=== PATIENT | male | born 1930 | race Caucasian/White ===

== ENCOUNTER → 2017-01-14 | Outpatient (CLI) | payer MEDICARE, OTHER ==
--- NOTE | 2017-01-14 12:11 | MR ---
MR brain with and without contrast HISTORY: Previous abnormal exam, cerebrovascular accident Multiplanar multisequence and postcontrast images through the brain following 14 cc MultiHance IV There is no restricted diffusion. Cortical atrophy is noted. There is a hyperintensity in inversion r ecovery and T2-weighted sequences again noted, medial aspect of the occipital lobes show some probabl e gliotic change, there are scattered and confluent areas of hyperintensity on inversion recovery and T2-weighted sequences. There are approximately 5-10 lesions as compared to previous exam. The corpus callosum, pituitary, cervical medullary junction, cerebellopontine angles are stable. There are norm al vascular flow voids. Inflammatory change present in the sphenoid sinus, bilateral maxillary sinus, ethmoid air cells. Some minimal inflammatory change of the mastoids on the right again noted. No mas s effect. No hydrocephalus or hemorrhage. No abnormal enhancement following contrast administration. Orbits show symmetric. IMPRESSION: Chronic small vessel ischemia, age related atrophy. Some minimal interval change as descr ibed. Sinus disease.
== END | disposition home or self-care (01) ==
LOC: RADMRIMAIN 10:20
PROVIDERS: ATTEND Psychiatry & Neurology Neurology
DX: I67.82 Cerebral ischemia (principal); G31.1 Senile degeneration of brain, not elsewhere classified; J34.9 Unspecified disorder of nose and nasal sinuses
CPT/HCPCS: 70553; A9577

== ENCOUNTER 2017-03-03 11:45 | Emergency (ER) | payer MEDICARE, OTHER ==
[2017-03-03 12:02] VITALS: TEMP 97.3
[2017-03-03] MEDS ORDERED: SODIUM CHLORIDE 0.9% 500 ML IV ONE (12:30)
[2017-03-03] MEDS ORDERED: SODIUM CHLORIDE 0.9% 1,000 ML IV ONE (12:30)
[2017-03-03] MEDS ORDERED: LIDOCAINE/EPINEPHR/TETRACAINE 5 ML BOTTLE TOPICAL ONE ×2 (12:32→13:50)
[2017-03-03] MEDS ORDERED: DIPH,PERTUS(ACELL)TETVAC-LF 0.5 ML VIAL IM ONE (12:33)
[2017-03-03] MEDS ORDERED: LIDOCAINE 1%-EPI 1:100,000 20 ML VIAL SQ STA (12:33)
[2017-03-03] MEDS ORDERED: BUPIVACAINE (PF) 0.5% 30 ML VIAL SQ STA (12:34)
[2017-03-03] MEDS ORDERED: HYDROmorphone 1 MG/ML 1 ML SYRINGE IVP STA ×2 (12:34→15:23)
[2017-03-03 13:20] LABS: Anisocytosis Slight; Basophils # (A) 0.1 k/uL (0-0.2); Basophils % (A) 1 %; CH 30.7; CHCM 33.4; Eosinophils # (A) 0.3 k/uL (0-0.7); Eosinophils % (A) 4 %; HCT 36.5 % (39.0-53.0); HDW 2.75; HGB 11.9 gm/dL (13.0-17.5); Luc # (Auto) 0.28; Luc % (Auto) 4; Lymphocytes # (A) 0.7 k/uL (1.0-4.8); Lymphocytes % (A) 10 %; MCH 30.2 pg (25.0-35.0); MCHC 32.7 g/dL (31.0-37.0); MCV 92.3 fL (80.0-100.0); Mean Platelet Volume 7.8; Monocytes # (A) 0.5 k/uL (0-1.0); Monocytes % (A) 7 %; Neutrophils # (A) 5.1 k/uL (1.3-7.7); Neutrophils % (A) 73 %; RBC 3.95 m/uL (4.30-5.90); RDW 16.6 % (11.5-15.5); WBC (Perox) 7.17
[2017-03-03 13:26] LABS: INR 1.1 (<1.2); Partial Thromboplastin Time 23.6 sec (22.0-30.0); Prothrombin Time 10.7 sec (9.0-12.0)
[2017-03-03 13:27] LABS: ALT 39 U/L (21-72); AST 36 U/L (17-59); Alkaline Phosphatase 113 U/L (38-126); Anion Gap 8 mmol/L; Blood Urea Nitrogen 23 mg/dL (9-20); Carbon Dioxide 23 mmol/L (22-30); Chloride 110 mmol/L (98-107); Glucose 85 mg/dL (74-99); Non-African American GFR(MDRD) >60 (>60 ml/min/1.73 sqM); Potassium 4.4 mmol/L (3.5-5.1); Sodium 141 mmol/L (137-145); Total Protein 6.8 g/dL (6.3-8.2)
--- NOTE | 2017-03-03 13:40 | CT ---
EXAMINATION TYPE: CT brain wo con DATE OF EXAM: 03/03/2017 COMPARISON: NONE INDICATION: Fall DLP: 1020.20 mGycm, Automated exposure control for dose reduction was used. CONTRAST: None CT of the brain is performed utilizing 3 mm thick sections through the posterior fossa and 3 mm thick sections through the remaining calvarium. Study is performed within 24 hours of arrival to the hosp [facility]. No abnormal hyperdensity is present to suggest an acute intracranial hemorrhage. No mass lesion is evident. No acute infarcts are evident. Periventricular white matter hypodensity is present, likely on the bas is of chronic white matter ischemic changes. Ventricles and sulci are prominent for the patient age. Extra-axial spaces are prominent. Paranasal sinuses and mastoid air cells within the [id number] are clear. Soft tissue swelling is over the left periorbital region and left frontal region. IMPRESSIONS: 1. Atrophy with chronic appearing periventricular white matter ischemic type changes. 2. Soft tissue swelling left periorbital and left frontal region
--- NOTE | 2017-03-03 13:44 | XR ---
EXAMINATION TYPE: XR chest 2V DATE OF EXAM: 03/03/2017 COMPARISON: 816 TECHNIQUE: PA and lateral views submitted. HISTORY: Pain FINDINGS: The lungs are clear and there is no pneumothorax, pleural effusion, or focal pneumonia. Arthropathy of the AC joints. Biapical pleural thickening. Hyperinflation noted. Coarsened interstitium be seen with chronic interstitial lung disease. Atherosclerotic change aorta. Surgical change overlying the l eft upper quadrant of the abdomen hypertrophic and degenerative change of the spine IMPRESSION: 1. No acute process.
--- NOTE | 2017-03-03 13:45 | CT ---
EXAMINATION TYPE: CT facial bones wo con DATE OF EXAM: 03/03/2017 COMPARISON: NONE HISTORY: Fall CT DLP: 416.30 mGycm Automated exposure control for dose reduction was used. TECHNIQUE: CT scan of the sinuses is performed without contrast, axial images are obtained, coronal r eformatted images are also reviewed. FINDINGS: There is mucosal thickening through the maxillary sinuses. An air-fluid level is within the left maxillary sinus. Correlate for acute left maxillary sinusitis. An acute fracture is not identif ied on the left. Soft tissue swelling is over the left periorbital region and left frontal region. Within the left fro ntal soft tissues region there is a radiopaque foreign body present. Some superficial skin increased density is also present suspicious for foreign body. Bandaging appears to be over the swelling. Greater wings of the sphenoid are intact. Zygomatic arches are intact. Anterior and posterior lateral harrell of the maxillary sinuses are intact. Maxillary spine appears normal. Nasal bones appear intact . [employer] Player spaces within the [id number] are normal. There is left septal deviation. The right os tiomeatal unit is patent. Left ostiomeatal unit may be obstructed. IMPRESSION: 1. No acute osseous abnormality. 2. Soft tissue swelling left frontal region. Soft tissue swelling is also over the left periorbital a miguel angel. 3. Radiopaque foreign body within the soft tissue injury left frontal region. 4. Clinical correlation recommended for acute left maxillary sinusitis.
[2017-03-03] MEDS ORDERED: TOPICAL SKIN ADHESIVE 1 EACH AMP TOPICAL ONE (14:15)
[2017-03-03 15:13] VITALS: RESP 18
--- NOTE | 2017-03-03 15:42 | ED ---
Fall HPI - General Chief Complaint: Fall Stated Complaint: Fall Time Seen by Provider: 03/03/17 12:05 Source: patient, family Mode of arrival: wheelchair - History of Present Illness Initial Comments: This 86-year-old white male presents with a complaint of a fall. He states that he normally will go on a mile walk every day. Today, he was almost home and fell in the gravel. He states that he was very hot and it was very humid and he just fell to the ground. He denies any syncope or presyncope. He denies any dizziness. He did hit his head and left face. He complains of multiple abrasions and skin tears to his hands and arms. He complains of moderate pain. He does complain of some slight left chest wall pain upon palpation with bruising. No nausea or vomiting. No other complaints or modifying factors. - Related Data Home Medications Medication Instructions Recorded Confirmed Aspirin EC [Ecotrin] 81 mg PO HS 03/22/16 03/03/17 Citalopram Hydrobromide [CeleXA] 10 mg PO HS 03/03/17 03/03/17 Donepezil [Aricept] 10 mg PO HS 03/03/17 03/03/17 Magnesium 200 mg PO HS 03/03/17 03/03/17 Melatonin 10 mg PO HS 03/03/17 03/03/17 Previous Rx's Medication Instructions Recorded Cephalexin [Keflex] 500 mg PO Q6HR #28 cap 03/03/17 Hydrocodone/Acetaminophen [[place] 1 - 2 each PO Q4HR PRN #20 tab 03/03/17 5-325] Allergies Allergy/AdvReac Type Severity Reaction Status Date / Time naproxen sodium [From Aleve] Allergy Rash/Hives Verified 03/03/17 12:38 Review of Systems ROS Statement: Those systems with pertinent positive or pertinent negative responses have been documented in the HPI. ROS Other: All systems not noted in ROS Statement are negative. Past Medical History Past Medical History: Cancer, GERD/Reflux, Hyperlipidemia, Prostate Disorder Additional Past Medical History / Comment(s): kidney stones, urosepsis, turp - self-catheters 1-2 TIMES A DAY. "STOMACH AND SMALL INTESTINE CANCER", "SOME BLOOD DISORDER-CAN'T REMEMEBR WHAT IT WAS CALLED-THEY ENDED UP REMOVING MY SPLEEN". BEGINNINGS OF CATARACTS, HIATAL HERNIA, SHINGLES 2000 History of Any Multi-Drug Resistant Organisms: None Reported Past Surgical History: Bowel Resection, Cholecystectomy, Coronary Bypass/CABG, Hernia Repair, Prostate Surgery Additional Past Surgical History / Comment(s): spleenectomy, TURP, GADIEL INGUINAL HERNIAS,"WHIPPLE PROCEDURE", RT ROTATOR CUFF REPAIR, LITHOTRISY Past Psychological History: No Psychological Hx Reported Smoking Status: Never smoker Past Alcohol Use History: None Reported Past Drug Use History: None Reported - Past Family History Father Family Medical History: Cancer Additional Family Medical History / Comment(s): CANCER OF THE ESOPHAGUS Mother Additional Family Medical History / Comment(s): OF OLD AGE General Exam - General Exam Comments Initial Comments: GENERAL: The patient is well nourished and well hydrated. VITAL SIGNS: Heart rate, blood pressure, respiratory rate reviewed as recorded in nurse's notes. EYES: Pupils are round and reactive. Extraocular movements are intact. No conjunctival / lid redness or swelling. ENT: There is significant swelling in the left periorbital region and the left maxillary. There are multiple lacerations noted to the left face including the left upper lip, the left nose, the left eyebrow and the left cheek. Airway is patent. Throat is clear. NECK: Nontender. No swelling or evidence of injury. No subcutaneous emphysema. Trachea is midline. No thyroid mass. HEART: Regular rate and rhythm. Good peripheral pulses. LUNGS/CHEST: Breath sounds clear and equal bilaterally. No rales, rhonchi, or wheezes. There is a moderate bruise and tenderness noted to the mid left chest. ABDOMEN: Abdomen soft without tenderness. No palpable masses or organomegaly. No peritoneal signs. No abdominal wall swelling or ecchymosis. EXTREMITIES: No extremity tenderness. Normal muscle tone and function. No thoracolumbar tenderness. There are multiple skin tears and abrasions noted bilateral hands and bilateral distal forearm. NEUROLOGIC: Sensation is grossly intact. Cranial nerve exam reveals face is symmetrical, tongue is midline, speech is clear. SKIN: There are multiple skin tears noted to bilateral forearms the bilateral hands. There are also multiple lacerations as noted above to the left face. PSYCHIATRIC: Alert and oriented. Appropriate behavior and judgment. Limitations: no limitations Course Vital Signs 03/03/17 03/03/17 11:56 15:12 Temperature 97.3 F L Pulse Rate 58 L 57 L Respiratory 16 18 Rate Blood Pressure 136/65 187/55 O2 Sat by Pulse 98 98 Oximetry Medical Decision Making - Medical Decision Making The patient was seen and examined. All diagnostics were reviewed. The CT scan of the brain and facial bones did not show any acute fracture. There is some swelling to the left periorbital and facial region. A foreign body is noted in the left eyebrow as well. The laboratories reviewed and is essentially unremarkable. A chest x-ray was done and does not show any fracture or acute processes. The patient receives a tetanus prophylaxis. He receives Dilaudid intravenously for pain with relief. The patient has multiple skin tears noted to the bilateral hands and forearms measuring a total of 16 cm. There are multiple areas of nonviable tissue. This tissue is excised. There are for skin tears that to have viable tissue noted on the right wrist and Dermabond is applied to these wounds. The face has lacerations and abrasions. The patient is a 1 cm laceration to the left nose which is closed with 2 sutures. He has a 1 cm laceration to the left upper lip. This is closed with 3 simple. 6-0 nylon sutures. He has a left eyebrow laceration which is moderately deep and this is closed with a total of 8 simple interrupted 6-0 nylon sutures. He is two additional 1 cm lacerations to the forehead which are each closed with 2 6- 0 nylon simple interrupted sutures. He has 2 1 cm lacerations just lateral to the left eye which are closed with 2 simple interrupted 6-0 nylon simple interrupted sutures for each. He has a 4 cm laceration inferior to his left eye which is closed with a total of 9 simple interrupted 6-0 nylon sutures. He also has a 1 cm left maxillary laceration closed with 2 simple have opted 6-0 nylon sutures. Multiple small pebble-like foreign bodies were removed from his wounds. The largest is from his left eyebrow wound. There are also present in his left hand and wrist region. Total time for closure of all wounds was 70 minutes. No complications were encountered. He tolerated this well with little blood loss. He has some mild bruising to his left intraoral region with some slight tenderness to his dentition but there is no dental avulsion or intraoral lacerations identified. He is feeling better on recheck. It is felt as though he is stable for discharge. Ambulation trial was completed and he is able to ambulate without any significant difficulty. He is counseled regarding falls and fall precautions. He leaves in no severe distress. He has strong family support. His daughter is a nurse and she will be help taking care of him in the next several days. - Lab Data Result diagrams: 03/03/17 13:00 03/03/17 13:00 Lab Results 03/03/17 03/03/17 03/03/17 Range/Units 13:00 13:00 13:00 WBC 7.0 (3.8-10.6) k/uL RBC 3.95 L (4.30-5.90) m/uL Hgb 11.9 L (13.0-17.5) gm/dL Hct 36.5 L (39.0-53.0) % MCV 92.3 (80.0-100.0) fL MCH 30.2 (25.0-35.0) pg MCHC 32.7 (31.0-37.0) g/dL RDW 16.6 H (11.5-15.5) % Plt Count 314 (150-450) k/uL Neutrophils % 73 % Lymphocytes % 10 % Monocytes % 7 % Eosinophils % 4 % Basophils % 1 % Neutrophils # 5.1 (1.3-7.7) k/uL Lymphocytes # 0.7 L (1.0-4.8) k/uL Monocytes # 0.5 (0-1.0) k/uL Eosinophils # 0.3 (0-0.7) k/uL Basophils # 0.1 (0-0.2) k/uL Anisocytosis Slight PT 10.7 (9.0-12.0) sec INR 1.1 (<1.2) APTT 23.6 (22.0-30.0) sec Sodium 141 (137-145) mmol/L Potassium 4.4 (3.5-5.1) mmol/L Chloride 110 H (98-107) mmol/L Carbon Dioxide 23 (22-30) mmol/L Anion Gap 8 mmol/L BUN 23 H (9-20) mg/dL Creatinine 1.00 (0.66-1.25) mg/dL Est GFR (MDRD) Af Amer >60 (>60 ml/min/1.73 sqM) Est GFR (MDRD) Non-Af >60 (>60 ml/min/1.73 sqM) Glucose 85 (74-99) mg/dL Calcium 9.0 (8.4-10.2) mg/dL Total Bilirubin 1.0 (0.2-1.3) mg/dL AST 36 (17-59) U/L ALT 39 (21-72) U/L Alkaline Phosphatase 113 (38-126) U/L Total Protein 6.8 (6.3-8.2) g/dL Albumin 3.6 (3.5-5.0) g/dL Disposition Clinical Impression: Head injury, Facial contusion, Abrasion, Laceration, Skin tear, Fall Disposition: HOME SELF-CARE Condition: Good Instructions: Fall Prevention for Older Adults (ED), Abrasion (ED), Laceration (ED), Fall Prevention (ED), Head Injury (ED), Facial Contusion (ED), Chest Wall Pain (ED) Additional Instructions: You should have ear sutures removed in approximately 8 days. Prescriptions: Cephalexin [Keflex] 500 mg PO Q6HR #28 cap Hydrocodone/Acetaminophen [[place] 5-325] 1 - 2 each PO Q4HR PRN #20 tab PRN Reason: Pain Referrals: Mame Thorne MD [Primary Care Provider] - 1-2 days Time of Disposition: 15:54
[2017-03-03 16:17] VITALS: BP 159/67; PULSE 50
--- NOTE | 2017-03-09 04:33 | CDI ---
Documentation Clarification OP Dear Xander CUNNINGHAM, DO, Please add addendum for laceration length of bilateral hands and forearm separetely.Total length 16 cm mentioned but procedure have two different cpt's to code the intermediate type of procedure. Thank you, lainey. Physician Pediatrician. If you have any questions please contact Coding Usha [phone]. [facility]
== END 2017-03-03 16:16 | disposition home or self-care (01) ==
LOC: EC 11:45
DX: S01.521A Laceration with foreign body of lip, initial encounter (principal); S01.22XA Laceration with foreign body of nose, initial encounter; S01.122A Laceration with foreign body of left eyelid and periocular area, initial encounter; S01.422A Laceration with foreign body of left cheek and temporomandibular area, initial encounter; S51.822A Laceration with foreign body of left forearm, initial encounter; S51.821A Laceration with foreign body of right forearm, initial encounter; S61.422A Laceration with foreign body of left hand, initial encounter; S61.421A Laceration with foreign body of right hand, initial encounter; Z23 Encounter for immunization; Z88.6 Allergy status to analgesic agent; Z79.82 Long term (current) use of aspirin; Z85.068 Personal history of other malignant neoplasm of small intestine; Z79.899 Other long term (current) drug therapy; W10.1XXA Fall (on)(from) sidewalk curb, initial encounter; Y92.488 Other paved roadways as the place of occurrence of the external cause
CPT/HCPCS: 99284 ×2; 12034 ×2; 12042 ×2; 12054 ×2; 90471 ×2; 96374 ×2; 96376 ×2; 96361 ×4; 36415; 80053; 85025; 85610; 85730; 71020; 70486; 70450; 90715; J1170

== ENCOUNTER 2018-02-04 12:56 | Observation (INO) | payer MEDICARE, OTHER ==
[2018-02-04 14:28] LABS: Basophils # (A) 0.1 k/uL (0-0.2); Basophils % (A) 1 %; Eosinophils # (A) 0.3 k/uL (0-0.7); Eosinophils % (A) 3 %; HCT 42.4 % (39.0-53.0); HGB 14.2 gm/dL (13.0-17.5); Lymphocytes % (A) 12 %; MCH 32.6 pg (25.0-35.0); MCHC 33.6 g/dL (31.0-37.0); MCV 96.9 fL (80.0-100.0); Mean Platelet Volume 7.9; Monocytes # (A) 0.6 k/uL (0-1.0); Monocytes % (A) 8 %; Neutrophils # (A) 5.7 k/uL (1.3-7.7); Neutrophils % (A) 72 %; Platelet Count 227 k/uL (150-450); RBC 4.37 m/uL (4.30-5.90); RDW 14.9 % (11.5-15.5); WBC 7.9 k/uL (3.8-10.6)
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
[2018-02-04 14:47] LABS: ALT 34 U/L (21-72); AST 39 U/L (17-59); Albumin 3.8 g/dL (3.5-5.0); Alkaline Phosphatase 121 U/L (38-126); Anion Gap 9 mmol/L; Blood Urea Nitrogen 29 mg/dL (9-20); Calcium 9.1 mg/dL (8.4-10.2); Carbon Dioxide 23 mmol/L (22-30); Chloride 109 mmol/L (98-107); Glucose 107 mg/dL (74-99); Potassium 4.4 mmol/L (3.5-5.1); Sodium 141 mmol/L (137-145); Total Bilirubin 1.2 mg/dL (0.2-1.3); Total Protein 7.3 g/dL (6.3-8.2)
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
[2018-02-04] MEDS ORDERED: hydrALAZINE HCL 20 MG/ML 1 ML VIAL IVP STA (17:19)
[2018-02-04] MEDS ORDERED: NALOXONE 0.4 MG/ML 1 ML VIAL IV PRN (17:24)
[2018-02-04] MEDS ORDERED: ONDANSETRON 4 MG/2 ML VIAL IVP PRN (17:24)
[2018-02-04] MEDS ORDERED: ALPRAZolam 0.25 MG TAB PO PRN (18:03)
[2018-02-04] MEDS ORDERED: HYDROcodone/APAP 5-325MG 1 EACH TAB PO PRN (18:03)
[2018-02-04] MEDS: HEPARIN SODIUM,PORCINE 5,000 UNIT/ML 1 ML VIAL SQ SCH (20:22)
[2018-02-04] MEDS ORDERED: DONEPEZIL 10 MG TAB PO SCH (21:00)
[2018-02-04] MEDS ORDERED: MELATONIN 5 MG TABLET PO SCH (21:00)
[2018-02-04] MEDS ORDERED: CITALOPRAM HYDROBROMIDE 10 MG TAB PO SCH (21:00)
[2018-02-04] MEDS ORDERED: ASPIRIN 81 MG PO SCH (21:00)
[2018-02-04] MEDS ORDERED: diphenhydrAMINE 25 MG CAP PO PRN (21:00)
[2018-02-04] MEDS ORDERED: MECLIZINE 12.5 MG TAB PO PRN (22:16)
[2018-02-05] MEDS: ACETAMINOPHEN TAB 500 MG TAB PO PRN ×2 (04:19→10:33)
[2018-02-05 07:08] LABS: Anion Gap 8 mmol/L; Blood Urea Nitrogen 25 mg/dL (9-20); Calcium 8.8 mg/dL (8.4-10.2); Carbon Dioxide 25 mmol/L (22-30); Chloride 108 mmol/L (98-107); Glucose 88 mg/dL (74-99); Potassium 4.5 mmol/L (3.5-5.1); Sodium 141 mmol/L (137-145)
[2018-02-05 07:23] LABS: Basophils # (A) 0.1 k/uL (0-0.2); Basophils % (A) 1 %; Eosinophils # (A) 0.4 k/uL (0-0.7); Eosinophils % (A) 6 %; HCT 38.3 % (39.0-53.0); HGB 13.2 gm/dL (13.0-17.5); Lymphocytes # (A) 0.9 k/uL (1.0-4.8); Lymphocytes % (A) 13 %; MCH 33.4 pg (25.0-35.0); MCHC 34.4 g/dL (31.0-37.0); MCV 97.1 fL (80.0-100.0); Mean Platelet Volume 8.2; Monocytes # (A) 0.5 k/uL (0-1.0); Monocytes % (A) 8 %; Neutrophils # (A) 4.7 k/uL (1.3-7.7); Neutrophils % (A) 68 %; Platelet Count 234 k/uL (150-450); RBC 3.95 m/uL (4.30-5.90); RDW 15.1 % (11.5-15.5); WBC 6.9 k/uL (3.8-10.6)
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
[2018-02-05] MEDS: HEPARIN SODIUM,PORCINE 5,000 UNIT/ML 1 ML VIAL SQ SCH (08:38)
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
[2018-02-05 12:05] VITALS: BP 154/85; PULSE 50; RESP 16; TEMP 97.6
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
--- NOTE | 2018-02-06 00:40 | DS ---
DISCHARGE SUMMARY DATE OF SERVICE: 02/05/2018 FINAL DIAGNOSIS: 1. Fall and weakness and possible cerebral concussion. 2. Scalp laceration. 3. Gastroesophageal reflux disease. 4. Hyperlipidemia. 5. Prostate disorder. 7. History of coronary artery disease, coronary artery bypass grafting. 8. History of splenectomy. 9. History of transurethral resection of the prostate. DISCHARGE DISPOSITION: The patient will be discharged in stable condition with guarded prognosis. HISTORY OF PRESENT ILLNESS: This 87-year-old gentleman with past medical history of multiple medical problems, admitted with fall and weakness and dizziness. The patient was thought to have some concussion. The patient is nonfocal. CT scan was unremarkable. Dr. Roe saw the patient and cleared the patient for discharge. PHYSICAL EXAMINATION: On exam, vitals are stable. Cardiovascular: S1, S2. Abdomen soft. Nervous system: No focal deficits. DISCHARGE ADVICE AND MEDICATIONS: 1. Discharge diet is cardiac diet. 2. Activity limited until followup. 3. Follow up with Dr. Thorne in 2-3 days. 4. Follow up with Dr. Kylah Roe as advised. MEDICATIONS ARE: 1. Tylenol 500 mg q.6h p.r.n. 2. Ecotrin 81 mg q.h.s. 3. Celexa 10 mg q.h.s. 4. Benadryl 50 mg p.r.n. 5. Aricept 10 mg q.h.s. 6. Antivert 12.5 mg t.i.d. p.r.n. 7. Melatonin 10 mg q.h.s. 8. Multivitamin one p.o. daily. Once again, the patient is being discharged in stable condition with guarded prognosis. MMODL / IJN: [id number] / MTDD
== END 2018-02-05 14:00 | disposition home or self-care (01) ==
LOC: EC 12:56 → 3OBS 17:31
PROVIDERS: ADMIT Hospitalist; ATTEND Hospitalist
DX: R53.1 Weakness (principal); R42 Dizziness and giddiness; S01.01XA Laceration without foreign body of scalp, initial encounter; R00.1 Bradycardia, unspecified; M54.2 Cervicalgia; H53.8 Other visual disturbances; R26.81 Unsteadiness on feet; R51 Headache; R03.0 Elevated blood-pressure reading, without diagnosis of hypertension; K21.9 Gastro-esophageal reflux disease without esophagitis; I25.10 Atherosclerotic heart disease of native coronary artery without angina pectoris; N42.9 Disorder of prostate, unspecified; E78.5 Hyperlipidemia, unspecified; Z79.82 Long term (current) use of aspirin; Z79.899 Other long term (current) drug therapy; Z88.6 Allergy status to analgesic agent; V18.0XXA Pedal cycle driver injured in noncollision transport accident in nontraffic accident, initial encounter; Z90.81 Acquired absence of spleen; Z95.1 Presence of aortocoronary bypass graft; Z85.068 Personal history of other malignant neoplasm of small intestine; Z87.442 Personal history of urinary calculi; Z86.19 Personal history of other infectious and parasitic diseases; Z85.028 Personal history of other malignant neoplasm of stomach; Z80.0 Family history of malignant neoplasm of digestive organs; Z82.49 Family history of ischemic heart disease and other diseases of the circulatory system
CPT/HCPCS: 99285 ×2; 36415; 93005; 80053; 80048; 84484; 85025 ×2; 72125; 70450; G0378 ×2

== ENCOUNTER 2019-05-24 18:35 | Observation (INO) | payer MEDICARE, OTHER ==
--- NOTE | 2019-05-24 19:08 | ED ---
Fall HPI - General Chief Complaint: Fall Stated Complaint: FALL, SYNCOPAL EPISODE Time Seen by Provider: 05/24/19 18:40 Source: EMS Mode of arrival: EMS - History of Present Illness Initial Comments: The patient's 88-year-old male who presents emergency Department after he sustai colby a fall. He was outside working his lawnmower. He did have multiple items scattered on the ground. Patient is unsure how he fell. He reportedly tripped over something and hit his head. He denies having a syncopal episode. He states he was conscious throughout the whole event. He sustained a laceration to his right for head. He also had significant pain in his right shoulder. His did hear him yelling outside. She called EMS who brought him to return for further evaluation. Bleeding was controlled. He denies being on any blood thinners. He denies any neck pain. He did arrive in a c-collar. Denies any chest pain or shortness of breath. Denies any pain in his lower extremities. No abdominal pain. Denies any headaches or visual changes. No confusion or slurred speech from the patient. No unilateral numbness or weakness. There are no alleviating, precipitating or modifying factors - Related Data Home Medications Medication Instructions Recorded Confirmed Aspirin EC [Ecotrin Low Dose] 81 mg PO HS 03/22/16 05/24/19 Donepezil [Aricept] 10 mg PO HS 03/03/17 05/24/19 Melatonin 10 mg PO HS 03/03/17 05/24/19 diphenhydrAMINE HCL [Benadryl] 50 mg PO HS 02/04/18 05/24/19 Citalopram Hydrobromide [CeleXA] 20 mg PO HS 05/24/19 05/24/19 Ibuprofen [Motrin Ib] 400 mg PO HS 05/24/19 05/24/19 Multivitamins, Thera [Multivitamin 1 tab PO HS 05/24/19 05/24/19 (formulary)] Rosuvastatin Calcium [Crestor] 20 mg PO HS 05/24/19 05/24/19 Previous Rx's Medication Instructions Recorded HYDROcodone/APAP 5-325MG [[place] 1 each PO Q4H PRN #40 tab 05/25/19 5-325] Allergies Allergy/AdvReac Type Severity Reaction Status Date / Time naproxen sodium [From Aleve] Allergy Rash/Hives Verified 05/24/19 20:00 Review of Systems ROS Statement: Those systems with pertinent positive or pertinent negative responses have been documented in the HPI. ROS Other: All systems not noted in ROS Statement are negative. Past Medical History Past Medical History: Cancer, GERD/Reflux, Hyperlipidemia, Prostate Disorder Additional Past Medical History / Comment(s): kidney stones, urosepsis, turp - history of self-cathing 1-2 TIMES A DAY. "STOMACH AND SMALL INTESTINE CANCER", "SOME BLOOD DISORDER-CAN'T REMEMEBR WHAT IT WAS CALLED-THEY ENDED UP REMOVING MY SPLEEN". BEGINNINGS OF CATARACTS, HIATAL HERNIA, SHINGLES 2000 History of Any Multi-Drug Resistant Organisms: None Reported Past Surgical History: Bowel Resection, Cholecystectomy, Coronary Bypass/CABG, Hernia Repair, Prostate Surgery Additional Past Surgical History / Comment(s): spleenectomy, TURP, GADIEL INGUINAL HERNIAS,"WHIPPLE PROCEDURE", RT ROTATOR CUFF REPAIR, LITHOTRISY Past Anesthesia/Blood Transfusion Reactions: No Reported Reaction Past Psychological History: No Psychological Hx Reported Smoking Status: Never smoker Past Alcohol Use History: None Reported Past Drug Use History: None Reported - Past Family History Father Family Medical History: Cancer Additional Family Medical History / Comment(s): CANCER OF THE ESOPHAGUS Mother Additional Family Medical History / Comment(s): OF OLD AGE Brother(s) Family Medical History: Cancer Additional Family Medical History / Comment(s): esophagus cancer, pancreatic cancer Sister(s) Family Medical History: Cancer Additional Family Medical History / Comment(s): pancreatic cancer Daughter(s) Additional Family Medical History / Comment(s): intestinal issues with resection Son(s) Family Medical History: No Reported History General Exam Limitations: physical limitation General appearance: alert, in no apparent distress Head exam: Present: other (large, deep laceration right scalp. Minimal oozing. No underlying bony fracture or retained foreign body) Eye exam: Present: PERRL, EOMI, other (pytergirium right eye with subconjunctival hemorrhage. No hyphema. No signs of hyphema ) ENT exam: Present: normal exam, normal oropharynx Neck exam: Present: normal inspection, full ROM. Absent: tenderness Respiratory exam: Present: normal lung sounds bilaterally. Absent: respiratory distress, wheezes, rales, rhonchi Cardiovascular Exam: Present: normal rhythm, bradycardia GI/Abdominal exam: Present: soft. Absent: distended, tenderness, guarding, rebound, rigid Extremities exam: Present: tenderness (with palpable deformity right proximal humerus. 2+ radial and ulnar pulses. Intact movement in median, radial, ulnar and AIN myotomes. ) Back exam: Present: normal inspection. Absent: tenderness Neurological exam: Present: alert, oriented X3 Psychiatric exam: Present: normal affect, normal mood Skin exam: Present: warm, dry Course Vital Signs 05/24/19 05/24/19 05/24/19 18:38 19:52 22:53 Temperature 98.0 F 98.0 F Pulse Rate 50 L 76 76 Respiratory 16 16 16 Rate Blood Pressure 200/87 176/74 183/60 O2 Sat by Pulse 97 99 99 Oximetry 05/25/19 00:30 Temperature Pulse Rate 57 L Respiratory 18 Rate Blood Pressure 170/69 O2 Sat by Pulse 96 Oximetry Procedures - Laceration Laceration #1 Consent Obtained: verbal consent Indication: laceration Site: face Description: linear Depth: simple, single layer Anesthetic Used: lidocaine 1%, without epi Anesthesia Technique: local infiltration Amount (mls): 6 (cc) Pre-repair: wound explored, irrigated extensively, deep structures intact Type of Sutures: nylon, vicryl Size of Sutures: 6-0 Number of Sutures: 10 (sutures total (8 nylon, 2 vicryl)) Technique: simple, interrupted Patient Tolerated Procedure: well, no complications Medical Decision Making - Medical Decision Making Upon arrival the patient is placed into room 11. A thorough history and physical exam was performed. I did recommend a CT of the patient's brain and cervical spine. I also recommended x-rays of the patient's chest, right shoulder and right humerus. Lab studies demonstrate a blood cell count 11.9. Coags are normal. CMP shows a BUN of 29. Glucose 131. Chest x-ray demonstrates no active cardio pulmonary disease right humeral x-ray to menstrual is comminuted displaced humeral neck fracture with impaction face CT demonstrates no fracture. Right frontal scalp soft tissue swelling. I discussed these results with the patient. I did recommend suturing the patient's scalp for which she did agree. Laceration was approximated with 2 subcutaneous 5-0 Vicryl sutures. The skin surface was then approximated with 8, 6-0 nylon sutures. The patient did have a lack underneath his right eye which was approximated using Dermabond. The patient was placed in a sling. He was given 4 mg of morphine initially for pain control. This did not help and the patient was given another dose of 4 mg. Patient continuously reported uncontrolled pain. He was given 100 mcgs of fentanyl. I reevaluated the patient once more and he continued to have right shoulder pain. As his pain is intractable I did offer hospital admission. I called and discussed the case with Dr. Montemayor who accepted admission for the patient. Pain medications were ordered by him. The patient remained in stable condition was transported to the floor - Lab Data Result diagrams: 05/24/19 19:00 05/24/19 19:00 Lab Results 05/24/19 05/24/19 05/24/19 Range/Units 19:00 19:00 19:00 WBC 11.9 H (3.8-10.6) k/uL RBC 3.89 L (4.30-5.90) m/uL Hgb 13.0 (13.0-17.5) gm/dL Hct 39.5 (39.0-53.0) % MCV 101.4 H (80.0-100.0) fL MCH 33.5 (25.0-35.0) pg MCHC 33.0 (31.0-37.0) g/dL RDW 14.9 (11.5-15.5) % Plt Count 215 (150-450) k/uL Neutrophils % 76 % Lymphocytes % 9 % Monocytes % 5 % Eosinophils % 5 % Basophils % 1 % Neutrophils # 9.0 H (1.3-7.7) k/uL Lymphocytes # 1.1 (1.0-4.8) k/uL Monocytes # 0.6 (0-1.0) k/uL Eosinophils # 0.6 (0-0.7) k/uL Basophils # 0.1 (0-0.2) k/uL Macrocytosis Slight PT 10.6 (9.0-12.0) sec INR 1.0 (<1.2) APTT 24.8 (22.0-30.0) sec Sodium 142 (137-145) mmol/L Potassium 4.5 (3.5-5.1) mmol/L Chloride 110 H (98-107) mmol/L Carbon Dioxide 23 (22-30) mmol/L Anion Gap 9 mmol/L BUN 29 H (9-20) mg/dL Creatinine 1.08 (0.66-1.25) mg/dL Est GFR (CKD-EPI)AfAm 71 (>60 ml/min/1.73 sqM) Est GFR (CKD-EPI)NonAf 62 (>60 ml/min/1.73 sqM) Glucose 131 H (74-99) mg/dL Calcium 9.1 (8.4-10.2) mg/dL Total Bilirubin 1.3 (0.2-1.3) mg/dL AST 42 (17-59) U/L ALT 30 (21-72) U/L Alkaline Phosphatase 163 H (38-126) U/L Total Protein 7.4 (6.3-8.2) g/dL Albumin 3.6 (3.5-5.0) g/dL Disposition Clinical Impression: Fall, Blunt head trauma, Scalp laceration Disposition: ADMITTED IP TO THIS [facility] Condition: Stable Is patient prescribed a controlled substance at d/c from ED?: No Decision to Admit Reason: Admit from EC Decision Date: 05/24/19 Decision Time: 22:59
[2019-05-24] MEDS ORDERED: MORPHINE SULFATE 4 MG/ML SYRINGE IVP STA ×2 (19:11→19:44)
[2019-05-24] MEDS ORDERED: ONDANSETRON 4 MG/2 ML VIAL IVP STA (19:11)
[2019-05-24] MEDS ORDERED: FLUORESCEIN STRIPS 1 MG STRIP RIGHT EYE ONE (19:12)
[2019-05-24] MEDS ORDERED: PROPARACAINE 0.5% OPHTH DROPS 15 ML BTL LEFT EYE STA (19:12)
[2019-05-24 19:22] LABS: Basophils # (A) 0.1 k/uL (0-0.2); Basophils % (A) 1 %; Eosinophils # (A) 0.6 k/uL (0-0.7); Eosinophils % (A) 5 %; HCT 39.5 % (39.0-53.0); Lymphocytes # (A) 1.1 k/uL (1.0-4.8); Lymphocytes % (A) 9 %; MCH 33.5 pg (25.0-35.0); MCV 101.4 fL (80.0-100.0); Macrocytosis Slight; Mean Platelet Volume 7.9; Monocytes # (A) 0.6 k/uL (0-1.0); Monocytes % (A) 5 %; Neutrophils % (A) 76 %; Platelet Count 215 k/uL (150-450); RBC 3.89 m/uL (4.30-5.90); RDW 14.9 % (11.5-15.5); WBC 11.9 k/uL (3.8-10.6)
[2019-05-24 19:31] LABS: Partial Thromboplastin Time 24.8 sec (22.0-30.0); Prothrombin Time 10.6 sec (9.0-12.0)
[2019-05-24 19:41] LABS: Albumin 3.6 g/dL (3.5-5.0); Calcium 9.1 mg/dL (8.4-10.2); Potassium 4.5 mmol/L (3.5-5.1); Total Bilirubin 1.3 mg/dL (0.2-1.3); Total Protein 7.4 g/dL (6.3-8.2)
[2019-05-24] MEDS ORDERED: fentaNYL (PF) 50 MCG/ML 2 ML AMP IVP STA (20:30)
--- NOTE | 2019-05-24 20:32 | CT ---
EXAMINATION TYPE: CT brain gerry wo con DATE OF EXAM: 05/24/2019 COMPARISON: 02/04/2018 HISTORY: Facial lacerations after fall injury CT DLP: 1036.6 mGycm Automated exposure control for dose reduction was used. TECHNIQUE: CT scan of the head and cervical spine are performed without contrast. FINDINGS: There is cerebral cortical atrophy. There is no mass effect nor midline shift. There is n o sign of intracranial hemorrhage. The calvarium is intact. Cervical vertebra have fairly normal alignment. There is large hypertrophic anterior bridging osteoph yte formation in the mid and lower cervical spine. There is multilevel hypertrophic cervical facet ar thropathy. The skull base is intact. There is no evidence of a fracture. IMPRESSION: Cerebral atrophy. No acute intracranial abnormality. No change. Multilevel cervical spondylosis with moderate osteophyte formation. No fracture seen. No change.
--- NOTE | 2019-05-24 20:35 | CT ---
EXAMINATION TYPE: CT facial bones wo con DATE OF EXAM: 05/24/2019 COMPARISON: 03/03/2017 HISTORY: Facial lacerations after fall injury CT DLP: 1036.6 mGycm Automated exposure control for dose reduction was used. TECHNIQUE: CT scan of the sinuses is performed without contrast, axial images are obtained, coronal r eformatted images are also reviewed. FINDINGS: The mandibular ring is intact. Temporomandibular joints appear intact. Zygomatic arches francy ear normal. Nasal bone appears intact. Orbital margins are intact. There is minimal mucosal thickenin g in the maxillary sinuses. Maxilla is intact. There is right frontal scalp soft tissue swelling. Rig ht frontal bone appears intact. There is no evidence of a blowout fracture. There is no evidence of o rbital mass. IMPRESSION: No fracture. Right frontal scalp soft tissue swelling. Mild maxillary sinusitis not signi ficantly different.
--- NOTE | 2019-05-24 21:48 | XR ---
EXAMINATION TYPE: XR shoulder complete RT DATE OF EXAM: 05/24/2019 COMPARISON: NONE HISTORY: Fall. Pain. TECHNIQUE: 3 views FINDINGS: There is comminuted nondisplaced fracture of the right humeral head. There is no dislocatio n. Scapula appears intact. IMPRESSION: Comminuted humeral neck and head fracture.
--- NOTE | 2019-05-24 21:49 | XR ---
EXAMINATION TYPE: XR humerus RT DATE OF EXAM: 05/24/2019 COMPARISON: NONE HISTORY: Fall. Pain. TECHNIQUE: 4 views FINDINGS: There is displaced comminuted humeral neck fracture. There is no dislocation at the shoulde r joint. There is some impaction. Displacement and impaction is up to 1.5 cm. There is spurring on th e olecranon process of the ulna. I see no fracture at the elbow joint. IMPRESSION: Comminuted displaced humeral neck fracture with impaction.
--- NOTE | 2019-05-24 21:50 | XR ---
EXAMINATION TYPE: XR chest 2V DATE OF EXAM: 05/24/2019 COMPARISON: 03/03/2017 HISTORY: Shoulder pain TECHNIQUE: Frontal and lateral views of the chest are obtained. FINDINGS: Heart and mediastinum are within normal limits for age. There is no heart failure. There a re sternal wires. Costophrenic angles are clear. The ribs appear intact. There is no pneumothorax. IMPRESSION: No active cardiopulmonary disease. Heart and lungs unchanged. Right humeral neck fractur e noted.
[2019-05-24] MEDS ORDERED: HYDROmorphone 0.5 MG/0.5 ML SYRINGE IVP PRN (22:39)
[2019-05-24] MEDS ORDERED: ONDANSETRON 4 MG/2 ML VIAL IVP PRN (22:46)
[2019-05-24] MEDS ORDERED: HYDROcodone/APAP 5-325MG 1 EACH TAB PO PRN (22:47)
[2019-05-24] MEDS ORDERED: NALOXONE 0.4 MG/ML 1 ML VIAL IV PRN (22:59)
[2019-05-24] MEDS ORDERED: ATORVASTATIN 40 MG TAB PO SCH (23:15)
[2019-05-24] MEDS ORDERED: TOPICAL SKIN ADHESIVE 1 EACH AMP TOPICAL ONE (23:16)
[2019-05-25] MEDS ORDERED: TOPICAL SKIN ADHESIVE 1 EACH AMP TOPICAL ONE (00:24)
[2019-05-25 07:22] VITALS: PULSE 59; RESP 16
--- NOTE | 2019-05-25 09:26 | P.HPOR ---
<Frances Chi - Last Filed: 05/25/19 09:10> History of Present Illness H&P Date: 05/25/19 Chief Complaint: right shoulder pain The patient has an 88-year-old male who presented to the emergency department at [facility] after sustaining a fall at home. He is a history of dementia, stomach and small intestine cancer, GERD, hyperlipidemia, and prostate disease. He states he was working on a lawnmower outside and tripped over something. He did hit his head but did not loose consciousness. Upon evaluation in the ER, he was found to have a facial laceration and pain in the right shoulder. X-rays revealed a comminuted proximal humerus fracture on the right. Skin tears were noted to the right arm. No other injuries were found. Head and neck CT were negative for fractures or bleed. He was admitted for further pain control and evaluation by orthopedic surgery. Today, the patient states that his pain is controlled but does have pain on motion of the right arm as expected. He is having a hard time eating his breakfast he says he is right-handed. 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 Review of Systems Constitutional: Denies chills, Denies fatigue, Denies fever Cardiovascular: Denies chest pain, Denies shortness of breath Respiratory: Denies cough Gastrointestinal: Denies abdominal pain, Denies diarrhea, Denies nausea, Denies vomiting Musculoskeletal: right: shoulder pain, shoulder stiffness, shoulder swelling Neurological: Reports head injury Past Medical History Past Medical History: Cancer, GERD/Reflux, Hyperlipidemia, Prostate Disorder Additional Past Medical History / Comment(s): kidney stones, urosepsis, turp - history of self-cathing 1-2 TIMES A DAY. "STOMACH AND SMALL INTESTINE CANCER", "SOME BLOOD DISORDER-CAN'T REMEMEBR WHAT IT WAS CALLED-THEY ENDED UP REMOVING MY SPLEEN". BEGINNINGS OF CATARACTS, HIATAL HERNIA, SHINGLES 2000 History of Any Multi-Drug Resistant Organisms: None Reported Past Surgical History: Bowel Resection, Cholecystectomy, Coronary Bypass/CABG, Hernia Repair, Prostate Surgery Additional Past Surgical History / Comment(s): spleenectomy, TURP, GADIEL INGUINAL HERNIAS,"WHIPPLE PROCEDURE", RT ROTATOR CUFF REPAIR, LITHOTRISY Past Anesthesia/Blood Transfusion Reactions: No Reported Reaction Past Psychological History: No Psychological Hx Reported Smoking Status: Never smoker Past Alcohol Use History: None Reported Past Drug Use History: None Reported - Past Family History Father Family Medical History: Cancer Additional Family Medical History / Comment(s): CANCER OF THE ESOPHAGUS Mother Additional Family Medical History / Comment(s): OF OLD AGE Brother(s) Family Medical History: Cancer Additional Family Medical History / Comment(s): esophagus cancer, pancreatic cancer Sister(s) Family Medical History: Cancer Additional Family Medical History / Comment(s): pancreatic cancer Daughter(s) Additional Family Medical History / Comment(s): intestinal issues with resection Son(s) Family Medical History: No Reported History Medications and Allergies Home Medications Medication Instructions Recorded Confirmed Type Aspirin EC [Ecotrin Low Dose] 81 mg PO HS 03/22/16 05/24/19 History Donepezil [Aricept] 10 mg PO HS 03/03/17 05/24/19 History Melatonin 10 mg PO HS 03/03/17 05/24/19 History diphenhydrAMINE HCL [Benadryl] 50 mg PO HS 02/04/18 05/24/19 History Citalopram Hydrobromide [CeleXA] 20 mg PO HS 05/24/19 05/24/19 History Ibuprofen [Motrin Ib] 400 mg PO HS 05/24/19 05/24/19 History Multivitamins, Thera [Multivitamin 1 tab PO HS 05/24/19 05/24/19 History (formulary)] Rosuvastatin Calcium [Crestor] 20 mg PO HS 05/24/19 05/24/19 History HYDROcodone/APAP 5-325MG [[place] 1 each PO Q4H PRN #40 tab 05/25/19 Rx 5-325] Allergies Allergy/AdvReac Type Severity Reaction Status Date / Time naproxen sodium [From Aleve] Allergy Rash/Hives Verified 05/24/19 20:00 Physical Examination The patient is a very pleasant 88-year-old male who is in no acute distress. He is alert and oriented 3. Patient's head/neck exam reveals a well approximated laceration to the right side of his forehead with sutures present. There is ecchymosis to the orbital area with Dermabond glue below thigh. There is redness to the sclera. No visual changes noted. No pain upon palpation to the cervical spine, no step-offs noted. Exam of the left upper extremity reveals no obvious deformity or pain upon range of motion. Exam of the right upper extremity reveals dressings to the elbow in forearm that are clean dry and intact. There is swelling and pain to the right shoulder. Range of motion was not tested at this time. No pain to range of motion of the elbow, wrist, and hand. There is swelling to the hand. Good range of motion of the fingers. Neurological and circulatory status is intact. No obvious deformity or pain upon range of motion of the bilateral lower extremities. Results - Labs Labs: Abnormal Lab Results - Last 24 Hours (Table) 05/24/19 05/24/19 Range/Units 19:00 19:00 WBC 11.9 H (3.8-10.6) k/uL RBC 3.89 L (4.30-5.90) m/uL MCV 101.4 H (80.0-100.0) fL Neutrophils # 9.0 H (1.3-7.7) k/uL Chloride 110 H (98-107) mmol/L BUN 29 H (9-20) mg/dL Glucose 131 H (74-99) mg/dL Alkaline Phosphatase 163 H (38-126) U/L H & H 05/24/19 Range/Units 19:00 Hgb 13.0 (13.0-17.5) gm/dL Hct 39.5 (39.0-53.0) % Coagulation 05/24/19 Range/Units 19:00 INR 1.0 (<1.2) Result Diagrams: 05/24/19 19:00 05/24/19 19:00 - Diagnostic results Shoulder x-ray: image reviewed (4 part comminuted proximal humerus fracture. Fracture alignment is satisfactory.) Assessment and Plan (1) Closed fracture of proximal end of right humerus Current Visit: Yes Status: Acute Code(s): S42.201A - UNSP FRACTURE OF UPPER END OF RIGHT HUMERUS, INIT SNOMED Code(s): 70105633 (2) Blunt head trauma Current Visit: Yes Status: Acute Code(s): S09.8XXA - OTHER SPECIFIED INJURIES OF HEAD, INITIAL ENCOUNTER SNOMED Code(s): 10727214 (3) Fall Current Visit: Yes Status: Acute Code(s): W19.XXXA - UNSPECIFIED FALL, INITIAL ENCOUNTER SNOMED Code(s): 5412108 (4) Scalp laceration Current Visit: Yes Status: Acute Code(s): S01.01XA - LACERATION WITHOUT FOREIGN BODY OF SCALP, INITIAL ENCOUNTER SNOMED Code(s): 546909334 (5) Hyperlipidemia Current Visit: Yes Status: Acute Code(s): E78.5 - HYPERLIPIDEMIA, UNSPECIFIED SNOMED Code(s): 76853775 (6) Dementia Current Visit: Yes Status: Acute Code(s): F03.90 - UNSPECIFIED DEMENTIA WITHOUT BEHAVIORAL DISTURBANCE SNOMED Code(s): 67880844 (7) Benign prostatic disease Current Visit: Yes Status: Acute Code(s): N42.9 - DISORDER OF PROSTATE, UNSPECIFIED SNOMED Code(s): 92396319 (8) GERD (gastroesophageal reflux disease) Current Visit: Yes Status: Acute Code(s): K21.9 - GASTRO-ESOPHAGEAL REFLUX DISEASE WITHOUT ESOPHAGITIS SNOMED Code(s): 978419434 Plan: The clinical and x-ray findings were discussed with the patient. The case was also discussed with Dr. Montemayor. The fracture is in satisfactory position and no surgical intervention is planned at this time. Continue sling to the right upper extremity. Physical and occupational therapy has been ordered for evaluation. Continue pain control. Depending on patient's course, the patient may be discharged home or to skilled rehab pending therapy evaluation. We will continue to follow patient closely and make further recommendations as needed. <Jordan Montemayor - Last Filed: 05/25/19 16:30> Results - Labs Labs: Abnormal Lab Results - Last 24 Hours (Table) 05/24/19 05/24/19 Range/Units 19:00 19:00 WBC 11.9 H (3.8-10.6) k/uL RBC 3.89 L (4.30-5.90) m/uL MCV 101.4 H (80.0-100.0) fL Neutrophils # 9.0 H (1.3-7.7) k/uL Chloride 110 H (98-107) mmol/L BUN 29 H (9-20) mg/dL Glucose 131 H (74-99) mg/dL Alkaline Phosphatase 163 H (38-126) U/L H & H 05/24/19 Range/Units 19:00 Hgb 13.0 (13.0-17.5) gm/dL Hct 39.5 (39.0-53.0) % Coagulation 05/24/19 Range/Units 19:00 INR 1.0 (<1.2) Result Diagrams: 05/24/19 19:00 05/24/19 19:00 Assessment and Plan Plan: Discussed with MARYAM Chi and agree with above. Patient was subsequently seen and examined by myself as well. S: The patient is unsure exactly how he fell. His son (at bedside) admits that he has had balance issues and falls in the past. The patient states that the pain is much better controlled and the hydrocodone seems to be helping. He denies other identified injuries or areas of pain. O: Mild edema around the proximal humerus without abrasions or ecchymosis. Appropriate tenderness to palpation. He tolerates 90 of passive internal and external rotation with the arm in neutral abduction. Minimal pain with passive circumduction to 45. Light touch sensation is subjectively intact throughout the distal distributions of the axillary, radial, median and ulnar nerves. Intact gross motor function to the EIP, FPL and first dorsal interosseous. The hand is warm, dry and well- perfused with brisk capillary refill. A: 1. Mildly displaced four-part right proximal humerus fracture 2. Scalp laceration and head trauma status post mechanical fall P: Discussed the clinical and radiographic findings in detail with the patient and his family. The pros and cons of both operative and nonoperative treatments were reviewed. We discussed the potential for malunion, nonunion, stiffness and contractures, post-traumatic arthritis and possible need for future surgery. Surgical treatment options were presented, including open reduction and internal fixation versus reverse shoulder arthroplasty (either early or delayed). I feel that the fracture pattern and alignment are amenable to non-operative treatment. I recommended protective immobilization in a sling. He may remove this at any time. He should take it off several times a day to work on hand wrist and elbow range of motion. Continue ice, rest and pain management with hydrocodone or [id number] analgesics. I would like see him back in the office in 7-10 days for reevaluation with repeat x-rays. All questions were and answered their satisfaction. Another family member had recommended that he consider a second opinion regarding the merits of early surgical treatment. I definitely encouraged them to seek one out if this would make them feel more comfortable and would be happy to make a referral if needed. They expressed understanding and agreement with the initial treatment plan and will follow up as scheduled. Jordan Montemayor D.O. [facility] Time with Patient: Greater than 30
[2019-05-25] MEDS: HYDROcodone/APAP 5-325MG 1 EACH TAB PO PRN ×2 (12:23→17:29)
[2019-05-25 14:15] VITALS: BP 114/61; TEMP 97.7
--- NOTE | 2019-05-25 16:14 | P.DS ---
Providers Date of admission: 05/24/19 22:39 Expected date of discharge: 05/25/19 Attending physician: Jordan Montemayor DO Primary care physician: Mame Thorne [facility] Course: Patient is a pleasant 88-year-old male who sustained a mechanical fall, resulting in a scalp laceration and right proximal humerus fracture. He was admitted for observation and pain management. Occupational therapy was consulted for evaluation of home needs and teaching. Appropriate edema and tenderness around the proximal humerus. Intact light touch sensation and gross motor function throughout the right upper extremity. The forehead laceration is well approximated with suture in place. His pain is well-controlled; he is alert and oriented to person, place, time and purpose; his vital signs are stable and he is deemed fit for discharge home. Patient Condition at Discharge: Stable Plan - Discharge Summary Discharge Rx Participant: Yes New Discharge Prescriptions: New HYDROcodone/APAP 5-325MG [[place] 5-325] 1 each PO Q4H PRN #40 tab PRN Reason: Pain Continue Aspirin EC [Ecotrin Low Dose] 81 mg PO HS Donepezil [Aricept] 10 mg PO HS Melatonin 10 mg PO HS diphenhydrAMINE HCL [Benadryl] 50 mg PO HS Rosuvastatin Calcium [Crestor] 20 mg PO HS Citalopram Hydrobromide [CeleXA] 20 mg PO HS Ibuprofen [Motrin Ib] 400 mg PO HS Multivitamins, Thera [Multivitamin (formulary)] 1 tab PO HS Discharge Medication List Aspirin EC [Ecotrin Low Dose] 81 mg PO HS 03/22/16 [History] Donepezil [Aricept] 10 mg PO HS 03/03/17 [History] Melatonin 10 mg PO HS 03/03/17 [History] diphenhydrAMINE HCL [Benadryl] 50 mg PO HS 02/04/18 [History] Citalopram Hydrobromide [CeleXA] 20 mg PO HS 05/24/19 [History] Ibuprofen [Motrin Ib] 400 mg PO HS 05/24/19 [History] Multivitamins, Thera [Multivitamin (formulary)] 1 tab PO HS 05/24/19 [History] Rosuvastatin Calcium [Crestor] 20 mg PO HS 05/24/19 [History] HYDROcodone/APAP 5-325MG [[place] 5-325] 1 each PO Q4H PRN #40 tab 05/25/19 [Rx] Follow up Appointment(s)/Referral(s): Jordan Montemayor DO [Medical Doctor] - 10 Days (7-10 days) Mame Thorne MD [Primary Care Provider] - 1-2 days Activity/Diet/Wound Care/Special Instructions: Orthopedic Discharge Instructions Apply ice regularly to right shoulder (every 2 hours while awake).
[2019-05-25] MEDS ORDERED: DONEPEZIL 10 MG TAB PO SCH (21:00)
[2019-05-25] MEDS ORDERED: ASPIRIN 81 MG PO SCH (21:00)
[2019-05-25] MEDS ORDERED: CITALOPRAM HYDROBROMIDE 20 MG TAB PO SCH (21:00)
[2019-05-25] MEDS ORDERED: MULTIVITAMINS, THERA 1 EACH TAB PO SCH (21:00)
== END 2019-05-25 18:30 | disposition home or self-care (01) ==
LOC: EC 18:35 → 4SSUR 22:39
PROVIDERS: ADMIT Orthopaedic Surgery; ATTEND Orthopaedic Surgery
DX: S01.01XA Laceration without foreign body of scalp, initial encounter (principal); S42.241A 4-part fracture of surgical neck of right humerus, initial encounter for closed fracture; S01.111A Laceration without foreign body of right eyelid and periocular area, initial encounter; M47.812 Spondylosis without myelopathy or radiculopathy, cervical region; M25.78 Osteophyte, vertebrae; K21.9 Gastro-esophageal reflux disease without esophagitis; H26.9 Unspecified cataract; E78.5 Hyperlipidemia, unspecified; K44.9 Diaphragmatic hernia without obstruction or gangrene; F03.90 Unspecified dementia, unspecified severity, without behavioral disturbance, psychotic disturbance, mood disturbance, and anxiety; W01.10XA Fall on same level from slipping, tripping and stumbling with subsequent striking against unspecified object, initial encounter; Y92.009 Unspecified place in unspecified non-institutional (private) residence as the place of occurrence of the external cause; Z79.1 Long term (current) use of non-steroidal anti-inflammatories (NSAID); Z79.82 Long term (current) use of aspirin; Z79.899 Other long term (current) drug therapy; Z88.6 Allergy status to analgesic agent; Z87.442 Personal history of urinary calculi; Z85.068 Personal history of other malignant neoplasm of small intestine; Z95.1 Presence of aortocoronary bypass graft; Z90.81 Acquired absence of spleen; Z86.19 Personal history of other infectious and parasitic diseases; Z85.028 Personal history of other malignant neoplasm of stomach; Z90.49 Acquired absence of other specified parts of digestive tract; Z90.79 Acquired absence of other genital organ(s); Z83.79 Family history of other diseases of the digestive system; Z80.0 Family history of malignant neoplasm of digestive organs
CPT/HCPCS: 96375 ×2; 96376; 12002; 96374; 99285; 36415; 97161; 97166; 80053; 85025; 85610; 85730; 82306; 73030; 73060; 71046; 72125; 70486; 70450; G0378 ×2; J2270; J2405; J3010; J1170

== ENCOUNTER 2020-01-08 12:12 | Inpatient (IN) | payer MEDICARE, OTHER ==
[2020-01-08] MEDS ORDERED: DIPH,PERTUS(ACELL)TETVAC-LF 0.5 ML VIAL IM ONE (12:17)
[2020-01-08 12:51] LABS: Basophils # (A) 0.1 k/uL (0-0.2); Basophils % (A) 1 %; Eosinophils # (A) 0.5 k/uL (0-0.7); Eosinophils % (A) 3 %; HCT 35.1 % (39.0-53.0); HGB 11.9 gm/dL (13.0-17.5); Lymphocytes # (A) 0.9 k/uL (1.0-4.8); Lymphocytes % (A) 6 %; MCH 34.6 pg (25.0-35.0); MCHC 33.9 g/dL (31.0-37.0); MCV 102.1 fL (80.0-100.0); Macrocytosis Slight; Mean Platelet Volume 8.5; Monocytes # (A) 0.7 k/uL (0-1.0); Monocytes % (A) 4 %; Neutrophils # (A) 13.2 k/uL (1.3-7.7); Neutrophils % (A) 85 %; Platelet Count 212 k/uL (150-450); RBC 3.44 m/uL (4.30-5.90); RDW 14.3 % (11.5-15.5); WBC 15.5 k/uL (3.8-10.6)
[2020-01-08 12:57] LABS: INR 1.1 (<1.2); Partial Thromboplastin Time 24.9 sec (22.0-30.0)
[2020-01-08 13:02] LABS: ALT 23 U/L (4-49); AST 44 U/L (17-59); African American GFR (CKD) 75 (>60 ml/min/1.73 sqM); Albumin 2.8 g/dL (3.5-5.0); Alcohol <10 mg/dL; Alkaline Phosphatase 121 U/L (38-126); Anion Gap 7 mmol/L; Blood Urea Nitrogen 26 mg/dL (9-20); Calcium 8.5 mg/dL (8.4-10.2); Carbon Dioxide 21 mmol/L (22-30); Chloride 113 mmol/L (98-107); Glucose 107 mg/dL (74-99); Non-African American GFR(CKD) 65 (>60 ml/min/1.73 sqM); Potassium 3.9 mmol/L (3.5-5.1); Sodium 141 mmol/L (137-145); Total Bilirubin 1.3 mg/dL (0.2-1.3); Total Protein 6.3 g/dL (6.3-8.2)
--- NOTE | 2020-01-08 13:05 | ED ---
General Adult HPI - General Chief complaint: Fall Stated complaint: Fall Time Seen by Provider: 01/08/20 12:16 Source: patient, EMS, RN notes reviewed, old records reviewed Mode of arrival: EMS Limitations: no limitations - History of Present Illness Initial comments: 89-year-old male presenting from home status post fall. Patient reportedly fell down approximately 13 steps. He was at the bottom of the stairs for 7-10 minutes prior to EMS arrival. He had multiple scalp lacerations and avulsions which were dressed by EMS prior to arrival. There was questionable loss of consciousness, patient currently denying loss consciousness. No reported an ticoagulation. He is complaining of left hip pain as well as headache. Denies central chest pain. Denies abdominal pain. He has a previously fractured left humerus and was awaiting orthopedic evaluation for this fracture. - Related Data Home Medications Medication Instructions Recorded Confirmed Aspirin EC [Ecotrin Low Dose] 81 mg PO HS 03/22/16 05/24/19 Donepezil [Aricept] 10 mg PO HS 03/03/17 05/24/19 Melatonin 10 mg PO HS 03/03/17 05/24/19 diphenhydrAMINE HCL [Benadryl] 50 mg PO HS 02/04/18 05/24/19 Citalopram Hydrobromide [CeleXA] 20 mg PO HS 05/24/19 05/24/19 Ibuprofen [Motrin Ib] 400 mg PO HS 05/24/19 05/24/19 Multivitamins, Thera [Multivitamin 1 tab PO HS 05/24/19 05/24/19 (formulary)] Rosuvastatin Calcium [Crestor] 20 mg PO HS 05/24/19 05/24/19 Previous Rx's Medication Instructions Recorded HYDROcodone/APAP 5-325MG [[place] 1 each PO Q4H PRN #40 tab 05/25/19 5-325] Allergies Allergy/AdvReac Type Severity Reaction Status Date / Time naproxen sodium [From Aleve] Allergy Rash/Hives Verified 05/24/19 20:00 Review of Systems ROS Statement: Those systems with pertinent positive or pertinent negative responses have been documented in the HPI. ROS Other: All systems not noted in ROS Statement are negative. Past Medical History Past Medical History: Cancer, GERD/Reflux, Hyperlipidemia, Prostate Disorder Additional Past Medical History / Comment(s): kidney stones, urosepsis, turp - history of self-cathing 1-2 TIMES A DAY. "STOMACH AND SMALL INTESTINE CANCER", "SOME BLOOD DISORDER-CAN'T REMEMEBR WHAT IT WAS CALLED-THEY ENDED UP REMOVING MY SPLEEN". BEGINNINGS OF CATARACTS, HIATAL HERNIA, SHINGLES 2000 History of Any Multi-Drug Resistant Organisms: None Reported Past Surgical History: Bowel Resection, Cholecystectomy, Coronary Bypass/CABG, Hernia Repair, Prostate Surgery Additional Past Surgical History / Comment(s): spleenectomy, TURP, GADIEL INGUINAL HERNIAS,"WHIPPLE PROCEDURE", RT ROTATOR CUFF REPAIR, LITHOTRISY Past Anesthesia/Blood Transfusion Reactions: No Reported Reaction Past Psychological History: No Psychological Hx Reported Smoking Status: Never smoker Past Alcohol Use History: None Reported Past Drug Use History: None Reported - Past Family History Father Family Medical History: Cancer Additional Family Medical History / Comment(s): CANCER OF THE ESOPHAGUS Mother Additional Family Medical History / Comment(s): OF OLD AGE Brother(s) Family Medical History: Cancer Additional Family Medical History / Comment(s): esophagus cancer, pancreatic cancer Sister(s) Family Medical History: Cancer Additional Family Medical History / Comment(s): pancreatic cancer Daughter(s) Additional Family Medical History / Comment(s): intestinal issues with resection Son(s) Family Medical History: No Reported History General Exam Limitations: no limitations General appearance: alert Head exam: Present: normocephalic, other (Multiple avulsions and left parietal laceration.) Neck exam: Present: normal inspection, other (C-collar placed by EMS prior to arrival). Absent: tenderness, meningismus Respiratory exam: Present: normal lung sounds bilaterally. Absent: respiratory distress, wheezes Cardiovascular Exam: Present: normal rhythm, bradycardia GI/Abdominal exam: Present: soft. Absent: distended, tenderness, guarding Extremities exam: Present: other (Tenderness in the left gluteal region, no ecchymosis, no external signs of trauma) Back exam: Present: normal inspection, other (No step-off) Neurological exam: Present: alert. Absent: oriented X3 (2), motor sensory deficit Skin exam: Present: warm, dry. Absent: cyanosis, diaphoretic Course Vital Signs 01/08/20 01/08/20 12:16 14:40 Temperature 97.3 F L Pulse Rate 48 L 47 L Respiratory 16 18 Rate Blood Pressure 139/72 105/68 O2 Sat by Pulse 97 98 Oximetry EKG Findings - EKG Comments: EKG Findings:: EKG: Sinus bradycardia, left axis, prolonged QT, rate of 51, VA interval 172, QRS duration 104, QTC 499, no ST segment elevation. Medical Decision Making - Medical Decision Making 89-year-old male status post fall. Patient is taken to computed tomography scan, where he sees a CT of the brain and C-spine which is negative for intracranial hemorrhage, negative for fracture subluxation in the cervical spine. He has multiple abrasions and lacerations consistent with exam seen on CT. CT of the chest and pelvis is performed which shows age-indeterminate L3 compression fracture. Additionally there is a large 18 cm hematoma in the left gluteal region. There is no external signs of injury at this location. Patient is complaining of pain there. Given the multiple injuries, age, previous injury to the left humerus. We will admit this patient to trauma surgery with internal medicine on consult. Case has been discussed with Dr. Diana who accepts admission. - Lab Data Result diagrams: 01/08/20 12:30 01/08/20 12:30 Lab Results 01/08/20 01/08/20 01/08/20 Range/Units 12:30 12:30 12:30 WBC 15.5 H (3.8-10.6) k/uL RBC 3.44 L (4.30-5.90) m/uL Hgb 11.9 L (13.0-17.5) gm/dL Hct 35.1 L (39.0-53.0) % MCV 102.1 H (80.0-100.0) fL MCH 34.6 (25.0-35.0) pg MCHC 33.9 (31.0-37.0) g/dL RDW 14.3 (11.5-15.5) % Plt Count 212 (150-450) k/uL Neutrophils % 85 % Lymphocytes % 6 % Monocytes % 4 % Eosinophils % 3 % Basophils % 1 % Neutrophils # 13.2 H (1.3-7.7) k/uL Lymphocytes # 0.9 L (1.0-4.8) k/uL Monocytes # 0.7 (0-1.0) k/uL Eosinophils # 0.5 (0-0.7) k/uL Basophils # 0.1 (0-0.2) k/uL Macrocytosis Slight PT 11.0 (9.0-12.0) sec INR 1.1 (<1.2) APTT 24.9 (22.0-30.0) sec Sodium 141 (137-145) mmol/L Potassium 3.9 (3.5-5.1) mmol/L Chloride 113 H (98-107) mmol/L Carbon Dioxide 21 L (22-30) mmol/L Anion Gap 7 mmol/L BUN 26 H (9-20) mg/dL Creatinine 1.04 (0.66-1.25) mg/dL Est GFR (CKD-EPI)AfAm 75 (>60 ml/min/1.73 sqM) Est GFR (CKD-EPI)NonAf 65 (>60 ml/min/1.73 sqM) Glucose 107 H (74-99) mg/dL Calcium 8.5 (8.4-10.2) mg/dL Total Bilirubin 1.3 (0.2-1.3) mg/dL AST 44 (17-59) U/L ALT 23 (4-49) U/L Alkaline Phosphatase 121 (38-126) U/L Total Protein 6.3 (6.3-8.2) g/dL Albumin 2.8 L (3.5-5.0) g/dL Serum Alcohol <10 mg/dL Blood Type Blood Type Recheck Bld Type Recheck Status Antibody Screen Spec Expiration Date 01/08/20 Range/Units 12:34 WBC (3.8-10.6) k/uL RBC (4.30-5.90) m/uL Hgb (13.0-17.5) gm/dL Hct (39.0-53.0) % MCV (80.0-100.0) fL MCH (25.0-35.0) pg MCHC (31.0-37.0) g/dL RDW (11.5-15.5) % Plt Count (150-450) k/uL Neutrophils % % Lymphocytes % % Monocytes % % Eosinophils % % Basophils % % Neutrophils # (1.3-7.7) k/uL Lymphocytes # (1.0-4.8) k/uL Monocytes # (0-1.0) k/uL Eosinophils # (0-0.7) k/uL Basophils # (0-0.2) k/uL Macrocytosis PT (9.0-12.0) sec INR (<1.2) APTT (22.0-30.0) sec Sodium (137-145) mmol/L Potassium (3.5-5.1) mmol/L Chloride (98-107) mmol/L Carbon Dioxide (22-30) mmol/L Anion Gap mmol/L BUN (9-20) mg/dL Creatinine (0.66-1.25) mg/dL Est GFR (CKD-EPI)AfAm (>60 ml/min/1.73 sqM) Est GFR (CKD-EPI)NonAf (>60 ml/min/1.73 sqM) Glucose (74-99) mg/dL Calcium (8.4-10.2) mg/dL Total Bilirubin (0.2-1.3) mg/dL AST (17-59) U/L ALT (4-49) U/L Alkaline Phosphatase (38-126) U/L Total Protein (6.3-8.2) g/dL Albumin (3.5-5.0) g/dL Serum Alcohol mg/dL Blood Type B Negative Blood Type Recheck B Neg Bld Type Recheck Status No Antibody Screen NEGATIVE Spec Expiration Date 01/11/2020 - 233 Critical Care Time Critical Care Time: Yes Total Critical Care Time: 35 Disposition Clinical Impression: Compression fracture of L3 vertebra, Scalp laceration, Fall Disposition: ADMITTED IP TO THIS [facility] Condition: Stable Is patient prescribed a controlled substance at d/c from ED?: No Referrals: Mame Thorne MD [Primary Care Provider] - 1-2 days Decision to Admit Reason: Admit from EC Decision Date: 01/08/20 Decision Time: 14:40
--- NOTE | 2020-01-08 13:49 | CT ---
EXAMINATION TYPE: CT brain gerry perkins con DATE OF EXAM: 01/08/2020 COMPARISON: NONE HISTORY: Head and neck pain after fall down [address] DLP: 1389 mGycm. Automated Exposure Control for Dose Reduction was Utilized. TECHNIQUE: CT scan of the head and cervical spine are performed without contrast. FINDINGS: There is no acute intracranial hemorrhage, mass effect, or midline shift identified. Curv ilinear hyperdense structure represents calcified dura along the right middle cranial fossa. The vent ricles and sulci are symmetrically prominent compatible with age-related volume loss. Few scattered a reas of hypoattenuation are seen within the periventricular and subcortical white matter most commonl y on the basis of chronic microangiopathy. The globes are intact. Mild mucosal thickening of the left maxillary sinus. Remaining visualized paranasal sinuses and mastoid air cells are overall well aerat ed. Left parietal scalp hematoma measures 6 mm in greatest thickness. This extends from the mid imani rium up to the vertex with subcutaneous fat stranding and imaging. Frontal scalp laceration also seen near the skull vertex. Frontal hematoma near the skull vertex measures up to 7 mm. Cervical spine is visualized in its entirety from C1 through upper thoracic levels and demonstrates s atisfactory alignment without evidence of acute fracture or dislocation. Severe multilevel degenerati ve disc disease with nearly bridging anterior osteophytes, multilevel posterior disc osteophyte compl exes, uncovertebral hypertrophy, intervertebral disc space narrowing, and facet arthropathy. Facets m aintain normal alignment. Prevertebral soft tissue appears within normal limits. The C1-C2 articula tion is unremarkable. Evaluation of the spinal canal is limited on CT. Atherosclerosis of the caroti d and vertebral arteries noted. IMPRESSION: 1. There is no acute fracture or dislocation evident in the cervical spine. Extensive multilevel dege nerative disc disease of the cervical spine with findings suggesting diffuse idiopathic skeletal hype rostosis. Multilevel spinal canal stenosis suspected although evaluation of the spinal canal is limit ed on CT. 2. No acute intracranial hemorrhage, mass effect, or midline shift is seen. Multifocal scalp lacerati ons and hematomas of the frontal and parietal regions measuring up to 6 mm of the left parietal regio n and 7 mm on the frontal region near the skull vertex.
--- NOTE | 2020-01-08 14:08 | CT ---
EXAMINATION TYPE: CT ChestAbdPelvis w con DATE OF EXAM: 01/08/2020 COMPARISON: 06/12/2014 HISTORY: Trauma, fall. Multiple injuries and body pain. History of splenectomy, CABG, bowel resection , cholecystectomy, Whipple procedure, lithotripsy, and inguinal hernia repair CT DLP: 732.1 mGycm. Automated Exposure Control for Dose Reduction was Utilized. CONTRAST: CT scan of the thorax, abdomen and pelvis is performed with IV Contrast, patient injected with 100 mL of Isovue 300. FINDINGS: LUNGS: No pneumothorax. Somewhat spiculated density in the right lung apex measures 6 mm and could re present a pulmonary nodule or more likely scarring given some central lucency. Bibasilar subsegmental atelectasis is seen with peripheral basilar predominant reticulations suggesting a degree of interst itial fibrosis. Punctate granuloma at the right lung base on image 47. MEDIASTINUM: Small hiatal hernia. Fluid-filled esophagus up to the level of the thyroid. Aspiration p recautions are recommended. There are no greater than 1 cm hilar or mediastinal lymph nodes. No per icardial effusion is seen. Heart is enlarged. Sequela of prior coronary artery bypass graft. Solitar y punctate focus of air in the right atrial appendage, possibly from intravenous injection. OTHER: Comminuted right shoulder proximal humeral fracture seen on the prior x-ray of 05/24/2019. LIVER/GB: No significant abnormality is appreciated. Surgical clips near the inferior margin of the l iver, possible prior cholecystectomy. Prolapsed loops of bowel into the gallbladder fossa. PANCREAS: Sequela of prior Whipple surgery with pancreatic parenchymal atrophy. SPLEEN: Prior splenectomy. ADRENALS: No significant abnormality is seen. KIDNEYS: Bilateral numerous renal sinus cysts are seen in the kidneys as seen on the prior of 2013. T his limits evaluation for hydronephrosis. Ureters are not grossly dilated. Low-attenuation probable r ight renal cyst measures 1.6 cm similar to the prior of 2013 where this measured 1.5 cm. Directly inf erior to that there is a smaller possible additional renal cyst. Too small to accurately characterize lesions in the right upper pole are seen. BOWEL: No significant abnormality is seen. No dilated large or small bowel. LYMPH NODES: No greater than 1cm abdominal or pelvic lymph nodes are appreciated. OSSEOUS STRUCTURES: Diffuse osseous demineralization is seen. Comminuted right shoulder proximal ingris ral fracture seen on the prior x-ray of 05/24/2019. Very mild compression deformity of L3 is age-inde terminate with vertebral body height loss of less than 10%. Extensive multilevel degenerative changes of the spine with bridging anterior osteophytes suggesting diffuse idiopathic skeletal hyperostosis. OTHER: Moderate calcific and noncalcific atheromatous plaquing of the abdominal aorta and its branche s. Abdominal aorta is of normal course and caliber. Minimal retroareolar probable bilateral gynecomas tia, right greater than left. Numerous urinary bladder diverticula. Possibly from urinary bladder out let obstruction as there is prostatomegaly. Small fat filled periumbilical hernia. Large mottled left gluteal subcutaneous hematoma and intramuscular edema of the left gluteal muscles as well as intramuscular hematoma are seen that are overall inseparable. The most elongated dimension extending over the paraspinal musculature on image 86 measures 17.9 cm. The most hyperdense foci are seen overlying and within the left gluteus lauro measuring 2.5 cm. Fluid collection and subcutaneo us fat stranding terminate over the left greater trochanter. IMPRESSION: 1. Age-indeterminate mild compression deformity of L3. Correlate with point tenderness. MRI could be utilized to further evaluate acuity and evaluate spinal cord if there are neurologic symptoms. 2. Large left gluteal subcutaneous and intramuscular hematoma measuring up to 17.9 cm in length. 3. Fluid-filled esophagus to the level of the thyroid. Aspiration precautions are recommended. Small hiatal hernia. 4. Right upper lobe 6 mm spiculated nodule or area of scarring. Short-term follow-up recommended in 3 -6 months. 5. Old comminuted right proximal humeral fracture.
[2020-01-08] MEDS ORDERED: LIDOCAINE 1% INJ 10MG/ML (20 ML MDV) SQ STA (14:13)
[2020-01-08] MEDS ORDERED: MORPHINE SULFATE 4 MG/ML SYRINGE IVP STA (14:44)
[2020-01-08] MEDS ORDERED: fentaNYL (PF) 50 MCG/ML 2 ML AMP IVP STA (14:46)
[2020-01-08] MEDS ORDERED: ACETAMINOPHEN TAB 325 MG TAB PO PRN (15:08)
[2020-01-08] MEDS ORDERED: NALOXONE 0.4 MG/ML 1 ML VIAL IV PRN (15:08)
[2020-01-08] MEDS: SODIUM CHLORIDE 0.9% 1,000 ML IV SCH (15:32)
--- NOTE | 2020-01-08 15:41 | ED ---
Medical Decision Making - Lab Data Result diagrams: 01/08/20 12:30 01/08/20 12:30 Lab Results 01/08/20 01/08/20 01/08/20 Range/Units 12:30 12:30 12:30 WBC 15.5 H (3.8-10.6) k/uL RBC 3.44 L (4.30-5.90) m/uL Hgb 11.9 L (13.0-17.5) gm/dL Hct 35.1 L (39.0-53.0) % MCV 102.1 H (80.0-100.0) fL MCH 34.6 (25.0-35.0) pg MCHC 33.9 (31.0-37.0) g/dL RDW 14.3 (11.5-15.5) % Plt Count 212 (150-450) k/uL Neutrophils % 85 % Lymphocytes % 6 % Monocytes % 4 % Eosinophils % 3 % Basophils % 1 % Neutrophils # 13.2 H (1.3-7.7) k/uL Lymphocytes # 0.9 L (1.0-4.8) k/uL Monocytes # 0.7 (0-1.0) k/uL Eosinophils # 0.5 (0-0.7) k/uL Basophils # 0.1 (0-0.2) k/uL Macrocytosis Slight PT 11.0 (9.0-12.0) sec INR 1.1 (<1.2) APTT 24.9 (22.0-30.0) sec Sodium 141 (137-145) mmol/L Potassium 3.9 (3.5-5.1) mmol/L Chloride 113 H (98-107) mmol/L Carbon Dioxide 21 L (22-30) mmol/L Anion Gap 7 mmol/L BUN 26 H (9-20) mg/dL Creatinine 1.04 (0.66-1.25) mg/dL Est GFR (CKD-EPI)AfAm 75 (>60 ml/min/1.73 sqM) Est GFR (CKD-EPI)NonAf 65 (>60 ml/min/1.73 sqM) Glucose 107 H (74-99) mg/dL Calcium 8.5 (8.4-10.2) mg/dL Total Bilirubin 1.3 (0.2-1.3) mg/dL AST 44 (17-59) U/L ALT 23 (4-49) U/L Alkaline Phosphatase 121 (38-126) U/L Total Protein 6.3 (6.3-8.2) g/dL Albumin 2.8 L (3.5-5.0) g/dL Serum Alcohol <10 mg/dL Blood Type Blood Type Recheck Bld Type Recheck Status Antibody Screen Spec Expiration Date 01/08/20 Range/Units 12:34 WBC (3.8-10.6) k/uL RBC (4.30-5.90) m/uL Hgb (13.0-17.5) gm/dL Hct (39.0-53.0) % MCV (80.0-100.0) fL MCH (25.0-35.0) pg MCHC (31.0-37.0) g/dL RDW (11.5-15.5) % Plt Count (150-450) k/uL Neutrophils % % Lymphocytes % % Monocytes % % Eosinophils % % Basophils % % Neutrophils # (1.3-7.7) k/uL Lymphocytes # (1.0-4.8) k/uL Monocytes # (0-1.0) k/uL Eosinophils # (0-0.7) k/uL Basophils # (0-0.2) k/uL Macrocytosis PT (9.0-12.0) sec INR (<1.2) APTT (22.0-30.0) sec Sodium (137-145) mmol/L Potassium (3.5-5.1) mmol/L Chloride (98-107) mmol/L Carbon Dioxide (22-30) mmol/L Anion Gap mmol/L BUN (9-20) mg/dL Creatinine (0.66-1.25) mg/dL Est GFR (CKD-EPI)AfAm (>60 ml/min/1.73 sqM) Est GFR (CKD-EPI)NonAf (>60 ml/min/1.73 sqM) Glucose (74-99) mg/dL Calcium (8.4-10.2) mg/dL Total Bilirubin (0.2-1.3) mg/dL AST (17-59) U/L ALT (4-49) U/L Alkaline Phosphatase (38-126) U/L Total Protein (6.3-8.2) g/dL Albumin (3.5-5.0) g/dL Serum Alcohol mg/dL Blood Type B Negative Blood Type Recheck B Neg Bld Type Recheck Status No Antibody Screen NEGATIVE Spec Expiration Date 01/11/2020 - 2329 Disposition Clinical Impression: Compression fracture of L3 vertebra, Scalp laceration, Fall Disposition: [facility] Condition: Stable Referrals: Mame Thorne MD [Primary Care Provider] - 1-2 days Procedures - Laceration Laceration #1 Consent Obtained: verbal consent Indication: laceration Site: scalp Size (cm): 4 Description: linear Depth: simple, single layer Pre-repair: wound explored, irrigated extensively, deep structures intact Type of Sutures: other (staple) Number of Sutures: 3 Patient Tolerated Procedure: well, no complications Laceration #2 Consent Obtained: verbal consent Indication: laceration Site: upper extremity (elbow left) Size (cm): 4 Description: linear Depth: simple, single layer Anesthetic Used: lidocaine 1% Anesthesia Technique: local infiltration Amount (mls): 2 Pre-repair: wound explored, irrigated extensively, deep structures intact Type of Sutures: nylon Size of Sutures: 5-0 Number of Sutures: 2 Technique: simple, interrupted Patient Tolerated Procedure: well, no complications Laceration #3 Consent Obtained: verbal consent Indication: laceration Site: upper extremity (left elbow) Size (cm): 10 Description: linear Depth: simple, single layer Pre-repair: wound explored, irrigated extensively, deep structures intact Type of Sutures: other (steri strip) Number of Sutures: 3 Patient Tolerated Procedure: well, no complications Laceration #4 Consent Obtained: verbal consent Indication: laceration Site: hand Size (cm): 4 Description: linear Pre-repair: wound explored, irrigated extensively, deep structures intact Type of Sutures: other (steri strip) Number of Sutures: 2 Patient Tolerated Procedure: well, no complications
--- NOTE | 2020-01-08 16:02 | XR ---
EXAMINATION TYPE: XR chest 1V portable DATE OF EXAM: 01/08/2020 COMPARISON: 05/24/2019 HISTORY: Trauma and chest pain TECHNIQUE: Single frontal view of the chest is obtained. FINDINGS: Comminuted, displaced proximal right humeral fracture as seen on the prior shoulder radiog raph dated 05/24/2019. Cardiomediastinal silhouette is within normal limits with post CABG change. No new focal consolidation, pleural effusion or pneumothorax. Biapical pleural parenchymal scarring. IMPRESSION: Chronic changes with no acute process.
--- NOTE | 2020-01-08 16:08 | XR ---
EXAMINATION TYPE: XR hand complete LT DATE OF EXAM: 01/08/2020 CLINICAL HISTORY: Left hand pain after fall TECHNIQUE: Frontal, lateral and oblique images of the left hand are obtained. COMPARISON: None. FINDINGS: IV tubing overlies the left hand partially obscuring visualization. Flexion deformity of th e fifth distal interphalangeal joint also limits evaluation. There is diffuse osseous demineralizatio n. Possible scaphoid fracture seen on the lateral view of the mid pole. The joint spaces in the left hand appear within narrowed with osseous proliferative change particularly in the proximal and distal interphalangeal joints as well as the first carpometacarpal joint. The overlying soft tissue appear s unremarkable. IMPRESSION: Questionable scaphoid fracture. Correlate with point tenderness.
--- NOTE | 2020-01-08 16:09 | XR ---
EXAMINATION TYPE: XR pelvis AP view DATE OF EXAM: 01/08/2020 CLINICAL HISTORY: Pelvic pain after fall TECHNIQUE: A single AP view of the pelvis is obtained. COMPARISON: None. FINDINGS: There is no acute fracture/dislocation evident in the pelvis. The hip and sacroiliac join ts appear symmetric and demonstrate moderate arthropathy. The overlying soft tissue appears unremark able. Intravenous contrast is seen in the urinary bladder from the prior CT. IMPRESSION: There is no acute fracture or dislocation in the pelvis.
[2020-01-08] MEDS ORDERED: ALPRAZolam 0.25 MG TAB PO PRN (20:35)
[2020-01-08] MEDS: HYDROcodone/APAP 5-325MG 1 EACH TAB PO PRN (21:43)
--- NOTE | 2020-01-09 03:43 | CONS ---
CONSULTATION DATE OF SERVICE: 01/08/2020 REASON FOR CONSULTATION: Advice regarding GERD and hyperlipidemia and other medical issues requested by Dr. Diana. HISTORY OF PRESENT ILLNESS: This 89-year-old gentleman with a past medical history of GERD, hyperlipidemia, history of kidney stones, history of bowel resection, history of CAD, CABG being followed by Dr. Thorne in the outpatient apparently fell in the basement multiple stairs and the patient was lying there for some time before the EMS came. Patient had multiple hematomas, laceration of the scalp. The patient is complaining of severe pain in the left side of the body and patient had significant hematoma of the left gluteal region, abrasions in the scalp and as well as left elbow area which has been sutured at this time. The patient had extensive x-rays did not show any fractures except L3 compression fracture. The patient did have an old fracture in the right shoulder which is probably nonunion. The patient complaining of severe pain at this time. Patient admitted under Surgery. Otherwise there is no history of chest pain. No history of palpitation, shortness of breath, hematochezia, melena. PAST MEDICAL HISTORY: GERD, hyperlipidemia, CAD, CABG, bowel resection, splenectomy. MEDICATIONS: Home medications are: 1. Benadryl 50 mg at bedtime. 2. Crestor 20 mg at bedtime. 3. Multivitamins 1 p.o. daily. 4. Melatonin 10 mg at bedtime. 5. Motrin 400 mg at bedtime. 6. [place] 1 tab q.4h p.r.n. 7. Aricept 10 mg at bedtime. 8. Celexa 20 mg at bedtime. 9. Ecotrin 81 mg at bedtime. ALLERGIES: NAPROSYN. FAMILY HISTORY: History of cancer of esophagus. SOCIAL HISTORY: No history of smoking. No history of alcohol. REVIEW OF SYSTEMS: ENT: As mentioned earlier. CARDIOVASCULAR SYSTEM: No angina. RESPIRATORY SYSTEM: As mentioned earlier. GI: As mentioned earlier. : As mentioned earlier. NERVOUS SYSTEM: As mentioned earlier. ALLERGY/IMMUNOLOGY: No asthma or hayfever. MUSCULOSKELETAL: As mentioned earlier. HEMATOLOGY: No history of anemia. ENDOCRINE: No history of diabetes or hypothyroidism. CONSTITUTIONAL: As mentioned earlier. DERMATOLOGY: Negative. RHEUMATOLOGY: Negative. PSYCHIATRY: As mentioned earlier. PHYSICAL EXAMINATION: The patient is alert and oriented x3. Pulse 48, blood pressure 118/65, respiration 18, temperature 97.3, pulse ox 96% on room air. HEENT: Conjunctivae normal. Oral mucosa moist. NECK: No jugular venous distention. No carotid bruit. No lymph node enlargement. CARDIOVASCULAR: Bradycardic. Otherwise normal. RESPIRATORY: Breath sounds diminished at the bases. A few scattered rhonchi and crackles. ABDOMEN: Soft, nontender. No mass palpable. LEGS: No edema, no swelling . NERVOUS SYSTEM: Higher functions as mentioned earlier. Moves all 4 limbs, extremely painful in movement. EXAMINATION OF SKIN: No ulcer or rash. Otherwise ablations and injuries as mentioned earlier. Significant bleeding from the scalp, which has been sutured also. JOINTS: As mentioned earlier. LYMPHATICS: No lymphadenopathy of the neck, axillae or groin. LABS: WBC 15.5, hemoglobin 11.9, sodium 141, potassium 3.9. ASSESSMENT: 1. Fall and multiple lacerations of the scalp and left elbow and as well as left gluteal hematoma. 2. L3 compression fracture secondary to fall. 3. Severe generalized aches and pains secondary to fall. 4. Old right shoulder fracture. 5. History of coronary artery disease, CABG. 6. History of cholecystectomy. 7. History of gastroesophageal reflux disease. 8. Hyperlipidemia. 9. History of prostate disease. 10.History of nephrolithiasis. 11.Gait dysfunction. 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 13.Increased WBC. 14.Anemia macrocytic. 15.Hypoalbuminemia with mild protein-calorie malnutrition. 16.History of prostate surgery. RECOMMENDATIONS AND DISCUSSION: This 89-year-old gentleman who presented with multiple complex medical issues, we will monitor the patient closely. Continue the current medications and continue symptomatic treatment. I would recommend pain medications. Closely follow with Surgery. Otherwise, resume the home medications once the patient is stable and confirmed. Otherwise, I would also recommend empiric antibiotics because of history of splenectomy and we will follow the patient closely with you. Overall prognosis guarded because of significant injuries this elderly individual sustained. I also recommend close followup with Dr. Thorne in the outpatient setting. Thank you Dr. Diana. for letting us participate in the care this patient. MMODL / IJN: [id number] /
[2020-01-09 04:19] LABS: Appearance,Urine Clear (Clear); Bilirubin,Urine Negative (Negative); Blood,Urine Negative (Negative); Color,Urine Yellow; Glucose,Urine (UA) Negative (Negative); Ketones,Urine Trace (Negative); Leukocyte Esterase,Urine Negative (Negative); Mucus,Urine Few /hpf; Nitrite,Urine Negative (Negative); Protein,Urine 1+ (Negative); RBC,Urine 2 /hpf (0-5); Squamous Epithelial Cell,Urine <1 /hpf (0-4); Urobilinogen,Urine <2.0 mg/dL (<2.0); WBC,Urine 1 /hpf (0-5)
[2020-01-09 04:23] LABS: Specific Gravity,Urine >1.050 (1.001-1.035)
[2020-01-09 04:27] LABS: Amphetamine Screen,Urine Not Detected (NotDetected); Barbiturate Screen,Urine Not Detected (NotDetected); Benzodiazepines Screen,Urine Detected (NotDetected); Cocaine Screen,Urine Not Detected (NotDetected); Methadone Screen, Urine Not Detected (NotDetected); Opiate Screen,Urine Detected (NotDetected); Oxycodone Screen, Urine Not Detected (NotDetected); Phencyclidine Screen,Urine Not Detected (NotDetected); Tricyclic Antidepressant,Urine Not Detected (NotDetected); Urn Cannabinoid Scrn Not Detected (NotDetected)
[2020-01-09] MEDS: PANTOPRAZOLE 40 MG/10 ML VIAL IVP SCH (07:41)
[2020-01-09 09:25] LABS: Calcium 8.4 mg/dL (8.4-10.2); Potassium 4.3 mmol/L (3.5-5.1)
[2020-01-09 09:32] LABS: Basophils % (A) 0 %; Eosinophils % (A) 0 %; HCT 28.6 % (39.0-53.0); Lymphocytes # (A) 0.9 k/uL (1.0-4.8); Lymphocytes % (A) 6 %; MCH 33.9 pg (25.0-35.0); MCHC 32.7 g/dL (31.0-37.0); MCV 103.7 fL (80.0-100.0); Macrocytosis Slight; Mean Platelet Volume 9.6; Monocytes # (A) 0.7 k/uL (0-1.0); Monocytes % (A) 5 %; Neutrophils # (A) 12.6 k/uL (1.3-7.7); Neutrophils % (A) 87 %; Platelet Count 185 k/uL (150-450); RBC 2.76 m/uL (4.30-5.90); RDW 14.5 % (11.5-15.5); WBC 14.6 k/uL (3.8-10.6)
[2020-01-09 09:39] LABS: HGB 9.4 gm/dL (13.0-17.5)
--- NOTE | 2020-01-09 11:23 | P.GSHP ---
<Sophia Magana - Last Filed: 01/09/20 11:22> History of Present Illness H&P Date: 01/09/20 Chief Complaint: fall CHIEF COMPLAINT: Trauma HISTORY OF PRESENT ILLNESS: 89-year-old male who presented to the hospital after sustaining a fall. Patient reports he fell down approximately 13 stairs. Patient examined at the bedside. He has multiple bruises. He actually appear quite comfortable. He denies any significant pain. PAST MEDICAL HISTORY: See list. PAST SURGICAL HISTORY: See list. SOCIAL HISTORY: No illicit drug use. REVIEW OF SYSTEMS: CONSTITUTIONAL: Denies fever or chills. Reports recent falls. HEENT: Denies blurred vision, vision changes, or eye pain. Denies hemoptysis CARDIOVASCULAR: Denies chest pain or pressure. RESPIRATORY: No shortness of breath. GASTROINTESTINAL: Refer to HPI for pertinent findings HEMATOLOGIC: Denies bleeding disorders. GENITOURINARY: Denies any blood in urine. SKIN: Denies pruitis. Denies rash. PHYSICAL EXAM: VITAL SIGNS: Reviewed. GENERAL: Well-developed in no acute distress. HEENT: No sclera icterus. Extraocular movements grossly intact. Moist buccal mucosa. Head is normocephalic. Laceration noted to scalp with dressing intact. ABDOMEN: Soft. Nondistended. Nontender. NEUROLOGIC: Alert and oriented. Cranial nerves II through XII grossly intact. SKIN: Multiple bruises throughout. Lacerations noted to left elbow and hand with suturing completed in ER. LABORATORY DATA: WBC 14.6. Hemoglobin 9.4. Platelet count 185. Sodium 138. Potassium 4.3. BUN 37. Creatinine 1.43. IMAGING: -CT brain cervical spine: No acute fracture or dislocation is evident in cervical spine. No acute intracranial hemorrhage mass effect or midline shift. Scalp laceration and hematoma of the frontal and parietal region measuring up to 6 mm of the left parietal region and 7 mm on the frontal region -CT chest abdomen and pelvis: Age indeterminate mild compression deformity of L3. Large left gluteal subcutaneous and intramuscular hematoma measuring up to 17.9 cm in length. Fluid-filled esophagus with level of the thyroid. Aspiration precautions are recommended. Small hiatal hernia. Right upper lobe 6 mm nodule or area of scarring. Old comminuted right proximal humeral fracture -Chest x-ray: Chronic changes without acute process -Left hand x-ray: Questionable scaphoid fracture -Pelvic x-ray: No acute fracture or dislocation ASSESSMENT: 1. Trauma, status post fall 2. Scalp laceration and hematoma of frontal and left parietal regions 3. Large left gluteal subcutaneous and intramuscular hematoma measuring up to 17.9 cm 4. Recent fall with right proximal humeral fracture 5. Left elbow and left hand laceration, status post suturing PLAN: -Advance diet -Monitor labs -PT/OT consulted for evaluation -Pain control -Home meds will be resumed when verified by pharmacy -Medical management per Dr. Godoy Nurse practitioner note has been reviewed by physician. Signing provider agrees with the documented findings, assessment, and plan of care. Past Medical History Past Medical History: Cancer, Dementia, GERD/Reflux, Hyperlipidemia, Memory Impairment, Prostate Disorder Additional Past Medical History / Comment(s): kidney stones, urosepsis, turp - history of self-cathing 1-2 TIMES A DAY- NOT NEEDED SINCE PROSTATE SURGERY. 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 BEGINNINGS OF CATARACTS, HIATAL HERNIA, SHINGLES 2000, FRACTURED RIGHT SHOULDER MAY 2019, History of Any Multi-Drug Resistant Organisms: None Reported Past Surgical History: Bowel Resection, Cholecystectomy, Coronary Bypass/CABG, Hernia Repair, Orthopedic Surgery, Prostate Surgery Additional Past Surgical History / Comment(s): spleenectomy, TURP, GADIEL INGUINAL HERNIAS,"WHIPPLE PROCEDURE", RT ROTATOR CUFF REPAIR, LITHOTRISY Past Anesthesia/Blood Transfusion Reactions: No Reported Reaction Past Psychological History: No Psychological Hx Reported Smoking Status: Never smoker Past Alcohol Use History: None Reported Past Drug Use History: None Reported - Past Family History Father Family Medical History: Cancer Additional Family Medical History / Comment(s): CANCER OF THE ESOPHAGUS Mother Additional Family Medical History / Comment(s): OF OLD AGE Brother(s) Family Medical History: Cancer Additional Family Medical History / Comment(s): esophagus cancer, pancreatic cancer Sister(s) Family Medical History: Cancer Additional Family Medical History / Comment(s): pancreatic cancer Daughter(s) Additional Family Medical History / Comment(s): intestinal issues with resection Son(s) Family Medical History: No Reported History Medications and Allergies Home Medications Medication Instructions Recorded Confirmed Type Aspirin EC [Ecotrin Low Dose] 81 mg PO HS 03/22/16 05/24/19 History Donepezil [Aricept] 10 mg PO HS 03/03/17 05/24/19 History Melatonin 10 mg PO HS 03/03/17 05/24/19 History diphenhydrAMINE HCL [Benadryl] 50 mg PO HS 02/04/18 05/24/19 History Citalopram Hydrobromide [CeleXA] 20 mg PO HS 05/24/19 05/24/19 History Ibuprofen [Motrin Ib] 400 mg PO HS 05/24/19 05/24/19 History Multivitamins, Thera [Multivitamin 1 tab PO HS 05/24/19 05/24/19 History (formulary)] Rosuvastatin Calcium [Crestor] 20 mg PO HS 05/24/19 05/24/19 History HYDROcodone/APAP 5-325MG [[place] 1 each PO Q4H PRN #40 tab 05/25/19 Rx 5-325] Allergies Allergy/AdvReac Type Severity Reaction Status Date / Time naproxen sodium [From Aleve] Allergy Rash/Hives Verified 05/24/19 20:00 Surgical - Exam Vital Signs Temp Pulse Resp BP Pulse Ox 97.3 F L 48 L 16 139/72 97 01/08/20 12:16 01/08/20 12:16 01/08/20 12:16 01/08/20 12:16 01/08/20 12:16 Results - Labs 01/09/20 08:51 01/09/20 08:51 Abnormal Lab Results - Last 24 Hours (Table) 01/08/20 01/08/20 01/09/20 Range/Units 12:30 12:30 04:00 WBC 15.5 H (3.8-10.6) k/uL RBC 3.44 L (4.30-5.90) m/uL Hgb 11.9 L (13.0-17.5) gm/dL Hct 35.1 L (39.0-53.0) % MCV 102.1 H (80.0-100.0) fL Neutrophils # 13.2 H (1.3-7.7) k/uL Lymphocytes # 0.9 L (1.0-4.8) k/uL Chloride 113 H (98-107) mmol/L Carbon Dioxide 21 L (22-30) mmol/L BUN 26 H (9-20) mg/dL Creatinine (0.66-1.25) mg/dL Glucose 107 H (74-99) mg/dL Albumin 2.8 L (3.5-5.0) g/dL Ur Specific [place] >1.050 H (1.001-1.035) Urine Protein 1+ H (Negative) Urine Ketones Trace H (Negative) Urine Mucus Few H (None) /hpf Urine Opiates Screen Detected H (NotDetected) U Methamphetamines Scrn Detected H (NotDetected) U Benzodiazepines Scrn Detected H (NotDetected) 01/09/20 01/09/20 Range/Units 08:51 08:51 WBC 14.6 H (3.8-10.6) k/uL RBC 2.76 L (4.30-5.90) m/uL Hgb 9.4 L D (13.0-17.5) gm/dL Hct 28.6 L (39.0-53.0) % MCV 103.7 H (80.0-100.0) fL Neutrophils # 12.6 H (1.3-7.7) k/uL Lymphocytes # 0.9 L (1.0-4.8) k/uL Chloride 109 H (98-107) mmol/L Carbon Dioxide 19 L (22-30) mmol/L BUN 37 H (9-20) mg/dL Creatinine 1.43 H (0.66-1.25) mg/dL Glucose 186 H (74-99) mg/dL Albumin (3.5-5.0) g/dL Ur Specific [place] (1.001-1.035) Urine Protein (Negative) Urine Ketones (Negative) Urine Mucus (None) /hpf Urine Opiates Screen (NotDetected) U Methamphetamines Scrn (NotDetected) U Benzodiazepines Scrn (NotDetected) Diabetes panel 01/08/20 01/09/20 Range/Units 12:30 08:51 Sodium 141 138 (137-145) mmol/L Potassium 3.9 4.3 (3.5-5.1) mmol/L Chloride 113 H 109 H (98-107) mmol/L Carbon Dioxide 21 L 19 L (22-30) mmol/L BUN 26 H 37 H (9-20) mg/dL Creatinine 1.04 1.43 H (0.66-1.25) mg/dL Glucose 107 H 186 H (74-99) mg/dL Calcium 8.5 8.4 (8.4-10.2) mg/dL AST 44 (17-59) U/L ALT 23 (4-49) U/L Alkaline Phosphatase 121 (38-126) U/L Total Protein 6.3 (6.3-8.2) g/dL Albumin 2.8 L (3.5-5.0) g/dL Calcium panel 01/08/20 01/09/20 Range/Units 12:30 08:51 Calcium 8.5 8.4 (8.4-10.2) mg/dL Albumin 2.8 L (3.5-5.0) g/dL Pituitary panel 01/08/20 01/09/20 Range/Units 12:30 08:51 Sodium 141 138 (137-145) mmol/L Potassium 3.9 4.3 (3.5-5.1) mmol/L Chloride 113 H 109 H (98-107) mmol/L Carbon Dioxide 21 L 19 L (22-30) mmol/L BUN 26 H 37 H (9-20) mg/dL Creatinine 1.04 1.43 H (0.66-1.25) mg/dL Glucose 107 H 186 H (74-99) mg/dL Calcium 8.5 8.4 (8.4-10.2) mg/dL Adrenal panel 01/08/20 01/09/20 Range/Units 12:30 08:51 Sodium 141 138 (137-145) mmol/L Potassium 3.9 4.3 (3.5-5.1) mmol/L Chloride 113 H 109 H (98-107) mmol/L Carbon Dioxide 21 L 19 L (22-30) mmol/L BUN 26 H 37 H (9-20) mg/dL Creatinine 1.04 1.43 H (0.66-1.25) mg/dL Glucose 107 H 186 H (74-99) mg/dL Calcium 8.5 8.4 (8.4-10.2) mg/dL Total Bilirubin 1.3 (0.2-1.3) mg/dL AST 44 (17-59) U/L ALT 23 (4-49) U/L Alkaline Phosphatase 121 (38-126) U/L Total Protein 6.3 (6.3-8.2) g/dL Albumin 2.8 L (3.5-5.0) g/dL <Aroldo Diana - Last Filed: 01/09/20 16:39> Surgical - Exam Vital Signs Temp Pulse Resp BP Pulse Ox 97.3 F L 48 L 16 139/72 97 01/08/20 12:16 01/08/20 12:16 01/08/20 12:16 01/08/20 12:16 01/08/20 12:16 Results - Labs 01/09/20 08:51 01/09/20 08:51 Abnormal Lab Results - Last 24 Hours (Table) 01/09/20 01/09/20 01/09/20 Range/Units 04:00 08:51 08:51 WBC 14.6 H (3.8-10.6) k/uL RBC 2.76 L (4.30-5.90) m/uL Hgb 9.4 L D (13.0-17.5) gm/dL Hct 28.6 L (39.0-53.0) % MCV 103.7 H (80.0-100.0) fL Neutrophils # 12.6 H (1.3-7.7) k/uL Lymphocytes # 0.9 L (1.0-4.8) k/uL Chloride 109 H (98-107) mmol/L Carbon Dioxide 19 L (22-30) mmol/L BUN 37 H (9-20) mg/dL Creatinine 1.43 H (0.66-1.25) mg/dL Glucose 186 H (74-99) mg/dL Ur Specific [place] >1.050 H (1.001-1.035) Urine Protein 1+ H (Negative) Urine Ketones Trace H (Negative) Urine Mucus Few H (None) /hpf Urine Opiates Screen Detected H (NotDetected) U Methamphetamines Scrn Detected H (NotDetected) U Benzodiazepines Scrn Detected H (NotDetected) Diabetes panel 01/09/20 Range/Units 08:51 Sodium 138 (137-145) mmol/L Potassium 4.3 (3.5-5.1) mmol/L Chloride 109 H (98-107) mmol/L Carbon Dioxide 19 L (22-30) mmol/L BUN 37 H (9-20) mg/dL Creatinine 1.43 H (0.66-1.25) mg/dL Glucose 186 H (74-99) mg/dL Calcium 8.4 (8.4-10.2) mg/dL Calcium panel 01/09/20 Range/Units 08:51 Calcium 8.4 (8.4-10.2) mg/dL Pituitary panel 01/09/20 Range/Units 08:51 Sodium 138 (137-145) mmol/L Potassium 4.3 (3.5-5.1) mmol/L Chloride 109 H (98-107) mmol/L Carbon Dioxide 19 L (22-30) mmol/L BUN 37 H (9-20) mg/dL Creatinine 1.43 H (0.66-1.25) mg/dL Glucose 186 H (74-99) mg/dL Calcium 8.4 (8.4-10.2) mg/dL Adrenal panel 01/09/20 Range/Units 08:51 Sodium 138 (137-145) mmol/L Potassium 4.3 (3.5-5.1) mmol/L Chloride 109 H (98-107) mmol/L Carbon Dioxide 19 L (22-30) mmol/L BUN 37 H (9-20) mg/dL Creatinine 1.43 H (0.66-1.25) mg/dL Glucose 186 H (74-99) mg/dL Calcium 8.4 (8.4-10.2) mg/dL
[2020-01-09] MEDS: HYDROcodone/APAP 5-325MG 1 EACH TAB PO PRN (12:17)
[2020-01-09] MEDS ORDERED: traMADol 50 MG TAB PO PRN (17:30)
[2020-01-09] MEDS ORDERED: PHENYLEPHRINE HCL PO PRN (17:30)
[2020-01-09] MEDS: SODIUM CHLORIDE 0.9% 1,000 ML IV SCH (17:43)
[2020-01-09] MEDS ORDERED: diphenhydrAMINE 50 MG CAP PO SCH (21:00)
[2020-01-09] MEDS: DONEPEZIL 10 MG TAB PO SCH (22:27)
[2020-01-09] MEDS: ASPIRIN 81 MG PO SCH (22:27)
[2020-01-09] MEDS: HEPARIN SODIUM,PORCINE 5,000 UNIT/ML 1 ML VIAL SQ SCH (22:27)
[2020-01-09] MEDS: CITALOPRAM HYDROBROMIDE 20 MG TAB PO SCH (22:27)
[2020-01-09] MEDS: BRIMONIDINE TARTRATE 0.2% DROPS 5 ML BTL BOTH EYES SCH (22:27)
[2020-01-09] MEDS: TIMOLOL 0.5% OPHTH DROPS 5 ML BTL BOTH EYES SCH (22:27)
--- NOTE | 2020-01-09 22:42 | PN ---
PROGRESS NOTE DATE OF SERVICE: 01/09/2020 This 89-year-old gentleman who was admitted with a significant fall had multiple injuries on the scalp and abrasions as well as L3 compression fracture. The patient complains of severe pain. The patient is mildly confused. surgery is following the patient closely. The patient had multiple bruises also, including hematomas, large left gluteal subcutaneous hematoma. Lab-jeronimo, hemoglobin is 9.4, white count elevated at 14.6. The patient was also started on empiric antibiotics. The drug screen was positive for methamphetamine and benzodiazepines and opiates. Past medical history reviewed. REVIEW OF SYSTEMS: CARDIOVASCULAR SYSTEM: No angina, palpitations. RESPIRATORY SYSTEM: As mentioned earlier. GI: As mentioned earlier. : No dysuria or retention. NERVOUS SYSTEM: No numbness, weakness. CURRENT MEDICATIONS: Reviewed. They include: 1. Tylenol. 2. [place] 5 mg. 3. Xanax. 4. Dilaudid. 5. Narcan. 6. Protonix. PHYSICAL EXAMINATION: Patient is alert and oriented x3. Pulse is 79, blood pressure 104/61, respiration 18, temperature 97.6, pulse ox 96% on room air. HEENT: Conjunctivae normal. NECK: No jugular venous distention. CARDIOVASCULAR SYSTEM: S1, S2 muffled. RESPIRATORY SYSTEM: Breath sounds diminished at the bases. A few scattered rhonchi and crackles. ABDOMEN: Soft, non-tender. LEGS: No edema. No swelling. NERVOUS SYSTEM: Diffusely weak. SCALP: Abrasions present. Gluteal hematoma present. LABS: WBC 14.6, hemoglobin 9.4, and creatinine is 1.43. ASSESSMENT: 1. Status post fall and multiple lacerations of the scalp and left elbow as well as left gluteal hematoma. 2. L3 compression fracture secondary to fall. 3. Severe pain and generalized pains secondary to fall. 4. Severe gait dysfunction. 5. Old right shoulder fracture. 6. Opiates, methamphetamines and benzodiazepines from the drug screen. 7. Coronary artery disease, coronary artery bypass grafting. 8. History of cholecystectomy. 9. Gastroesophageal reflux disease. 10.Hyperlipidemia. 11.History of prostate disease. 12.History of nephrolithiasis. 13.Gait dysfunction. 14.History of splenectomy. 15.Increased white count. 16.Anemia, macrocytic. 17.Hypoalbuminemia with mild protein-calorie malnutrition. 18.History of prostate surgery. 19.FULL CODE. RECOMMENDATIONS AND DISCUSSION: In this 89-year-old gentleman who presented with multiple complex medical issues, we will monitor the patient closely, continue the current medications, continue with symptomatic treatment. Continue with the pain medications. Continue the Rocephin. Follow the cultures. DVT prophylaxis. We will reconcile the home medications. Guarded prognosis because of multiple complex medical issues. Further recommendations to follow. PT/OT evaluation, possible ECF rehab. A copy of this dictation is being forwarded to Dr. Thorne, who is the primary physician. We will follow the patient closely with you. Thank you, Dr. Diana. MONAE / JACOBN: [id number] / JOSE CARLOS
[2020-01-10 08:33] LABS: Basophils % (A) 0 %; Eosinophils # (A) 0.1 k/uL (0-0.7); Eosinophils % (A) 1 %; Lymphocytes # (A) 0.9 k/uL (1.0-4.8); Lymphocytes % (A) 5 %; MCHC 34.5 g/dL (31.0-37.0); MCV 101.4 fL (80.0-100.0); Macrocytosis Slight; Mean Platelet Volume 9.8; Monocytes # (A) 0.8 k/uL (0-1.0); Monocytes % (A) 5 %; Neutrophils # (A) 15.3 k/uL (1.3-7.7); Neutrophils % (A) 88 %; Platelet Count 176 k/uL (150-450); RBC 2.17 m/uL (4.30-5.90); RDW 15.1 % (11.5-15.5); WBC 17.5 k/uL (3.8-10.6)
[2020-01-10 08:42] LABS: HGB 7.6 gm/dL (13.0-17.5)
--- NOTE | 2020-01-10 08:42 | ECHOF ---
Referral Reason:chf MEASUREMENTS -------- HEIGHT: 172.7 cm WEIGHT: 68.5 kg BP: 131/67 IVSd: 1.1 cm (0.6 - 1.1) LVIDd: 4.1 cm (3.9 - 5.3) LVPWd: 1.1 cm (0.6 - 1.1) IVSs: 1.5 cm LVIDs: 2.9 cm LVPWs: 1.7 cm RVIDd: 3.2 cm (< 3.3) LAESV Index (A-L): 19.05 ml/m Ao Diam: 3.4 cm (2.0 - 3.7) AV Cusp: 2.1 cm (1.5 - 2.6) EPSS: 1.1 cm MV E Octavio: 0.52 m/s MV DecT: 354 ms MV A Octavio: 0.79 m/s MV E/A Ratio: 0.67 RAP: 5.00 mmHg RVSP: 44.52 mmHg MV EF SLOPE: 88.50 mm/s (70 - 150) MV EXCURSION: 13.88 mm (> 18.000) FINDINGS -------- Sinus rhythm. This was a technically difficult study with suboptimal apical views. The left ventricular size is normal. There is mild concentric left ventricular hypertrophy. Overa ll left ventricular systolic function is normal with, an EF between 55 - 60 %. The diastolic fillin g pattern is normal for the age of the patient 9.74. The right ventricle is normal in size. Normal LA size by volume 22+/-6 ml/m2. The right atrium was not well visualized. Lumason used Interatrial and interventricular septum intact. There is mild aortic valve sclerosis. There is no evidence of aortic regurgitation. There is no e vidence of aortic stenosis. Mild mitral regurgitation is present. Uehy-us-lirufllw tricuspid regurgitation present. There is mild to moderate pulmonary hypertension. The right ventricular systolic pressure, as measured by Doppler, is 44.52mmHg. There is no pulmonic regurgitation present. The aortic root size is normal. IVC Not well visulized. There is no pericardial effusion. CONCLUSIONS -------- 1. Sinus rhythm. 2. This was a technically difficult study with suboptimal apical views. 3. The left ventricular size is normal. 4. There is mild concentric left ventricular hypertrophy. 5. Overall left ventricular systolic function is normal with, an EF between 55 - 60 %. 6. The diastolic filling pattern is normal for the age of the patient 9.74 7. The right ventricle is normal in size. 8. Normal LA size by volume 22+/-6 ml/m2. 9. The right atrium was not well visualized. 10. Lumason used 11. Interatrial and interventricular septum intact. 12. There is mild aortic valve sclerosis. 13. There is no evidence of aortic regurgitation. 14. There is no evidence of aortic stenosis. 15. Mild mitral regurgitation is present. 16. Qkwl-rx-krzfjtro tricuspid regurgitation present. 17. There is mild to moderate pulmonary hypertension. 18. The right ventricular systolic pressure, as measured by Doppler, is 44.52mmHg. 19. There is no pulmonic regurgitation present. 20. The aortic root size is normal. 21. IVC Not well visulized. 22. There is no pericardial effusion. GOLD NIB GRINDER: Silvia Fleming RDCS
[2020-01-10 08:43] LABS: Calcium 8.1 mg/dL (8.4-10.2); Potassium 4.2 mmol/L (3.5-5.1)
[2020-01-10] MEDS: BRIMONIDINE TARTRATE 0.2% DROPS 5 ML BTL BOTH EYES SCH ×3 (09:58→22:10)
[2020-01-10] MEDS: PANTOPRAZOLE 40 MG/10 ML VIAL IVP SCH (10:00)
[2020-01-10] MEDS: ERGOCALCIFEROL 50,000 UNIT CAP PO SCH ×2 (10:00→10:10)
[2020-01-10] MEDS: HEPARIN SODIUM,PORCINE 5,000 UNIT/ML 1 ML VIAL SQ SCH ×2 (10:00→21:40)
[2020-01-10] MEDS: TIMOLOL 0.5% OPHTH DROPS 5 ML BTL BOTH EYES SCH ×2 (10:01→21:40)
--- NOTE | 2020-01-10 10:18 | FL ---
MODIFIED SWALLOW / DEGLUTITION STUDY DATE OF EXAM: 01/10/2020 CLINICAL HISTORY: 89-year-old male with gurgling, admitted for a humeral fracture. Assess for aspirat ion. TECHNIQUE: Deglutition study is performed utilizing thin liquid barium, honey and nectar thick liqui d barium, and barium thick puree consistency. Total fluoroscopy time: 1 minute 52 seconds. Total images: None. Real-time fluoroscopy support was provided to speech pathology. COMPARISON: None. FINDINGS: Intermittent decreased anterior laryngeal excursion and epiglottic inversion is encountered. There is severe vallecular and piriform sinus residuals. Gross silent aspiration is encountered with all test ed consistencies. IMPRESSION: Gross silent aspiration with all tested consistencies. Severe residuals. Please refer to speech thera pist notes for further details if necessary.
--- NOTE | 2020-01-10 11:37 | CT ---
EXAMINATION TYPE: CT brain wo con DATE OF EXAM: 01/10/2020 COMPARISON: 01/08/2020 HISTORY: altered mental status CT DLP: 1107.6 mGycm Automated exposure control for dose reduction was used. TECHNIQUE: CT scan of the head is performed without contrast. FINDINGS: There is no acute intracranial hemorrhage or midline shift identified. There is diffuse v entricular and sulcal prominence consistent with diffuse age-related cerebral atrophy. There is low- attenuation in the periventricular white matter consistent with chronic small vessel ischemic change. The globes are intact and the visualized sinuses are clear. Left frontal and left scalp hematomas w ith lacerations have markedly improved from the prior. Cerumen is incidentally noted in the externa l auditory canals. Atherosclerosis of the intracranial vasculature noted. IMPRESSION: No acute intracranial hemorrhage or midline shift. Improved left frontal and parietal sc alp lacerations and hematomas. There is diffuse age-related cerebral atrophy and chronic small vessel ischemic change noted.
--- NOTE | 2020-01-10 12:26 | P.PN ---
Subjective Progress Note Date: 01/10/20 CHIEF COMPLAINT: Trauma HISTORY OF PRESENT ILLNESS: Patient examined at the bedside with Dr. Diana. Patient appears slightly more confused today. He underwent a modified barium swallow today but did not pass. He is denying any abdominal pain. PHYSICAL EXAM: VITAL SIGNS: Reviewed. GENERAL: Well-developed in no acute distress. HEENT: No sclera icterus. Extraocular movements grossly intact. Moist buccal mucosa. Head is normocephalic. Laceration noted to scalp with dressing intact. ABDOMEN: Soft. Nondistended. Nontender. NEUROLOGIC: Awake and alert. Slow to respond. Appears slightly more confused than yesterday. SKIN: Multiple bruises throughout. Lacerations noted to left elbow and hand with suturing completed in ER. ASSESSMENT: 1. Trauma, status post fall 2. Scalp laceration and hematoma of frontal and left parietal regions 3. Large left gluteal subcutaneous and intramuscular hematoma measuring up to 17.9 cm 4. Recent fall with right proximal humeral fracture 5. Left elbow and left hand laceration, status post suturing PLAN: -Monitor labs -PT/OT -Pain control -Medical management per Dr. Godoy -Obtain CT brain w/o contrast -Obtain neurology consult -NPO -Patient will be scheduled for PEG tube placement on Tuesday with Dr. Diana Nurse practitioner note has been reviewed by physician. Signing provider agrees with the documented findings, assessment, and plan of care. Objective - Vital Signs Vital signs: Vital Signs Temp 97.9 F 01/10/20 05:32 Pulse 61 01/10/20 05:32 Resp 18 01/10/20 05:32 BP 113/69 01/10/20 05:32 Pulse Ox 93 L 01/10/20 05:32 Intake & Output 01/09/20 01/10/20 01/10/20 18:59 06:59 18:59 Intake Total 550 Output Total 100 200 Balance -100 350 Intake: IV 400 Sodium Chloride 0.9% 1, 400 000 ml @ 50 mls/hr IV . Q20H PIPO Rx#:[id number] Oral 150 Output: Urine 100 200 Other: Voiding Method Urinal Urinal # Voids 1 - Labs CBC & Chem 7: 01/10/20 07:44 01/10/20 07:44 Labs: Abnormal Lab Results - Last 24 Hours (Table) 01/10/20 01/10/20 Range/Units 07:44 07:44 WBC 17.5 H (3.8-10.6) k/uL RBC 2.17 L (4.30-5.90) m/uL Hgb 7.6 L D (13.0-17.5) gm/dL Hct 22.0 L (39.0-53.0) % MCV 101.4 H (80.0-100.0) fL Neutrophils # 15.3 H (1.3-7.7) k/uL Lymphocytes # 0.9 L (1.0-4.8) k/uL Sodium 136 L (137-145) mmol/L Chloride 108 H (98-107) mmol/L BUN 44 H (9-20) mg/dL Calcium 8.1 L (8.4-10.2) mg/dL
[2020-01-10] MEDS: MULTIVITAMINS, THERA 1 EACH TAB PO SCH (13:57)
[2020-01-10] MEDS: FOLIC ACID 1 MG TAB PO SCH (13:57)
[2020-01-10] MEDS: THIAMINE 100 MG TAB PO SCH (13:58)
--- NOTE | 2020-01-10 15:58 | PN ---
PROGRESS NOTE DATE OF SERVICE: 01/10/2020 This 89-year-old gentleman who was admitted with significant trauma after falling down multiple stairs to the basement had significant scalp lacerations. The patient is also confused at this time. The patient also has a significant laceration on the left elbow, which was managed by Dr. Diana. Patient also had hematoma in the gluteal region. The patient also had confusion. The most recent CT scan of the brain showed parietofrontal scalp injuries and hematomas and significant cerebral atrophy as well as small ischemia. No acute stroke was noted. The patient is being closely monitored. Neurology consultation is underway. Two-D echo with Doppler showed normal ejection fraction. Other CT scans were reviewed. Past medical history reviewed. Review of systems could not be taken; the patient is confused at this time. CURRENT MEDICATIONS: Reviewed. They include: 1. Tylenol p.r.n. 2. [place] 5 mg q.6 p.r.n. 3. Xanax 0.25 t.i.d. p.r.n. 4. Aspirin. 5. Alphagan. 6. Rocephin 1 gram IV daily. 7. Aricept. 8. Vitamin D. 9. Folic acid. 10.Heparin. 11.Narcan. 12.Protonix. 13.Timoptic. PHYSICAL EXAMINATION: Patient is confused. Pulse 60, blood pressure 177/64, respiration 18, temperature 98.2, pulse ox 96% on room air. HEENT: Conjunctivae normal. Oral mucosa moist. NECK: No jugular venous distention. No carotid bruit. No lymph node enlargement. CARDIOVASCULAR SYSTEM: S1, S2 muffled. RESPIRATORY SYSTEM: Breath sounds diminished at the bases. A few scattered rhonchi. No crackles. ABDOMEN: Soft, non-tender. LEGS: No edema. No swelling. NERVOUS SYSTEM: No focal deficit. EXAMINATION OF LEFT GLUTEAL AREA: Hematoma present. Scalp hematoma also present. LABS: WBC 17.5, hemoglobin 7.6. Sodium 136, potassium 4.2, creatinine 1.13, improved from 1.43. Drug screen noted. ASSESSMENT: 1. Status post fall and multiple lacerations of the scalp and left elbow as well as left gluteal hematoma. 2. L3 compression fracture secondary to fall. 3. Severe pain and generalized pain secondary to fall. 4. Swallowing difficulties with possible aspiration. 5. Change in mental status, acute delirium. 6. Severe gait dysfunction. 7. 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 8. Opiates, methamphetamines and benzodiazepines from the drug screen. 9. Coronary artery disease, coronary artery bypass grafting. 10.History of cholecystectomy. 11.History of gastroesophageal reflux disease. 12.Hyperlipidemia. 13.History of prostate disease. 14.History of nephrolithiasis. 15.Gait dysfunction. 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 17.Increased white count. 18.Anemia, macrocytic. 19.Hypoalbuminemia with mild protein-calorie malnutrition. 20.History of prostate surgery. 21.FULL CODE. RECOMMENDATIONS AND DISCUSSION: I recommend to continue current medications, continue with the monitoring, symptomatic treatment. Otherwise at this time I recommend continuing the empiric antibiotics, PT/OT evaluation. Will continue to monitor. I would also recommend a chest x-ray for followup and neurology consultation, possible PEG tube placement. Otherwise, the overall prognosis is extremely guarded. Discussed with Dr. Thorne as well as with the patient's daughter, Jada Pierre . Will continue to monitor. Further recommendations to follow. Will work up the patient for possible ECF rehab. MMODL / IJN: [id number] /
[2020-01-10] MEDS: SODIUM CHLORIDE 0.9% 1,000 ML IV SCH (19:58)
[2020-01-10] MEDS: CITALOPRAM HYDROBROMIDE 20 MG TAB PO SCH (21:32)
[2020-01-10] MEDS: DONEPEZIL 10 MG TAB PO SCH (21:32)
[2020-01-10] MEDS: ASPIRIN 81 MG PO SCH (21:32)
[2020-01-11] MEDS: HYDROmorphone 0.5 MG/0.5 ML SYRINGE IVP PRN (05:20)
[2020-01-11 08:11] LABS: Basophils # (A) 0.1 k/uL (0-0.2); Basophils % (A) 0 %; Eosinophils # (A) 0.6 k/uL (0-0.7); Eosinophils % (A) 5 %; HCT 22.2 % (39.0-53.0); HGB 7.7 gm/dL (13.0-17.5); Lymphocytes # (A) 0.9 k/uL (1.0-4.8); Lymphocytes % (A) 8 %; MCH 35.4 pg (25.0-35.0); MCHC 34.7 g/dL (31.0-37.0); MCV 102.2 fL (80.0-100.0); Macrocytosis Slight; Mean Platelet Volume 9.7; Monocytes # (A) 0.8 k/uL (0-1.0); Monocytes % (A) 7 %; Neutrophils # (A) 9.5 k/uL (1.3-7.7); Neutrophils % (A) 78 %; Platelet Count 169 k/uL (150-450); RBC 2.17 m/uL (4.30-5.90); RDW 15.2 % (11.5-15.5); WBC 12.2 k/uL (3.8-10.6)
[2020-01-11 08:26] LABS: African American GFR (CKD) >90 (>60 ml/min/1.73 sqM); Anion Gap 3 mmol/L; Blood Urea Nitrogen 38 mg/dL (9-20); Calcium 7.8 mg/dL (8.4-10.2); Carbon Dioxide 21 mmol/L (22-30); Chloride 113 mmol/L (98-107); Glucose 89 mg/dL (74-99); Non-African American GFR(CKD) 79 (>60 ml/min/1.73 sqM); Potassium 3.9 mmol/L (3.5-5.1); Sodium 137 mmol/L (137-145)
[2020-01-11] MEDS: THIAMINE 100 MG TAB PO SCH (08:34)
[2020-01-11] MEDS: MULTIVITAMINS, THERA 1 EACH TAB PO SCH (08:34)
[2020-01-11] MEDS: FOLIC ACID 1 MG TAB PO SCH (08:34)
[2020-01-11] MEDS: PANTOPRAZOLE 40 MG/10 ML VIAL IVP SCH (08:37)
[2020-01-11] MEDS: HEPARIN SODIUM,PORCINE 5,000 UNIT/ML 1 ML VIAL SQ SCH ×2 (08:37→20:26)
[2020-01-11] MEDS: BRIMONIDINE TARTRATE 0.2% DROPS 5 ML BTL BOTH EYES SCH ×3 (08:38→21:23)
[2020-01-11] MEDS: TIMOLOL 0.5% OPHTH DROPS 5 ML BTL BOTH EYES SCH ×2 (08:38→20:26)
[2020-01-11] MEDS: SODIUM CHLORIDE 0.9% 1,000 ML IV SCH (08:39)
--- NOTE | 2020-01-11 08:39 | XR ---
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 Median sternotomy wires and po st-CABG clips in the mediastinum. Heart remains upper limits of normal in size. Mild interstitial pro minence and biapical pleural parenchymal scarring is unchanged. Some mild patchy opacity along the le ft hemidiaphragm, likely atelectasis. No uriel progressive consolidation. Impression: Chronic appearing changes without definite acute process at this time. 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
[2020-01-11] MEDS: LACTATED RINGERS 1,000 ML IV SCH (13:41)
--- NOTE | 2020-01-11 14:04 | P.PN ---
Subjective Progress Note Date: 01/11/20 CHIEF COMPLAINT: Trauma HISTORY OF PRESENT ILLNESS: Patient examined at the bedside with Dr. Diana. Patient appears less confused today. He denies PHYSICAL EXAM: VITAL SIGNS: Reviewed. GENERAL: Well-developed in no acute distress. HEENT: No sclera icterus. Extraocular movements grossly intact. Moist buccal mucosa. Head is normocephalic. Laceration noted to scalp with dressing intact. ABDOMEN: Soft. Nondistended. Nontender. NEUROLOGIC: Awake and alert. Slow to respond. Appears less confused in comparison to yesterday SKIN: Multiple bruises throughout. Lacerations noted to left elbow and hand with suturing completed in ER. ASSESSMENT: 1. Trauma, status post fall 2. Scalp laceration and hematoma of frontal and left parietal regions 3. Large left gluteal subcutaneous and intramuscular hematoma measuring up to 17.9 cm 4. Recent fall with right proximal humeral fracture 5. Left elbow and left hand laceration, status post suturing PLAN: -Monitor labs -PT/OT -Pain control -Medical management per Dr. Godoy -Neurology consulted. Await evaluation -NPO -Patient scheduled for PEG tube placement on Tuesday with Dr. Diana -Insert NG tube and begin tube feedings for the weekend. Stop tube feedings Tuesday night. Nurse practitioner note has been reviewed by physician. Signing provider agrees with the documented findings, assessment, and plan of care. Objective - Vital Signs Vital signs: Vital Signs Temp 97.6 F 01/11/20 12:02 Pulse 54 L 01/11/20 12:02 Resp 18 01/11/20 12:02 BP 171/55 01/11/20 12:02 Pulse Ox 94 L 01/11/20 12:02 Intake & Output 01/10/20 01/11/20 01/11/20 18:59 06:59 18:59 Intake Total 600 450 Output Total 200 200 Balance -200 400 450 Intake: Intake, IV Titration 600 450 Amount Sodium Chloride 0.9% 1, 400 000 ml @ 50 mls/hr IV . Q20H PIPO Rx#:[id number] cefTRIAXone 1 gm In 600 50 Sodium Chloride 0.9% 50 ml @ 100 mls/hr IVPB Q24HR PPIO Rx#:[id number] Oral 0 Output: Urine 200 Post Void Residual 200 Other: Voiding Method Urinal Urinal Urinal # Voids 2 1 2 - Labs CBC & Chem 7: 01/11/20 07:41 01/11/20 07:41 Labs: Abnormal Lab Results - Last 24 Hours (Table) 01/11/20 01/11/20 Range/Units 07:41 07:41 WBC 12.2 H (3.8-10.6) k/uL RBC 2.17 L (4.30-5.90) m/uL Hgb 7.7 L (13.0-17.5) gm/dL Hct 22.2 L (39.0-53.0) % MCV 102.2 H (80.0-100.0) fL MCH 35.4 H (25.0-35.0) pg Neutrophils # 9.5 H (1.3-7.7) k/uL Lymphocytes # 0.9 L (1.0-4.8) k/uL Chloride 113 H (98-107) mmol/L Carbon Dioxide 21 L (22-30) mmol/L BUN 38 H (9-20) mg/dL Calcium 7.8 L (8.4-10.2) mg/dL
--- NOTE | 2020-01-11 17:51 | PN ---
PROGRESS NOTE DATE OF SERVICE: 01/11/2020 This 89-year-old gentleman who was admitted with a fall and multiple injuries continues to be confused. Patient has significant difficulty in swallowing, also. PEG tube is being planned at this time. Neurology has seen the patient. Most recent chest x-ray, which was reviewed personally by me, showed chronic-appearing changes. The patient was evaluated and is being planned for PEG tube on Tuesday, hopefully by Dr. Diana. As far as labs are concerned, WBC is 12.2, hemoglobin 7.9. As mentioned earlier, the patient is on empiric antibiotics. Cultures are negative so far. Past medical history reviewed. Review of systems could not be taken; the patient is confused. CURRENT MEDICATIONS: Reviewed. They include: 1. Tylenol 650 q.6 p.r.n. 2. [place] 5 mg q.6 p.r.n. 3. Xanax 0.25 t.i.d. 4. Aspirin 81 mg daily. 5. Brimonidine 1 drop both eyes. 6. Rocephin 1 gram daily. 7. Celexa 20 mg at bedtime. 8. Aricept 10 mg at bedtime. 9. Vitamin D2 50,000 q.7 days. 10.Folic acid 1 mg daily. 11.Heparin 5000 units subcutaneously b.i.d. 12.Dilaudid p.r.n. 13.Lactated Ringer. 14.Multivitamins. 15.Narcan. 16.Protonix. 17.Vitamin B1. 18.Timoptic. 19.Ultram. PHYSICAL EXAMINATION: Patient alert and oriented x3. Pulse 54, blood pressure 171/55, respiration 18, temperature 97.6, pulse ox 94% on room air. HEENT: Conjunctivae normal. NECK: No jugular venous distention. CARDIOVASCULAR SYSTEM: S1, S2 muffled. RESPIRATORY SYSTEM: Breath sounds diminished at the bases. A few scattered rhonchi and crackles. Expiratory wheezing also present. ABDOMEN: Soft, non-tender. LEGS: No edema. No swelling. NERVOUS SYSTEM: Diffusely weak. LABS: WBC 12.2, hemoglobin 7.7, sodium 137, potassium 3.9. UA noted. ASSESSMENT: 1. Status post fall and multiple lacerations of the scalp and left elbow as well as left gluteal hematoma. 2. L3 compression fracture, possibly secondary to fall. 3. Severe pain and generalized pain secondary to fall and gait dysfunction. 4. Swallowing difficulties with possible aspiration. 5. Change in mental status, acute delirium. 6. Severe gait dysfunction. 7. 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 8. Opiates, methamphetamines, benzodiazepines from the drug screen. 9. Coronary artery disease, coronary artery bypass grafting. 10.History of cholecystectomy. 11.History of gastroesophageal reflux disease. 12.History of hyperlipidemia. 13.History of prostate disease. 14.History of nephrolithiasis. 15.History of gait dysfunction. 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 17.Increased white count. 18.Anemia, macrocytic. 19.Hypoalbuminemia with mild to moderate protein-calorie malnutrition. 20.History of prostate surgery. 21.Sinus bradycardia. 22.FULL CODE. RECOMMENDATIONS AND DISCUSSION: I recommend to continue current medications, continue with the monitoring, symptomatic treatment. Otherwise, monitor closely and follow closely with Dr. Diana regarding PEG tube on Tuesday. Continue with empiric antibiotics for now. The patient has sinus bradycardia. Avoid beta blockers. Could be secondary to concussion and other abnormalities. CT scan has been checked. Overall prognosis is extremely guarded, which I discussed at length with the patient's daughter over the phone yesterday. I would recommend PT/OT evaluation and continued ECF rehab at this time. Further recommendations to follow. MMROSALIEL / IJN: [id number] /
--- NOTE | 2020-01-11 19:26 | P.CNNES ---
History of Present Illness Consult date: 01/11/20 Chief complaint: Altered mental status History of Present Illness: This is a new neurology consult requested for further advice and recommendations for an 89-year-old gentleman who was brought in for increasing altered mental status after multiple falls. He does have a history of some baseline dementia. I have reviewed the chart and apparently he has had a history of multiple falls but this particular fall was involved with significant confusion which prompted his family to bring him in. This admission was found to confirm an L3 caesar jeane fracture. He has an old right shoulder male united fracture. His urine drug screen was positive for opiates methamphetamines and benzodiazepines. He has significant stroke risk factors for coronary artery disease and hypertension. On today's examination the patient seems more lucid and able to gait contain a conversation. I gathered some of the history today from his family over the phone. The patient has now today good recall of the events that led up to the fall. He felt that he had a syncopal episode and then fell down the stairs. His family reports however he has had recent falls in the past year but this fall was particularly bad due to him falling down multiple stairs. Currently the patient is alert and he is able to engage appropriately. His speech is still noted to be quite dysarthric. His computed tomography scan was reviewed and does show evidence of a improved left frontal parietal scalp laceration and hematoma. There is no evidence of any acute ischemic or hemorrhagic infarct. There is age-related atrophy. Past Medical History Past Medical History: Cancer, Dementia, GERD/Reflux, Hyperlipidemia, Memory Impairment, Prostate Disorder Additional Past Medical History / Comment(s): kidney stones, urosepsis, turp - history of self-cathing 1-2 TIMES A DAY- NOT NEEDED SINCE PROSTATE SURGERY. " STOMACH AND SMALL INTESTINE CANCER", "SPHERO CYTOSIS-CORRECTED BY REMOVING SPLEEN". BEGINNINGS OF CATARACTS, HIATAL HERNIA, SHINGLES 2000, FRACTURED RIGHT SHOULDER MAY 2019, History of Any Multi-Drug Resistant Organisms: None Reported Past Surgical History: Bowel Resection, Cholecystectomy, Coronary Bypass/CABG, Hernia Repair, Orthopedic Surgery, Prostate Surgery Additional Past Surgical History / Comment(s): spleenectomy, TURP, GADIEL INGUINAL HERNIAS,"WHIPPLE PROCEDURE", RT ROTATOR CUFF REPAIR, LITHOTRISY Past Anesthesia/Blood Transfusion Reactions: No Reported Reaction Past Psychological History: No Psychological Hx Reported Smoking Status: Never smoker Past Alcohol Use History: None Reported Past Drug Use History: None Reported - Past Family History Father Family Medical History: Cancer Additional Family Medical History / Comment(s): CANCER OF THE ESOPHAGUS Mother Additional Family Medical History / Comment(s): OF OLD AGE Brother(s) Family Medical History: Cancer Additional Family Medical History / Comment(s): esophagus cancer, pancreatic cancer Sister(s) Family Medical History: Cancer Additional Family Medical History / Comment(s): pancreatic cancer Daughter(s) Additional Family Medical History / Comment(s): intestinal issues with resection Son(s) Family Medical History: No Reported History Medications and Allergies Home Medications Medication Instructions Recorded Confirmed Type Aspirin EC [Ecotrin Low Dose] 81 mg PO HS 03/22/16 01/09/20 History Donepezil [Aricept] 10 mg PO HS 03/03/17 01/09/20 History diphenhydrAMINE HCL [Benadryl] 50 mg PO HS 02/04/18 01/09/20 History Citalopram Hydrobromide [CeleXA] 20 mg PO HS 05/24/19 01/09/20 History Brimonidine Tartrate [Alphagan P 1 drop BOTH EYES TID 01/09/20 01/09/20 History 0.2% Ophth Soln] Ergocalciferol [Vitamin D2 50,000 unit PO Q7D 01/09/20 01/09/20 History (DRISDOL)] Phenylephrine Hcl (Unknown 2 tab PO HS PRN 01/09/20 01/09/20 History Strength) Timolol 0.5% Ophth Soln [Timoptic 1 drop BOTH EYES BID 01/09/20 01/09/20 History 0.5% Ophth Soln] traMADol HCL [Ultram] 50 mg PO BID PRN 01/09/20 01/09/20 History Allergies Allergy/AdvReac Type Severity Reaction Status Date / Time naproxen sodium [From Aleve] Allergy Rash/Hives Verified 05/24/19 20:00 Physical Examination - Vital Signs Vital Signs: Vital Signs Temp Pulse Resp BP Pulse Ox 01/11/20 12:02 97.6 F 54 L 18 171/55 94 L 01/11/20 04:44 98.2 F 62 20 135/75 93 L 01/10/20 20:48 99.2 F 59 L 18 127/66 95 Intake and Output 01/11/20 01/11/20 01/11/20 06:59 14:59 22:59 Intake Total 600 450 Output Total 200 Balance 400 450 Intake: Intake, IV Titration 600 450 Amount Sodium Chloride 0.9% 1, 400 000 ml @ 50 mls/hr IV . Q20H PIPO Rx#:[id number] cefTRIAXone 1 gm In 600 50 Sodium Chloride 0.9% 50 ml @ 100 mls/hr IVPB Q24HR PIPO Rx#:[id number] Output: Post Void Residual 200 Other: Voiding Method Urinal Urinal Urinal # Voids 1 2 Weight 68.492 kg Gen. exam: Patient cachectic appearance a dull failure to thrive. He is in some mild to moderate distress due to his fractures. HEENT: Mildly injected sclera. Neck appears supple. Oropharynx is clear. Chest clear to auscultation in the upper lobes but diminished breath sounds course in the bases bilaterally. Cardiac: Regular rate and rhythm no murmurs noted. Pulses: Radial pedal pulses appear equal and symmetric. Extremities: No clubbing of the digits. There is definitely distal muscle wasting noted in the legs bilaterally. Multiple bruises of various ages noted. No edema noted in the hands. Neurologic exam next line mental status: Patient is awake coherent he is oriented to time place and person. His speech is dysarthric. Pupils: 2 mm equally reactive to light and accommodation. Cranial nerve examination: Tracks well. No nystagmus noted on vertical horizontal gaze. Face show some slight facial weakness on the left (family says this is old). V1 through V3 sensory appears intact. Palate elevates symmetrically. Cranial nerve VIII is intact by clinical observation. Shoulder shrug is asymmetric due to right shoulder injury. Tongue is midline without fasciculations deviation. Motor examination patient is able to move the left upper extremity above his shoulder but he is unable to move the right arm above nipple level. He is able to lift both legs off the bed by 30 only but there is drift. He is able to wiggle both toes bilaterally. Due to his pain level formal testing was omitted at this time. No fasciculations or tremor noted. Deep tendon reflexes are trace over biceps brachial radialis. Patellar reflexes are absent bilaterally. Plantar responses are flexor bilaterally. No ankle clonus is elicited. Cord coordination testing was difficult due to the limitation of movement. Sensory examination grossly intact to pinprick throughout. Gait examination deferred Results - Laboratory Findings CBC and BMP: 01/11/20 07:41 01/11/20 07:41 Abnormal Lab Findings: Abnormal Labs 01/08/20 01/08/20 01/09/20 12:30 12:30 04:00 WBC 15.5 H RBC 3.44 L Hgb 11.9 L Hct 35.1 L MCV 102.1 H MCH Neutrophils # 13.2 H Lymphocytes # 0.9 L Sodium Chloride 113 H Carbon Dioxide 21 L BUN 26 H Creatinine Glucose 107 H Calcium Albumin 2.8 L Ur Specific Agra >1.050 H Urine Protein 1+ H Urine Ketones Trace H Urine Mucus Few H Urine Opiates Screen Detected H U Methamphetamines Scrn Detected H U Benzodiazepines Scrn Detected H 01/09/20 01/09/20 01/10/20 08:51 08:51 07:44 WBC 14.6 H 17.5 H RBC 2.76 L 2.17 L Hgb 9.4 L D 7.6 L D Hct 28.6 L 22.0 L MCV 103.7 H 101.4 H MCH Neutrophils # 12.6 H 15.3 H Lymphocytes # 0.9 L 0.9 L Sodium Chloride 109 H Carbon Dioxide 19 L BUN 37 H Creatinine 1.43 H Glucose 186 H Calcium Albumin Ur Specific Agra Urine Protein Urine Ketones Urine Mucus Urine Opiates Screen U Methamphetamines Scrn U Benzodiazepines Scrn 01/10/20 01/11/20 01/11/20 07:44 07:41 07:41 WBC 12.2 H RBC 2.17 L Hgb 7.7 L Hct 22.2 L MCV 102.2 H MCH 35.4 H Neutrophils # 9.5 H Lymphocytes # 0.9 L Sodium 136 L Chloride 108 H 113 H Carbon Dioxide 21 L BUN 44 H 38 H Creatinine Glucose Calcium 8.1 L 7.8 L Albumin Ur Specific Agra Urine Protein Urine Ketones Urine Mucus Urine Opiates Screen U Methamphetamines Scrn U Benzodiazepines Scrn Assessment and Plan Assessment: This is a 89-year-old gentleman who was brought in by his family for a fall down several stairs with altered mental status. He was found positive on the urine drug screen for opiates methamphetamines and benzodiazepines. The reason for this positive urine drug screen is concerning as to why gentleman of this age would be exposed to these drugs particularly methamphetamines. An could this in fact have been a recent leading to his fall. There may be an underlying substance abuse issue even an elderly gentleman at this age. His cognition does appear improved compared to prior notes he is alert and oriented and able to engage in conversation. His neuro exam was limited due to pain. But no evidence of any(or sensory motor deficits at this time. I would recommend that this patient have an MRI of his brain if there is no contraindication. This would assure that we have not missed a stroke as a computed tomography scan can miss strokes early stages. Especially in light of the significant dysarthria. I'm also recommending case management social work to get involved with the family to determine why this patient would have a positive urine drug screen at his age. Lastly I would recommend this patient have a B12 and folate level to rule out possible peripheral neuropathy due to his history of increasing falls. On discharge this patient should follow up with a outpatient neurologist for his dysarthria and falls. The dysarthria etiology needs to be determined in this patient. I suspect this patient has had a stroke which led to his fall. Recommendations 1. MRI of the brain without contrast 2. B12 folate level. 3. Case management social work to get involved with family to determine how this patient had access to methamphetamines benzos and opiates. 4. PT OT and speech to continue working with patient daily. This patient will be a good candidate for subacute rehab (residential facility) 5. If there is any clinical change this patient altered mental status becomes worse, I would recommend a stat computed tomography scan of the head and follow up with an EEG to rule out possible subclinical seizure activity Thank you for this consultation. Please note that there is no neurologist on site this weekend nor access to tele-neurology. If there is any acute neurological deterioration this patient should be transfer to higher level of care. Dr. Cortes will take over the neurology service on Tuesday. Dr. Catherine Mora Board Certified in Neurology and Sleep Medicine
[2020-01-11] MEDS: ASPIRIN 81 MG PO SCH (20:56)
[2020-01-11] MEDS: DONEPEZIL 10 MG TAB PO SCH (20:57)
[2020-01-11] MEDS: CITALOPRAM HYDROBROMIDE 20 MG TAB PO SCH (20:57)
[2020-01-12 01:00] LABS: Folate, Serum 13.2 ng/mL
[2020-01-12] MEDS: PANTOPRAZOLE 40 MG/10 ML VIAL IVP SCH (08:01)
[2020-01-12] MEDS: HEPARIN SODIUM,PORCINE 5,000 UNIT/ML 1 ML VIAL SQ SCH ×2 (08:02→21:26)
--- NOTE | 2020-01-12 11:43 | P.PN ---
Subjective Progress Note Date: 01/12/20 Principal diagnosis: Fall Patient without new complaints. He is thirsty however. White blood cell count 12.2. Hemoglobin 7.7. Objective - Vital Signs Vital signs: Vital Signs Temp 97.9 F 01/12/20 05:00 Pulse 57 L 01/12/20 08:00 Resp 18 01/12/20 08:00 BP 172/63 01/12/20 05:00 Pulse Ox 97 01/12/20 05:00 Intake & Output 01/11/20 01/12/20 01/12/20 18:59 06:59 18:59 Intake Total 450 400 Output Total 550 Balance 450 -150 Weight 68.492 kg Intake: Intake, IV Titration 450 400 Amount Sodium Chloride 0.9% 1, 400 400 000 ml @ 50 mls/hr IV . Q20H [facility] Rx#:[id number] cefTRIAXone 1 gm In 50 Sodium Chloride 0.9% 50 ml @ 100 mls/hr IVPB Q24HR [facility] Rx#:[id number] Oral 0 Output: Urine 550 Other: Voiding Method Urinal Urinal Urinal # Voids 2 - Exam Abdomen: Soft, nontender, nondistended - Labs CBC & Chem 7: 01/11/20 07:41 01/11/20 07:41 Assessment and Plan (1) Fall Narrative/Plan: Continue PT/OT. Await MRI brain. Currently scheduled for EGD with PEG tube placement Tuesday. Distal esophagus will be evaluated at that time given CT chest findings of fluid-filled esophagus. Patient's daughter was updated as to his progress. Current Visit: Yes Status: Acute Code(s): W19.XXXA - UNSPECIFIED FALL, INITIAL ENCOUNTER SNOMED Code(s): 4601518
[2020-01-12] MEDS: MULTIVITAMINS, THERA 1 EACH TAB PO SCH (13:43)
[2020-01-12] MEDS: FOLIC ACID 1 MG TAB PO SCH (13:43)
[2020-01-12] MEDS: THIAMINE 100 MG TAB PO SCH (13:44)
[2020-01-12] MEDS: SODIUM CHLORIDE 0.9% 1,000 ML IV SCH (13:45)
[2020-01-12] MEDS: BRIMONIDINE TARTRATE 0.2% DROPS 5 ML BTL BOTH EYES SCH ×3 (13:46→21:27)
[2020-01-12] MEDS: LACTATED RINGERS 1,000 ML IV SCH (13:46)
[2020-01-12] MEDS: TIMOLOL 0.5% OPHTH DROPS 5 ML BTL BOTH EYES SCH ×2 (13:46→21:27)
--- NOTE | 2020-01-12 17:49 | PN ---
PROGRESS NOTE DATE OF SERVICE: 01/12/2020 This 89 -year-old gentleman who was admitted with fall and multiple injuries also had possible cerebral concussion. The patient is confused. The patient had multiple CT scans also. The patient failed swallow evaluation. The patient also had a large gluteal subcutaneous hematoma of 17.9 cm and fluid-filled esophagus also. PEG tube has been considered at this time. Most recent chest x-ray which was done yesterday which was reviewed personally by me showed no significant pulmonary lesions. Lab jeronimo, WBC 12.2, hemoglobin 7.7. The patient on empiric antibiotics. PAST MEDICAL HISTORY: Reviewed. REVIEW OF SYSTEM: Could not be taken, the patient is confused. CURRENT MEDICATIONS: Reviewed and include: 1. Tylenol p.r.n. 2. [place] 5 mg q.6 p.r.n. 3. Xanax 0.5 t.i.d. 4. Aspirin 81 mg p.o. daily. 5. Alphagan. 6. Rocephin 1 g IV daily. 7. Celexa 20 mg p.o. q.h.s. 8. Aricept. 9. Folic acid. 10.Heparin. 11.Multivitamins. 12.Narcan. 13.Protonix. 14.Thiamin. 15.Ultram. PHYSICAL EXAMINATION: Alert and oriented times three. Pulse 57, blood pressure 160/72, respiration 18, temp 97.2, pulse ox 98% on room air. HEENT are conjunctivae normal. NECK is no JVD. CARDIOVASCULAR: S1, S2 muffled. RESPIRATION: Breath sounds diminished in the bases. Scattered rhonchi and crackles. ABDOMEN: Soft, nontender. No mass palpable. LEGS: No edema. No swelling. NERVOUS SYSTEM: No focal deficits. LAB STUDIES: WBC 12.2, hemoglobin 7.7, sodium 137, potassium 3.9. ASSESSMENT: 1. Status post fall and multiple lacerations of the scalp, left elbow as well as left gluteal hematoma. 2. L3 compression fracture, possibly secondary to fall. 3. Change in mental status, metabolic encephalopathy, multifactorial, possibly secondary to concussion. 4. Severe pain and generalized pain secondary to fall and gait dysfunction. 5. Swallowing difficulties with possible aspiration. 6. Severe gait dysfunction. 7. 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 8. Opiate, methamphetamine and benzodiazepines on the drug screen. 9. Coronary artery disease, coronary artery bypass grafting history. 10.History of cholecystectomy. 11.History of degenerative joint disease. 12.History of hyperlipidemia. 13.History of prostate disease. 14.History of nephrolithiasis. 15.History of gait dysfunction. 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 17.Increased WBC. 18.Anemia, macrocytic. 19.Hypoalbuminemia secondary to mild protein calorie malnutrition. 20.History of prostate surgery. 21.Sinus bradycardia. 22.FULL CODE. RECOMMENDATIONS AND DISCUSSION: In this 89-year-old gentleman who presented with multiple complex medical issues, we will monitor the patient closely, continue the current medications. Continue with symptomatic treatment. Continue with empiric antibiotics. Continue with PT, OT evaluation. I would also recommend speech pathology to repeat a modified barium swallow prior to the PEG tube insertion. Otherwise a 2D echo with Doppler was also reviewed. Video fluoroscopic swallow was also reviewed. The 2D echo showed ejection fraction 55 to 60%. As mentioned earlier, I had a detailed discussion with the over the phone. Prognosis guarded. Further recommendations to follow. MMODL / IJN: [id number] /
[2020-01-12] MEDS: HYDROmorphone 0.5 MG/0.5 ML SYRINGE IVP PRN ×2 (18:00→23:08)
[2020-01-12] MEDS: DONEPEZIL 10 MG TAB PO SCH (20:20)
[2020-01-12] MEDS: CITALOPRAM HYDROBROMIDE 20 MG TAB PO SCH (20:20)
[2020-01-12] MEDS: ASPIRIN 81 MG PO SCH (20:20)
[2020-01-12] MEDS: D5-0.45% NACL WITH KCL 20MEQ/L 1,000 ML IV SCH (23:52)
[2020-01-13] MEDS: PANTOPRAZOLE 40 MG/10 ML VIAL IVP SCH (11:21)
[2020-01-13] MEDS: D5-0.45% NACL WITH KCL 20MEQ/L 1,000 ML IV SCH ×3 (11:23→23:12)
[2020-01-13] MEDS: HEPARIN SODIUM,PORCINE 5,000 UNIT/ML 1 ML VIAL SQ SCH ×2 (11:24→20:52)
[2020-01-13] MEDS: BRIMONIDINE TARTRATE 0.2% DROPS 5 ML BTL BOTH EYES SCH ×3 (11:28→21:42)
[2020-01-13] MEDS: TIMOLOL 0.5% OPHTH DROPS 5 ML BTL BOTH EYES SCH ×2 (11:28→21:39)
[2020-01-13] MEDS: MULTIVITAMINS, THERA 1 EACH TAB PO SCH (11:29)
[2020-01-13] MEDS: THIAMINE 100 MG TAB PO SCH (11:29)
[2020-01-13] MEDS: FOLIC ACID 1 MG TAB PO SCH (11:29)
[2020-01-13] MEDS: NYSTATIN 100,000 UNIT/ML SUSP 500,000 UNIT/5 ML CUP PO SCH ×3 (13:12→21:40)
--- NOTE | 2020-01-13 14:28 | P.PN ---
Subjective Progress Note Date: 01/13/20 Principal diagnosis: Fall Patient appears comfortable. Complaining of mild left-sided pain. Sitting up in the chair. No shortness of breath. He remains thirsty. Objective - Vital Signs Vital signs: Vital Signs Temp 97.4 F L 01/13/20 13:13 Pulse 53 L 01/13/20 13:13 Resp 14 01/13/20 13:13 BP 176/70 01/13/20 13:13 Pulse Ox 97 01/13/20 13:13 Intake & Output 01/12/20 01/13/20 01/13/20 18:59 06:59 18:59 Intake Total 500 600 Output Total 850 Balance -350 600 Intake: IV 400 400 Sodium Chloride 0.9% 1, 400 400 000 ml @ 50 mls/hr IV . Q20H [facility] Rx#:[id number] Intake, IV Titration 100 200 Amount Sodium Chloride 0.9% 1, 200 000 ml @ 50 mls/hr IV . Q20H [facility] Rx#:[id number] cefTRIAXone 1 gm In 100 Sodium Chloride 0.9% 50 ml @ 100 mls/hr IVPB Q24HR [facility] Rx#:[id number] Oral 0 Output: Urine 850 Other: Voiding Method Urinal Urinal # Voids 2 3 - Exam Abdomen: Soft, nontender, nondistended - Labs CBC & Chem 7: 01/11/20 07:41 01/11/20 07:41 Assessment and Plan (1) Fall Narrative/Plan: Recheck labs. Keep nothing by mouth. Upper GI is ordered for tomorrow. Possible PEG tube to follow. Possible MRI brain per neurology. Current Visit: Yes Status: Acute Code(s): W19.XXXA - UNSPECIFIED FALL, INITIAL ENCOUNTER SNOMED Code(s): 6939224
[2020-01-13] MEDS: HYDROmorphone 0.5 MG/0.5 ML SYRINGE IVP PRN (17:37)
[2020-01-13] MEDS: DONEPEZIL 10 MG TAB PO SCH (20:51)
[2020-01-13] MEDS: CITALOPRAM HYDROBROMIDE 20 MG TAB PO SCH (20:51)
[2020-01-13] MEDS: ASPIRIN 81 MG PO SCH (20:51)
--- NOTE | 2020-01-13 22:53 | PN ---
PROGRESS NOTE DATE OF SERVICE: 01/13/2020 This 89-year-old gentleman who was admitted with multiple lacerations of the scalp is also being confused. The patient also failed swallow evaluation. PEG tube has been planned tomorrow. No chest pain. No palpitations. No fever. PHYSICAL EXAMINATION: On exam, alert and oriented x2. Pulse is 53, blood pressure 176/70, respiration 14, temperature 97.4, pulse ox 97% on room air. HEENT: Conjunctivae normal. NECK: No jugular venous distention. CARDIOVASCULAR: S1, S2, RESPIRATORY: Breath sounds diminished at the bases. No rhonchi, no crackles. ABDOMEN: Soft, nontender. LEGS: No edema. NERVOUS SYSTEM: Diffusely weak. SKIN: As mentioned earlier. LABS: WBC 12.2, hemoglobin 7.7, sodium 137, potassium 3.9. ASSESSMENT: 1. Status post fall and multiple lacerations of the scalp, left elbow as well as left gluteal hematoma. 2. L3 compression fracture, possibly secondary to fall. 3. Change in mental status, metabolic encephalopathy, multifactorial, possibly secondary to concussion as well. 4. Severe pain and generalized pain secondary to fall and gait dysfunction. 5. Swallowing difficulties with possible aspiration. 6. Severe gait dysfunction. 7. 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 8. Opiate, methamphetamine, benzodiazepines on the drug screen. 9. Coronary artery disease, coronary artery bypass grafting history. 10.History of cholecystectomy. 11.History of degenerative joint disease. 12.History of hyperlipidemia. 13.History of prostate disease. 14.History of nephrolithiasis. 15.History of gait dysfunction. 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 17.Increased WBC. 18.Anemia macrocytic. 19.Hypoalbuminemia secondary to mild protein calorie malnutrition. 20.History of prostate surgery. 21.History of sinus bradycardia. 22.FULL CODE. RECOMMENDATIONS AND DISCUSSION: Recommend to continue current medications, continue with monitoring and symptomatic treatment. Otherwise, at this time I would recommend speech pathology for swallow, repeat swallow evaluation in the morning and subsequently PEG tube placement. Otherwise, the prognosis guarded because of multiple complex medical issues. Further recommendations to follow. Continue with the current medications. Hold off on PPN NG tube at this time because of the likelihood of complications. Discussed with staff. Further recommendations to follow. MMODL / IJN: [id number] / MTDD
[2020-01-14] MEDS ORDERED: PROPOFOL 10 MG/ML 20 ML VIAL IV ONE (08:13)
[2020-01-14] MEDS ORDERED: LIDOCAINE 1% INJ 10MG/ML (20 ML MDV) ONE (08:13)
[2020-01-14] MEDS ORDERED: IV FLUID CONTINUATION 1,000 ML IV ONE (08:14)
[2020-01-14] MEDS: PANTOPRAZOLE 40 MG/10 ML VIAL IVP SCH (09:49)
[2020-01-14] MEDS: BRIMONIDINE TARTRATE 0.2% DROPS 5 ML BTL BOTH EYES SCH ×3 (09:50→20:57)
[2020-01-14] MEDS: TIMOLOL 0.5% OPHTH DROPS 5 ML BTL BOTH EYES SCH ×2 (09:50→20:55)
[2020-01-14] MEDS: HEPARIN SODIUM,PORCINE 5,000 UNIT/ML 1 ML VIAL SQ SCH ×2 (11:09→20:54)
[2020-01-14] MEDS: FOLIC ACID 1 MG TAB PO SCH (11:11)
[2020-01-14] MEDS: MULTIVITAMINS, THERA 1 EACH TAB PO SCH (11:11)
[2020-01-14] MEDS: THIAMINE 100 MG TAB PO SCH (11:11)
[2020-01-14] MEDS ORDERED: LIDOCAINE 1% INJ 10MG/ML (20 ML MDV) SQ ONE (11:19)
--- NOTE | 2020-01-14 12:00 | IR ---
PICC LINE PLACEMENT: HISTORY: Long-term antibiotic therapy PROCEDURE: Ultrasound and fluoroscopic guidance of PICC line placement. COMPLICATIONS: None ANESTHESIA: 1. 1% Lidocaine locally. FINDINGS/TECHNIQUE: The procedure was explained to the patient. The risks, complications, benefits and alternatives were discussed and any questions were answered. Informed consent was obtained. The patient was placed supine on the fluoroscopic table and prepped and draped in the usual sterile fash ion. Utilizing a 21 gauge needle and sonographic and fluoroscopic guidance, access in the right bas ilic vein was achieved and there is placement of a 0.018 guidewire. The vein is patent. A 5-Fr armas th was placed over the guidewire. The guidewire and dilator were removed and a 5-F. Double lumen PIC C line was placed through the sheath with the tip at the level of the SVC. The sheath was removed, t he catheter was flushed and sutured into position. The patient was stable throughout the procedure a nd remained stable upon discharge from the Department of Radiology. The vein puncture was patent under ultrasound. A sauceda scale image was obtained to document patency of the vein punctured. All elements of the maximal barrier technique were utilized. FLUOROSCOPY TIME: 0.3 minutes and one image submitted IMPRESSION: Successful PICC double lumen line placement under ultrasound and fluoroscopic guidance.
[2020-01-14] MEDS: NYSTATIN 100,000 UNIT/ML SUSP 500,000 UNIT/5 ML CUP PO SCH ×4 (13:13→23:20)
[2020-01-14] MEDS: D5-0.45% NACL WITH KCL 20MEQ/L 1,000 ML IV SCH ×2 (13:15→16:44)
[2020-01-14 14:06] VITALS: BMI 19.4
--- NOTE | 2020-01-14 14:19 | P.PN ---
Subjective Progress Note Date: 01/14/20 Principal diagnosis: This is an 89-year-old male who was recently admitted with falls and multiple lacerations of the scalp and also confusion and is being closely monitored. Patient continues to be confused and underwent a brain MRI today which is pending at this time. Patient had a swallow eval done and failed and possible PEG tube placement is being scheduled. No reports of chest pain or palpitations. Patient is afebrile. Patient currently received a PICC line for possible PPN nutrition as he continues to have difficulties with eating and swallowing. Will continue to follow along closely with surgery. Case management and social work following for possible placement at an ECF once stabilized and discharged. Active Medications Acetaminophen (Tylenol Tab) 650 mg PO Q6HR PRN PRN Reason: Mild Pain or Fever > 100.5 Last Admin: 01/09/20 04:13 Dose: 650 mg Documented by: Hydrocodone Bitart/Acetaminophen ([place] 5-325) 1 each PO Q6HR PRN PRN Reason: Pain Last Admin: 01/09/20 12:17 Dose: 1 each Documented by: Alprazolam (Xanax) 0.25 mg PO TID PRN PRN Reason: Anxiety Last Admin: 01/10/20 00:53 Dose: 0.25 mg Documented by: Aspirin (Aspirin) 81 mg PO [facility] Last Admin: 01/13/20 20:51 Dose: Not Given Documented by: Brimonidine Tartrate (Alphagan P 0.2% Oph Soln) 1 drops BOTH EYES TID [facility] Last Admin: 01/14/20 09:50 Dose: 1 drops Documented by: Citalopram Hydrobromide (Celexa) 20 mg PO [facility] Last Admin: 01/13/20 20:51 Dose: Not Given Documented by: Donepezil HCl (Aricept) 10 mg PO [facility] Last Admin: 01/13/20 20:51 Dose: Not Given Documented by: Ergocalciferol (Vitamin D2) 50,000 unit PO Q7D [facility] Last Admin: 01/10/20 10:10 Dose: Not Given Documented by: Folic Acid (Folic Acid) 1 mg PO DAILY@1200 [facility] Last Admin: 01/14/20 11:11 Dose: Not Given Documented by: Heparin Sodium (Porcine) (Heparin) 5,000 unit SQ Q12HR [facility] Last Admin: 01/14/20 11:09 Dose: Not Given Documented by: Hydromorphone HCl (Dilaudid) 0.5 mg IVP Q3HR PRN PRN Reason: Moderate Pain Last Admin: 01/13/20 17:37 Dose: 0.5 mg Documented by: Ceftriaxone Sodium 1 gm/ (Sodium Chloride) 50 mls @ 100 mls/hr IVPB Q24HR [facility] Last Admin: 01/14/20 09:50 Dose: 100 mls/hr Documented by: Potassium Chloride/Dextrose/Sod Cl (D5%-1/2ns-Kcl 20 Meq/L Iv Solution) 1,000 mls @ 125 mls/hr IV .Q8H [facility] Last Admin: 01/14/20 13:15 Dose: 125 mls/hr Documented by: Multivitamins (Theragran) 1 each PO DAILY@1200 [facility] Last Admin: 01/14/20 11:11 Dose: Not Given Documented by: Naloxone HCl (Narcan) 0.2 mg IV Q2M PRN PRN Reason: Opioid Reversal Nystatin (Mycostatin Oral Susp) 500,000 unit PO QID [facility] Last Admin: 01/14/20 13:13 Dose: 500,000 unit Documented by: Pantoprazole Sodium (Protonix) 40 mg IVP DAILY [facility] Last Admin: 01/14/20 09:49 Dose: 40 mg Documented by: Thiamine HCl (Vitamin B-1) 100 mg PO DAILY@1200 [facility] Last Admin: 01/14/20 11:11 Dose: Not Given Documented by: Timolol Maleate (Timoptic) 1 drops BOTH EYES BID [facility] Last Admin: 01/14/20 09:50 Dose: 1 drops Documented by: Tramadol HCl (Ultram) 50 mg PO BID PRN PRN Reason: Pain Last Admin: 01/10/20 03:05 Dose: 50 mg Documented by: Objective - Vital Signs Vital signs: Vital Signs Temp 97.9 F 01/14/20 05:58 Pulse 57 L 01/14/20 04:56 Resp 18 01/14/20 04:56 BP 164/63 01/14/20 04:56 Pulse Ox 96 01/14/20 04:56 Intake & Output 01/13/20 01/14/20 01/14/20 18:59 06:59 18:59 Intake Total 1000 1000 50 Balance 1000 1000 50 Weight 58 kg Intake: IV 50 Intake, IV Titration 1000 1000 Amount D5-0.45% NaCl with KCl 1000 1000 20Meq/l 1,000 ml @ 125 mls/hr IV .Q8H [facility] Rx#: [id number] Oral 0 Other: Voiding Method Urinal Incontinent Incontinent # Voids 1 1 - Exam Gen: This is a 89-year-old male lying in bed, awake, confused alert and oriented 1-2. Temp is 97.9F, pulse is 57, respirations are 18, blood pressure is 164/63, oxygen saturation is 96% on room air. HEENT: normocephalic. Pupils equal, round. Sclerae is anicteric. NECK: Supple. No JVD. No lymphadenopathy. No thyromegaly. LUNGS: Breath sounds diminished at the bases with no rhonchi or wheezing noted. No intercostal retractions. HEART: S1, S2 are muffled ABDOMEN: Soft. Bowel sounds are present. No masses. No tenderness. EXTREMITIES: No pedal edema. No calf tenderness. NEUROLOGICAL: Patient is awake, alert and oriented x1-2. Diffusely weak SKIN: Scalp lacerations noted and also the left elbow with dressings noted that are dry and intact along with a wrap on the elbow - Labs CBC & Chem 7: 01/11/20 07:41 01/11/20 07:41 Assessment and Plan Assessment: Status post fall multiple lacerations of the scalp, left elbow, as well as left gluteal hematoma L3 compression fracture, possibly secondary to fall Change in mental status, metabolic encephalopathy, multifactorial, possibly secondary to concussion as well Severe pain and generalized pain secondary to falling, gait dysfunction Swallowing difficulties with possible aspiration Severe gait dysfunction 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 Continue with nothing by mouth at this time with possibility of PEG tube placement in the morning. Patient did receive a PICC line for possible PPN. Patient underwent MRI of the brain and is pending at this time. White blood count currently trending down at 12.2, hemoglobin today is 7.7, potassium is 3.9, creatinine is 0.83. Will repeat a.m. labs. Will continue to monitor and follow closely with surgery. Further recommendations to follow.
[2020-01-14 15:19] LABS: Ionized Calcium 4.7 mg/dL (4.5-5.3)
[2020-01-14 15:24] LABS: African American GFR (CKD) >90 (>60 ml/min/1.73 sqM); Albumin 2.5 g/dL (3.5-5.0); Anion Gap 6 mmol/L; Blood Urea Nitrogen 18 mg/dL (9-20); Calcium 7.7 mg/dL (8.4-10.2); Carbon Dioxide 20 mmol/L (22-30); Chloride 110 mmol/L (98-107); Glucose 120 mg/dL (74-99); Magnesium 1.9 mg/dL (1.6-2.3); Non-African American GFR(CKD) 87 (>60 ml/min/1.73 sqM); Phosphorus 1.8 mg/dL (2.5-4.5); Sodium 136 mmol/L (137-145); Triglycerides 96 mg/dL (<150)
--- NOTE | 2020-01-14 15:54 | MR ---
"EXAMINATION TYPE: MR brain wo con DATE OF EXAM: 01/14/2020 COMPARISON: CT brain January 10, 2020 HISTORY: AMS, hematoma brain/concussion; TECHNIQUE: Multiplanar, multisequence imaging of the brain and brainstem is performed without IV cont rast. Trauma protocol. FINDINGS: Exam is suboptimal due to patient motion, fast brain protocol atrophy performed. Diffusion weighted images demonstrate no evidence of a recent infarct or other diffusion abnormality. There is no worrisome extra-axial fluid collection. Ventricles and sulcal prominence associated with moderate atrophy is redemonstrated. Focal and conflu ent areas of T2 hyperintensity throughout the white matter are present greatest in the periventricula r level. Some areas of susceptibility artifact high left frontal region likely from stapling of lacer ation injury. There is new tiny area of curvilinear T1 and T2 signal suspected sagittal image 17 and most prominent or suspicious FLAIR axial images 24 through 26 less well-seen on T2-weighted images, c annot exclude new tiny subacute extra-axial probable subdural hemorrhage at this level. No midline sh ift. T2 Star weighted images show no suspicious intraparenchymal blood product. Midline structures demonstrate fairly normal morphology. Suboptimal evaluation of the pituitary gland due to motion artifact. The craniocervical junction remains within normal limits. Normal vascular fl ow voids are present. Tiny dependent air-fluid level left maxillary sinus image 5. The visualized sin uses are otherwise clear and the globes are intact. IMPRESSION: 1. Cannot exclude new tiny acute/subacute right parietal extra-axial possible subdural hemorrhage not clearly seen on recent CT, countercoup injury from level of scalp laceration. Consider repeat CT to further evaluate. 2. Fairly moderate generalized atrophy with mild to moderate chronic small vessel ischemic change. Po ssible left-sided acute maxillary sinusitis, correlate clinically. A Yellow level critical message alert has been initiated for Aroldo Diana MD via the [employer] 60 | Critical Results System on 01/14/2020 3:51 PM. This message alert has been sent to Aroldo Diana MD via the preferences provided by the clinician for the receipt of Radiology Critical Findings. [facility] [place] [id number]."
[2020-01-14] MEDS: SODIUM PHOSPHATE 10 MMOL in SODIUM CHLORIDE 0.9% 100 ML IVPB SCH ×2 (17:28→19:38)
[2020-01-14] MEDS: FAT EMULSION 20% 250 ML in EMPTY BAG 1 BAG IV SCH (17:29)
[2020-01-14] MEDS ORDERED: MVI, ADULT NO.4 WITH VIT K 10 ML, TRACE (CONC-1ML/DOSE) 1 ML in AMINO ACID 5%-D15W+LYTE... IV ONE ×3 (18:00)
--- NOTE | 2020-01-14 19:30 | P.PN ---
Subjective Progress Note Date: 01/14/20 patient patient was seen for a follow-up. Patient was seen by Dr. Mora for initial consultation on 01/11/2020. Patient was brought to the hospital after he fell down several stairs with altered mental status. Patient's urine drug screen was positive for opiates, methamphetamines and benzodiazepine. Patient at present denies any new complaints. He is laying comfortably in the bed, appears somewhat confused. Please refer to examination below. Objective - Vital Signs Vital signs: Vital Signs Temp 97.6 F 01/14/20 13:00 Pulse 57 L 01/14/20 04:56 Resp 18 01/14/20 13:00 BP 179/71 01/14/20 13:00 Pulse Ox 97 01/14/20 13:00 Intake & Output 01/14/20 01/14/20 01/15/20 06:59 18:59 06:59 Intake Total 1000 1100 Balance 1000 1100 Weight 58 kg Intake: IV 50 Intake, IV Titration 1000 1050 Amount D5-0.45% NaCl with KCl 1000 1000 20Meq/l 1,000 ml @ 125 mls/hr IV .Q8H [facility] Rx#: [id number] cefTRIAXone 1 gm In 50 Sodium Chloride 0.9% 50 ml @ 100 mls/hr IVPB Q24HR [facility] Rx#:[id number] Oral 0 Other: Voiding Method Incontinent Incontinent # Voids 1 2 - Exam On examination patient is alert and awake in no distress. Speech and language functions are normal. Patient knows that he is 89 years of age that he is in [facility] in [place]. He states it is February 14 and the year is 2004. Could not tell name of the current president. Patient's muscle strength appears normal in the arms except deltoid which is weak bilaterally, right much worse than left. He is manually lifting his right arm up using the left hand. His left deltoid also appears weak. 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 Hip flexion appears somewhat weak but has decreased effort because of cooperation. Ankles and toes are normal. Sensations are equal. Cerebellar functions could not be tested. - Labs CBC & Chem 7: 01/11/20 07:41 01/14/20 14:51 Labs: Abnormal Lab Results - Last 24 Hours (Table) 01/14/20 Range/Units 14:51 Sodium 136 L (137-145) mmol/L Chloride 110 H (98-107) mmol/L Carbon Dioxide 20 L (22-30) mmol/L Glucose 120 H (74-99) mg/dL Calcium 7.7 L (8.4-10.2) mg/dL Phosphorus 1.8 L (2.5-4.5) mg/dL Albumin 2.5 L (3.5-5.0) g/dL Assessment and Plan Assessment: * Status post fall down several stairs with altered mental status. * MRI of brain showing possibility of subdural hematoma. * Abnormal urine drug screen. * History of old malunited right shoulder fracture. * Failed swallow, possible PEG placement in a.m. Plan: * Patient underwent MRI of the brain, in which there is a possibility of tiny acute/subacute right parietal extra-axial possible subdural hemorrhage not clearly seen on the recent computed tomography scan. Consider repeat computed tomography scan of the head. We will check CT head in the a.m. * Patient's B12 is normal 639, folate 13.2. Liver panel is normal. Electrolytes and renal functions normal. * Patient's CBC shows WBC 12.2 hemoglobin 7.7 and platelets 169.
[2020-01-14] MEDS: HYDROmorphone 0.5 MG/0.5 ML SYRINGE IVP PRN (19:43)
[2020-01-14] MEDS: ASPIRIN 81 MG PO SCH (20:53)
[2020-01-14] MEDS: DONEPEZIL 10 MG TAB PO SCH (20:53)
[2020-01-14] MEDS: CITALOPRAM HYDROBROMIDE 20 MG TAB PO SCH (20:53)
[2020-01-15] MEDS: D5-0.45% NACL WITH KCL 20MEQ/L 1,000 ML IV SCH ×2 (01:07→05:14)
[2020-01-15 08:02] LABS: African American GFR (CKD) >90 (>60 ml/min/1.73 sqM); Anion Gap 5 mmol/L; Blood Urea Nitrogen 16 mg/dL (9-20); Calcium 7.4 mg/dL (8.4-10.2); Carbon Dioxide 23 mmol/L (22-30); Chloride 106 mmol/L (98-107); Glucose 126 mg/dL (74-99); Magnesium 1.9 mg/dL (1.6-2.3); Non-African American GFR(CKD) >90 (>60 ml/min/1.73 sqM); Phosphorus 2.5 mg/dL (2.5-4.5); Potassium 3.5 mmol/L (3.5-5.1); Sodium 134 mmol/L (137-145)
[2020-01-15] MEDS: BRIMONIDINE TARTRATE 0.2% DROPS 5 ML BTL BOTH EYES SCH ×3 (08:30→20:57)
[2020-01-15] MEDS: TIMOLOL 0.5% OPHTH DROPS 5 ML BTL BOTH EYES SCH ×2 (08:30→20:13)
[2020-01-15] MEDS: PANTOPRAZOLE 40 MG/10 ML VIAL IVP SCH (08:31)
[2020-01-15] MEDS: NYSTATIN 100,000 UNIT/ML SUSP 500,000 UNIT/5 ML CUP PO SCH ×4 (08:31→21:58)
--- NOTE | 2020-01-15 08:51 | CT ---
EXAMINATION TYPE: CT brain wo con DATE OF EXAM: 01/15/2020 COMPARISON: 01/10/2020 INDICATION: r/o subdural hematoma DLP: 1012.7 mGycm, Automated exposure control for dose reduction was used. CONTRAST: None CT of the brain is performed utilizing 3 mm thick sections through the posterior fossa and 3 mm thick sections through the remaining calvarium. Study is performed within 24 hours of arrival to the hosp ital. No abnormal hyperdensity is present to suggest an acute intracranial hemorrhage. No mass lesion is evident. No acute infarcts are evident. Patchy hypodensities in the periventricular and deep white matter comp atible with some confluent white matter ischemic type changes. Ventricles and sulci are prominent for the patient age. There is an air-fluid level within the left maxillary sinus. Remaining paranasal sinuses are clear. M astoid air cells are clear. IMPRESSIONS: 1. Atrophy with periventricular white matter changes. 2. Cervical correlation recommended for acute left maxillary sinusitis.
[2020-01-15] MEDS: SODIUM CHLORIDE 0.9% 1,000 ML IV SCH (09:02)
--- NOTE | 2020-01-15 10:27 | FL ---
EXAMINATION TYPE: FL barium swallow w video DATE OF EXAM: 01/15/2020 COMPARISON: NONE HISTORY: Previous aspiration TECHNIQUE: Fluoroscopy. FINDINGS: Fluoroscopic guidance was provided for the procedure performed in conjunction with the [facility] pathology department. Please see complete report forthcoming from the Speech Pathology departmen t. Various consistencies from pureed to honey thick and then to Necator thick liquids were administe red. Fluoroscopy time 2 minutes 17 seconds. Number of images: 0. Deep penetration was observed with puree consistency and honey thick consistency. Some aspiration was evident with nectar thick liquid. The procedure was terminated. There is significant pooling within the vallecula requiring multiple swallows somewhat clear this are a. There is mild hesitancy of swallowing IMPRESSION: 1. Deep penetration with pureed and honey thick consistency and aspiration with nectar thick liquid. 2. Large significant volumes of pooling within the vallecula.
[2020-01-15] MEDS: HEPARIN SODIUM,PORCINE 5,000 UNIT/ML 1 ML VIAL SQ SCH ×2 (11:53→20:12)
[2020-01-15] MEDS: THIAMINE 100 MG TAB PO SCH (12:59)
[2020-01-15] MEDS: FOLIC ACID 1 MG TAB PO SCH (12:59)
--- NOTE | 2020-01-15 14:06 | P.PN ---
Subjective Progress Note Date: 01/15/20 Principal diagnosis: This is an 89-year-old male who was recently admitted with falls and multiple lacerations of the scalp and also confusion and is being closely monitored. Patient continues to be confused and underwent a brain MRI today which is pending at this time. Patient had a swallow eval done and failed and possible PEG tube placement is being scheduled. No reports of chest pain or palpitations. Patient is afebrile. Patient currently received a PICC line for possible PPN nutrition as he continues to have difficulties with eating and swallowing. Will continue to follow along closely with surgery. Case management and social work following for possible placement at an ECF once stabilized and discharged. 01/15/2020 Patient is seen and evaluated status post repeat swallow evaluation which he failed again. Per speech he is okay for freewater/ice chips on PPN. Patient is to possibly have a J-tube placed tomorrow with surgery. Patient continues to be confused. Sodium slightly low at 134 and will initiate normal saline. Creatinine is 0.61. Will continue to follow along with surgery. MRI of the brain was done yesterday stating cannot exclude new tiny acute subacute right parietal extra-axial possible subdural hemorrhage not clearly seen on recent CT, countercoup injury from level scalp laceration and is recommending a repeat CT. Repeat brain CT done showing atrophy with periventricular white matter changes with possible acute left maxillary sinusitis, no abnormal hyperdensity is present to suggest an acute intracranial hemorrhage with no mass lesion evident in no acute infarcts are evident. Neurology following as well. Objective - Vital Signs Vital signs: Vital Signs Temp 97.7 F 01/15/20 11:26 Pulse 56 L 01/15/20 11:26 Resp 18 01/15/20 11:26 BP 135/62 01/15/20 11:26 Pulse Ox 96 01/15/20 11:26 Intake & Output 01/14/20 01/15/20 01/15/20 18:59 06:59 18:59 Intake Total 1100 2013 Balance 1100 2013 Weight 58 kg Intake: IV 50 Intake, IV Titration 1050 2013 Amount D5-0.45% NaCl with KCl 1000 1220 20Meq/l 1,000 ml @ 125 mls/hr IV .Q8H [facility] Rx#: [id number] Fat Emulsion 20% 250 ml 334 In Empty Bag 1 bag @ 21 mls/hr IV DAILY@1800 [facility] Rx#:[id number] Mvi, Adult No.4 with Vit 360 K 10 ml Trace (Conc-1Ml/ Dose) 1 ml In Amino Acid 5%-D15w+Lytes*E* 1,000 ml @ 30 mls/hr IV .Q24H [facility] Rx#:[id number] Sodium Phosphate 10 mmol 100 In Sodium Chloride 0.9% 100 ml @ 50 mls/hr IVPB Q2H [facility] Rx#:[id number] cefTRIAXone 1 gm In 50 Sodium Chloride 0.9% 50 ml @ 100 mls/hr IVPB Q24HR [facility] Rx#:[id number] Oral 0 Other: Voiding Method Incontinent Urinal Urinal # Voids 2 1 # Bowel Movements 1 - Exam Gen: This is a 89-year-old male lying in bed, awake, confused alert and oriented 1-2. HEENT: normocephalic. Pupils equal, round. Sclerae is anicteric. NECK: Supple. No JVD. No lymphadenopathy. No thyromegaly. LUNGS: Breath sounds diminished at the bases with no rhonchi or wheezing noted. No intercostal retractions. HEART: S1, S2 are muffled ABDOMEN: Soft. Bowel sounds are present. No masses. No tenderness. EXTREMITIES: No pedal edema. No calf tenderness. NEUROLOGICAL: Patient is awake, alert and oriented x1-2. Diffusely weak SKIN: Scalp lacerations noted and also the left elbow with dressings noted that are dry and intact along with a wrap on the elbow - Labs CBC & Chem 7: 01/11/20 07:41 01/15/20 07:02 Labs: Abnormal Lab Results - Last 24 Hours (Table) 01/14/20 01/15/20 Range/Units 14:51 07:02 Sodium 136 L 134 L (137-145) mmol/L Chloride 110 H (98-107) mmol/L Carbon Dioxide 20 L (22-30) mmol/L Creatinine 0.61 L (0.66-1.25) mg/dL Glucose 120 H 126 H (74-99) mg/dL Calcium 7.7 L 7.4 L (8.4-10.2) mg/dL Phosphorus 1.8 L (2.5-4.5) mg/dL Albumin 2.5 L (3.5-5.0) g/dL Assessment and Plan Assessment: Status post fall multiple lacerations of the scalp, left elbow, as well as left gluteal hematoma L3 compression fracture, possibly secondary to fall Change in mental status, metabolic encephalopathy, multifactorial, possibly secondary to concussion as well Severe pain and generalized pain secondary to falling, gait dysfunction Swallowing difficulties with possible aspiration Severe gait dysfunction 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 Continue with nothing by mouth at this time with possibility of J tube placement in the morning. Patient is on PPN. Patient underwent swallow eval again and failed. Per speech okay for small amounts of free water and ice chips. Will continue to monitor and follow closely with surgery. Further recommendations to follow.
[2020-01-15] MEDS: FAT EMULSION 20% 250 ML in EMPTY BAG 1 BAG IV SCH (18:06)
[2020-01-15] MEDS: 1: MVI, ADULT NO.4 WITH VIT K 10 ML, TRACE (CONC-1ML/DOSE) 1 ML in AMINO ACID 5%-D15W+LY IV SCH ×3 (18:06)
--- NOTE | 2020-01-15 18:14 | P.PN ---
Subjective Progress Note Date: 01/15/20 Patient patient was seen for a follow-up. Patient was seen by Dr. Mora for initial consultation on 01/11/2020. Patient was brought to the hospital after he fell down several stairs with altered mental status. Patient's urine drug screen was positive for opiates, methamphetamines and benzodiazepine. I spoke to patient's daughter, who states that patient fell down around 10 steps landed on the cement floor on the left side. Patient does have mild memory disturbance but not significant dementia. He did not have any problem with eating or swallowing prior to this fall. Patient at present denies any new complaints. He is laying comfortably in the bed, continues to be somewhat confused. Please refer to examination below. Patient has failed swallow studies again. Objective - Vital Signs Vital signs: Vital Signs Temp 97.7 F 01/15/20 11:26 Pulse 56 L 01/15/20 11:26 Resp 18 01/15/20 11:26 BP 135/62 01/15/20 11:26 Pulse Ox 96 01/15/20 11:26 Intake & Output 01/14/20 01/15/20 01/15/20 18:59 06:59 18:59 Intake Total 1100 2013 978 Balance 1100 2013 978 Weight 58 kg Intake: IV 50 250 Sodium Chloride 0.9% 1, 250 000 ml @ 50 mls/hr IV . Q20H [facility] Rx#:[id number] Intake, IV Titration 1050 2014 728 Amount Amino Acid 5%-D15w+Lytes* 560 E* 1,000 ml @ 70 mls/hr IV .BY DURATION [facility] Rx#: [id number] D5-0.45% NaCl with KCl 1000 1220 20Meq/l 1,000 ml @ 125 mls/hr IV .Q8H [facility] Rx#: [id number] Fat Emulsion 20% 250 ml 334 168 In Empty Bag 1 bag @ 21 mls/hr IV DAILY@1800 [facility] Rx#:[id number] Mvi, Adult No.4 with Vit 360 K 10 ml Trace (Conc-1Ml/ Dose) 1 ml In Amino Acid 5%-D15w+Lytes*E* 1,000 ml @ 30 mls/hr IV .Q24H [facility] Rx#:[id number] Sodium Phosphate 10 mmol 100 In Sodium Chloride 0.9% 100 ml @ 50 mls/hr IVPB Q2H [facility] Rx#:[id number] cefTRIAXone 1 gm In 50 Sodium Chloride 0.9% 50 ml @ 100 mls/hr IVPB Q24HR [facility] Rx#:[id number] Oral 0 Other: Voiding Method Incontinent Urinal Urinal # Voids 2 1 # Bowel Movements 1 - Exam On examination patient is alert and awake in no distress. Speech is moderately dysarthric but no aphasia. Point to note, that this same speech pattern was present yesterday as well. Patient knows his name, that he is 89 years of age that he is in [facility] in [place]. He states it is February and the year is 2001. Could not tell name of the current president. Patient's muscle strength appears normal in the arms except deltoid which is weak bilaterally, right much worse than left. He is manually lifting his right arm up using the left hand. His left deltoid also appears weak. Biceps triceps and surgery technician appears normal. Hip flexion appears somewhat weak but has decreased effort because of cooperation. Ankles and toes are normal, did not cooperate well. Sensations are equal. Cerebellar functions could not be tested. - Labs CBC & Chem 7: 01/11/20 07:41 01/15/20 07:02 Labs: Abnormal Lab Results - Last 24 Hours (Table) 01/15/20 Range/Units 07:02 Sodium 134 L (137-145) mmol/L Creatinine 0.61 L (0.66-1.25) mg/dL Glucose 126 H (74-99) mg/dL Calcium 7.4 L (8.4-10.2) mg/dL Assessment and Plan Assessment: * Status post fall down several stairs with altered mental status. * MRI of brain showing possibility of subdural hematoma. Repeat computed tomography scan of head this morning was negative for any hematoma. No signs of an acute stroke in the brainstem or anywhere else. * Dysphagia, dysarthria, unclear etiology. No signs of a stroke. * Acute significant anemia. Patient's hemoglobin on presentation was 11.9, now down to 7.7 * History of old malunited right shoulder fracture. * Failed swallow, unclear cause, perhaps related to concussion, anemia. No signs of stroke on MRI. * Dementia Plan: * No evidence of subdural hematoma noted on computed tomography scan of head. Patient probably had concussion related to the fall. * Patient's B12 is normal 639, folate 13.2. Liver panel is normal. Electrolytes and renal functions normal. * Patient's CBC shows WBC 12.2 hemoglobin 7.7 (hemoglobin 11.9 on arrival) and platelets 169. May need further testing. * We will check acetylcholine receptor antibodies for dysphagia, dysarthria. * Patient has dementia, currently on Aricept 10 mg daily. His dementia may have got worse related to concussion from fall, and perhaps related to significant anemia.
[2020-01-15] MEDS: DONEPEZIL 10 MG TAB PO SCH (21:58)
[2020-01-15] MEDS: CITALOPRAM HYDROBROMIDE 20 MG TAB PO SCH (21:58)
[2020-01-15] MEDS: ASPIRIN 81 MG PO SCH (21:58)
[2020-01-16] MEDS: SODIUM CHLORIDE 0.9% 1,000 ML IV SCH (05:15)
[2020-01-16] MEDS ORDERED: IV FLUID CONTINUATION 1,000 ML IV ONE (06:50)
[2020-01-16] MEDS ORDERED: ETOMIDATE 2 MG/ML 10 ML VIAL ONE (07:06)
[2020-01-16] MEDS ORDERED: NEOSTIGMINE 1 MG/ML 10 ML VIAL ONE (07:06)
[2020-01-16] MEDS ORDERED: ePHEDrine SULFATE/0.9% NACL/PF 50 MG/5 ML SYRINGE IV ONE (07:06)
[2020-01-16] MEDS ORDERED: fentaNYL (PF) 50 MCG/ML 2 ML AMP ONE (07:06)
[2020-01-16] MEDS ORDERED: ROCURONIUM BROMIDE 10 MG/ML 5 ML VIAL IV ONE (07:06)
[2020-01-16] MEDS ORDERED: SUCCINYLCHOLINE CHLORIDE 100 MG/5 ML SYR IV ONE (07:06)
[2020-01-16] MEDS ORDERED: GLYCOPYRROLATE 0.2 MG/ML 2 ML VIAL ONE (07:06)
[2020-01-16] MEDS ORDERED: SODIUM CHLORIDE 0.9% 50 ML with ceFAZolin 2,000 MG IV ONE ×2 (07:24)
[2020-01-16] MEDS ORDERED: LIDOCAINE 2%-EPI 1:100,000 20 ML VIAL SQ ONE (07:26)
--- NOTE | 2020-01-16 07:52 | P.PN ---
Subjective Progress Note Date: 01/15/20 CHIEF COMPLAINT: Trauma HISTORY OF PRESENT ILLNESS: Patient examined at the bedside. He had a PICC line placed and has TPN infusing. Patient failed MBS today. He remains NPO. PHYSICAL EXAM: VITAL SIGNS: Reviewed. GENERAL: Well-developed in no acute distress. HEENT: No sclera icterus. Extraocular movements grossly intact. Moist buccal m ucosa. Head is normocephalic. Laceration noted to scalp with dressing intact. ABDOMEN: Soft. Nondistended. Nontender. NEUROLOGIC: Awake and alert. Slow to respond. Appears less confused in compar pietro to yesterday SKIN: Multiple bruises throughout. Lacerations noted to left elbow and hand with suturing completed in ER. ASSESSMENT: 1. Trauma, status post fall 2. Scalp laceration and hematoma of frontal and left parietal regions 3. Large left gluteal subcutaneous and intramuscular hematoma measuring up to 17.9 cm 4. Recent fall with right proximal humeral fracture 5. Left elbow and left hand laceration, status post suturing PLAN: -Monitor labs -PT/OT -Pain control -Medical management per Dr. Godoy -Neurology on consult. Appreciate input. -NPO -Continue TPN -Patient scheduled for J tube placement tomorrow with Dr. Diana Nurse practitioner note has been reviewed by physician. Signing provider agrees with the documented findings, assessment, and plan of care. Objective - Vital Signs Vital signs: Vital Signs Temp 97.7 F 01/15/20 11:26 Pulse 56 L 01/15/20 11:26 Resp 18 01/15/20 11:26 BP 135/62 01/15/20 11:26 Pulse Ox 96 01/15/20 11:26 Intake & Output 01/14/20 01/15/20 01/15/20 18:59 06:59 18:59 Intake Total 1100 2013 Balance 1100 2013 Weight 58 kg Intake: IV 50 Intake, IV Titration 1050 2013 Amount D5-0.45% NaCl with KCl 1000 1220 20Meq/l 1,000 ml @ 125 mls/hr IV .Q8H [facility] Rx#: [id number] Fat Emulsion 20% 250 ml 334 In Empty Bag 1 bag @ 21 mls/hr IV DAILY@1800 [facility] Rx#:[id number] Mvi, Adult No.4 with Vit 360 K 10 ml Trace (Conc-1Ml/ Dose) 1 ml In Amino Acid 5%-D15w+Lytes*E* 1,000 ml @ 30 mls/hr IV .Q24H [facility] Rx#:[id number] Sodium Phosphate 10 mmol 100 In Sodium Chloride 0.9% 100 ml @ 50 mls/hr IVPB Q2H [facility] Rx#:[id number] cefTRIAXone 1 gm In 50 Sodium Chloride 0.9% 50 ml @ 100 mls/hr IVPB Q24HR [facility] Rx#:[id number] Oral 0 Other: Voiding Method Incontinent Urinal Urinal # Voids 2 1 # Bowel Movements 1 - Labs CBC & Chem 7: 01/11/20 07:41 01/15/20 07:02 Labs: Abnormal Lab Results - Last 24 Hours (Table) 01/14/20 01/15/20 Range/Units 14:51 07:02 Sodium 136 L 134 L (137-145) mmol/L Chloride 110 H (98-107) mmol/L Carbon Dioxide 20 L (22-30) mmol/L Creatinine 0.61 L (0.66-1.25) mg/dL Glucose 120 H 126 H (74-99) mg/dL Calcium 7.7 L 7.4 L (8.4-10.2) mg/dL Phosphorus 1.8 L (2.5-4.5) mg/dL Albumin 2.5 L (3.5-5.0) g/dL
--- NOTE | 2020-01-16 08:02 | P.OP ---
Date of Procedure: 01/16/20 Preoperative Diagnosis: Protein calorie malnutrition Postoperative Diagnosis: Protein calorie malnutrition Procedure(s) Performed: Feeding jejunostomy tube Anesthesia: CAM Surgeon: Aroldo Diana Estimated Blood Loss (ml): 5 Pathology: none sent Condition: stable Disposition: PACU Description of Procedure: The patient's placed on the operative table in supine position. He received general anesthesia. His abdomen was prepped and draped usual sterile fashion. A periumbilical midline incision was made. Left was dissected through the subcutaneous fat the fascia was divided midline. A loop of small bowel was brought the wound and then the small bowel was run towards the terminal ileum. The ileocecal valve seen. At this point the bowel was run back towards the proximal jejunum. A 3-0 GI silk suture was used as a pursestring suture. 2 pursestring sutures were placed. The 18-Ivorian jejunostomy tube was then placed through the abdominal wall. The enterotomy is made at the pursestring site. The feeding J-tube Janoski tube was placed into the small bowel. The p ursestring was then secured. The balloon was inflated with 7 mL of saline. The jejunostomy site was then tacked to the abdominal wall using 3-0 GI silk sutures. The fascia was then closed with looped #1 PDS suture. Skin was closed evelyne. Patient top she will well and was sent to recovery room in stable condition.
[2020-01-16 12:41] LABS: African American GFR (CKD) >90 (>60 ml/min/1.73 sqM); Anion Gap 5 mmol/L; Blood Urea Nitrogen 17 mg/dL (9-20); Calcium 7.7 mg/dL (8.4-10.2); Carbon Dioxide 22 mmol/L (22-30); Chloride 105 mmol/L (98-107); Glucose 108 mg/dL (74-99); Magnesium 1.9 mg/dL (1.6-2.3); Non-African American GFR(CKD) >90 (>60 ml/min/1.73 sqM); Phosphorus 2.5 mg/dL (2.5-4.5); Potassium 3.5 mmol/L (3.5-5.1); Sodium 132 mmol/L (137-145)
[2020-01-16] MEDS: 1: MVI, ADULT NO.4 WITH VIT K 10 ML, TRACE (CONC-1ML/DOSE) 1 ML in AMINO ACID 5%-D15W+LY IV SCH ×9 (13:19→18:27)
[2020-01-16] MEDS: FAT EMULSION 20% 250 ML in EMPTY BAG 1 BAG IV SCH ×2 (13:20→18:34)
[2020-01-16] MEDS: HYDROmorphone 1 MG/ML 1 ML SYRINGE IVP PRN (13:30)
[2020-01-16] MEDS: HEPARIN SODIUM,PORCINE 5,000 UNIT/ML 1 ML VIAL SQ SCH ×2 (13:34→21:45)
[2020-01-16] MEDS: FOLIC ACID 1 MG TAB PO SCH (13:34)
[2020-01-16] MEDS: THIAMINE 100 MG TAB PO SCH (13:34)
[2020-01-16] MEDS: PANTOPRAZOLE 40 MG/10 ML VIAL IVP SCH (13:34)
[2020-01-16] MEDS: BRIMONIDINE TARTRATE 0.2% DROPS 5 ML BTL BOTH EYES SCH ×3 (13:44→21:49)
[2020-01-16] MEDS: NYSTATIN 100,000 UNIT/ML SUSP 500,000 UNIT/5 ML CUP PO SCH ×4 (13:44→21:52)
[2020-01-16] MEDS: TIMOLOL 0.5% OPHTH DROPS 5 ML BTL BOTH EYES SCH ×2 (13:44→21:45)
--- NOTE | 2020-01-16 15:23 | P.PN ---
Subjective Progress Note Date: 01/16/20 Principal diagnosis: This is an 89-year-old male who was recently admitted with falls and multiple lacerations of the scalp and also confusion and is being closely monitored. Patient continues to be confused and underwent a brain MRI today which is pending at this time. Patient had a swallow eval done and failed and possible PEG tube placement is being scheduled. No reports of chest pain or palpitations. Patient is afebrile. Patient currently received a PICC line for possible PPN nutrition as he continues to have difficulties with eating and swallowing. Will continue to follow along closely with surgery. Case management and social work following for possible placement at an ECF once stabilized and discharged. 01/15/2020 Patient is seen and evaluated status post repeat swallow evaluation which he failed again. Per speech he is okay for freewater/ice chips on PPN. Patient is to possibly have a J-tube placed tomorrow with surgery. Patient continues to be confused. Sodium slightly low at 134 and will initiate normal saline. Creatinine is 0.61. Will continue to follow along with surgery. MRI of the brain was done yesterday stating cannot exclude new tiny acute subacute right parietal extra-axial possible subdural hemorrhage not clearly seen on recent CT, countercoup injury from level scalp laceration and is recommending a repeat CT. Repeat brain CT done showing atrophy with periventricular white matter changes with possible acute left maxillary sinusitis, no abnormal hyperdensity is present to suggest an acute intracranial hemorrhage with no mass lesion evident in no acute infarcts are evident. Neurology following as well. 01/16/2020 Patient is seen and evaluated today status post J-tube placement with surgery. Patient is scheduled to initiate tube feedings starting Tuesday. Sodium continues to be low at 132 and creatinine is 0.58. Magnesium remains at 1.9. Patient is maintained on normal saline and will continue at this time. Patient continues to be confused as this is most likely his baseline. Objective - Vital Signs Vital signs: Vital Signs Temp 97.4 F L 01/16/20 11:56 Pulse 64 01/16/20 11:56 Resp 17 01/16/20 11:56 BP 189/82 01/16/20 11:56 Pulse Ox 97 01/16/20 11:56 Intake & Output 01/15/20 01/16/20 01/16/20 18:59 06:59 18:59 Intake Total 736 421 0903 Output Total 1000 5 Balance 978 -400 1626 Weight 58 kg Intake: IV 250 200 Sodium Chloride 0.9% 1, 250 000 ml @ 50 mls/hr IV . Q20H [facility] Rx#:[id number] Intake, IV Titration 841 680 6151 Amount Amino Acid 5%-D15w+Lytes* 560 E* 1,000 ml @ 70 mls/hr IV .BY DURATION [facility] Rx#: [id number] Fat Emulsion 20% 250 ml 168 In Empty Bag 1 bag @ 21 mls/hr IV DAILY@1800 [facility] Rx#:[id number] Mvi, Adult No.4 with Vit 1011 K 10 ml Trace (Conc-1Ml/ Dose) 1 ml In Amino Acid 5%-D15w+Lytes*E* 1,000 ml @ 70 mls/hr IV .BY DURATION [facility] Rx#: [id number] Sodium Chloride 0.9% 1, 600 000 ml @ 50 mls/hr IV . Q20H [facility] Rx#:[id number] Tube Feeding 10 Blood Product 310 Rc Cpda-1 Unit 310 [id number] Other 100 Rc Cpda-1 Unit 100 [id number] Output: Urine 1000 Estimated Blood Loss 5 Other: Voiding Method Urinal Urinal Urinal # Voids 1 - Exam Gen: This is a 89-year-old male lying in bed, awake, confused alert and oriented 1-2. HEENT: normocephalic. Pupils equal, round. Sclerae is anicteric. NECK: Supple. No JVD. No lymphadenopathy. No thyromegaly. LUNGS: Breath sounds diminished at the bases with no rhonchi or wheezing noted. No intercostal retractions. HEART: S1, S2 are muffled ABDOMEN: Soft. Bowel sounds are present. No masses. No tenderness. J-tube noted EXTREMITIES: No pedal edema. No calf tenderness. NEUROLOGICAL: Patient is awake, alert and oriented x1-2. Diffusely weak SKIN: Scalp lacerations noted and also the left elbow with dressings noted that are dry and intact - Labs CBC & Chem 7: 01/11/20 07:41 01/16/20 11:56 Labs: Abnormal Lab Results - Last 24 Hours (Table) 01/16/20 01/16/20 Range/Units 06:50 11:56 Sodium 132 L (137-145) mmol/L Creatinine 0.58 L (0.66-1.25) mg/dL Glucose 108 H (74-99) mg/dL Calcium 7.7 L (8.4-10.2) mg/dL Crossmatch See Detail Assessment and Plan Assessment: Status post fall multiple lacerations of the scalp, left elbow, as well as left gluteal hematoma Status post jejunostomy tube placement L3 compression fracture, possibly secondary to fall Change in mental status, metabolic encephalopathy, multifactorial, possibly secondary to concussion as well Severe pain and generalized pain secondary to falling, gait dysfunction Swallowing difficulties with possible aspiration Severe gait dysfunction 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 Continue with nothing by mouth at this time. Jejunostomy tube placed and is scheduled to initiate tube feedings on Tuesday. Patient is on PPN. Per speech okay for small amounts of free water and ice chips. Will continue to monitor and follow closely with surgery. Further recommendations to follow. Patient will likely be going to [facility] once stabilized and discharged. Case management and social work following.
[2020-01-16] MEDS: POTASSIUM CHLORIDE 10 MEQ in WATER FOR INJECTION 1 100ML.BAG IVPB SCH ×4 (15:36→22:48)
--- NOTE | 2020-01-16 17:02 | P.PN ---
Subjective Progress Note Date: 01/16/20 Patient patient was seen for a follow-up. Patient had undergone feeding jejunostomy tube today. At present he is very groggy related to his recent procedure. I spoke to patient's daughter yesterday, who states that patient fell down around 10 steps landed on the cement floor on the left side. Patient does have mild memory disturbance but not significant dementia. He did not have any problem with eating or swallowing prior to this fall. Patient at present denies any new complaints. He is laying comfortably in the bed, continues to be somewhat confused. Please refer to examination below. Miguel bertrand has failed swallow studies again. Objective - Vital Signs Vital signs: Vital Signs Temp 97.4 F L 01/16/20 11:56 Pulse 64 01/16/20 16:00 Resp 17 01/16/20 16:00 BP 189/82 01/16/20 11:56 Pulse Ox 97 01/16/20 11:56 Intake & Output 01/15/20 01/16/20 01/16/20 18:59 06:59 18:59 Intake Total 540 911 1381 Output Total 1000 855 Balance 978 -400 1176 Weight 58 kg Intake: IV 250 600 Sodium Chloride 0.9% 1, 250 400 000 ml @ 50 mls/hr IV . Q20H [facility] Rx#:[id number] Intake, IV Titration 859 358 4352 Amount Amino Acid 5%-D15w+Lytes* 560 E* 1,000 ml @ 70 mls/hr IV .BY DURATION [facility] Rx#: [id number] Fat Emulsion 20% 250 ml 168 In Empty Bag 1 bag @ 21 mls/hr IV DAILY@1800 [facility] Rx#:[id number] Mvi, Adult No.4 with Vit 1011 K 10 ml Trace (Conc-1Ml/ Dose) 1 ml In Amino Acid 5%-D15w+Lytes*E* 1,000 ml @ 70 mls/hr IV .BY DURATION [facility] Rx#: [id number] Sodium Chloride 0.9% 1, 600 000 ml @ 50 mls/hr IV . Q20H [facility] Rx#:[id number] Tube Feeding 10 Blood Product 310 Rc Cpda-1 Unit 310 [id number] Other 100 Rc Cpda-1 Unit 100 [id number] Output: Urine 1000 850 Estimated Blood Loss 5 Other: Voiding Method Urinal Urinal Urinal # Voids 1 1 # Bowel Movements 1 - Exam Patient more groggy, lethargic related to recent placement of feeding jejunostomy tube. - Labs CBC & Chem 7: 01/11/20 07:41 01/16/20 11:56 Labs: Abnormal Lab Results - Last 24 Hours (Table) 01/16/20 01/16/20 Range/Units 06:50 11:56 Sodium 132 L (137-145) mmol/L Creatinine 0.58 L (0.66-1.25) mg/dL Glucose 108 H (74-99) mg/dL Calcium 7.7 L (8.4-10.2) mg/dL Crossmatch See Detail Assessment and Plan Assessment: * Status post fall down several stairs with altered mental status. * MRI of brain showing possibility of subdural hematoma. Repeat computed tomography scan of head this morning was negative for any hematoma. No signs of an acute stroke in the brainstem or anywhere else. * Dysphagia, dysarthria, unclear etiology. No signs of a stroke on the MRI. * Acute significant anemia. Patient's hemoglobin on presentation was 11.9, now down to 7.7 * History of old malunited right shoulder fracture. * Failed swallow, unclear cause, perhaps related to concussion, anemia. No signs of stroke on MRI. * Dementia Plan: * No evidence of subdural hematoma noted on computed tomography scan of head. Patient probably had concussion related to the fall. * Patient's B12 is normal 639, folate 13.2. Liver panel is normal. Electrolytes and renal functions normal. * Patient's CBC shows WBC 12.2 hemoglobin 7.7 (hemoglobin 11.9 on arrival) and platelets 169. Repeat CBC in a.m. * Await acetylcholine receptor antibodies for dysphagia, dysarthria. * Patient has dementia, currently on Aricept 10 mg daily. His dementia may have got worse related to concussion from fall, and perhaps related to significant anemia.
[2020-01-16 17:06] LABS: Glucose,Whole Blood 107 mg/dL (75-99)
[2020-01-16] MEDS: ASPIRIN 81 MG PO SCH (21:50)
[2020-01-16] MEDS: DONEPEZIL 10 MG TAB PO SCH (21:50)
[2020-01-16] MEDS: CITALOPRAM HYDROBROMIDE 20 MG TAB PO SCH (21:50)
[2020-01-16 23:54] LABS: Glucose,Whole Blood 144 mg/dL (75-99)
[2020-01-17] MEDS: SODIUM CHLORIDE 0.9% 1,000 ML IV SCH ×2 (04:54→22:28)
[2020-01-17 06:13] LABS: Glucose,Whole Blood 143 mg/dL (75-99)
[2020-01-17] MEDS: HEPARIN SODIUM,PORCINE 5,000 UNIT/ML 1 ML VIAL SQ SCH ×2 (07:36→22:19)
[2020-01-17] MEDS: ERGOCALCIFEROL 50,000 UNIT CAP PO SCH (07:36)
[2020-01-17] MEDS: NYSTATIN 100,000 UNIT/ML SUSP 500,000 UNIT/5 ML CUP PO SCH ×4 (07:37→22:19)
[2020-01-17] MEDS: PANTOPRAZOLE 40 MG/10 ML VIAL IVP SCH (07:37)
[2020-01-17] MEDS: TIMOLOL 0.5% OPHTH DROPS 5 ML BTL BOTH EYES SCH ×2 (07:38→22:18)
[2020-01-17] MEDS: BRIMONIDINE TARTRATE 0.2% DROPS 5 ML BTL BOTH EYES SCH ×3 (07:38→22:27)
[2020-01-17 08:04] LABS: African American GFR (CKD) >90 (>60 ml/min/1.73 sqM); Anion Gap 4 mmol/L; Blood Urea Nitrogen 20 mg/dL (9-20); Calcium 7.4 mg/dL (8.4-10.2); Carbon Dioxide 22 mmol/L (22-30); Chloride 104 mmol/L (98-107); Glucose 132 mg/dL (74-99); Magnesium 1.8 mg/dL (1.6-2.3); Non-African American GFR(CKD) >90 (>60 ml/min/1.73 sqM); Phosphorus 2.1 mg/dL (2.5-4.5); Potassium 3.7 mmol/L (3.5-5.1); Sodium 130 mmol/L (137-145)
[2020-01-17 08:10] LABS: Anisocytosis Slight; Basophils % (A) 0 %; Eosinophils # (A) 0.5 k/uL (0-0.7); Eosinophils % (A) 3 %; HCT 30.7 % (39.0-53.0); HGB 10.2 gm/dL (13.0-17.5); Hypochromasia Slight; Lymphocytes # (A) 0.8 k/uL (1.0-4.8); Lymphocytes % (A) 6 %; MCH 33.5 pg (25.0-35.0); MCHC 33.1 g/dL (31.0-37.0); MCV 101.2 fL (80.0-100.0); Macrocytosis Slight; Mean Platelet Volume 9.9; Monocytes # (A) 0.8 k/uL (0-1.0); Monocytes % (A) 6 %; Neutrophils # (A) 10.9 k/uL (1.3-7.7); Neutrophils % (A) 82 %; Platelet Count 239 k/uL (150-450); Poikilocytosis Slight; RBC 3.04 m/uL (4.30-5.90); RDW 17.4 % (11.5-15.5); WBC 13.3 k/uL (3.8-10.6)
[2020-01-17 09:12] LABS: Polychromasia Present
[2020-01-17 11:24] LABS: Glucose,Whole Blood 132 mg/dL (75-99)
--- NOTE | 2020-01-17 12:34 | P.PN ---
Subjective Progress Note Date: 01/17/20 CHIEF COMPLAINT: Trauma HISTORY OF PRESENT ILLNESS: Patient examined at the bedside. He is status post J-tube placement. He is receiving TPN. Patient states his pain is tolerable. PHYSICAL EXAM: VITAL SIGNS: Reviewed. GENERAL: Well-developed in no acute distress. HEENT: No sclera icterus. Extraocular movements grossly intact. Moist buccal mucosa. Head is normocephalic. Laceration noted to scalp with dressing intact. ABDOMEN: Soft. Nondistended. Nontender. J-tube noted. Abdominal dressing with sanguinous drainage noted. NEUROLOGIC: Awake and alert. Slow to respond. SKIN: Multiple bruises throughout. Lacerations noted to left elbow and hand with suturing completed in ER. ASSESSMENT: 1. Trauma, status post fall 2. Scalp laceration and hematoma of frontal and left parietal regions 3. Large left gluteal subcutaneous and intramuscular hematoma measuring up to 17.9 cm 4. Recent fall with right proximal humeral fracture 5. Left elbow and left hand laceration, status post suturing PLAN: -Monitor labs -PT/OT -Pain control -Medical management per Dr. Curtis -NPO except for ice chips per speech recommendations -Continue TPN -Anticipate beginning tube feedings tomorrow -Change abdominal dressing Nurse practitioner note has been reviewed by physician. Signing provider agrees with the documented findings, assessment, and plan of care. Objective - Vital Signs Vital signs: Vital Signs Temp 98.5 F 01/17/20 12:07 Pulse 57 L 01/17/20 12:07 Resp 17 01/17/20 12:07 BP 150/71 01/17/20 12:07 Pulse Ox 95 01/17/20 12:07 Intake & Output 01/16/20 01/17/20 01/17/20 18:59 06:59 18:59 Intake Total 2031 200 Output Total 855 100 Balance 1176 100 Weight 58 kg Intake: IV 600 200 Sodium Chloride 0.9% 1, 400 200 000 ml @ 50 mls/hr IV . Q20H [facility] Rx#:[id number] Intake, IV Titration 1011 Amount Mvi, Adult No.4 with Vit 1011 K 10 ml Trace (Conc-1Ml/ Dose) 1 ml In Amino Acid 5%-D15w+Lytes*E* 1,000 ml @ 70 mls/hr IV .BY DURATION [facility] Rx#: [id number] Oral 0 Tube Feeding 10 Blood Product 310 Rc Cpda-1 Unit 310 [id number] Other 100 Rc Cpda-1 Unit 100 [id number] Output: Urine 850 100 Estimated Blood Loss 5 Other: Voiding Method Urinal Urinal # Voids 1 2 # Bowel Movements 1 - Labs CBC & Chem 7: 01/17/20 07:00 01/17/20 07:00 Labs: Abnormal Lab Results - Last 24 Hours (Table) 01/16/20 01/16/20 01/16/20 Range/Units 06:50 11:56 17:04 WBC (3.8-10.6) k/uL RBC (4.30-5.90) m/uL Hgb (13.0-17.5) gm/dL Hct (39.0-53.0) % MCV (80.0-100.0) fL RDW (11.5-15.5) % Neutrophils # (1.3-7.7) k/uL Lymphocytes # (1.0-4.8) k/uL Sodium 132 L (137-145) mmol/L Creatinine 0.58 L (0.66-1.25) mg/dL Glucose 108 H (74-99) mg/dL POC Glucose (mg/dL) 107 H (75-99) mg/dL Calcium 7.7 L (8.4-10.2) mg/dL Phosphorus (2.5-4.5) mg/dL Crossmatch See Detail 01/16/20 01/17/20 01/17/20 Range/Units 23:52 06:07 07:00 WBC (3.8-10.6) k/uL RBC (4.30-5.90) m/uL Hgb (13.0-17.5) gm/dL Hct (39.0-53.0) % MCV (80.0-100.0) fL RDW (11.5-15.5) % Neutrophils # (1.3-7.7) k/uL Lymphocytes # (1.0-4.8) k/uL Sodium 130 L (137-145) mmol/L Creatinine 0.56 L (0.66-1.25) mg/dL Glucose 132 H (74-99) mg/dL POC Glucose (mg/dL) 144 H 143 H (75-99) mg/dL Calcium 7.4 L (8.4-10.2) mg/dL Phosphorus 2.1 L (2.5-4.5) mg/dL Crossmatch 01/17/20 01/17/20 Range/Units 07:00 11:23 WBC 13.3 H (3.8-10.6) k/uL RBC 3.04 L (4.30-5.90) m/uL Hgb 10.2 L (13.0-17.5) gm/dL Hct 30.7 L (39.0-53.0) % MCV 101.2 H (80.0-100.0) fL RDW 17.4 H (11.5-15.5) % Neutrophils # 10.9 H (1.3-7.7) k/uL Lymphocytes # 0.8 L (1.0-4.8) k/uL Sodium (137-145) mmol/L Creatinine (0.66-1.25) mg/dL Glucose (74-99) mg/dL POC Glucose (mg/dL) 132 H (75-99) mg/dL Calcium (8.4-10.2) mg/dL Phosphorus (2.5-4.5) mg/dL Crossmatch
--- NOTE | 2020-01-17 14:25 | P.PN ---
Subjective Progress Note Date: 01/17/20 Principal diagnosis: This is an 89-year-old male who was recently admitted with falls and multiple lacerations of the scalp and also confusion and is being closely monitored. Patient continues to be confused and underwent a brain MRI today which is pending at this time. Patient had a swallow eval done and failed and possible PEG tube placement is being scheduled. No reports of chest pain or palpitations. Patient is afebrile. Patient currently received a PICC line for possible PPN nutrition as he continues to have difficulties with eating and swallowing. Will continue to follow along closely with surgery. Case management and social work following for possible placement at an ECF once stabilized and discharged. 01/15/2020 Patient is seen and evaluated status post repeat swallow evaluation which he failed again. Per speech he is okay for freewater/ice chips on PPN. Patient is to possibly have a J-tube placed tomorrow with surgery. Patient continues to be confused. Sodium slightly low at 134 and will initiate normal saline. Creatinine is 0.61. Will continue to follow along with surgery. MRI of the brain was done yesterday stating cannot exclude new tiny acute subacute right parietal extra-axial possible subdural hemorrhage not clearly seen on recent CT, countercoup injury from level scalp laceration and is recommending a repeat CT. Repeat brain CT done showing atrophy with periventricular white matter changes with possible acute left maxillary sinusitis, no abnormal hyperdensity is present to suggest an acute intracranial hemorrhage with no mass lesion evident in no acute infarcts are evident. Neurology following as well. 01/16/2020 Patient is seen and evaluated today status post J-tube placement with surgery. Patient is scheduled to initiate tube feedings starting Tuesday. Sodium continues to be low at 132 and creatinine is 0.58. Magnesium remains at 1.9. Patient is maintained on normal saline and will continue at this time. Patient continues to be confused as this is most likely his baseline. 01/17/2020 Patient is seen and evaluated in follow-up today with no acute overnight issues. Surgery following. Patient was initiated on ice chips and speech pathology following. Family is aware. Sodium continues to be low at 1:30 and current creatinine is 0.56. Will continue normal saline and PPN will be discontinued. Discussed with family as well about discontinuing the PPN and starting tube feedings in the morning. Scalp lacerations along with elbow and gluteal sutures will be maintained and likely removed next week in the ECF setting. Hemoglobin is stable at 10.2. Incisional surgical dressing in the periumbilical area was saturated requiring changing as there was some mild bleeding noted. J-tube is intact with sutures noted with no surrounding redness or erythema noted. Patient continues to be confused and spoke at length with daughter Cristine today about this and she states he did have some confusion while at home but is concerned because prior to the fall he was able to do laundry, do the dishes, dressing himself, eat full meals and perform other ADLs. Case management and social work following this patient will likely go to [facility] for continued rehab once stabilized and discharged. Objective - Vital Signs Vital signs: Vital Signs Temp 98.5 F 01/17/20 12:07 Pulse 57 L 01/17/20 12:07 Resp 17 01/17/20 12:07 BP 150/71 01/17/20 12:07 Pulse Ox 95 01/17/20 12:07 Intake & Output 01/16/20 01/17/20 01/17/20 18:59 06:59 18:59 Intake Total 2031 200 Output Total 855 100 Balance 1176 100 Weight 58 kg Intake: IV 600 200 Sodium Chloride 0.9% 1, 400 200 000 ml @ 50 mls/hr IV . Q20H [facility] Rx#:[id number] Intake, IV Titration 1011 Amount Mvi, Adult No.4 with Vit 1011 K 10 ml Trace (Conc-1Ml/ Dose) 1 ml In Amino Acid 5%-D15w+Lytes*E* 1,000 ml @ 70 mls/hr IV .BY DURATION [facility] Rx#: [id number] Oral 0 Tube Feeding 10 Blood Product 310 Rc Cpda-1 Unit 310 [id number] Other 100 Rc Cpda-1 Unit 100 [id number] Output: Urine 850 100 Estimated Blood Loss 5 Other: Voiding Method Urinal Urinal # Voids 1 2 # Bowel Movements 1 - Exam Gen: This is a 89-year-old male lying in bed, awake, confused alert and oriented 1-2. HEENT: normocephalic. Pupils equal, round. Sclerae is anicteric. NECK: Supple. No JVD. No lymphadenopathy. No thyromegaly. LUNGS: Breath sounds diminished at the bases with no rhonchi or wheezing noted. No intercostal retractions. HEART: S1, S2 are muffled ABDOMEN: Soft. Bowel sounds are present. No masses. No tenderness. J-tube noted with no surrounding redness or erythema noted, abdominal incision surgical site dressing is saturated with blood and being changed. EXTREMITIES: No pedal edema. No calf tenderness. NEUROLOGICAL: Patient is awake, alert and oriented x1-2. Diffusely weak SKIN: Scalp lacerations noted and also the left elbow with dressings noted that are dry and intact - Labs CBC & Chem 7: 01/17/20 07:00 01/17/20 07:00 Labs: Abnormal Lab Results - Last 24 Hours (Table) 01/16/20 01/16/20 01/16/20 Range/Units 06:50 17:04 23:52 WBC (3.8-10.6) k/uL RBC (4.30-5.90) m/uL Hgb (13.0-17.5) gm/dL Hct (39.0-53.0) % MCV (80.0-100.0) fL RDW (11.5-15.5) % Neutrophils # (1.3-7.7) k/uL Lymphocytes # (1.0-4.8) k/uL Sodium (137-145) mmol/L Creatinine (0.66-1.25) mg/dL Glucose (74-99) mg/dL POC Glucose (mg/dL) 107 H 144 H (75-99) mg/dL Calcium (8.4-10.2) mg/dL Phosphorus (2.5-4.5) mg/dL Crossmatch See Detail 01/17/20 01/17/20 01/17/20 Range/Units 06:07 07:00 07:00 WBC 13.3 H (3.8-10.6) k/uL RBC 3.04 L (4.30-5.90) m/uL Hgb 10.2 L (13.0-17.5) gm/dL Hct 30.7 L (39.0-53.0) % MCV 101.2 H (80.0-100.0) fL RDW 17.4 H (11.5-15.5) % Neutrophils # 10.9 H (1.3-7.7) k/uL Lymphocytes # 0.8 L (1.0-4.8) k/uL Sodium 130 L (137-145) mmol/L Creatinine 0.56 L (0.66-1.25) mg/dL Glucose 132 H (74-99) mg/dL POC Glucose (mg/dL) 143 H (75-99) mg/dL Calcium 7.4 L (8.4-10.2) mg/dL Phosphorus 2.1 L (2.5-4.5) mg/dL Crossmatch 01/17/20 Range/Units 11:23 WBC (3.8-10.6) k/uL RBC (4.30-5.90) m/uL Hgb (13.0-17.5) gm/dL Hct (39.0-53.0) % MCV (80.0-100.0) fL RDW (11.5-15.5) % Neutrophils # (1.3-7.7) k/uL Lymphocytes # (1.0-4.8) k/uL Sodium (137-145) mmol/L Creatinine (0.66-1.25) mg/dL Glucose (74-99) mg/dL POC Glucose (mg/dL) 132 H (75-99) mg/dL Calcium (8.4-10.2) mg/dL Phosphorus (2.5-4.5) mg/dL Crossmatch Assessment and Plan Assessment: Status post fall multiple lacerations of the scalp, left elbow, as well as left gluteal hematoma Status post jejunostomy tube placement L3 compression fracture, possibly secondary to fall Change in mental status, metabolic encephalopathy, multifactorial, possibly secondary to concussion as well Severe pain and generalized pain secondary to falling, gait dysfunction Swallowing difficulties with possible aspiration Severe gait dysfunction 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 Continue with nothing by mouth except for ice chips at this time per speech. Jejunostomy tube placed and is scheduled to initiate tube feedings tomorrow. PPN being discontinued. Will continue to monitor and follow closely with surgery. Will repeat a.m. labs. Further recommendations to follow. Patient will be going to [facility] once stabilized and discharged. Case management and social work following. Possible discharge in 48 hours.
[2020-01-17] MEDS: THIAMINE 100 MG TAB PO SCH (15:47)
[2020-01-17] MEDS: FOLIC ACID 1 MG TAB PO SCH (15:47)
[2020-01-17 17:08] LABS: Glucose,Whole Blood 100 mg/dL (75-99)
--- NOTE | 2020-01-17 20:56 | P.PN ---
Subjective Progress Note Date: 01/17/20 Patient patient was seen for a follow-up. Patient had undergone feeding jejunostomy tube yesterday. Today patient is much more alert and awake. Trying to communicate and speaking more clearly. As per patient's daughter report, patient fell down around 10 steps landed on the cement floor on the left side. Patient does have mild memory disturbance but not significant dementia. He did not have any problem with eating or swallowing prior to this fall. Patient at present denies any new complaints. Please refer to examination below. Objective - Vital Signs Vital signs: Vital Signs Temp 98.5 F 01/17/20 12:07 Pulse 57 L 01/17/20 16:00 Resp 17 01/17/20 16:00 BP 150/71 01/17/20 12:07 Pulse Ox 95 01/17/20 12:07 Intake & Output 01/17/20 01/17/20 01/18/20 06:59 18:59 06:59 Intake Total 200 880 Output Total 100 400 Balance 100 480 Intake: IV 200 600 Sodium Chloride 0.9% 1, 200 600 000 ml @ 50 mls/hr IV . Q20H [facility] Rx#:[id number] Intake, IV Titration 280 Amount Mvi, Adult No.4 with Vit 280 K 10 ml Trace (Conc-1Ml/ Dose) 1 ml Potassium Phosphate 10 mmol In Amino Acid 5%-D15w+Lytes* E* 1,000 ml @ 70 mls/hr IV .BY DURATION [facility] Rx#: [id number] Oral 0 Output: Urine 100 400 Other: Voiding Method Urinal Urinal # Voids 2 2 # Bowel Movements 1 - Exam Patient is much more alert and awake. Patient knows that he is in [place] in the hospital in [place]. He thinks the month is the second month and the year is 2001. He knows name of the current president. Patient able to state clearly regarding Trump, that "I like him because he has got his own mind". Speech is less slurred. No obvious aphasia. Cranial nerves appears normal. Muscle strength appears normal in the arms and legs. No obvious ataxia. Tone is normal with no parkinsonian features. - Labs CBC & Chem 7: 01/17/20 07:00 01/17/20 07:00 Labs: Abnormal Lab Results - Last 24 Hours (Table) 06/11/0101/16/20 01/17/20 Range/Units 06:50 23:52 06:07 WBC (3.8-10.6) k/uL RBC (4.30-5.90) m/uL Hgb (13.0-17.5) gm/dL Hct (39.0-53.0) % MCV (80.0-100.0) fL RDW (11.5-15.5) % Neutrophils # (1.3-7.7) k/uL Lymphocytes # (1.0-4.8) k/uL Sodium (137-145) mmol/L Creatinine (0.66-1.25) mg/dL Glucose (74-99) mg/dL POC Glucose (mg/dL) 144 H 143 H (75-99) mg/dL Calcium (8.4-10.2) mg/dL Phosphorus (2.5-4.5) mg/dL Crossmatch See Detail 01/17/20 01/17/20 01/17/20 Range/Units 07:00 07:00 11:23 WBC 13.3 H (3.8-10.6) k/uL RBC 3.04 L (4.30-5.90) m/uL Hgb 10.2 L (13.0-17.5) gm/dL Hct 30.7 L (39.0-53.0) % MCV 101.2 H (80.0-100.0) fL RDW 17.4 H (11.5-15.5) % Neutrophils # 10.9 H (1.3-7.7) k/uL Lymphocytes # 0.8 L (1.0-4.8) k/uL Sodium 130 L (137-145) mmol/L Creatinine 0.56 L (0.66-1.25) mg/dL Glucose 132 H (74-99) mg/dL POC Glucose (mg/dL) 132 H (75-99) mg/dL Calcium 7.4 L (8.4-10.2) mg/dL Phosphorus 2.1 L (2.5-4.5) mg/dL Crossmatch 01/17/20 Range/Units 17:07 WBC (3.8-10.6) k/uL RBC (4.30-5.90) m/uL Hgb (13.0-17.5) gm/dL Hct (39.0-53.0) % MCV (80.0-100.0) fL RDW (11.5-15.5) % Neutrophils # (1.3-7.7) k/uL Lymphocytes # (1.0-4.8) k/uL Sodium (137-145) mmol/L Creatinine (0.66-1.25) mg/dL Glucose (74-99) mg/dL POC Glucose (mg/dL) 100 H (75-99) mg/dL Calcium (8.4-10.2) mg/dL Phosphorus (2.5-4.5) mg/dL Crossmatch Assessment and Plan Assessment: * Status post fall down several stairs with altered mental status. * New onset dysphagia, dysarthria, unclear etiology. No signs of a stroke on the MRI. * Acute significant anemia. Patient's hemoglobin on presentation was 11.9, now down to 7.7 * History of old malunited right shoulder fracture. * Failed swallow, unclear cause, perhaps related to concussion, anemia. No signs of stroke on MRI. Status post placement of feeding jejunostomy tube. * Dementia Plan: * No evidence of subdural hematoma noted on computed tomography scan of head. Patient probably had concussion related to the fall. * Patient's B12 is normal 639, folate 13.2. Liver panel is normal. Electrolytes and renal functions normal. * Patient's CBC shows improved hemoglobin 10.2, with WBC 13.3. * Await acetylcholine receptor antibodies for dysphagia, dysarthria. * Patient has dementia, currently on Aricept 10 mg daily. His dementia may have got worse related to concussion from fall, and perhaps related to significant anemia. * Continue aspirin 81 mg daily for stroke prevention.
[2020-01-17] MEDS: HYDROmorphone 1 MG/ML 1 ML SYRINGE IVP PRN ×2 (22:19→22:22)
[2020-01-17] MEDS: CITALOPRAM HYDROBROMIDE 20 MG TAB PO SCH (22:28)
[2020-01-17] MEDS: DONEPEZIL 10 MG TAB PO SCH (22:28)
[2020-01-17] MEDS: ASPIRIN 81 MG PO SCH (22:28)
[2020-01-18 00:09] LABS: Glucose,Whole Blood 111 mg/dL (75-99)
[2020-01-18 07:56] LABS: Anisocytosis Slight; Basophils % (A) 0 %; Eosinophils # (A) 0.6 k/uL (0-0.7); Eosinophils % (A) 6 %; HCT 31.7 % (39.0-53.0); HGB 10.7 gm/dL (13.0-17.5); Hypochromasia Slight; Lymphocytes # (A) 0.8 k/uL (1.0-4.8); Lymphocytes % (A) 8 %; MCH 35.1 pg (25.0-35.0); MCHC 33.9 g/dL (31.0-37.0); MCV 103.8 fL (80.0-100.0); Macrocytosis Moderate; Mean Platelet Volume 9.7; Monocytes # (A) 0.7 k/uL (0-1.0); Monocytes % (A) 7 %; Neutrophils # (A) 7.6 k/uL (1.3-7.7); Neutrophils % (A) 75 %; Platelet Count 252 k/uL (150-450); Poikilocytosis Slight; RBC 3.05 m/uL (4.30-5.90); RDW 17.6 % (11.5-15.5); WBC 10.1 k/uL (3.8-10.6)
[2020-01-18 08:08] LABS: African American GFR (CKD) >90 (>60 ml/min/1.73 sqM); Anion Gap 3 mmol/L; Blood Urea Nitrogen 17 mg/dL (9-20); Calcium 7.6 mg/dL (8.4-10.2); Carbon Dioxide 23 mmol/L (22-30); Chloride 106 mmol/L (98-107); Glucose 92 mg/dL (74-99); Magnesium 1.9 mg/dL (1.6-2.3); Non-African American GFR(CKD) >90 (>60 ml/min/1.73 sqM); Phosphorus 2.7 mg/dL (2.5-4.5); Potassium 3.9 mmol/L (3.5-5.1); Sodium 132 mmol/L (137-145)
--- NOTE | 2020-01-18 08:13 | P.PN ---
Subjective Progress Note Date: 01/18/20 CHIEF COMPLAINT: Trauma HISTORY OF PRESENT ILLNESS: Patient examined at the bedside. He is status post J-tube placement. He is receiving TPN. Patient states his pain is tolerable. PHYSICAL EXAM: VITAL SIGNS: Reviewed. GENERAL: Well-developed in no acute distress. HEENT: No sclera icterus. Extraocular movements grossly intact. Moist buccal mucosa. Head is normocephalic. Laceration noted to scalp with dressing intact. ABDOMEN: Soft. Nondistended. Nontender. J-tube noted. Abdominal dressing with sanguinous drainage noted. NEUROLOGIC: Awake and alert. Slow to respond. SKIN: Multiple bruises throughout. Lacerations noted to left elbow and hand with suturing completed in ER. ASSESSMENT: 1. Trauma, status post fall 2. Scalp laceration and hematoma of frontal and left parietal regions 3. Large left gluteal subcutaneous and intramuscular hematoma measuring up to 17.9 cm 4. Recent fall with right proximal humeral fracture 5. Left elbow and left hand laceration, status post suturing PLAN: -Monitor labs -PT/OT -Pain control -Medical management per Dr. Curtis -NPO except for ice chips per speech recommendations -Continue TPN -May begin low-dose tube feedings through J-tube -Absolutely no medications to be given J-tube per Dr. Diana Nurse practitioner note has been reviewed by physician. Signing provider agrees with the documented findings, assessment, and plan of care. Objective - Vital Signs Vital signs: Vital Signs Temp 97.3 F L 01/18/20 05:00 Pulse 63 01/18/20 05:00 Resp 18 01/18/20 05:00 BP 171/70 01/18/20 05:00 Pulse Ox 96 01/18/20 05:00 Intake & Output 01/17/20 01/18/20 01/18/20 18:59 06:59 18:59 Intake Total 880 600 Output Total 400 Balance 480 600 Intake: IV 600 Sodium Chloride 0.9% 1, 600 000 ml @ 50 mls/hr IV . Q20H [facility] Rx#:[id number] Intake, IV Titration 280 600 Amount Mvi, Adult No.4 with Vit 280 K 10 ml Trace (Conc-1Ml/ Dose) 1 ml Potassium Phosphate 10 mmol In Amino Acid 5%-D15w+Lytes* E* 1,000 ml @ 70 mls/hr IV .BY DURATION [facility] Rx#: [id number] Sodium Chloride 0.9% 50 600 ml @ 0 mls/hr IV .STK-MED ONE with ceFAZolin 2,000 mg Rx#:[id number] cefTRIAXone 1 gm In 0 Sodium Chloride 0.9% 50 ml @ 100 mls/hr IVPB Q24HR [facility] Rx#:[id number] Oral 0 Output: Urine 400 Other: Voiding Method Urinal Urinal # Voids 2 5 # Bowel Movements 1 - Labs CBC & Chem 7: 01/18/20 07:10 01/18/20 07:10 Labs: Abnormal Lab Results - Last 24 Hours (Table) 01/17/20 01/17/20 01/17/20 Range/Units 07:00 11:23 17:07 WBC 13.3 H (3.8-10.6) k/uL RBC 3.04 L (4.30-5.90) m/uL Hgb 10.2 L (13.0-17.5) gm/dL Hct 30.7 L (39.0-53.0) % MCV 101.2 H (80.0-100.0) fL MCH (25.0-35.0) pg RDW 17.4 H (11.5-15.5) % Neutrophils # 10.9 H (1.3-7.7) k/uL Lymphocytes # 0.8 L (1.0-4.8) k/uL Sodium (137-145) mmol/L Creatinine (0.66-1.25) mg/dL POC Glucose (mg/dL) 132 H 100 H (75-99) mg/dL Calcium (8.4-10.2) mg/dL 01/18/20 01/18/20 01/18/20 Range/Units 00:06 07:10 07:10 WBC (3.8-10.6) k/uL RBC 3.05 L (4.30-5.90) m/uL Hgb 10.7 L (13.0-17.5) gm/dL Hct 31.7 L (39.0-53.0) % MCV 103.8 H (80.0-100.0) fL MCH 35.1 H (25.0-35.0) pg RDW 17.6 H (11.5-15.5) % Neutrophils # (1.3-7.7) k/uL Lymphocytes # 0.8 L (1.0-4.8) k/uL Sodium 132 L (137-145) mmol/L Creatinine 0.58 L (0.66-1.25) mg/dL POC Glucose (mg/dL) 111 H (75-99) mg/dL Calcium 7.6 L (8.4-10.2) mg/dL
[2020-01-18] MEDS: BRIMONIDINE TARTRATE 0.2% DROPS 5 ML BTL BOTH EYES SCH ×3 (10:54→20:54)
[2020-01-18] MEDS: HEPARIN SODIUM,PORCINE 5,000 UNIT/ML 1 ML VIAL SQ SCH ×2 (10:54→20:54)
[2020-01-18] MEDS: TIMOLOL 0.5% OPHTH DROPS 5 ML BTL BOTH EYES SCH ×2 (10:54→20:55)
[2020-01-18] MEDS: NYSTATIN 100,000 UNIT/ML SUSP 500,000 UNIT/5 ML CUP PO SCH ×4 (10:55→20:54)
[2020-01-18] MEDS: PANTOPRAZOLE 40 MG/10 ML VIAL IVP SCH (10:55)
[2020-01-18] MEDS: THIAMINE 100 MG TAB PO SCH (10:56)
[2020-01-18] MEDS: FOLIC ACID 1 MG TAB PO SCH (10:56)
[2020-01-18] MEDS: SODIUM CHLORIDE 0.9% 1,000 ML IV SCH (17:20)
--- NOTE | 2020-01-18 18:29 | P.PN ---
Subjective Progress Note Date: 01/18/20 Principal diagnosis: This is an 89-year-old male who was recently admitted with falls and multiple lacerations of the scalp and also confusion and is being closely monitored. Patient continues to be confused and underwent a brain MRI today which is pending at this time. Patient had a swallow eval done and failed and possible PEG tube placement is being scheduled. No reports of chest pain or palpitations. Patient is afebrile. Patient currently received a PICC line for possible PPN nutrition as he continues to have difficulties with eating and swallowing. Will continue to follow along closely with surgery. Case management and social work following for possible placement at an ECF once stabilized and discharged. 01/15/2020 Patient is seen and evaluated status post repeat swallow evaluation which he failed again. Per speech he is okay for freewater/ice chips on PPN. Patient is to possibly have a J-tube placed tomorrow with surgery. Patient continues to be confused. Sodium slightly low at 134 and will initiate normal saline. Creatinine is 0.61. Will continue to follow along with surgery. MRI of the brain was done yesterday stating cannot exclude new tiny acute subacute right parietal extra-axial possible subdural hemorrhage not clearly seen on recent CT, countercoup injury from level scalp laceration and is recommending a repeat CT. Repeat brain CT done showing atrophy with periventricular white matter changes with possible acute left maxillary sinusitis, no abnormal hyperdensity is present to suggest an acute intracranial hemorrhage with no mass lesion evident in no acute infarcts are evident. Neurology following as well. 01/16/2020 Patient is seen and evaluated today status post J-tube placement with surgery. Patient is scheduled to initiate tube feedings starting Tuesday. Sodium continues to be low at 132 and creatinine is 0.58. Magnesium remains at 1.9. Patient is maintained on normal saline and will continue at this time. Patient continues to be confused as this is most likely his baseline. 01/17/2020 Patient is seen and evaluated in follow-up today with no acute overnight issues. Surgery following. Patient was initiated on ice chips and speech pathology following. Family is aware. Sodium continues to be low at 1:30 and current creatinine is 0.56. Will continue normal saline and PPN will be discontinued. Discussed with family as well about discontinuing the PPN and starting tube feedings in the morning. Scalp lacerations along with elbow and gluteal sutures will be maintained and likely removed next week in the ECF setting. Hemoglobin is stable at 10.2. Incisional surgical dressing in the periumbilical area was saturated requiring changing as there was some mild bleeding noted. J-tube is intact with sutures noted with no surrounding redness or erythema noted. Patient continues to be confused and spoke at length with daughter Cristine today about this and she states he did have some confusion while at home but is concerned because prior to the fall he was able to do laundry, do the dishes, dressing himself, eat full meals and perform other ADLs. Case management and social work following this patient will likely go to [facility] for continued rehab once stabilized and discharged. 01/18/2020 Patient is seen in follow up this morning and currently being started on tube feedings starting at 10 with a goal of 45. Patient has been receiving occasional ice chips and tolerating well. Patient continues to be nothing by mouth otherwise. Patient will need continued speech therapy in the outpatient setting with the goal of possibility of eating by mouth again and also the ability to take medications. Patient's J tube is not to be used for medications per surgery. Patient's current medications may need to be adjusted to liquid if possible. Scalp laceration dressing removed and healing is noted with 3 evelyne noted. No surrounding erythema or swelling noted. [place] to remain per surgery until placement in the ECF next week. Patient's mentation is much improved at this time and responding appropriately to questions and commands. No reports of chest pain, shortness of breath, or palpitations. Patient is afebrile. Sodium is slightly improved at 132 and WBC are within normal limits. Objective - Vital Signs Vital signs: Vital Signs Temp 97.9 F 01/18/20 12:10 Pulse 94 01/18/20 15:39 Resp 15 01/18/20 15:39 BP 98/65 01/18/20 12:10 Pulse Ox 94 L 01/18/20 12:10 Intake & Output 01/17/20 01/18/20 01/18/20 18:59 06:59 18:59 Intake Total 880 600 50 Output Total 400 300 Balance 480 600 -250 Weight 55 kg Intake: IV 600 Sodium Chloride 0.9% 1, 600 000 ml @ 50 mls/hr IV . Q20H [facility] Rx#:[id number] Intake, IV Titration 280 600 Amount Mvi, Adult No.4 with Vit 280 K 10 ml Trace (Conc-1Ml/ Dose) 1 ml Potassium Phosphate 10 mmol In Amino Acid 5%-D15w+Lytes* E* 1,000 ml @ 70 mls/hr IV .BY DURATION PIPO Rx#: [id number] Sodium Chloride 0.9% 50 600 ml @ 0 mls/hr IV .STK-MED ONE with ceFAZolin 2,000 mg Rx#:[id number] cefTRIAXone 1 gm In 0 Sodium Chloride 0.9% 50 ml @ 100 mls/hr IVPB Q24HR [facility] Rx#:[id number] Oral 0 Tube Feeding 50 Output: Urine 400 300 Other: Voiding Method Urinal Urinal Urinal # Voids 2 5 5 # Bowel Movements 1 1 - Exam Gen: This is a 89-year-old male sitting up in the chair, awake, alert and oriented 2. HEENT: normocephalic. Pupils equal, round. Sclerae is anicteric. NECK: Supple. No JVD. No lymphadenopathy. No thyromegaly. LUNGS: Breath sounds diminished at the bases with no rhonchi or wheezing noted. No intercostal retractions. HEART: S1, S2 are muffled ABDOMEN: Soft. Bowel sounds are present. No masses. No tenderness. J-tube noted with no surrounding redness or erythema noted, abdominal incision surgical site dressing is saturated with blood and being changed. EXTREMITIES: No pedal edema. No calf tenderness. NEUROLOGICAL: Patient is awake, alert and oriented x1-2. Diffusely weak SKIN: Scalp lacerations dressing removed and 3 evelyne are dry and intact with no surrounding erythema or swelling noted. left elbow with dressings noted that are dry and intact - Labs CBC & Chem 7: 01/18/20 07:10 01/18/20 07:10 Labs: Abnormal Lab Results - Last 24 Hours (Table) 01/18/20 01/18/20 01/18/20 Range/Units 00:06 07:10 07:10 RBC 3.05 L (4.30-5.90) m/uL Hgb 10.7 L (13.0-17.5) gm/dL Hct 31.7 L (39.0-53.0) % MCV 103.8 H (80.0-100.0) fL MCH 35.1 H (25.0-35.0) pg RDW 17.6 H (11.5-15.5) % Lymphocytes # 0.8 L (1.0-4.8) k/uL Sodium 132 L (137-145) mmol/L Creatinine 0.58 L (0.66-1.25) mg/dL POC Glucose (mg/dL) 111 H (75-99) mg/dL Calcium 7.6 L (8.4-10.2) mg/dL Assessment and Plan Assessment: Status post fall multiple lacerations of the scalp, left elbow, as well as left gluteal hematoma Status post jejunostomy tube placement L3 compression fracture, possibly secondary to fall Change in mental status, metabolic encephalopathy, multifactorial, possibly secondary to concussion as well Severe pain and generalized pain secondary to falling, gait dysfunction Swallowing difficulties with possible aspiration Severe gait dysfunction 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 Continue with nothing by mouth except for ice chips at this time per speech. Jejunostomy tube placed and started tube feedings today with a goal of 45. Will continue to monitor closely. Will repeat a.m. labs. Further recommendations to follow. Patient will be going to [facility] once stabilized and discharged. Case management and social work following. Possible discharge in 24 hours.
[2020-01-18] MEDS: DONEPEZIL 10 MG TAB PO SCH (20:53)
[2020-01-18] MEDS: ASPIRIN 81 MG PO SCH (20:53)
[2020-01-18] MEDS: CITALOPRAM HYDROBROMIDE 20 MG TAB PO SCH (20:53)
[2020-01-18 21:59] VITALS: RESP 18
[2020-01-19 06:15] LABS: Glucose,Whole Blood 121 mg/dL (75-99)
[2020-01-19 08:08] LABS: African American GFR (CKD) >90 (>60 ml/min/1.73 sqM); Anion Gap 4 mmol/L; Blood Urea Nitrogen 20 mg/dL (9-20); Calcium 7.8 mg/dL (8.4-10.2); Carbon Dioxide 22 mmol/L (22-30); Chloride 109 mmol/L (98-107); Glucose 117 mg/dL (74-99); Magnesium 2.1 mg/dL (1.6-2.3); Non-African American GFR(CKD) 88 (>60 ml/min/1.73 sqM); Phosphorus 2.7 mg/dL (2.5-4.5); Potassium 3.7 mmol/L (3.5-5.1); Sodium 135 mmol/L (137-145)
[2020-01-19] MEDS: PANTOPRAZOLE 40 MG/10 ML VIAL IVP SCH (09:54)
[2020-01-19] MEDS: HEPARIN SODIUM,PORCINE 5,000 UNIT/ML 1 ML VIAL SQ SCH (09:54)
[2020-01-19] MEDS: FOLIC ACID 1 MG TAB PO SCH ×2 (09:54→10:29)
[2020-01-19] MEDS: THIAMINE 100 MG TAB PO SCH ×2 (09:54→10:29)
[2020-01-19] MEDS: NYSTATIN 100,000 UNIT/ML SUSP 500,000 UNIT/5 ML CUP PO SCH ×2 (09:55→14:48)
[2020-01-19] MEDS: BRIMONIDINE TARTRATE 0.2% DROPS 5 ML BTL BOTH EYES SCH (10:00)
[2020-01-19] MEDS: TIMOLOL 0.5% OPHTH DROPS 5 ML BTL BOTH EYES SCH (10:00)
[2020-01-19 12:34] LABS: Glucose,Whole Blood 125 mg/dL (75-99)
[2020-01-19 13:12] VITALS: BP 139/69; PULSE 63; TEMP 97.9
--- NOTE | 2020-01-19 13:33 | P.PN ---
Subjective Progress Note Date: 01/19/20 Principal diagnosis: Fall Patient doing well today. Denies pain. Tolerating tube feeds at 45 mL per hour. He is thirsty. Objective - Vital Signs Vital signs: Vital Signs Temp 97.9 F 01/19/20 12:20 Pulse 63 01/19/20 12:20 Resp 18 01/19/20 12:20 BP 139/69 01/19/20 12:20 Pulse Ox 97 01/19/20 12:20 Intake & Output 01/18/20 01/19/20 01/19/20 18:59 06:59 18:59 Intake Total 50 200 120 Output Total 300 Balance -250 200 120 Weight 55 kg Intake: Oral 0 Tube Feeding 50 200 120 Output: Urine 300 Other: Voiding Method Urinal Urinal # Voids 5 3 # Bowel Movements 1 - Exam Abdomen: Soft, nondistended, dressing clean and dry, J-tube intact, minimal tenderness - Labs CBC & Chem 7: 01/18/20 07:10 01/19/20 07:05 Labs: Abnormal Lab Results - Last 24 Hours (Table) 01/19/20 01/19/20 01/19/20 Range/Units 06:10 07:05 12:23 Sodium 135 L (137-145) mmol/L Chloride 109 H (98-107) mmol/L Creatinine 0.65 L (0.66-1.25) mg/dL Glucose 117 H (74-99) mg/dL POC Glucose (mg/dL) 121 H 125 H (75-99) mg/dL Calcium 7.8 L (8.4-10.2) mg/dL Assessment and Plan (1) Fall Narrative/Plan: Patient doing fairly well. Continue tube feeds echo. Await transfer to rehab. Current Visit: Yes Status: Acute Code(s): W19.XXXA - UNSPECIFIED FALL, INITIAL ENCOUNTER SNOMED Code(s): 0343640
--- NOTE | 2020-01-19 14:24 | P.DS ---
Providers Date of admission: 01/10/20 10:05 Attending physician: Suman Curtis Consults: 01/08/20 15:08 Consult Physician Routine Consulting Provider: Aroldo Diana Consult Reason/Comments: Medical management Do you want consulting provider notified?: Yes, Notify in am 01/10/20 11:49 Consult Physician Routine Consulting Provider: Catherine Mora Consult Reason/Comments: altered mental status Do you want consulting provider notified?: Yes Primary care physician: Mame Thorne Hospital Course: 89-year-old male who was recently admitted with falls and multiple lacerations of the scalp and also confusion and is being closely monitored. Patient continues to be confused and underwent a brain MRI today which is pending at this time. Patient had a swallow eval done and failed and possible PEG tube placement is being scheduled. No reports of chest pain or palpitations. Patient is afebrile. Patient currently received a PICC line for possible PPN nutrition as he continues to have difficulties with eating and swallowing. Will continue to follow along closely with surgery. Case management and social work following for possible placement at an ECF once stabilized and discharged. 01/15/2020 Patient is seen and evaluated status post repeat swallow evaluation which he failed again. Per speech he is okay for freewater/ice chips on PPN. Patient is to possibly have a J-tube placed tomorrow with surgery. Patient continues to be confused. Sodium slightly low at 134 and will initiate normal saline. Creatinine is 0.61. Will continue to follow along with surgery. MRI of the brain was done yesterday stating cannot exclude new tiny acute subacute right parietal extra-axial possible subdural hemorrhage not clearly seen on recent CT, countercoup injury from level scalp laceration and is recommending a repeat CT. Repeat brain CT done showing atrophy with periventricular white matter changes with possible acute left maxillary sinusitis, no abnormal hyperdensity is present to suggest an acute intracranial hemorrhage with no mass lesion evident in no acute infarcts are evident. Neurology following as well. 01/16/2020 Patient is seen and evaluated today status post J-tube placement with surgery. Patient is scheduled to initiate tube feedings starting Tuesday. Sodium continues to be low at 132 and creatinine is 0.58. Magnesium remains at 1.9. Patient is maintained on normal saline and will continue at this time. Patient continues to be confused as this is most likely his baseline. 01/17/2020 Patient is seen and evaluated in follow-up today with no acute overnight issues. Surgery following. Patient was initiated on ice chips and speech pathology following. Family is aware. Sodium continues to be low at 1:30 and current creatinine is 0.56. Will continue normal saline and PPN will be discontinued. Discussed with family as well about discontinuing the PPN and starting tube feedings in the morning. Scalp lacerations along with elbow and gluteal sutures will be maintained and likely removed next week in the ECF setting. Hemoglobin is stable at 10.2. Incisional surgical dressing in the periumbilical area was saturated requiring changing as there was some mild bleeding noted. J-tube is intact with sutures noted with no surrounding redness or erythema noted. Patient continues to be confused and spoke at length with daughter Cristine today about this and she states he did have some confusion while at home but is concerned because prior to the fall he was able to do laundry, do the dishes, dressing himself, eat full meals and perform other ADLs. Case management and social work following this patient will likely go to [facility] for continued rehab once stabilized and discharged. 01/18/2020 Patient is seen in follow up this morning and currently being started on tube feedings starting at 10 with a goal of 45. Patient has been receiving occasional ice chips and tolerating well. Patient continues to be nothing by mouth otherw ise. Patient will need continued speech therapy in the outpatient setting with the goal of possibility of eating by mouth again and also the ability to take medications. Patient's J tube is not to be used for medications per surgery. Patient's current medications may need to be adjusted to liquid if possible. Scalp laceration dressing removed and healing is noted with 3 evelyne noted. No surrounding erythema or swelling noted. [place] to remain per surgery until placement in the ECF next week. Patient's mentation is much improved at this time and responding appropriately to questions and commands. No reports of chest pain, shortness of breath, or palpitations. Patient is afebrile. Sodium is slightly improved at 132 and WBC are within normal limits. 01/19/2020 Patient is at his goal for tube feedings but J-tube feedings if possible patient will be discharged to subacute rehabilitation today Gen: This is a 89-year-old male sitting up in the chair, awake, alert and oriented 2-3. HEENT: normocephalic. Pupils equal, round. Sclerae is anicteric. NECK: Supple. No JVD. No lymphadenopathy. No thyromegaly. LUNGS: Breath sounds diminished at the bases with no rhonchi or wheezing noted. No intercostal retractions. HEART: S1, S2 are muffled ABDOMEN: Soft. Bowel sounds are present. No masses. No tenderness. J-tube noted with no surrounding redness or erythema noted, abdominal incision surgical site dressing is saturated with blood and being changed. EXTREMITIES: No pedal edema. No calf tenderness. NEUROLOGICAL: Patient is awake, alert and oriented x1-2. Diffusely weak SKIN: Scalp lacerations dressing removed and 3 evelyne are dry and intact with no surrounding erythema or swelling noted. 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 Opiate, methamphetamine, benzodiazepines on the drug screen Coronary artery disease, CABG history Full code Patient Condition at Discharge: Stable Plan - Discharge Summary New Discharge Prescriptions: New Citalopram Hydrobromide [CeleXA Oral Soln] 20 mg PEG/G-TUBE DAILY #30 ml Famotidine [Pepcid] 20 mg PO BID #30 tablet Acetaminophen 40 mg/1.25 ml [Tylenol 40 mg/1.25 ml Oral Syringe] 500 mg PEG/G-TUBE QID PRN #100 oral.syrg PRN Reason: Pain Thiamine [Vitamin B-1] 100 mg PO DAILY #30 tablet Continue Aspirin EC [Ecotrin Low Dose] 81 mg PO HS Ergocalciferol [Vitamin D2 (DRISDOL)] 50,000 unit PO Q7D Timolol 0.5% Ophth Soln [Timoptic 0.5% Ophth Soln] 1 drop BOTH EYES BID Brimonidine Tartrate [Alphagan P 0.2% Ophth Soln] 1 drop BOTH EYES TID Phenylephrine Hcl (Unknown Strength) 2 tab PO HS PRN PRN Reason: Nasal Congestion Discontinued Donepezil [Aricept] 10 mg PO HS diphenhydrAMINE HCL [Benadryl] 50 mg PO HS Citalopram Hydrobromide [CeleXA] 20 mg PO HS traMADol HCL [Ultram] 50 mg PO BID PRN PRN Reason: Pain Discharge Medication List Aspirin EC [Ecotrin Low Dose] 81 mg PO HS 03/22/16 [History] Brimonidine Tartrate [Alphagan P 0.2% Ophth Soln] 1 drop BOTH EYES TID 01/09/20 [History] Ergocalciferol [Vitamin D2 (DRISDOL)] 50,000 unit PO Q7D 01/09/20 [History] Phenylephrine Hcl (Unknown Strength) 2 tab PO HS PRN 01/09/20 [History] Timolol 0.5% Ophth Soln [Timoptic 0.5% Ophth Soln] 1 drop BOTH EYES BID 01/09/20 [History] Acetaminophen 40 mg/1.25 ml [Tylenol 40 mg/1.25 ml Oral Syringe] 500 mg PEG/G- TUBE QID PRN #100 oral.syrg 01/19/20 [Rx] Citalopram Hydrobromide [CeleXA Oral Soln] 20 mg PEG/G-TUBE DAILY #30 ml 01/19/20 [Rx] Famotidine [Pepcid] 20 mg PO BID #30 tablet 01/19/20 [Rx] Thiamine [Vitamin B-1] 100 mg PO DAILY #30 tablet 01/19/20 [Rx] Follow up Appointment(s)/Referral(s): Mame Thorne MD [Primary Care Provider] - 3 Days Aroldo Diana MD [STAFF PHYSICIAN] - 1 Week Discharge Disposition: TRANSFER TO SNF/ECF
[2020-01-19] MEDS: SODIUM CHLORIDE 0.9% 1,000 ML IV SCH (14:49)
--- NOTE | 2020-01-21 10:11 | P.OP ---
Date of Procedure: 01/14/20 Preoperative Diagnosis: Malnutrition Postoperative Diagnosis: Malnutrition Procedure(s) Performed: EGD Anesthesia: MAC Surgeon: Aroldo Diana Pathology: none sent Condition: stable Disposition: PACU Description of Procedure: patient's placed on the endoscopy table in the lateral position. He received IV sedation. The gastroscope placed oropharynx and passed in the esophagus and stomach. Scope was then placed through the gastrojejunostomy. Patient a previous distal gastrectomy. The gastric endoscopy patent. The scope was brought back it appeared that over half the stomach had been removed. There was no suitable spot for a PEG tube to be placed. There is no obstruction of the GE junction. The distal esophagus. Normal. Proximal esophagus appeared normal. Scope was then withdrawn from patient.
== END 2020-01-19 16:49 | DRG 551 ==
LOC: EC 12:12 → 5NMEDONC 15:30 → OBSVTOIN 01-10 10:05
PROVIDERS: ADMIT Internal Medicine; ATTEND Internal Medicine
PROC: 0HQEXZZ Repair Left Lower Arm Skin, External Approach (ICD-10-PCS; principal; 2020-01-08)
PROC: 0HQGXZZ Repair Left Hand Skin, External Approach (ICD-10-PCS; principal; 2020-01-08)
PROC: 0HQ0XZZ Repair Scalp Skin, External Approach (ICD-10-PCS; principal; 2020-01-08)
PROC: 02HV33Z Insertion of Infusion Device into Superior Vena Cava, Percutaneous Approach (ICD-10-PCS; 2020-01-14)
PROC: 0DHA0UZ Insertion of Feeding Device into Jejunum, Open Approach (ICD-10-PCS; 2020-01-16)
DX: S32.038A Other fracture of third lumbar vertebra, initial encounter for closed fracture (principal); G93.41 Metabolic encephalopathy; E44.0 Moderate protein-calorie malnutrition; E78.5 Hyperlipidemia, unspecified; F41.9 Anxiety disorder, unspecified; I25.10 Atherosclerotic heart disease of native coronary artery without angina pectoris; K21.9 Gastro-esophageal reflux disease without esophagitis; S01.01XA Laceration without foreign body of scalp, initial encounter; S30.0XXA Contusion of lower back and pelvis, initial encounter; W10.9XXA Fall (on) (from) unspecified stairs and steps, initial encounter; S51.012A Laceration without foreign body of left elbow, initial encounter; S61.412A Laceration without foreign body of left hand, initial encounter; R29.6 Repeated falls; F03.90 Unspecified dementia, unspecified severity, without behavioral disturbance, psychotic disturbance, mood disturbance, and anxiety; D53.9 Nutritional anemia, unspecified; R26.9 Unspecified abnormalities of gait and mobility; R00.1 Bradycardia, unspecified; M19.90 Unspecified osteoarthritis, unspecified site; R13.10 Dysphagia, unspecified; R47.1 Dysarthria and anarthria; Z11.59 Encounter for screening for other viral diseases; Z79.2 Long term (current) use of antibiotics; Z88.8 Allergy status to other drugs, medicaments and biological substances; Z79.82 Long term (current) use of aspirin; Z87.442 Personal history of urinary calculi; Z90.49 Acquired absence of other specified parts of digestive tract; Z85.068 Personal history of other malignant neoplasm of small intestine; Z80.0 Family history of malignant neoplasm of digestive organs; Z95.1 Presence of aortocoronary bypass graft; Z98.890 Other specified postprocedural states; Z90.81 Acquired absence of spleen; Z91.81 History of falling; Z86.73 Personal history of transient ischemic attack (TIA), and cerebral infarction without residual deficits
CPT/HCPCS: 12004; 36415; 36573; 43235; 70450; 70551; 71045; 71260; 72125; 72170; 74177; 74230; 80048; 80053; 80306; 80320; 81001; 82040; 82330; 82550; 82607; 82746; 83519; 83735; 84100; 84478; 85025; 85610; 85730; 86850; 86900; 86901; 86920; 87635; 90471; 90715; 93005; 93306; 96365; 96375; 99291

== ENCOUNTER 2020-02-01 15:58 | Emergency (ER) | payer MEDICARE, OTHER ==
--- NOTE | 2020-02-01 16:47 | ED ---
General Adult HPI - General Chief complaint: Recheck/Abnormal Lab/Rx Stated complaint: clogged PEG tube Time Seen by Provider: 02/01/20 16:00 Source: EMS, RN notes reviewed, old records reviewed Mode of arrival: EMS Limitations: altered mental status - History of Present Illness Initial comments: This is an 89-year-old male who presents emergency department because his PEG tube is plugged. The PEG tube was placed approximately 2 weeks ago. Patient himself is unable to give any history but this is a history received from EMS. There's been no other complaints per EMS other than that PEG tube is then applied to make tried multiple times to unclog and were unsuccessful - Related Data Home Medications Medication Instructions Recorded Confirmed Aspirin EC [Ecotrin Low Dose] 81 mg PO HS 03/22/16 01/09/20 Brimonidine Tartrate [Alphagan P 1 drop BOTH EYES TID 01/09/20 01/09/20 0.2% Ophth Soln] Ergocalciferol [Vitamin D2 50,000 unit PO Q7D 01/09/20 01/09/20 (DRISDOL)] Phenylephrine Hcl (Unknown 2 tab PO HS PRN 01/09/20 01/09/20 Strength) Timolol 0.5% Ophth Soln [Timoptic 1 drop BOTH EYES BID 01/09/20 01/09/20 0.5% Ophth Soln] Previous Rx's Medication Instructions Recorded Acetaminophen 40 mg/1.25 ml 500 mg PEG/G-TUBE QID PRN #100 01/19/20 [Tylenol 40 mg/1.25 ml Oral oral.syrg Syringe] Citalopram Hydrobromide [CeleXA 20 mg PEG/G-TUBE DAILY #30 ml 01/19/20 Oral Soln] Famotidine [Pepcid] 20 mg PO BID #30 tablet 01/19/20 Thiamine [Vitamin B-1] 100 mg PO DAILY #30 tablet 01/19/20 Allergies Allergy/AdvReac Type Severity Reaction Status Date / Time naproxen sodium [From Aleve] Allergy Rash/Hives Verified 05/24/19 20:00 Review of Systems ROS Statement: Those systems with pertinent positive or pertinent negative responses have been documented in the HPI. ROS Other: All systems not noted in ROS Statement are negative. Past Medical History Past Medical History: Cancer, Dementia, GERD/Reflux, Hyperlipidemia, Memory Impairment, Prostate Disorder Additional Past Medical History / Comment(s): kidney stones, urosepsis, turp - history of self-cathing 1-2 TIMES A DAY- NOT NEEDED SINCE PROSTATE SURGERY. 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 BEGINNINGS OF CATARACTS, HIATAL HERNIA, SHINGLES 2000, FRACTURED RIGHT SHOULDER MAY 2019, History of Any Multi-Drug Resistant Organisms: None Reported Past Surgical History: Bowel Resection, Cholecystectomy, Coronary Bypass/CABG, Hernia Repair, Orthopedic Surgery, Prostate Surgery Additional Past Surgical History / Comment(s): spleenectomy, TURP, GADIEL INGUINAL HERNIAS,"WHIPPLE PROCEDURE", RT ROTATOR CUFF REPAIR, LITHOTRISY Past Anesthesia/Blood Transfusion Reactions: No Reported Reaction Past Psychological History: No Psychological Hx Reported Smoking Status: Never smoker Past Alcohol Use History: None Reported Past Drug Use History: None Reported - Past Family History Father Family Medical History: Cancer Additional Family Medical History / Comment(s): CANCER OF THE ESOPHAGUS Mother Additional Family Medical History / Comment(s): OF OLD AGE Brother(s) Family Medical History: Cancer Additional Family Medical History / Comment(s): esophagus cancer, pancreatic cancer Sister(s) Family Medical History: Cancer Additional Family Medical History / Comment(s): pancreatic cancer Daughter(s) Additional Family Medical History / Comment(s): intestinal issues with resection Son(s) Family Medical History: No Reported History General Exam - General Exam Comments Initial Comments: GENERAL: Patient is well-developed and well-nourished. Patient is nontoxic and well- hydrated and is in no acute distress. ENT: Neck is soft and supple. No significant lymphadenopathy is noted. Oropharynx is clear. Moist mucous membranes. EYES: The sclera were anicteric and conjunctiva were pink and moist. Extraocular movements were intact and pupils were equal round and reactive to light. Eyelids were unremarkable. PULMONARY: Unlabored respirations. Good breath sounds bilaterally. No audible rales rhonchi or wheezing was noted. CARDIOVASCULAR: There is a regular rate and rhythm without any murmurs gallops or rubs. ABDOMEN: Soft and nontender with normal bowel sounds. PEG tube is secured there is a little erythema around some of the sutures. SKIN: Skin is clear with no lesions or rashes and otherwise unremarkable. NEUROLOGIC: Patient is alert and oriented times one. Cranial nerves II through XII are grossly intact. Motor and sensory are also intact. Normal speech, volume and content. Symmetrical smile. MUSCULOSKELETAL: Normal extremities with adequate strength and full range of motion. No lower extremity swelling or edema. No calf tenderness. Limitations: altered mental status Course Vital Signs 02/01/20 16:05 Temperature 98.4 F Pulse Rate 75 Respiratory 16 Rate Blood Pressure 130/62 O2 Sat by Pulse 96 Oximetry Medical Decision Making - Medical Decision Making Nursing attempted to unclog the PEG tube it was successful. Now the leg to close normally Disposition Clinical Impression: PEG tube malfunction Disposition: HOME SELF-CARE Condition: Good Is patient prescribed a controlled substance at d/c from ED?: No Referrals: Brian Em MD [Primary Care Provider] - 1-2 days Time of Disposition: 17:02
[2020-02-01 17:23] VITALS: BP 130/69; PULSE 73; RESP 20; TEMP 98.2
== END 2020-02-01 17:48 | disposition home or self-care (01) ==
LOC: EC 15:58
DX: K94.23 Gastrostomy malfunction (principal); Z79.82 Long term (current) use of aspirin; Z88.6 Allergy status to analgesic agent; Z95.1 Presence of aortocoronary bypass graft; Z85.068 Personal history of other malignant neoplasm of small intestine; Z90.49 Acquired absence of other specified parts of digestive tract
CPT/HCPCS: 99283

== ENCOUNTER 2020-02-02 13:11 | Inpatient (IN) | payer MEDICARE, OTHER ==
[2020-02-02] MEDS ORDERED: SODIUM CHLORIDE 0.9% 500 ML 500 ML IV STA (13:38)
[2020-02-02] MEDS ORDERED: ACETAMINOPHEN TAB 500 MG TAB PO STA (13:39)
--- NOTE | 2020-02-02 13:47 | ED ---
General Adult HPI - General Chief complaint: Shortness of Breath Stated complaint: respiratory problems Time Seen by Provider: 02/02/20 13:15 Source: patient, EMS, RN notes reviewed, old records reviewed Mode of arrival: EMS Limitations: altered mental status - History of Present Illness Initial comments: This is an 89-year-old male presents emergency Department with a past medical history significant for a recent PEG tube placement secondary to dysphasia after she had a fall a few weeks ago. Patient states had the PEG tube about 2 weeks he was seen in the ER yesterday but this PEG tube was clogged but it was dislodged by the ER staff. Patient is back today because he vomited once in the staff at [facility] [place] thought that the patient may have aspirated. Staff stated that after he vomited was difficult to get his pulse ox back up to normal. Patient does states she feels more short of breath and has been having a little bit of a cough since he vomited. Patient denies any abdominal pain though the states his abdomen does seem mildly distended. Patient has had no diarrhea. Patient complains of no chest pain. Patient denied any fever however we got a fever on him only to his temperature. - Related Data Home Medications Medication Instructions Recorded Confirmed Aspirin EC [Ecotrin Low Dose] 81 mg PO HS 03/22/16 01/09/20 Brimonidine Tartrate [Alphagan P 1 drop BOTH EYES TID 01/09/20 01/09/20 0.2% Ophth Soln] Ergocalciferol [Vitamin D2 50,000 unit PO Q7D 01/09/20 01/09/20 (DRISDOL)] Phenylephrine Hcl (Unknown 2 tab PO HS PRN 01/09/20 01/09/20 Strength) Timolol 0.5% Ophth Soln [Timoptic 1 drop BOTH EYES BID 01/09/20 01/09/20 0.5% Ophth Soln] Previous Rx's Medication Instructions Recorded Acetaminophen 40 mg/1.25 ml 500 mg PEG/G-TUBE QID PRN #100 01/19/20 [Tylenol 40 mg/1.25 ml Oral oral.syrg Syringe] Citalopram Hydrobromide [CeleXA 20 mg PEG/G-TUBE DAILY #30 ml 01/19/20 Oral Soln] Famotidine [Pepcid] 20 mg PO BID #30 tablet 01/19/20 Thiamine [Vitamin B-1] 100 mg PO DAILY #30 tablet 01/19/20 Allergies Allergy/AdvReac Type Severity Reaction Status Date / Time naproxen sodium [From Aleve] Allergy Rash/Hives Verified 05/24/19 20:00 Review of Systems ROS Statement: Those systems with pertinent positive or pertinent negative responses have been documented in the HPI. ROS Other: All systems not noted in ROS Statement are negative. Past Medical History Past Medical History: Cancer, Dementia, GERD/Reflux, Hyperlipidemia, Memory Impairment, Prostate Disorder Additional Past Medical History / Comment(s): kidney stones, urosepsis, turp - history of self-cathing 1-2 TIMES A DAY- NOT NEEDED SINCE PROSTATE SURGERY. 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 BEGINNINGS OF CATARACTS, HIATAL HERNIA, SHINGLES 2000, FRACTURED RIGHT SHOULDER MAY 2019, History of Any Multi-Drug Resistant Organisms: None Reported Past Surgical History: Bowel Resection, Cholecystectomy, Coronary Bypass/CABG, Hernia Repair, Orthopedic Surgery, Prostate Surgery Additional Past Surgical History / Comment(s): spleenectomy, TURP, GADIEL INGUINAL HERNIAS,"WHIPPLE PROCEDURE", RT ROTATOR CUFF REPAIR, LITHOTRISY Past Anesthesia/Blood Transfusion Reactions: No Reported Reaction Past Psychological History: No Psychological Hx Reported Smoking Status: Never smoker Past Alcohol Use History: None Reported Past Drug Use History: None Reported - Past Family History Father Family Medical History: Cancer Additional Family Medical History / Comment(s): CANCER OF THE ESOPHAGUS Mother Additional Family Medical History / Comment(s): OF OLD AGE Brother(s) Family Medical History: Cancer Additional Family Medical History / Comment(s): esophagus cancer, pancreatic cancer Sister(s) Family Medical History: Cancer Additional Family Medical History / Comment(s): pancreatic cancer Daughter(s) Additional Family Medical History / Comment(s): intestinal issues with resection Son(s) Family Medical History: No Reported History General Exam - General Exam Comments Initial Comments: GENERAL: Patient is well-developed and well-nourished. Patient is nontoxic and well-hy drated and is in mild distress. Patient's on 3 L she is oxygenating at 94% ENT: Neck is soft and supple. No significant lymphadenopathy is noted. Oropharynx is clear. Moist mucous membranes. Neck has full range of motion without eliciting any pain. EYES: The sclera were anicteric and conjunctiva were pink and moist. Extraocular movements were intact and pupils were equal round and reactive to light. Eyelids were unremarkable. PULMONARY: Unlabored respirations. Good breath sounds bilaterally. No audible rales rhonchi or wheezing was noted. CARDIOVASCULAR: There is a regular rate and rhythm without any murmurs gallops or rubs. ABDOMEN: Soft and nontender with normal bowel sounds. Mildly distended SKIN: Skin is clear with no lesions or rashes and otherwise unremarkable. NEUROLOGIC: Patient is alert and oriented x3. Cranial nerves II through XII are grossly intact. Motor and sensory are also intact. Normal speech, volume and content. Symmetrical smile. MUSCULOSKELETAL: Normal extremities with adequate strength and full range of motion. LYMPHATICS: No significant lymphadenopathy is noted PSYCHIATRIC: Normal psychiatric evaluation. Limitations: altered mental status Course Vital Signs 02/02/20 02/02/20 02/02/20 13:16 13:26 13:50 Temperature 100.3 F H 102.8 F H Pulse Rate 87 Respiratory 18 18 Rate Blood Pressure 105/57 O2 Sat by Pulse 96 Oximetry 02/02/20 02/02/20 02/02/20 14:09 15:00 15:28 Temperature 98.3 F Pulse Rate 86 76 75 Respiratory 18 18 18 Rate Blood Pressure 94/47 87/38 99/49 O2 Sat by Pulse 95 92 L 95 Oximetry Medical Decision Making - Medical Decision Making EKG shows a normal sinus rhythm at 85 bpm TN interval 260 QRS is 86 QT interval 462 QTC is 549. Patient's EKG shows no ST segment elevation or depression Chest x-ray shows right lower lobe infiltrate probably secondary to aspiration. I spoke with some physicians agreed to admit the patient admitted the patient wrote admitting orders. - Lab Data Result diagrams: 02/02/20 13:39 02/02/20 13:39 Lab Results 02/02/20 02/02/20 02/02/20 Range/Units 13:39 13:39 13:39 WBC 15.8 H (3.8-10.6) k/uL RBC 3.04 L (4.30-5.90) m/uL Hgb 10.6 L (13.0-17.5) gm/dL Hct 32.8 L (39.0-53.0) % MCV 107.9 H (80.0-100.0) fL MCH 34.8 (25.0-35.0) pg MCHC 32.3 (31.0-37.0) g/dL RDW 16.5 H (11.5-15.5) % Plt Count 436 (150-450) k/uL Neutrophils % 92 % Lymphocytes % 3 % Monocytes % 3 % Eosinophils % 1 % Basophils % 0 % Neutrophils # 14.5 H (1.3-7.7) k/uL Lymphocytes # 0.5 L (1.0-4.8) k/uL Monocytes # 0.5 (0-1.0) k/uL Eosinophils # 0.2 (0-0.7) k/uL Basophils # 0.0 (0-0.2) k/uL Hypochromasia Moderate Anisocytosis Slight Macrocytosis Marked A PT 12.3 H (9.0-12.0) sec INR 1.2 H (<1.2) APTT 24.9 (22.0-30.0) sec Sodium 138 (137-145) mmol/L Potassium 4.4 (3.5-5.1) mmol/L Chloride 109 H (98-107) mmol/L Carbon Dioxide 21 L (22-30) mmol/L Anion Gap 8 mmol/L BUN 26 H (9-20) mg/dL Creatinine 0.76 (0.66-1.25) mg/dL Est GFR (CKD-EPI)AfAm >90 (>60 ml/min/1.73 sqM) Est GFR (CKD-EPI)NonAf 82 (>60 ml/min/1.73 sqM) Glucose 96 (74-99) mg/dL Plasma Lactic Acid Brian (0.7-2.0) mmol/L Calcium 7.7 L (8.4-10.2) mg/dL Magnesium 1.9 (1.6-2.3) mg/dL Total Bilirubin 1.5 H (0.2-1.3) mg/dL AST 49 (17-59) U/L ALT 20 (4-49) U/L Alkaline Phosphatase 364 H (38-126) U/L Troponin I (0.000-0.034) ng/mL Total Protein 5.9 L (6.3-8.2) g/dL Albumin 2.2 L (3.5-5.0) g/dL Urine Color Urine Appearance (Clear) Urine pH (5.0-8.0) Ur Specific [place] (1.001-1.035) Urine Protein (Negative) Urine Glucose (UA) (Negative) Urine Ketones (Negative) Urine Blood (Negative) Urine Nitrite (Negative) Urine Bilirubin (Negative) Urine Urobilinogen (<2.0) mg/dL Ur Leukocyte Esterase (Negative) Urine RBC (0-5) /hpf Urine WBC (0-5) /hpf Hyaline Casts (0-2) /lpf Urine Mucus (None) /hpf 02/02/20 02/02/20 02/02/20 Range/Units 13:39 13:39 15:00 WBC (3.8-10.6) k/uL RBC (4.30-5.90) m/uL Hgb (13.0-17.5) gm/dL Hct (39.0-53.0) % MCV (80.0-100.0) fL MCH (25.0-35.0) pg MCHC (31.0-37.0) g/dL RDW (11.5-15.5) % Plt Count (150-450) k/uL Neutrophils % % Lymphocytes % % Monocytes % % Eosinophils % % Basophils % % Neutrophils # (1.3-7.7) k/uL Lymphocytes # (1.0-4.8) k/uL Monocytes # (0-1.0) k/uL Eosinophils # (0-0.7) k/uL Basophils # (0-0.2) k/uL Hypochromasia Anisocytosis Macrocytosis PT (9.0-12.0) sec INR (<1.2) APTT (22.0-30.0) sec Sodium (137-145) mmol/L Potassium (3.5-5.1) mmol/L Chloride (98-107) mmol/L Carbon Dioxide (22-30) mmol/L Anion Gap mmol/L BUN (9-20) mg/dL Creatinine (0.66-1.25) mg/dL Est GFR (CKD-EPI)AfAm (>60 ml/min/1.73 sqM) Est GFR (CKD-EPI)NonAf (>60 ml/min/1.73 sqM) Glucose (74-99) mg/dL Plasma Lactic Acid Brian 2.6 H* (0.7-2.0) mmol/L Calcium (8.4-10.2) mg/dL Magnesium (1.6-2.3) mg/dL Total Bilirubin (0.2-1.3) mg/dL AST (17-59) U/L ALT (4-49) U/L Alkaline Phosphatase (38-126) U/L Troponin I 0.013 (0.000-0.034) ng/mL Total Protein (6.3-8.2) g/dL Albumin (3.5-5.0) g/dL Urine Color Brown Urine Appearance Clear (Clear) Urine pH 8.0 (5.0-8.0) Ur Specific [place] 1.005 (1.001-1.035) Urine Protein 1+ H (Negative) Urine Glucose (UA) Negative (Negative) Urine Ketones Negative (Negative) Urine Blood Large (Negative) Urine Nitrite Negative (Negative) Urine Bilirubin Negative (Negative) Urine Urobilinogen 2.0 (<2.0) mg/dL Ur Leukocyte Esterase Negative (Negative) Urine RBC 56 H (0-5) /hpf Urine WBC 1 (0-5) /hpf Hyaline Casts 1 (0-2) /lpf Urine Mucus Rare H (None) /hpf Disposition Clinical Impression: Aspiration pneumonia, Sepsis, Clostridium difficile colitis Disposition: ADMITTED IP TO THIS HOSP Referrals: Brian Em MD [Primary Care Provider] - 1-2 days Time of Disposition: 15:37
[2020-02-02] MEDS ORDERED: IBUPROFEN 600 MG STARTER PACK 4 TAB BTL PO STA (13:52)
[2020-02-02] MEDS ORDERED: IBUPROFEN 600 MG TAB PO STA (14:12)
[2020-02-02 14:19] LABS: Anisocytosis Slight; Basophils % (A) 0 %; Eosinophils # (A) 0.2 k/uL (0-0.7); Eosinophils % (A) 1 %; HCT 32.8 % (39.0-53.0); HGB 10.6 gm/dL (13.0-17.5); Hypochromasia Moderate; INR 1.2 (<1.2); Lymphocytes # (A) 0.5 k/uL (1.0-4.8); Lymphocytes % (A) 3 %; MCH 34.8 pg (25.0-35.0); MCHC 32.3 g/dL (31.0-37.0); MCV 107.9 fL (80.0-100.0); Macrocytosis Marked; Monocytes # (A) 0.5 k/uL (0-1.0); Monocytes % (A) 3 %; Neutrophils # (A) 14.5 k/uL (1.3-7.7); Neutrophils % (A) 92 %; Partial Thromboplastin Time 24.9 sec (22.0-30.0); Platelet Count 436 k/uL (150-450); Prothrombin Time 12.3 sec (9.0-12.0); RBC 3.04 m/uL (4.30-5.90); RDW 16.5 % (11.5-15.5); WBC 15.8 k/uL (3.8-10.6)
[2020-02-02 14:21] LABS: ALT 20 U/L (4-49); AST 49 U/L (17-59); African American GFR (CKD) >90 (>60 ml/min/1.73 sqM); Albumin 2.2 g/dL (3.5-5.0); Alkaline Phosphatase 364 U/L (38-126); Anion Gap 8 mmol/L; Blood Urea Nitrogen 26 mg/dL (9-20); Calcium 7.7 mg/dL (8.4-10.2); Carbon Dioxide 21 mmol/L (22-30); Chloride 109 mmol/L (98-107); Glucose 96 mg/dL (74-99); Magnesium 1.9 mg/dL (1.6-2.3); Non-African American GFR(CKD) 82 (>60 ml/min/1.73 sqM); Potassium 4.4 mmol/L (3.5-5.1); Sodium 138 mmol/L (137-145); Total Bilirubin 1.5 mg/dL (0.2-1.3); Total Protein 5.9 g/dL (6.3-8.2)
[2020-02-02] MEDS ORDERED: SODIUM CHLORIDE 0.9% 1,000 ML IV ONE (14:54)
[2020-02-02] MEDS ORDERED: cefTRIAXone IN SWFI 1,000 MG/10 ML SYRINGE IVP STA (14:55)
--- NOTE | 2020-02-02 14:59 | XR ---
EXAMINATION TYPE: XR chest 2V DATE OF EXAM: 02/02/2020 COMPARISON: 01/11/2020 HISTORY: 89-year-old male shortness of breath, difficulty breathing TECHNIQUE: AP and lateral views FINDINGS: Heart borderline enlarged. Diffuse interstitial and some patchy opacities bilaterally, right greater than left. Small effusions are also present. Median sternotomy wires. Chronic ununited fracture defor mity partially visualized proximal right humerus. IMPRESSION: New interstitial lung disease with some patchy opacities greater on the right. Small effusions with a djacent atelectasis and/or consolidation. Correlate for CHF with interstitial pulmonary edema.
--- NOTE | 2020-02-02 15:01 | XR ---
EXAMINATION TYPE: XR KUB DATE OF EXAM: 02/02/2020 Comparison: None Clinical History: 89-year-old male Distended abdomen Findings: This seems to be some type of gastrostomy catheter in the left abdomen. Multiple surgical clips in th e left upper quadrant. Gassy bowel is present throughout with air throughout the colon as well. Small bowel loop may be dilated up to 3.1 cm in the left mid abdomen. No significant stool burden. Rotated exam. Supine imaging limited for assessment of free air. Impression: 1. There seems to be some type of gastrostomy catheter in the left abdomen. Clinically correlate. 2. Gassy bowel throughout. Overall nonobstructive pattern. Small bowel loop in the left side of the a bdomen is borderline to mildly dilated at 3.1 cm. Consider generalized ileus or enteritis. 3. Chest reported separately.
[2020-02-02] MEDS ORDERED: LEVOFLOXACIN 750MG-D5W PMX 750 MG in DEXTROSE/WATER 1 150ML.BAG IVPB STA (15:40)
[2020-02-02] MEDS ORDERED: PIPERACILLIN-TAZOBACTAM 3.375 GM in SODIUM CHLORIDE 0.9% 100 ML IVPB STA (15:40)
[2020-02-02] MEDS ORDERED: PNEUMONIA PROTOCOL UTILIZED 1 EACH MISC PO PRN (15:40)
[2020-02-02 15:43] LABS: Hyaline Casts,Urine 1 /lpf (0-2); Mucus,Urine Rare /hpf; RBC,Urine 56 /hpf (0-5); WBC,Urine 1 /hpf (0-5)
[2020-02-02 15:44] LABS: Appearance,Urine Clear (Clear); Color,Urine Brown; Specific Gravity,Urine 1.005 (1.001-1.035)
[2020-02-02 15:45] LABS: Bilirubin,Urine Negative (Negative); Blood,Urine Large (Negative); Glucose,Urine (UA) Negative (Negative); Ketones,Urine Negative (Negative); Leukocyte Esterase,Urine Negative (Negative); Nitrite,Urine Negative (Negative); Protein,Urine 1+ (Negative)
[2020-02-02] MEDS ORDERED: CLINDAMYCIN 600 MG in DEXTROSE 5% IN WATER 50 ML IVPB SCH ×2 (16:00)
[2020-02-02] MEDS ORDERED: metroNIDAZOLE 500 MG TAB PEG/G-TUBE SCH (18:00)
[2020-02-02] MEDS ORDERED: ACETAMINOPHEN TAB 325 MG TAB PO PRN (20:05)
[2020-02-02] MEDS ORDERED: VANCOMYCIN 1,250 MG in SODIUM CHLORIDE 0.9% 250 ML IVPB ONE (20:06)
[2020-02-02] MEDS ORDERED: VANCOMYCIN IV PER PHARMACY 1 EACH MISC MISCELLANE PRN (20:06)
[2020-02-02] MEDS ORDERED: HYDROmorphone 0.5 MG/0.5 ML SYRINGE IVP PRN (20:10)
[2020-02-02] MEDS ORDERED: LORazepam 2 MG/ML INJ IV PRN (20:10)
[2020-02-02] MEDS ORDERED: CLOTRIMAZOLE 1% CREAM 15 GM TUBE TOPICAL SCH (21:00)
--- NOTE | 2020-02-02 21:14 | HP ---
HISTORY AND PHYSICAL DATE OF SERVICE: 02/02/2020 CHIEF COMPLAINTS: Shortness of breath and respiratory problems. HISTORY OF PRESENT ILLNESS: This 89-year-old gentleman with a past medical history of multiple medical problems including history of dementia, history of GERD, hyperlipidemia, history of nephrolithiasis, urosepsis, history of CAD, CABG, history of splenectomy, history of TURP, being followed by Dr. Thorne in the outpatient setting, recently had a fall down through multiple steps of the stairs and the patient had concussion and multiple abnormalities and patient admitted and subsequently patient had a J-tube placed because of difficulties. Patient also had L3 compression fracture. Patient was sent to rehab. In the rehab, the patient was noted to have significant shortness of breath and respiratory problems. The patient was in the ER yesterday. The J-tube was block which was unclogged by the staff and subsequently patient vomited once and the patient was taken back today with shortness of breath. Chest x-ray done in the ER which I personally reviewed showed significant bilateral lesions indicating aspiration pneumonia. The patient admitted for evaluation and treatment. The patient unable to give a coherent history. Most of the history taken from my discussion with staff and detailed discussion with the patient's and the daughter also at bedside. They also indicated the issues with the social aspect of the patient caring and the patient discharge process as well because apparently the Medicare will not cover any more days and they are concerned about the further disposition of the patient from the hospital. In any case, the patient is admitted currently and as mentioned earlier, a detailed history cannot be taken from the patient because the patient continues to be stuporous but arousable. The patient also had recent C difficile diarrhea. Blood pressure was found to be on admission. PAST MEDICAL HISTORY: History of recent fall and possible concussion, history of dementia, hypertension, hyperlipidemia, history of prostate disorder, history of bowel resection. MEDICATIONS: Prior to admission include: 1. Guaifenesin 10 mL q.6 p.r.n. 2. Tylenol 650 q.6 p.r.n. 3. Flagyl 500 mg per PEG. 4. Timolol. 5. Brimonidine. 6. Lansoprazole. 7. Clotrimazole. 8. Celexa. 9. Aspirin. ALLERGIES: NAPROSYN. FAMILY HISTORY: History of CA of esophagus per chart. SOCIAL HISTORY: No history of smoking. No history of alcohol intake. REVIEW OF SYSTEMS: Could not be taken. PHYSICAL EXAM: Patient is arousable, stuporous. Pulse 63, blood pressure 92/51, respiration 18, temp 97.2, pulse ox 98% on 2 L. HEENT: Conjunctivae normal. Oral mucosa moist. NECK is no jugular venous distention. No carotid bruit. No lymph node enlargement. CARDIOVASCULAR system: S1, S2 muffled. RESPIRATIONS: Breath sounds diminished in the bases. Bilateral scattered rhonchi and crackles. ABDOMEN: Soft, nontender. No mass palpable. J-tube in situ. Nervous system: Higher functions as mentioned earlier. Otherwise could not be examined completely because of stuporous state. SKIN: No ulcer, rash or bleeding. JOINTS: No active deforming arthropathy. LABS: At this time shows WBC 15.8, hemoglobin 10.6. INR is 1.2 and lactic acid 2.6 and alkaline phosphatase 364. ASSESSMENT: 1. Bilateral aspiration pneumonia with possible sepsis present on admission. Severe sepsis, septic shock. 2. Change in mental status, metabolic encephalopathy, acute on chronic, possibly secondary to sepsis. 3. History of recent fall and concussion. 4. Increased WBC. 5. Macrocytic anemia. 6. Elevated lactic acid secondary to sepsis. 7. Elevated total bilirubin. 8. Increased alkaline phosphatase. 9. Hypoalbuminemia with mild protein calorie malnutrition. 10.History of recent failed swallow testing as well as J-tube insertion. 11.History of dementia possibly. 12.History of gastroesophageal reflux disease. 13.Hyperlipidemia. 14.History of prostate disorder. 15.History of urosepsis previously. 16.History of TURP. 17.History of spherocytosis. Treated with splenectomy remotely. 18.History of hiatal hernia. 19.History of shingles. 20.History of fracture right shoulder. 21.History of L3 fracture. 22.History of coronary artery disease, coronary artery bypass grafting. 23.History of inguinal hernia. 24.History of J-tube placement recently. 25.Oral candidiasis. RECOMMENDATIONS AND DISCUSSION: This 89-year-old gentleman who presented with multiple complex medical issues, at this time, I recommend continue the current medications. Continue symptomatic treatment. Otherwise, I would recommend broad-spectrum IV antibiotics. Closely follow. The patient started on nystatin swish and swallow. Recommend Diflucan IV, supplement vitamins. Prognosis extremely guarded because of multiple complex medical issues. Further recommendations to follow. A copy of dictation being forwarded to Dr. Thorne who is the primary physician. Broad-spectrum IV antibiotics initiated. MMODL / IJN: [id number] / MTDD
[2020-02-02] MEDS: PANTOPRAZOLE 40 MG/10 ML VIAL IVP SCH (21:18)
[2020-02-02] MEDS: BRIMONIDINE TARTRATE 0.2% DROPS 5 ML BTL BOTH EYES SCH (21:18)
[2020-02-02] MEDS: TIMOLOL 0.5% OPHTH DROPS 5 ML BTL BOTH EYES SCH (21:18)
[2020-02-02] MEDS: HEPARIN SODIUM,PORCINE 5,000 UNIT/ML 1 ML VIAL SQ SCH (21:19)
[2020-02-02] MEDS: LACTOBACILLUS ACIDOPH & BULGAR 1 EACH PACKET PEJ/J-Tube SCH (21:19)
[2020-02-02] MEDS: VANCOMYCIN ORAL SOLUTION 250 MG/5 ML BOTTLE PO SCH ×2 (21:45→23:33)
[2020-02-02] MEDS: FLUCONAZOLE IN NACL,ISO-OSM 100 MG in SALINE 1 50ML.BAG IVPB SCH (23:33)
[2020-02-03] MEDS: PIPERACILLIN-TAZOBACTAM 3.375 GM in SODIUM CHLORIDE 0.9% 100 ML IVPB SCH ×4 (00:47→23:14)
[2020-02-03 04:36] LABS: Anisocytosis Slight; HCT 27.6 % (39.0-53.0); Hypochromasia Marked; MCH 34.8 pg (25.0-35.0); MCHC 32.1 g/dL (31.0-37.0); MCV 108.5 fL (80.0-100.0); Macrocytosis Marked; Mean Platelet Volume 9.6; Platelet Count 360 k/uL (150-450); RBC 2.55 m/uL (4.30-5.90); RDW 16.8 % (11.5-15.5); WBC 25.8 k/uL (3.8-10.6)
[2020-02-03 04:43] LABS: HGB 8.9 gm/dL (13.0-17.5)
[2020-02-03 04:46] LABS: Calcium 7.2 mg/dL (8.4-10.2); Potassium 4.3 mmol/L (3.5-5.1)
[2020-02-03 05:10] LABS: Band Neutrophils % 4 %; Eosinophils # (M) 0.52 k/uL (0-0.7); Lymphocytes # (M) 1.29 k/uL (1.0-4.8); Monocytes # (M) 0.26 k/uL (0-1.0); Neutrophils % (M) 88 %; Nucleated Red Blood Cells 0 /100 WBC (0-0); Total Cells Counted 100
[2020-02-03 05:11] LABS: Large Platelets Present
[2020-02-03 05:12] LABS: Poikilocytosis (M) Present
[2020-02-03] MEDS: VANCOMYCIN ORAL SOLUTION 250 MG/5 ML BOTTLE PO SCH ×4 (05:41→23:14)
[2020-02-03] MEDS: THIAMINE 100 MG TAB PO SCH (08:05)
[2020-02-03] MEDS: HEPARIN SODIUM,PORCINE 5,000 UNIT/ML 1 ML VIAL SQ SCH ×2 (08:05→20:04)
[2020-02-03] MEDS: ASPIRIN 81 MG PEJ/J-Tube SCH (08:05)
[2020-02-03] MEDS: PANTOPRAZOLE 40 MG/10 ML VIAL IVP SCH (08:05)
[2020-02-03] MEDS: LACTOBACILLUS ACIDOPH & BULGAR 1 EACH PACKET PEJ/J-Tube SCH ×2 (08:05→20:04)
[2020-02-03] MEDS: MULTIVITAMINS, THERA 1 EACH TAB PO SCH (08:05)
[2020-02-03] MEDS: FOLIC ACID 1 MG TAB PO SCH (08:05)
[2020-02-03] MEDS: BRIMONIDINE TARTRATE 0.2% DROPS 5 ML BTL BOTH EYES SCH ×3 (08:06→20:04)
[2020-02-03] MEDS: TIMOLOL 0.5% OPHTH DROPS 5 ML BTL BOTH EYES SCH ×2 (08:06→20:04)
[2020-02-03] MEDS: VANCOMYCIN 1,250 MG in SODIUM CHLORIDE 0.9% 250 ML IVPB SCH (12:27)
--- NOTE | 2020-02-03 14:01 | XR ---
EXAMINATION TYPE: XR chest 2V DATE OF EXAM: 02/03/2020 HISTORY: pneumonia. REFERENCE: Previous study dated 02/02/2020. FINDINGS: Been a previous midline sternotomy. Lung volumes are prominent. The heart is mildly enlarged. There is vascular congestion as well as int erstitial and alveolar airspace disease. I suspect this represents mild pulmonary edema, likely on th e basis of heart failure. I suspect a small left effusion. Note is made of nonunion of the fracture o f the right humeral neck. IMPRESSION: WORSENING CHANGES OF CONGESTIVE HEART FAILURE.
[2020-02-03] MEDS: SODIUM CHLORIDE 0.9% 1,000 ML IV SCH (14:30)
[2020-02-03] MEDS ORDERED: LEVOFLOXACIN 750MG-D5W PMX 750 MG in DEXTROSE/WATER 1 150ML.BAG IVPB SCH (17:00)
[2020-02-03] MEDS: FLUCONAZOLE IN NACL,ISO-OSM 100 MG in SALINE 1 50ML.BAG IVPB SCH (20:04)
[2020-02-03] MEDS: NYSTATIN 100,000 UNIT/GM POWD 15 GM TOPICAL SCH (20:05)
--- NOTE | 2020-02-03 23:54 | PN ---
PROGRESS NOTE DATE OF SERVICE: 02/03/2020 This 89-year-old gentleman who was admitted with bilateral aspiration pneumonia with possible sepsis is being closely monitored at this time. The patient also had septic shock present on admission. The patient's medications are being adjusted at this time. The most recent chest x-ray was done today and personally reviewed by me showed evidence of bilateral pneumonia right more than the left. The tube feeds on hold at this time. Head of the bed is being elevated to 45 degrees. PAST MEDICAL HISTORY: Reviewed. REVIEW OF SYSTEMS: CARDIOVASCULAR SYSTEM: No angina. RESPIRATORY SYSTEM: As mentioned earlier. GI: No nausea. : No dysuria or retention. CURRENT MEDICATIONS: Current medications are reviewed and include Tylenol, aspirin, Alphagan, cosyntropin, fluconazole, folic acid, heparin, Dilaudid, Lactinex, Ativan, Protonix, vitamin B1, Timoptic, vancomycin. PHYSICAL EXAMINATION: Patient is alert and oriented x1. Pulse is 59, blood pressure 103/62, respiration 18, temperature 97.5, pulse ox 96% on 2 L. HEENT: Conjunctivae normal. NECK: No jugular venous distention. CARDIOVASCULAR: S1, S2 muffled. RESPIRATORY: Breath sounds diminished at the bases. A few scattered rhonchi and crackles. ABDOMEN: Soft, nontender. LEGS: No edema, no swelling. NERVOUS SYSTEM: No focal deficits. LABS: WBC 25.8, hemoglobin is 8.9, sodium 136, potassium 4.3. ASSESSMENT: 1. Bilateral aspiration pneumonia with possible sepsis, present on admission, severe sepsis, septic shock. 2. Change in mental status, metabolic encephalopathy, acute on chronic possibly secondary to sepsis. 3. History of recent fall and concussion. 4. Increased WBC. 5. Macrocytic anemia. 6. Elevated lactic acid secondary to sepsis. 7. Elevated total bilirubin. 8. Increased alkaline phosphatase. 9. Hypoalbuminemia with mild protein calorie malnutrition. 10.History of recent failed barium swallow as well as G-tube insertion. 11.History of dementia possibly. 12.History of gastroesophageal reflux disease. 13.Hyperlipidemia. 14.History of prostate disorder. 15.History urosepsis previously. 16.History of TURP. 17.History of spherocytosis, treated with splenomegaly remotely. 18.History of hiatal hernia. 19.History of shingles. 20.History of fracture right shoulder with a malunion. 21.History of L3 fracture. 22.History of coronary artery disease, coronary artery bypass grafting. 23.History of inguinal hernia. 24.History of J-tube placement recently. 25.Oral candidiasis. RECOMMENDATIONS AND DISCUSSION: This 89-year-old gentleman who presented with multiple complex medical issues, we will monitor the patient closely. Continue the current medications, continue symptomatic treatment. Otherwise, at this time I recommend continue the antibiotics and I would also recommend initiating tube feeds tomorrow, head of the bed elevated to 45 degrees. Otherwise, continue rest of medications. We will follow the Surgery for the J-tube site redness. Otherwise, prognosis guarded because of multiple complex medical issues. Further recommendations to follow. MMODL / IJN: [id number] /
[2020-02-04] MEDS: VANCOMYCIN ORAL SOLUTION 250 MG/5 ML BOTTLE PO SCH ×4 (04:47→23:41)
[2020-02-04] MEDS: VANCOMYCIN 1,250 MG in SODIUM CHLORIDE 0.9% 250 ML IVPB SCH ×2 (04:47→21:50)
[2020-02-04] MEDS: COSYNTROPIN 0.25 MG VIAL IVP ONE ×2 (08:05→08:37)
[2020-02-04] MEDS: PIPERACILLIN-TAZOBACTAM 3.375 GM in SODIUM CHLORIDE 0.9% 100 ML IVPB SCH ×3 (08:07→23:41)
[2020-02-04] MEDS: PANTOPRAZOLE 40 MG/10 ML VIAL IVP SCH (08:07)
[2020-02-04] MEDS: HEPARIN SODIUM,PORCINE 5,000 UNIT/ML 1 ML VIAL SQ SCH ×2 (08:07→20:26)
[2020-02-04] MEDS: LACTOBACILLUS ACIDOPH & BULGAR 1 EACH PACKET PEJ/J-Tube SCH ×2 (08:07→21:24)
[2020-02-04] MEDS: MULTIVITAMINS, THERA 1 EACH TAB PO SCH (08:07)
[2020-02-04] MEDS: FOLIC ACID 1 MG TAB PO SCH (08:08)
[2020-02-04] MEDS: NYSTATIN 100,000 UNIT/GM POWD 15 GM TOPICAL SCH ×2 (08:08→21:24)
[2020-02-04] MEDS: BRIMONIDINE TARTRATE 0.2% DROPS 5 ML BTL BOTH EYES SCH ×3 (08:08→21:25)
[2020-02-04] MEDS: THIAMINE 100 MG TAB PO SCH (08:08)
[2020-02-04] MEDS: ASPIRIN 81 MG PEJ/J-Tube SCH (08:08)
[2020-02-04] MEDS: TIMOLOL 0.5% OPHTH DROPS 5 ML BTL BOTH EYES SCH ×2 (08:08→21:25)
[2020-02-04] MEDS: SODIUM CHLORIDE 0.9% 1,000 ML IV SCH (08:11)
[2020-02-04 08:54] LABS: Anisocytosis Slight; Basophils # (A) 0.1 k/uL (0-0.2); Basophils % (A) 0 %; Eosinophils # (A) 0.4 k/uL (0-0.7); Eosinophils % (A) 2 %; HCT 31.3 % (39.0-53.0); HGB 10.2 gm/dL (13.0-17.5); Hypochromasia Marked; Lymphocytes # (A) 0.7 k/uL (1.0-4.8); Lymphocytes % (A) 3 %; MCH 35.3 pg (25.0-35.0); MCHC 32.5 g/dL (31.0-37.0); MCV 108.7 fL (80.0-100.0); Macrocytosis Marked; Mean Platelet Volume 9.1; Monocytes # (A) 0.8 k/uL (0-1.0); Monocytes % (A) 4 %; Neutrophils # (A) 20.2 k/uL (1.3-7.7); Neutrophils % (A) 90 %; Platelet Count 437 k/uL (150-450); RBC 2.88 m/uL (4.30-5.90); RDW 16.6 % (11.5-15.5); WBC 22.4 k/uL (3.8-10.6)
[2020-02-04 09:03] LABS: African American GFR (CKD) >90 (>60 ml/min/1.73 sqM); Anion Gap 5 mmol/L; Blood Urea Nitrogen 29 mg/dL (9-20); Calcium 7.7 mg/dL (8.4-10.2); Carbon Dioxide 21 mmol/L (22-30); Chloride 110 mmol/L (98-107); Glucose 80 mg/dL (74-99); Non-African American GFR(CKD) 78 (>60 ml/min/1.73 sqM); Potassium 3.8 mmol/L (3.5-5.1); Sodium 136 mmol/L (137-145)
[2020-02-04 10:24] LABS: RBC Fragments Present
[2020-02-04 10:25] LABS: Poikilocytosis (M) Present; Toxic Granulation Present
--- NOTE | 2020-02-04 16:53 | P.GSCN ---
History of Present Illness Consult date: 02/04/20 Reason for Consult: Malnutrition History of present illness: This and [id number] male had a recent G-tube placement for Past Medical History Past Medical History: Cancer, Dementia, GERD/Reflux, Hyperlipidemia, Memory Impairment, Prostate Disorder Additional Past Medical History / Comment(s): kidney stones, urosepsis, turp - history of self-cathing 1-2 TIMES A DAY- NOT NEEDED SINCE PROSTATE SURGERY. 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 BEGINNINGS OF CATARACTS, HIATAL HERNIA, SHINGLES 2000, FRACTURED RIGHT SHOULDER MAY 2019, dysphagia/feeding tube placement 01/16/20 History of Any Multi-Drug Resistant Organisms: None Reported Past Surgical History: Bowel Resection, Cholecystectomy, Coronary Bypass/CABG, Hernia Repair, Orthopedic Surgery, Prostate Surgery Additional Past Surgical History / Comment(s): spleenectomy, TURP, GADIEL INGUINAL HERNIAS,"WHIPPLE PROCEDURE", RT ROTATOR CUFF REPAIR, LITHOTRISY, J-tube placement 01/16/20 Past Anesthesia/Blood Transfusion Reactions: No Reported Reaction Past Psychological History: No Psychological Hx Reported Smoking Status: Never smoker Past Alcohol Use History: None Reported Past Drug Use History: None Reported - Past Family History Father Family Medical History: Cancer Additional Family Medical History / Comment(s): CANCER OF THE ESOPHAGUS Mother Additional Family Medical History / Comment(s): OF OLD AGE Brother(s) Family Medical History: Cancer Additional Family Medical History / Comment(s): esophagus cancer, pancreatic cancer Sister(s) Family Medical History: Cancer Additional Family Medical History / Comment(s): pancreatic cancer Daughter(s) Additional Family Medical History / Comment(s): intestinal issues with resection Son(s) Family Medical History: No Reported History Medications and Allergies Home Medications Medication Instructions Recorded Confirmed Type Aspirin EC [Ecotrin Low Dose] 81 mg PEJ/J-TUBE DAILY 03/22/16 02/02/20 History Brimonidine Tartrate [Alphagan P 1 drop BOTH EYES TID 01/09/20 02/02/20 History 0.2% Ophth Soln] Timolol 0.5% Ophth Soln [Timoptic 1 drop BOTH EYES BID 01/09/20 02/02/20 History 0.5% Ophth Soln] Acetaminophen [Acetaminophen Oral 650 mg PO Q6H PRN 02/02/20 02/02/20 History Soln] Citalopram Hydrobromide [CeleXA 20 mg PEJ/J-TUBE HS 02/02/20 02/02/20 History Oral Soln] Clotrimazole Cream [Lotrimin Cream] 1 applic TOPICAL HS 02/02/20 02/02/20 History L.acidoph,Paracasei, B.lactis 2 cap PEJ/J-TUBE BID 02/02/20 02/02/20 History [Probiotic] Lansoprazole 30 mg PEJ/J-TUBE HS 02/02/20 02/02/20 History Nystatin 100,000 Unit/ml Susp 5 ml PO QID 02/02/20 02/02/20 History [Mycostatin Oral Susp] guaiFENesin-DM 100-10MG/5ML 10 ml PO Q6H PRN 02/02/20 02/02/20 History [Robitussin DM] metroNIDAZOLE [Flagyl] 500 mg PEJ/J-TUBE Q8HR 02/02/20 02/02/20 History Allergies Allergy/AdvReac Type Severity Reaction Status Date / Time naproxen sodium [From Aleve] Allergy Rash/Hives Verified 02/02/20 16:00 Surgical - Exam Vital Signs Temp Pulse Resp BP Pulse Ox 100.3 F H 87 18 105/57 96 02/02/20 13:16 02/02/20 13:16 02/02/20 13:16 02/02/20 13:16 02/02/20 13:16 - General well developed, no distress - Eyes PERRL - ENT normal pinna - Neck no masses - Respiratory normal expansion - Cardiovascular Rhythm: regular - Abdomen J-tube in left upper quadrant. There is minimal excoriation in the skin. There is a zinc oxide cream on the skin. Abdomen: soft, non tender Results - Labs 02/04/20 08:27 02/04/20 08:27 Abnormal Lab Results - Last 24 Hours (Table) 02/04/20 02/04/20 Range/Units 08:27 08:27 WBC 22.4 H (3.8-10.6) k/uL RBC 2.88 L (4.30-5.90) m/uL Hgb 10.2 L (13.0-17.5) gm/dL Hct 31.3 L (39.0-53.0) % MCV 108.7 H (80.0-100.0) fL MCH 35.3 H (25.0-35.0) pg RDW 16.6 H (11.5-15.5) % Neutrophils # 20.2 H (1.3-7.7) k/uL Lymphocytes # 0.7 L (1.0-4.8) k/uL Macrocytosis Marked A Sodium 136 L (137-145) mmol/L Chloride 110 H (98-107) mmol/L Carbon Dioxide 21 L (22-30) mmol/L BUN 29 H (9-20) mg/dL Calcium 7.7 L (8.4-10.2) mg/dL Microbiology - Last 24 Hours (Table) 02/02/20 14:05 Blood Culture - Preliminary Blood No Growth after 24 hours Diabetes panel 02/04/20 Range/Units 08:27 Sodium 136 L (137-145) mmol/L Potassium 3.8 (3.5-5.1) mmol/L Chloride 110 H (98-107) mmol/L Carbon Dioxide 21 L (22-30) mmol/L BUN 29 H (9-20) mg/dL Creatinine 0.85 (0.66-1.25) mg/dL Glucose 80 (74-99) mg/dL Calcium 7.7 L (8.4-10.2) mg/dL Calcium panel 02/04/20 Range/Units 08:27 Calcium 7.7 L (8.4-10.2) mg/dL Pituitary panel 02/04/20 Range/Units 08:27 Sodium 136 L (137-145) mmol/L Potassium 3.8 (3.5-5.1) mmol/L Chloride 110 H (98-107) mmol/L Carbon Dioxide 21 L (22-30) mmol/L BUN 29 H (9-20) mg/dL Creatinine 0.85 (0.66-1.25) mg/dL Glucose 80 (74-99) mg/dL Calcium 7.7 L (8.4-10.2) mg/dL Adrenal panel 02/04/20 Range/Units 08:27 Sodium 136 L (137-145) mmol/L Potassium 3.8 (3.5-5.1) mmol/L Chloride 110 H (98-107) mmol/L Carbon Dioxide 21 L (22-30) mmol/L BUN 29 H (9-20) mg/dL Creatinine 0.85 (0.66-1.25) mg/dL Glucose 80 (74-99) mg/dL Calcium 7.7 L (8.4-10.2) mg/dL Assessment and Plan Assessment: Status post G-tube placement. Patient can receive local wound care. We will follow with you.
[2020-02-04] MEDS: FLUCONAZOLE IN NACL,ISO-OSM 100 MG in SALINE 1 50ML.BAG IVPB SCH (20:26)
--- NOTE | 2020-02-04 22:14 | PN ---
PROGRESS NOTE DATE OF SERVICE: 02/04/2020 This 89-year-old gentleman who was admitted with bilateral aspiration pneumonia also had change in mental status. Patient also had recent fall and concussion as well as multiple other medical abnormalities. The patient also had a G-tube which is being blocked because of administration of medications in the long-term. Surgery and Gastroenterology are consulted. I have talked to the dietitian, who recommended probably only when the patient is awake to limit the possibility of aspiration at this time. Past medical history reviewed. Review of systems could not be taken; the patient is confused. CURRENT MEDICATIONS: Reviewed. They include: 1. Tylenol p.r.n. 2. Aspirin 81 mg. 3. Alphagan. 4. Fluconazole. 5. Heparin. 6. Dilaudid. 7. Lactinex. 8. Ativan. 9. Vancomycin. 10.Multivitamins. 11.Mycostatin. 12.Protonix. 13.Zosyn. 14.Timoptic. PHYSICAL EXAMINATION: Patient is conscious, confused. Pulse 57, blood pressure 138/77, respiration 18, temperature 98.1, pulse ox 92% on 2 L. HEENT: Conjunctivae normal. NECK: No jugular venous distention. CARDIOVASCULAR SYSTEM: S1, S2 muffled. RESPIRATORY SYSTEM: Breath sounds diminished at the bases. Scattered rhonchi and crackles. ABDOMEN: Soft. Otherwise obese. G-tube in situ. Non-tender. No mass palpable. LEGS: No edema. No swelling. NERVOUS SYSTEM: Diffusely weak. LABS: WBC 22.4, hemoglobin 10.2. Sodium 136, potassium 3.8. ASSESSMENT: 1. Bilateral aspiration pneumonia with possible sepsis, present on admission, with severe sepsis and septic shock. 2. Change in mental status, metabolic encephalopathy, acute on chronic, possibly secondary to sepsis. 3. History of recent fall and concussion. 4. Status post G-tube insertion. 5. Increased white count. 6. Macrocytic anemia. 7. Elevated lactic acid secondary to sepsis. 8. Elevated total bilirubin secondary to sepsis. 9. Increased alkaline phosphatase. 10.Hypoalbuminemia with mild protein-calorie malnutrition. 11.History of recent failed barium swallow as well as G-tube insertion. 12.History of dementia, possibly. 13.History of gastroesophageal reflux disease. 14.Hyperlipidemia. 15.History of prostate disorder. 16.History of sepsis previously. 17.History of transurethral resection of prostate. 18.History of spherocytosis, treated with splenectomy remotely. 19.History of hiatal hernia. 20.History of shingles. 21.History of fracture of right shoulder with malunion. 22.History of L3 fracture. 23.History of coronary artery disease, coronary artery bypass grafting. 24.History of inguinal hernia. 25.Oral candidiasis. RECOMMENDATIONS AND DISCUSSION: In this 89-year-old gentleman who presented with multiple complex medical issues, we will monitor the patient closely, continue the current medications, continue with symptomatic treatment. I recommend continuing the antibiotics. Follow the cultures, which are negative so far. Otherwise, I would also recommend consultation with Infectious Disease to optimize the antibiotic treatment. Dr. Diana and Gastroenterology also will be consulted. Further recommendations will follow. Prognosis is guarded. MMODL / IJN: [id number] / MTDD
[2020-02-05] MEDS: VANCOMYCIN ORAL SOLUTION 250 MG/5 ML BOTTLE PO SCH ×4 (05:56→23:47)
[2020-02-05] MEDS: ASPIRIN 81 MG PEJ/J-Tube SCH (07:49)
[2020-02-05] MEDS: SODIUM CHLORIDE 0.9% 1,000 ML IV SCH (07:49)
[2020-02-05] MEDS: PIPERACILLIN-TAZOBACTAM 3.375 GM in SODIUM CHLORIDE 0.9% 100 ML IVPB SCH ×3 (07:50→23:47)
[2020-02-05] MEDS: LACTOBACILLUS ACIDOPH & BULGAR 1 EACH PACKET PEJ/J-Tube SCH ×2 (07:54→21:32)
[2020-02-05] MEDS: PANTOPRAZOLE 40 MG/10 ML VIAL IVP SCH (07:55)
[2020-02-05] MEDS: NYSTATIN 100,000 UNIT/GM POWD 15 GM TOPICAL SCH ×2 (07:55→21:32)
[2020-02-05] MEDS: BRIMONIDINE TARTRATE 0.2% DROPS 5 ML BTL BOTH EYES SCH ×3 (07:55→21:32)
[2020-02-05] MEDS: HEPARIN SODIUM,PORCINE 5,000 UNIT/ML 1 ML VIAL SQ SCH ×2 (07:55→21:31)
[2020-02-05] MEDS: TIMOLOL 0.5% OPHTH DROPS 5 ML BTL BOTH EYES SCH ×2 (07:56→21:33)
[2020-02-05] MEDS ORDERED: VANCOMYCIN TROUGH DUE 1 EACH MISC MISCELLANE ONE (11:00)
--- NOTE | 2020-02-05 11:15 | P.PN ---
Progress Note - Text Progress Note Date: 02/05/20 The patient's J-tube site was examined. There is decrease in inflammation on the skin. The pericardium appears to be working. His abdomen is soft. On exam vital signs are stable. Abdomen soft. Chronic protein calorie malnutrition requiring J-tube. Patient he received local wound care.
[2020-02-05] MEDS: THIAMINE 100 MG TAB PO SCH (12:04)
[2020-02-05] MEDS: FOLIC ACID 1 MG TAB PO SCH (12:04)
[2020-02-05] MEDS: MULTIVITAMINS, THERA 1 EACH TAB PO SCH (12:04)
[2020-02-05] MEDS: VANCOMYCIN 1,250 MG in SODIUM CHLORIDE 0.9% 250 ML IVPB SCH (12:08)
[2020-02-05 12:38] LABS: Anisocytosis Slight; HCT 31.5 % (39.0-53.0); Hypochromasia Marked; MCH 34.3 pg (25.0-35.0); MCHC 31.6 g/dL (31.0-37.0); MCV 108.7 fL (80.0-100.0); Macrocytosis Marked; Mean Platelet Volume 9.6; Platelet Count 456 k/uL (150-450); RDW 16.6 % (11.5-15.5); WBC 18.7 k/uL (3.8-10.6)
[2020-02-05 12:51] LABS: ALT 18 U/L (4-49); AST 54 U/L (17-59); African American GFR (CKD) >90 (>60 ml/min/1.73 sqM); Alkaline Phosphatase 349 U/L (38-126); Anion Gap 4 mmol/L; Bilirubin, Delta 0.4 mg/dL (0.0-0.2); Bilirubin,Unconjugated 0.9 mg/dL (0.0-1.1); Blood Urea Nitrogen 27 mg/dL (9-20); Calcium 7.6 mg/dL (8.4-10.2); Carbon Dioxide 22 mmol/L (22-30); Chloride 112 mmol/L (98-107); Glucose 131 mg/dL (74-99); Non-African American GFR(CKD) 81 (>60 ml/min/1.73 sqM); Potassium 3.6 mmol/L (3.5-5.1); Sodium 138 mmol/L (137-145); Total Bilirubin 1.3 mg/dL (0.2-1.3); Total Protein 5.4 g/dL (6.3-8.2)
[2020-02-05 14:03] LABS: Lymphocytes # (M) 0.37 k/uL (1.0-4.8); Monocytes # (M) 0.94 k/uL (0-1.0); Neutrophils # (M) 17.39 k/uL (1.3-7.7); Neutrophils % (M) 93 %; Nucleated Red Blood Cells 0 /100 WBC (0-0); Total Cells Counted 100
[2020-02-05 14:04] LABS: Howell-Jolly Bodies Present
[2020-02-05 14:05] LABS: Poikilocytosis (M) Present
[2020-02-05 14:06] LABS: Polychromasia Present
[2020-02-05] MEDS: FLUCONAZOLE IN NACL,ISO-OSM 100 MG in SALINE 1 50ML.BAG IVPB SCH (21:31)
--- NOTE | 2020-02-05 22:50 | PN ---
PROGRESS NOTE DATE OF SERVICE: 02/05/2020 This 89-year-old gentleman who was admitted with bilateral aspiration pneumonia also had change in mental status. The patient also had a recent fall and concussion. The tube feeds have been restarted. Patient is on broad-spectrum IV antibiotics. Patient is being closely monitored. ECF rehab is being contemplated. Past medical history reviewed. Review of systems could not be taken. CURRENT MEDICATIONS: Reviewed. They include: 1. Tylenol p.r.n. 2. Aspirin 81 mg per PEG. 3. Alphagan. 4. Fluconazole. 5. Folic acid. 6. Heparin. 7. Dilaudid. 8. Lactinex. 9. Ativan. 10.Mycostatin. 11.Protonix. 12.Zosyn. 13.Timoptic. 14.Vitamin B1. PHYSICAL EXAMINATION: Patient is conscious, confused. Pulse is 66, blood pressure 155/82, respiration 20, temperature 98.4, pulse ox 92% on 2 L. HEENT: Conjunctivae normal. NECK: No jugular venous distention. CARDIOVASCULAR SYSTEM: S1, S2 muffled. RESPIRATORY SYSTEM: Breath sounds diminished at the bases. Scattered rhonchi and crackles. ABDOMEN: Soft, non-tender. -tube in situ. LEGS: No edema. No swelling. NERVOUS SYSTEM: Diffusely weak. LABS: WBC 18.7, hemoglobin is 10. Sodium 138, potassium 3.6. LFTs are noted. Albumin is 2. ASSESSMENT: 1. Bilateral aspiration pneumonia with possible sepsis, present on admission, with severe sepsis and septic shock. 2. Change in mental status, metabolic encephalopathy, acute on chronic, possibly secondary to sepsis. 3. History of recent fall and concussion, status post j-tube insertion. 4. Increased white count. 5. Macrocytic anemia. 6. Elevated lactic acid secondary to sepsis. 7. Elevated total bilirubin secondary to sepsis. 8. Increased alkaline phosphatase. 9. Hypoalbuminemia with mild protein-calorie malnutrition. 10.History of recent failed barium swallow as well as j-tube insertion. 11.History of dementia possibly. 12.History of gastroesophageal reflux disease. 13.History of hyperlipidemia. 14.History of prostate disorder. 15.History of sepsis previously. 16.History of transurethral resection of prostate. 17.History of spherocytosis, treated with splenectomy remotely. 18.History of hiatal hernia. 19.History of shingles. 20.History of fracture of the right shoulder with malunion. 21.History of L3 fracture. 22.History of coronary artery disease, coronary artery bypass grafting. 23.History of inguinal hernia. 24.Oral candidiasis. 25.FULL CODE. RECOMMENDATIONS AND DISCUSSION: In this 89-year-old gentleman who presented with multiple complex medical issues, we will monitor the patient closely, continue the current medications, continue with symptomatic treatment. Otherwise at this time I recommend empiric antibiotics, repeat labs, PT/OT evaluation. Continue to monitor. Supportive treatment. Prognosis guarded. Discussed with the family on multiple occasions. Further recommendations to follow. MMODL / IJN: [id number] / JOSE CARLOS
[2020-02-06] MEDS: SODIUM CHLORIDE 0.9% 1,000 ML IV SCH (01:46)
--- NOTE | 2020-02-06 03:22 | CONS ---
CONSULTATION DATE OF DICTATION: 02/05/2020 REASON FOR CONSULTATION: Clostridium difficile colitis. HISTORY OF PRESENT ILLNESS: The patient is an 89-year-old pleasant white male who is [facility] he was admitted about 2 weeks ago. He recently had a fall about a month ago and subsequently had L3 compression fracture. He was admitted to the hospital for 10 days and was discharged to rehab facility in [place]. While he was there, he developed C difficile colitis about 4 or 5 days ago. According to his apparently he started having diarrhea. C difficile was tested was positive for C difficile colitis. He was started on oral vancomycin and Flagyl. The patient has been having progressive decrease in appetite since his fall with dysphagia and hence during his last hospitalization he underwent a J tube placement by Dr. Diana. The J tube was blocked and subsequently it was unclogged and he is able to tolerate his tube feeds well. Since being in the hospital, he did not have any further episodes of diarrhea as per the nursing staff he had about one bowel movement today. He denies any abdominal pain. He reports no nausea, vomiting. No fever, chills, or night sweats. Most of the history was obtained from the patient's who is at the bedside. PAST MEDICAL HISTORY: Significant for hypertension, hyperlipidemia, history of prostate disorder, recent J tube placement. PAST SURGERY HISTORY: History of splenectomy, bilateral inguinal hernia repair, right rotator cuff surgery, history of prostate surgery, CABG, cholecystectomy, hernia repair. ALLERGIES: NAPROXEN. MEDICATIONS: Medications in the [facility] include vitamin D3, timolol, eye drops, aspirin, Alphagan, Celexa, Lotrimin, lansoprazole, Flagyl, acetaminophen. SOCIAL HISTORY: No smoking or alcohol use. FAMILY HISTORY: Unremarkable. REVIEW OF SYSTEMS: Could not be obtained as patient is not very communicative. PHYSICAL EXAMINATION: He appears comfortable. No apparent distress. Vital signs are stable. Blood pressure is 155/92, pulse rate 65, temperature 98. HEENT: Examination unremarkable. Conjunctivae pink. Sclerae anicteric. Oral cavity, no lesions. NECK: No JVD or lymph node enlargement. CHEST: Clear to auscultation. HEART: Regular rate and rhythm. ABDOMEN: Soft. There was a J-tube in place. This appears to be intact. J-tube feeds going, tolerating well. EXTREMITIES: No pedal edema. NEURO: He is awake, oriented to name not to place and time. LABS: Labs done at the time of admission the hospital: WBC 25.8, hemoglobin 8.9, platelets normal. Basic metabolic panel, BUN and creatinine are 29 and 0.88 respectively. Rest of the labs are within normal limits. Today, WBC count is down to 18.7, hemoglobin 10, platelets 458. IMPRESSION: 1. Recent episode of Clostridium difficile colitis diagnosed about 3 or 4 days ago while he was in rehab at [facility] and was on outpatient Flagyl therapy. He was noted to have leukocytosis at the time of admission the hospital. Patient presently on oral vancomycin at 250 mg q.6 hours. Since being in the hospital no episodes of diarrhea. 2. Bilateral aspiration pneumonia, presently on broad-spectrum antibiotic. 3. Altered mental status, which is gradually improving probably related to sepsis. 4. Dysphagia, status post PEG tube placement by Dr. Diana one month ago, tolerating daily feeds very well. 5. L3 fracture, recent fall. RECOMMENDATIONS: 1. Continue with oral vancomycin 250 mg 4 times daily. 2. If the patient has any diarrhea, we will repeat stool C difficile toxin. 3. Continue broad-spectrum antibiotic for aspiration pneumonia. 4. Continue tube feeds as tolerated. 5. Monitor CBC closely. 6. Symptomatic and supportive care. 7. We will follow with you closely. Thank you for this consultation. MONAE / NIKKI: [id number] /
[2020-02-06] MEDS: VANCOMYCIN 1,250 MG in SODIUM CHLORIDE 0.9% 250 ML IVPB SCH (04:19)
[2020-02-06] MEDS: VANCOMYCIN ORAL SOLUTION 250 MG/5 ML BOTTLE PO SCH ×3 (05:29→17:50)
[2020-02-06] MEDS: PIPERACILLIN-TAZOBACTAM 3.375 GM in SODIUM CHLORIDE 0.9% 100 ML IVPB SCH ×2 (08:00→16:13)
[2020-02-06] MEDS: LACTOBACILLUS ACIDOPH & BULGAR 1 EACH PACKET PEJ/J-Tube SCH ×2 (08:00→22:15)
[2020-02-06] MEDS: ASPIRIN 81 MG PEJ/J-Tube SCH (08:00)
[2020-02-06] MEDS: BRIMONIDINE TARTRATE 0.2% DROPS 5 ML BTL BOTH EYES SCH ×3 (08:01→22:17)
[2020-02-06] MEDS: PANTOPRAZOLE 40 MG/10 ML VIAL IVP SCH (08:01)
[2020-02-06] MEDS: NYSTATIN 100,000 UNIT/GM POWD 15 GM TOPICAL SCH ×2 (08:02→22:17)
[2020-02-06] MEDS: TIMOLOL 0.5% OPHTH DROPS 5 ML BTL BOTH EYES SCH ×2 (08:02→22:16)
[2020-02-06] MEDS: HEPARIN SODIUM,PORCINE 5,000 UNIT/ML 1 ML VIAL SQ SCH ×2 (08:02→22:17)
--- NOTE | 2020-02-06 09:16 | P.PN ---
Progress Note - Text Progress Note Date: 02/06/20 Patient's resting comfortably in his bed. On exam vital signs are stable. Abdomen soft. Jejunostomy tube site is clean.
--- NOTE | 2020-02-06 10:39 | P.CONS ---
History of Present Illness - Reason for Consult Consult date: 02/05/20 sepsis Requesting physician: Usha Godoy - Chief Complaint vomiting and low pulse ox x 1 day - History of Present Illness Patient is 89-year male with past medical history significant for dysphagia for the patient did have a PEG tube placed apparently the patient has been seen in the ER the day before admission the hospital with the patient was noticed to have clogged PEG tube patient did have a unclogging of the PEG tube and subsequent sent back to the custodial patient has been brought back to the ER on 02/02/2020 after pending the patient vomited and more likely the patient aspirated patient was noticed to have difficulty get his pulse oxygen back to normal patient overall today was noted to have some abdominal distention with this and the patient has been evaluated by the ER physician on arrival to the ER the patient did have a chest x-ray which shows new interstitial lung disease some patchy opacity greater on the right side KUB x-ray Alonso bowel throughout some dilatation of the small bowel has been seen by general surgery patient has been running a fever of 102. Degrees Fahrenheit on presentation to the hospital and the patient did have white count of 15,000 which is up to 25.8 the next day patient urine has been negative patient has been treated with multiple biotics in the form of Zosyn IV vancomycin as well as oral vancomycin as pending the patient have history of C. difficile colitis though no diarrhea has been noticed to this admission infectious was consulted for further management of antibiotic therapy most information has been obtained from review the chart as the patient himself not very good historian. Review of Systems Positive points mentioned in history of present illness complete review could not be obtained because of his underlying medical condition Past Medical History Past Medical History: Cancer, Dementia, GERD/Reflux, Hyperlipidemia, Memory Impairment, Prostate Disorder Additional Past Medical History / Comment(s): kidney stones, urosepsis, turp - history of self-cathing 1-2 TIMES A DAY- NOT NEEDED SINCE PROSTATE SURGERY. "STOMACH AND SMALL INTESTINE CANCER", "SPHERO CYTOSIS-CORRECTED BY REMOVING SPL EEN". BEGINNINGS OF CATARACTS, HIATAL HERNIA, SHINGLES 2000, FRACTURED RIGHT SHOULDER MAY 2019, dysphagia/feeding tube placement 01/16/20 History of Any Multi-Drug Resistant Organisms: None Reported Past Surgical History: Bowel Resection, Cholecystectomy, Coronary Bypass/CABG, Hernia Repair, Orthopedic Surgery, Prostate Surgery Additional Past Surgical History / Comment(s): spleenectomy, TURP, GADIEL INGUINAL HERNIAS,"WHIPPLE PROCEDURE", RT ROTATOR CUFF REPAIR, LITHOTRISY, J-tube placement 01/16/20 Past Anesthesia/Blood Transfusion Reactions: No Reported Reaction Past Psychological History: No Psychological Hx Reported Smoking Status: Never smoker Past Alcohol Use History: None Reported Past Drug Use History: None Reported - Past Family History Father Family Medical History: Cancer Additional Family Medical History / Comment(s): CANCER OF THE ESOPHAGUS Mother Additional Family Medical History / Comment(s): OF OLD AGE Brother(s) Family Medical History: Cancer Additional Family Medical History / Comment(s): esophagus cancer, pancreatic cancer Sister(s) Family Medical History: Cancer Additional Family Medical History / Comment(s): pancreatic cancer Daughter(s) Additional Family Medical History / Comment(s): intestinal issues with resection Son(s) Family Medical History: No Reported History Medications and Allergies Home Medications Medication Instructions Recorded Confirmed Type Aspirin EC [Ecotrin Low Dose] 81 mg PEJ/J-TUBE DAILY 03/22/16 02/02/20 History Brimonidine Tartrate [Alphagan P 1 drop BOTH EYES TID 01/09/20 02/02/20 History 0.2% Ophth Soln] Timolol 0.5% Ophth Soln [Timoptic 1 drop BOTH EYES BID 01/09/20 02/02/20 History 0.5% Ophth Soln] Acetaminophen [Acetaminophen Oral 650 mg PO Q6H PRN 02/02/20 02/02/20 History Soln] Citalopram Hydrobromide [CeleXA 20 mg PEJ/J-TUBE HS 02/02/20 02/02/20 History Oral Soln] Clotrimazole Cream [Lotrimin Cream] 1 applic TOPICAL HS 02/02/20 02/02/20 History L.acidoph,Paracasei, B.lactis 2 cap PEJ/J-TUBE BID 02/02/20 02/02/20 History [Probiotic] Lansoprazole 30 mg PEJ/J-TUBE HS 02/02/20 02/02/20 History Nystatin 100,000 Unit/ml Susp 5 ml PO QID 02/02/20 02/02/20 History [Mycostatin Oral Susp] guaiFENesin-DM 100-10MG/5ML 10 ml PO Q6H PRN 02/02/20 02/02/20 History [Robitussin DM] metroNIDAZOLE [Flagyl] 500 mg PEJ/J-TUBE Q8HR 02/02/20 02/02/20 History Allergies Allergy/AdvReac Type Severity Reaction Status Date / Time naproxen sodium [From Aleve] Allergy Rash/Hives Verified 02/02/20 16:00 Physical Exam Vitals: Vital Signs Temp Pulse Resp BP Pulse Ox 02/05/20 14:52 98.5 F 66 20 155/82 92 L 02/05/20 08:00 20 02/05/20 07:00 97.4 F L 68 20 142/66 94 L 02/05/20 01:00 98.2 F 70 20 137/81 94 L 02/04/20 23:49 16 Intake and Output 02/05/20 02/05/20 02/05/20 06:59 14:59 22:59 Intake Total 821 Output Total 350 375 Balance 471 -375 Intake: IV 500 Piperacillin-Tazobactam 3 100 .375 gm In Sodium Chloride 0.9% 100 ml @ 25 mls/hr IVPB Q8HR PIPO Rx# :[id number] Sodium Chloride 0.9% 1, 400 000 ml @ 50 mls/hr IV . Q20H PIPO Rx#:[id number] Intake, IV Titration 250 Amount Vancomycin 1,250 mg In 250 Sodium Chloride 0.9% 250 ml @ 125 mls/hr IVPB Q16H PIPO Rx#:[id number] Tube Feeding 71 Output: Urine 350 375 Other: Voiding Method Indwelling Catheter # Voids 1 Weight 71.5 kg 71.5 kg GENERAL DESCRIPTION: Elderly male lying in bed, no distress. No tachypnea or accessory muscle of respiration use. HEENT: Shows Pallor , no scleral icterus. Oral mucous membrane is dry. No pharyngeal erythema or thrush NECK: Trachea central, no thyromegaly. LUNGS: Unlabored breathing. Decreased breath sound at the base. No wheeze or crackle. HEART: S1, S2, regular rate and rhythm. No loud murmur ABDOMEN: Soft, no tenderness , guarding or rigidity, no organomegaly EXTREMITIES: No edema of feet. SKIN: No rash, no masses palpable. NEUROLOGICAL: The patient is awake, alert, oriented x1, mood and affect normal. Results CBC & Chem 7: 02/05/20 11:45 02/05/20 11:45 Labs: Abnormal Lab Results - Last 24 Hours (Table) 02/05/20 02/05/20 Range/Units 11:45 11:45 WBC 18.7 H (3.8-10.6) k/uL RBC 2.90 L (4.30-5.90) m/uL Hgb 10.0 L (13.0-17.5) gm/dL Hct 31.5 L (39.0-53.0) % MCV 108.7 H (80.0-100.0) fL RDW 16.6 H (11.5-15.5) % Plt Count 456 H (150-450) k/uL Neutrophils # (Manual) 17.39 H (1.3-7.7) k/uL Lymphocytes # (Manual) 0.37 L (1.0-4.8) k/uL Macrocytosis Marked A Chloride 112 H (98-107) mmol/L BUN 27 H (9-20) mg/dL Glucose 131 H (74-99) mg/dL Calcium 7.6 L (8.4-10.2) mg/dL Delta Bilirubin 0.4 H (0.0-0.2) mg/dL Alkaline Phosphatase 349 H (38-126) U/L Total Protein 5.4 L (6.3-8.2) g/dL Albumin 2.0 L (3.5-5.0) g/dL Microbiology - Last 24 Hours (Table) 02/02/20 14:05 Blood Culture - Preliminary Blood No Growth after 72 hours Assessment and Plan Assessment: 1-patient presented hospital with sepsis in this patient did have fever tachycardia elevated white count in this patient who did have problem with clogged PEG tube and did have a multiple episodes of vomiting followed by low pulse ox with increasing infiltrate on the right side high clinical suspicious for aspiration pneumonia likely off a gram-negative origin 2-patient with recent history of C. difficile that was diagnosed in the custodial though no diarrhea has been reported during this admission (1) Aspiration pneumonia Current Visit: Yes Status: Acute Code(s): J69.0 - PNEUMONITIS DUE TO INHA LATION OF FOOD AND VOMIT SNOMED Code(s): 664439209 (2) Sepsis Current Visit: Yes Status: Acute Code(s): A41.9 - SEPSIS, UNSPECIFIED ORGANISM SNOMED Code(s): 88233103 Plan: 1-Zosyn 3.375 g every 8 hours to provide any coverage for aspiration pneumonia and discontinue IV vancomycin 2-continue p.o. Vanco for his underlying C. difficile colitis that was recently diagnosed 3-aspiration precaution We will follow on clinical condition and cultures to further adjust medication if needed Thank you for this consultation will follow this patient along with you
[2020-02-06] MEDS: FOLIC ACID 1 MG TAB PO SCH (11:24)
[2020-02-06] MEDS: MULTIVITAMINS, THERA 1 EACH TAB PO SCH (11:24)
[2020-02-06] MEDS: THIAMINE 100 MG TAB PO SCH (11:24)
--- NOTE | 2020-02-06 17:22 | PN ---
PROGRESS NOTE DATE OF DICTATION: 02/06/2020 This patient is an 89-year-old pleasant white male who was recently diagnosed with C difficile colitis about 5 days ago while he was undergoing rehab at [facility]. He was admitted to the hospital yesterday with aspiration pneumonia, on broad-spectrum antibiotics. He was on Flagyl on an outpatient basis for C difficile colitis, but this was changed to oral vancomycin 250 mg q.6 hours yesterday. The patient is doing better. He denies any complaints. He had a J-tube placement about a month ago because of severe dysphagia. The patient overall is doing well. He has no diarrhea. As per the nursing staff, he had about one bowel movement yesterday. PHYSICAL EXAMINATION: Appears comfortable. No apparent distress. VITAL SIGNS: Stable. Blood pressure is 144/76, pulse rate 61, temperature 98.5. HEENT examination unremarkable. Conjunctivae pink. Sclerae anicteric. Oral cavity no lesions. NECK: No JVD or lymph node enlargement. CHEST: Clear to auscultation. HEART: Regular rate and rhythm. ABDOMEN: Soft. Bowel sounds are positive. No organomegaly. J-tube in place. Tolerating tube feeds well. LABS: Labs from today show WBC is 18.7, hemoglobin 10, platelets 456. Basic metabolic panel is within normal limits. AST and ALT are 54 and 18, respectively. Alkaline phosphatase is 349. IMPRESSION: 1. Aspiration pneumonia, on broad-spectrum antibiotics. 2. Clostridium difficile colitis diagnosed about 6 days ago, presently on oral vancomycin and doing well. Repeat C difficile toxin yesterday was negative. 3. Oropharyngeal dysphagia, status post J-tube placement a month ago. Tolerating tube feeds well. 4. Generalized debility. RECOMMENDATIONS: 1. Continue with vancomycin 250 mg 4 times daily. 2. Continue with broad-spectrum antibiotics for aspiration pneumonia. 3. Continue tube feeds. 4. Symptomatic supportive care. Will follow with you closely. Thank you for this consultation. MMODL / IJN: [id number] /
--- NOTE | 2020-02-06 20:59 | PN ---
PROGRESS NOTE DATE OF SERVICE: 02/06/2020 This 89-year-old gentleman who was admitted with bilateral aspiration pneumonia and sepsis also had significant change in mental status. Multiple consultants are following the patient closely. Dr. Diana is following the patient closely about the J-tube site. No chest pain. No palpitations. Past medical history reviewed. Review of systems could not be taken; the patient is confused. CURRENT MEDICATIONS: Reviewed. They include: Tylenol, aspirin, Alphagan, fluconazole, heparin, Dilaudid, Mycostatin, Protonix, Zosyn IV, Timoptic. Other medications are reviewed. Doses are reviewed. PHYSICAL EXAMINATION: Patient is conscious, confused. Pulse is 70, blood pressure 130/71, respiration 22, temperature 98.8, pulse ox 94% on 2 L. HEENT: Conjunctivae normal. NECK: No jugular venous distention. CARDIOVASCULAR SYSTEM: S1, S2 muffled. RESPIRATORY SYSTEM: Breath sounds diminished at the bases. A few scattered rhonchi and crackles. ABDOMEN: Soft. Obese. Status post J-tube. LEGS: No edema. No swelling. NERVOUS SYSTEM: No focal deficit. LABS: WBC 18.7, hemoglobin 10.7. Other labs are noted. ASSESSMENT: 1. Bilateral aspiration pneumonia with possible sepsis, present on admission, with severe sepsis and septic shock. 2. Change in mental status, metabolic encephalopathy, acute on chronic, possibly secondary to sepsis. 3. History of recent fall and concussion, status post J-tube insertion. 4. Increased white count. 5. Macrocytic anemia. 6. Elevated lactic acid secondary to sepsis. 7. Elevated total bilirubin secondary to sepsis and increased alkaline phosphatase. 8. Hypoalbuminemia with mild protein-calorie malnutrition. 9. History of recent failed barium swallow as well as J-tube insertion. 10.History of dementia possibly. 11.Gastroesophageal reflux disease. 12.Hyperlipidemia. 13.History of prostate cancer. 14.History of sepsis previously. 15.History of transurethral resection of prostate. 16.History of spherocytosis, treated with splenectomy remotely. 17.History of hiatal hernia. 18.History of shingles. 19.History of fracture of right shoulder with malunion. 20.History of L3 fracture. 21.Coronary artery disease, coronary artery bypass grafting. 22.History of inguinal hernia. 23.Oral candidiasis. 24.FULL CODE. RECOMMENDATIONS AND DISCUSSION: I recommend to continue current medications, continue with the monitoring, symptomatic treatment. I would recommend antibiotics, aspiration precautions, bronchodilators. Continue the rest of the medications. PT/OT evaluation. Guarded prognosis. Further recommendations to follow. MONAE / JACOBN: [id number] /
[2020-02-06] MEDS: FLUCONAZOLE IN NACL,ISO-OSM 100 MG in SALINE 1 50ML.BAG IVPB SCH (22:19)
[2020-02-07] MEDS: PIPERACILLIN-TAZOBACTAM 3.375 GM in SODIUM CHLORIDE 0.9% 100 ML IVPB SCH ×4 (00:54→23:10)
[2020-02-07] MEDS: VANCOMYCIN ORAL SOLUTION 250 MG/5 ML BOTTLE PO SCH ×4 (00:55→17:12)
[2020-02-07] MEDS: SODIUM CHLORIDE 0.9% 1,000 ML IV SCH ×2 (00:56→11:16)
--- NOTE | 2020-02-07 04:50 | PN ---
PROGRESS NOTE DATE OF SERVICE: 02/06/2020. REASON FOR FOLLOWUP: 1. Aspiration pneumonia. 2. C difficile colitis. INTERVAL HISTORY: The patient is currently afebrile, has been breathing more comfortably. The patient denies having any chest pain. He did have some cough, but not bringing up any sputum. No nausea, no vomiting. No abdominal pain and did have one episode of loose stools today. PHYSICAL EXAMINATION: Blood pressure 140/69, pulse of 66, temperature 98.6. He is 93% on 2 L nasal cannula. General description is a an elderly male lying in bed in no distress. RESPIRATORY SYSTEM: Unlabored breathing, decreased breath sounds at the bases. No wheeze. HEART: S1, S2. Regular rate and rhythm. ABDOMEN: Soft, no tenderness. LABS: No new labs have been obtained today. Blood culture has been negative. DIAGNOSTIC IMPRESSION AND PLAN: 1. Patient admitted to the hospital with sepsis, source likely aspiration pneumonia. This patient did have an episode of vomiting and hypoxemia. The patient seemed to be clinically responding to Zosyn to continue. Will try to obtain a sputum to narrow down his antibiotics. 2. The patient with recent diagnosis of Clostridium difficile in outpatient setting. Did have one loose stool. RN has been advised to obtain stool for Clostridium difficile. Continue with oral vancomycin. Family at the bedside. Multiple questions were answered in layman's terms. MMODL / IJN: [id number] /
[2020-02-07] MEDS: TIMOLOL 0.5% OPHTH DROPS 5 ML BTL BOTH EYES SCH ×2 (09:15→20:09)
[2020-02-07] MEDS: NYSTATIN 100,000 UNIT/GM POWD 15 GM TOPICAL SCH ×2 (09:16→20:09)
[2020-02-07] MEDS: BRIMONIDINE TARTRATE 0.2% DROPS 5 ML BTL BOTH EYES SCH ×3 (09:16→22:37)
[2020-02-07] MEDS: PANTOPRAZOLE 40 MG/10 ML VIAL IVP SCH ×2 (09:19→09:37)
[2020-02-07] MEDS: HEPARIN SODIUM,PORCINE 5,000 UNIT/ML 1 ML VIAL SQ SCH ×2 (09:37→20:08)
[2020-02-07] MEDS: LACTOBACILLUS ACIDOPH & BULGAR 1 EACH PACKET PEJ/J-Tube SCH ×2 (09:39→20:08)
[2020-02-07] MEDS: ASPIRIN 81 MG PEJ/J-Tube SCH (09:39)
[2020-02-07 09:57] LABS: African American GFR (CKD) >90 (>60 ml/min/1.73 sqM); Non-African American GFR(CKD) 87 (>60 ml/min/1.73 sqM)
[2020-02-07 10:09] LABS: Anisocytosis Slight; Basophils % (A) 0 %; Eosinophils # (A) 0.5 k/uL (0-0.7); Eosinophils % (A) 3 %; HCT 31.2 % (39.0-53.0); HGB 9.8 gm/dL (13.0-17.5); Hypochromasia Marked; Lymphocytes # (A) 0.8 k/uL (1.0-4.8); Lymphocytes % (A) 6 %; MCH 34.9 pg (25.0-35.0); MCHC 31.4 g/dL (31.0-37.0); MCV 111.1 fL (80.0-100.0); Macrocytosis Marked; Mean Platelet Volume 9.5; Monocytes # (A) 1.1 k/uL (0-1.0); Monocytes % (A) 8 %; Neutrophils # (A) 11.4 k/uL (1.3-7.7); Neutrophils % (A) 81 %; Platelet Count 419 k/uL (150-450); Poikilocytosis Slight; RBC 2.81 m/uL (4.30-5.90); RDW 17.1 % (11.5-15.5); WBC 14.2 k/uL (3.8-10.6)
[2020-02-07 10:27] LABS: ALT 22 U/L (4-49); AST 63 U/L (17-59); Albumin 2.1 g/dL (3.5-5.0); Alkaline Phosphatase 294 U/L (38-126); Anion Gap 6 mmol/L; Blood Urea Nitrogen 18 mg/dL (9-20); Calcium 7.8 mg/dL (8.4-10.2); Carbon Dioxide 20 mmol/L (22-30); Chloride 117 mmol/L (98-107); Glucose 157 mg/dL (74-99); Sodium 143 mmol/L (137-145); Total Protein 5.7 g/dL (6.3-8.2)
--- NOTE | 2020-02-07 10:42 | XR ---
EXAMINATION TYPE: XR chest 1V portable DATE OF EXAM: 02/07/2020 COMPARISON: 02/03/2020 HISTORY: Cough TECHNIQUE: Single frontal view of the chest is obtained. FINDINGS: Cardiomegaly and postoperative change seen with tiny pleural effusion or thickening and di ffuse interstitial pattern bilaterally. No pneumothorax. Chronic deformity of the right humerus. Arth ropathy of the shoulder with diffuse osteopenia. Surgical change in the upper abdomen. Hypertrophic a nd degenerative change of the spine. IMPRESSION: 1. Diffuse pleural-parenchymal changes are stable correlate for interstitial pneumonia or pneumonitis versus CHF.
[2020-02-07] MEDS: THIAMINE 100 MG TAB PO SCH (11:14)
[2020-02-07] MEDS: MULTIVITAMINS, THERA 1 EACH TAB PO SCH (11:14)
[2020-02-07] MEDS: FOLIC ACID 1 MG TAB PO SCH (11:14)
[2020-02-07 11:20] LABS: Potassium 3.3 mmol/L (3.5-5.1)
[2020-02-07] MEDS ORDERED: POTASSIUM BICARBONATE/CIT AC 20 MEQ TABLET.EFF PO ONE (15:00)
--- NOTE | 2020-02-07 16:23 | P.PN ---
Progress Note - Text Progress Note Date: 02/07/20 the patient is resting comfort bed. On exam abdomen is soft. J-tube site is clean. No further surgical intervents planned.
--- NOTE | 2020-02-07 16:46 | P.PN ---
Subjective Progress Note Date: 02/07/20 Principal diagnosis: This is an 89-year-old male who was recently admitted with bilateral aspiration pneumonia and sepsis and also had significant change in mental status and is be ing closely monitored. Multiple medical consultations are following. Patient is maintained on tube feedings of the J-tube and is currently nothing by mouth. No reports of chest pain or palpitations noted. Patient is afebrile. Patient had an episode of a small amount of emesis with some bile and phlegm noted per the patient's family in obtaining an abdominal x-ray that is currently pending at this time. Patient had a chest x-ray this morning showing diffuse pleural parenchymal changes that are stable. Patient is to maintain strict aspiration precautions and keep the head of the bed elevated at all times. Potassium today showing 3.3 and will be replaced. White blood count is trending down and is currently for 14.2. Patient is maintained on IV antibiotics in the form of Zosyn and vancomycin and will continue at this time. Infectious disease is following. Review of systems: Unable to obtain as patient is confused Active Medications Acetaminophen (Tylenol Tab) 650 mg PO Q6H PRN PRN Reason: Pain Aspirin (Aspirin) 81 mg PEJ/J-Tube DAILY COUNT INCLUDES THE [facility] Last Admin: 02/07/20 09:39 Dose: 81 mg Documented by: Brimonidine Tartrate (Alphagan P 0.2% [facility]) 1 drops BOTH EYES TID COUNT INCLUDES THE [facility] Last Admin: 02/07/20 15:32 Dose: 1 drops Documented by: Folic Acid (Folic Acid) 1 mg PO DAILY@1200 COUNT INCLUDES THE [facility] Last Admin: 02/07/20 11:14 Dose: 1 mg Documented by: Heparin Sodium (Porcine) (Heparin) 5,000 unit SQ Q12HR COUNT INCLUDES THE [facility] Last Admin: 02/07/20 09:37 Dose: 5,000 unit Documented by: Hydromorphone HCl (Dilaudid) 0.5 mg IVP Q6HR PRN PRN Reason: Severe Pain Piperacillin Sod/Tazobactam (Sod 3.375 gm/ Sodium Chloride) 100 mls @ 25 mls/hr IVPB Q8HR COUNT INCLUDES THE [facility] Stop: 02/12/20 00:01 Last Admin: 02/07/20 15:32 Dose: 25 mls/hr Documented by: Fluconazole/Sodium Chloride (100 mg/ IV Solution) 50 mls @ 50 mls/hr IVPB HS COUNT INCLUDES THE [facility] Last Admin: 02/06/20 22:19 Dose: 50 mls/hr Documented by: Sodium Chloride (Saline 0.9%) 1,000 mls @ 50 mls/hr IV .Q20H COUNT INCLUDES THE [facility] Last Admin: 02/07/20 11:16 Dose: 50 mls/hr Documented by: Lactobacillus Acidoph/Bulgaricus (Lactinex) 2 each PEJ/J-Tube BID COUNT INCLUDES THE [facility] Last Admin: 02/07/20 09:39 Dose: 2 each Documented by: Lorazepam (Ativan) 0.5 mg IV Q6HR PRN PRN Reason: Anxiety Miscellaneous Information (Pneumonia Protocol Utilized) 1 each PO ONCE PRN PRN Reason: Per Protocol Multivitamins (Theragran) 1 each PO DAILY@1200 COUNT INCLUDES THE [facility] Last Admin: 02/07/20 11:14 Dose: 1 each Documented by: Nystatin (Mycostatin Powder) 1 applic TOPICAL BID COUNT INCLUDES THE [facility] Last Admin: 02/07/20 09:16 Dose: 1 applic Documented by: Pantoprazole Sodium (Protonix) 40 mg IVP DAILY COUNT INCLUDES THE [facility] Last Admin: 02/07/20 09:37 Dose: 40 mg Documented by: Thiamine HCl (Vitamin B-1) 100 mg PO DAILY@1200 COUNT INCLUDES THE [facility] Last Admin: 02/07/20 11:14 Dose: 100 mg Documented by: Timolol Maleate (Timoptic) 1 drops BOTH EYES BID COUNT INCLUDES THE [facility] Last Admin: 02/07/20 09:15 Dose: 1 drops Documented by: Vancomycin HCl (Vancomycin Oral Solution) 250 mg PO Q6HR COUNT INCLUDES THE [facility] Last Admin: 02/07/20 11:15 Dose: 250 mg Documented by: Objective - Vital Signs Vital signs: Vital Signs Temp 98.5 F 02/07/20 07:00 Pulse 72 02/07/20 07:00 Resp 20 02/07/20 07:00 BP 171/73 02/07/20 07:00 Pulse Ox 96 02/07/20 03:15 Intake & Output 02/06/20 02/07/20 02/07/20 18:59 06:59 18:59 Intake Total 110 160 Output Total 1 1102 Balance -992 160 Weight 69.4 kg 74.1 kg Intake: Tube Feeding 110 160 Output: Urine 1100 Stool 1 2 Other: Voiding Method Indwelling Catheter Indwelling Catheter Indwelling Catheter # Voids 0 - Exam Gen: This is a 89-year-old male sitting up in bed awake, confused, oriented 1. Temp is 97.6F, pulse is 72, respirations are 18, blood pressure is 169/79, oxygen saturation is 93% on room air. HEENT: Head is atraumatic, normocephalic. Pupils equal, round. Sclerae is anicteric. Tongue is yellowish-green in color with crusting noted NECK: Supple. No JVD. No lymphadenopathy. No thyromegaly. LUNGS: Lung sounds diminished at the bases bilaterally with a few scattered rhonchi and crackles noted. No intercostal retractions. HEART: S1, S2 are muffled ABDOMEN: Soft. Bowel sounds are present. No masses. No tenderness. J-tube noted EXTREMITIES: No pedal edema. No calf tenderness. NEUROLOGICAL: Patient is awake, alert and oriented x1. Diffusely weak - Labs CBC & Chem 7: 02/07/20 09:11 02/07/20 09:11 Labs: Abnormal Lab Results - Last 24 Hours (Table) 02/07/20 02/07/20 Range/Units 09:11 09:11 WBC 14.2 H (3.8-10.6) k/uL RBC 2.81 L (4.30-5.90) m/uL Hgb 9.8 L (13.0-17.5) gm/dL Hct 31.2 L (39.0-53.0) % MCV 111.1 H (80.0-100.0) fL RDW 17.1 H (11.5-15.5) % Neutrophils # 11.4 H (1.3-7.7) k/uL Lymphocytes # 0.8 L (1.0-4.8) k/uL Monocytes # 1.1 H (0-1.0) k/uL Macrocytosis Marked A Potassium 3.3 L (3.5-5.1) mmol/L Chloride 117 H (98-107) mmol/L Carbon Dioxide 20 L (22-30) mmol/L Glucose 157 H (74-99) mg/dL Calcium 7.8 L (8.4-10.2) mg/dL AST 63 H (17-59) U/L Alkaline Phosphatase 294 H (38-126) U/L Total Protein 5.7 L (6.3-8.2) g/dL Albumin 2.1 L (3.5-5.0) g/dL Microbiology - Last 24 Hours (Table) 02/02/20 14:05 Blood Culture - Preliminary Blood No Growth after 96 hours Assessment and Plan Assessment: Bilateral aspiration pneumonia with possible sepsis, present on admission, with severe sepsis and septic shock Change in mental status, metabolic encephalopathy, acute on chronic, possibly secondary to sepsis History of recent fall and concussion, status post J-tube insertion Increased white blood count Macrocytic anemia Elevated lactic acid, secondary to sepsis Elevated total bilirubin secondary to sepsis and increased alkaline phosphatase Hypoalbuminemia with mild protein calorie malnutrition History of recent failed barium swallow as well as J-tube insertion History of dementia possibly Gastroesophageal reflux disease Hyperlipidemia history of prostate cancer History of sepsis previously History of transurethral resection of prostate History of spherocytosis, treated with splenectomy remotely History of hiatal hernia History of shingles History of fracture of right shoulder with malunion History of L3 fracture Coronary artery disease, coronary artery bypass grafting History of inguinal hernia Oral candidiasis Full code Recommendations and discussion: Recommend to continue current medications, management, and symptomatic treatment. He is currently maintained on antibiotics and strict aspiration precautions along with bronchodilators and will continue at this time. Patient is maintained on nothing by mouth status with tube feedings only. PT/OT to evaluate the patient. Patient continues to be quite lethargic and weak and continues to be confused. Patient is slightly more awake today. Patient had an episode of emesis per the family but contained some bile mostly phlegm and will obtain an abdominal x-ray. Repeat x-ray of the chest today shows diffuse pleural parenchymal changes that are stable. Due to multiple complex medical issues, prognosis is extremely guarded. Further recommendations to follow. Case management and clinical social work therapist also following as patient will likely be returning to [facility] once stabilized and discharged.
--- NOTE | 2020-02-07 17:24 | XR ---
EXAMINATION TYPE: XR abdomen 1V DATE OF EXAM: 02/07/2020 COMPARISON: 02/02/2020 HISTORY: Abdominal pain. Vomiting. TECHNIQUE: 2 views supine FINDINGS: There is some gas scattered in the large and small bowel. There appears to be a dilated gas -filled stomach. There is some tubing over the left abdomen consistent with peritoneal dialysis [address]. I see no sign of free air. There are surgical clips in the left upper quadrant. IMPRESSION: Possible dilated stomach that is a change compared to old exam and could relate to gastri c outlet obstruction or gastroparesis. No free air.
--- NOTE | 2020-02-07 17:49 | PN ---
PROGRESS NOTE DATE OF SERVICE: 02/07/2020 REASON FOR FOLLOWUP: Aspiration pneumonia. INTERVAL HISTORY: The patient is currently afebrile. The patient is breathing comfortably. Denies having any chest pain or shortness of breath or cough. No abdominal pain or any further diarrhea has been reported. PHYSICAL EXAMINATION: Blood pressure 171/73 with a pulse of 72, temperature 98.5. General description is an elderly male lying in bed in no distress. RESPIRATORY SYSTEM: Unlabored breathing. Clear to auscultation anteriorly. HEART: S1, S2. Regular rate and rhythm. ABDOMEN: Soft. No tenderness. LABS: Hemoglobin 9.8, white count 14.2, BUN of 18, creatinine 0.66. DIAGNOSTIC IMPRESSION AND PLAN: 1. Patient admitted to hospital with sepsis, concern for aspiration pneumonia. Patient is clinically responding to the Zosyn; to continue. Try to obtain a sputum sample to narrow down the antibiotics. 2. Patient with recent history of Clostridium difficile. Did have one loose stool yesterday. If he has another stool, check stool for C difficile. Continue empiric vancomycin and monitor his clinical course closely. MMODL / IJN: [id number] /
[2020-02-07] MEDS: FLUCONAZOLE IN NACL,ISO-OSM 100 MG in SALINE 1 50ML.BAG IVPB SCH (20:08)
[2020-02-07] MEDS: D5-0.9% NACL WITH KCL 20 MEQ/L 1,000 ML IV SCH (23:11)
[2020-02-08] MEDS: VANCOMYCIN ORAL SOLUTION 250 MG/5 ML BOTTLE PO SCH ×5 (00:25→23:23)
[2020-02-08] MEDS: LACTOBACILLUS ACIDOPH & BULGAR 1 EACH PACKET PEJ/J-Tube SCH ×2 (07:22→20:16)
[2020-02-08] MEDS: ASPIRIN 81 MG PEJ/J-Tube SCH (07:22)
[2020-02-08] MEDS: PIPERACILLIN-TAZOBACTAM 3.375 GM in SODIUM CHLORIDE 0.9% 100 ML IVPB SCH ×3 (09:31→23:21)
[2020-02-08] MEDS: HEPARIN SODIUM,PORCINE 5,000 UNIT/ML 1 ML VIAL SQ SCH ×2 (09:33→20:16)
[2020-02-08] MEDS: PANTOPRAZOLE 40 MG/10 ML VIAL IVP SCH (09:33)
[2020-02-08] MEDS: TIMOLOL 0.5% OPHTH DROPS 5 ML BTL BOTH EYES SCH ×2 (09:34→20:17)
[2020-02-08] MEDS: NYSTATIN 100,000 UNIT/GM POWD 15 GM TOPICAL SCH ×2 (09:34→20:17)
[2020-02-08] MEDS: BRIMONIDINE TARTRATE 0.2% DROPS 5 ML BTL BOTH EYES SCH ×3 (09:34→20:17)
--- NOTE | 2020-02-08 10:03 | P.PN ---
Progress Note - Text Progress Note Date: 02/08/20 The patient's G-tube was placed to dependent drainage last night. There is very minimal bilious fluid in the drainage bag. On exam his vital signs are stable. Abdomen soft. Patient may have had an ileus is resolved. Would recommend restarting tube feeds and observing the patient.
[2020-02-08 10:33] LABS: African American GFR (CKD) >90 (>60 ml/min/1.73 sqM); Anion Gap 3 mmol/L; Blood Urea Nitrogen 18 mg/dL (9-20); Calcium 7.6 mg/dL (8.4-10.2); Carbon Dioxide 24 mmol/L (22-30); Chloride 118 mmol/L (98-107); Glucose 126 mg/dL (74-99); Non-African American GFR(CKD) 88 (>60 ml/min/1.73 sqM); Potassium 3.3 mmol/L (3.5-5.1); Sodium 145 mmol/L (137-145)
[2020-02-08 11:16] LABS: Anisocytosis Slight; Basophils # (A) 0.1 k/uL (0-0.2); Basophils % (A) 0 %; Eosinophils # (A) 0.5 k/uL (0-0.7); Eosinophils % (A) 4 %; HCT 30.6 % (39.0-53.0); HGB 9.5 gm/dL (13.0-17.5); Hypochromasia Marked; Lymphocytes # (A) 0.9 k/uL (1.0-4.8); Lymphocytes % (A) 8 %; MCH 33.6 pg (25.0-35.0); MCHC 31.2 g/dL (31.0-37.0); MCV 107.9 fL (80.0-100.0); Macrocytosis Marked; Monocytes # (A) 0.8 k/uL (0-1.0); Monocytes % (A) 7 %; Neutrophils # (A) 9.1 k/uL (1.3-7.7); Neutrophils % (A) 79 %; Platelet Count 398 k/uL (150-450); Poikilocytosis Slight; RBC 2.83 m/uL (4.30-5.90); RDW 17.1 % (11.5-15.5); WBC 11.6 k/uL (3.8-10.6)
[2020-02-08] MEDS: MULTIVITAMINS, THERA 1 EACH TAB PO SCH (11:57)
[2020-02-08] MEDS: FOLIC ACID 1 MG TAB PO SCH (11:57)
[2020-02-08] MEDS: THIAMINE 100 MG TAB PO SCH (11:57)
[2020-02-08 12:03] LABS: Polychromasia Present
[2020-02-08] MEDS: D5-0.9% NACL WITH KCL 20 MEQ/L 1,000 ML IV SCH ×2 (12:40→23:26)
--- NOTE | 2020-02-08 15:01 | P.PN ---
Subjective Progress Note Date: 02/08/20 Principal diagnosis: This is an 89-year-old male who was recently admitted with bilateral aspiration pneumonia and sepsis and also had significant change in mental status and is be ing closely monitored. Multiple medical consultations are following. Patient is maintained on tube feedings of the J-tube and is currently nothing by mouth. No reports of chest pain or palpitations noted. Patient is afebrile. Patient had an episode of a small amount of emesis with some bile and phlegm noted per the patient's family in obtaining an abdominal x-ray that is currently pending at this time. Patient had a chest x-ray this morning showing diffuse pleural parenchymal changes that are stable. Patient is to maintain strict aspiration precautions and keep the head of the bed elevated at all times. Potassium today showing 3.3 and will be replaced. White blood count is trending down and is currently for 14.2. Patient is maintained on IV antibiotics in the form of Zosyn and vancomycin and will continue at this time. Infectious disease is following. Review of systems: Unable to obtain as patient is confused 02/08/2020 Patient is seen and evaluated in follow-up today and continues to be lethargic and slightly confused. Patient responds appropriately to some questions. Patient underwent abdominal x-ray yesterday showing a possible dilated stomach that could've related to gastric outlet obstruction. Surgery is following closely. X-rays were reviewed by surgery and patient was placed on tube feeding holdings and J-tube to dependent drainage with little output noted. Patient was resumed on tube feedings today. No reports of vomiting noted from staff. Family is quite concerned at the patients clinical status and is requesting a family meeting with the providers which will take place today. Patient is maintained on strict aspiration precautions with head of the bed elevated 45 at all times. Repeat labs today show a trending down white blood count of 11.6, hemoglobin is 9.5, sodium is 145, repeat potassium is 3.3 and will be replaced, and current creatinine is 0.64. Patient remains on IV antibiotics in the form of Zosyn and will continue at this time. Patient did have a bowel movement this morning and continues with an indwelling Rayo catheter to monitor output. Review of systems: Unable to obtain due to patient's current clinical status and patient remains confused Active Medications Acetaminophen (Tylenol Tab) 650 mg PO Q6H PRN PRN Reason: Pain Aspirin (Aspirin) 81 mg PEJ/J-Tube DAILY [facility] Last Admin: 02/08/20 07:22 Dose: Not Given Documented by: Brimonidine Tartrate (Alphagan P 0.2% Oph Soln) 1 drops BOTH EYES TID [facility] Last Admin: 02/08/20 09:34 Dose: 1 drops Documented by: Folic Acid (Folic Acid) 1 mg PO DAILY@1200 [facility] Last Admin: 02/08/20 11:57 Dose: Not Given Documented by: Heparin Sodium (Porcine) (Heparin) 5,000 unit SQ Q12HR [facility] Last Admin: 02/08/20 09:33 Dose: 5,000 unit Documented by: Hydromorphone HCl (Dilaudid) 0.5 mg IVP Q6HR PRN PRN Reason: Severe Pain Piperacillin Sod/Tazobactam (Sod 3.375 gm/ Sodium Chloride) 100 mls @ 25 mls/hr IVPB Q8HR [facility] Stop: 02/12/20 00:01 Last Admin: 02/08/20 09:31 Dose: 25 mls/hr Documented by: Fluconazole/Sodium Chloride (100 mg/ IV Solution) 50 mls @ 50 mls/hr IVPB HS [facility] Last Admin: 02/07/20 20:08 Dose: 50 mls/hr Documented by: Potassium Chloride/Dextrose/Sod Cl (D5%-Ns-Kcl 20 Meq/L Iv Solution) 1,000 mls @ 75 mls/hr IV .[id number] [facility] Last Admin: 02/08/20 12:40 Dose: 75 mls/hr Documented by: Lactobacillus Acidoph/Bulgaricus (Lactinex) 2 each PEJ/J-Tube BID [facility] Last Admin: 02/08/20 07:22 Dose: Not Given Documented by: Lorazepam (Ativan) 0.5 mg IV Q6HR PRN PRN Reason: Anxiety Miscellaneous Information (Pneumonia Protocol Utilized) 1 each PO ONCE PRN PRN Reason: Per Protocol Multivitamins (Theragran) 1 each PO DAILY@1200 [facility] Last Admin: 02/08/20 11:57 Dose: Not Given Documented by: Nystatin (Mycostatin Powder) 1 applic TOPICAL BID [facility] Last Admin: 02/08/20 09:34 Dose: 1 applic Documented by: Pantoprazole Sodium (Protonix) 40 mg IVP DAILY [facility] Last Admin: 02/08/20 09:33 Dose: 40 mg Documented by: Thiamine HCl (Vitamin B-1) 100 mg PO DAILY@1200 [facility] Last Admin: 02/08/20 11:57 Dose: Not Given Documented by: Timolol Maleate (Timoptic) 1 drops BOTH EYES BID [facility] Last Admin: 02/08/20 09:34 Dose: 1 drops Documented by: Vancomycin HCl (Vancomycin Oral Solution) 250 mg PO Q6HR [facility] Last Admin: 02/08/20 11:57 Dose: Not Given Documented by: Objective - Vital Signs Vital signs: Vital Signs Temp 97.7 F 02/08/20 07:00 Pulse 68 02/08/20 07:00 Resp 16 02/08/20 07:00 BP 143/68 02/08/20 07:00 Pulse Ox 94 L 02/08/20 07:00 Intake & Output 02/07/20 02/08/20 02/08/20 18:59 06:59 18:59 Intake Total 320 80 Output Total 550 270 Balance -230 -270 80 Weight 74.1 kg 62 kg 62 kg Intake: Tube Feeding 320 80 Output: Drainage 45 Abdomen 45 Urine 450 225 Coude 450 Emesis 100 Other: Voiding Method Indwelling Catheter Indwelling Catheter Indwelling Catheter # Bowel Movements 1 - Exam Gen: This is a 89-year-old male sitting up in bed awake, confused, oriented 1. Temp is 97.7F, pulse is 68, respirations are 16, blood pressure is 143/68, oxygen saturation is 94% on 2 L via nasal cannula. HEENT: Head is atraumatic, normocephalic. Pupils equal, round. Sclerae is anicteric. Tongue is yellowish-green in color with crusting noted NECK: Supple. No JVD. No lymphadenopathy. No thyromegaly. LUNGS: Lung sounds diminished at the bases bilaterally with a few scattered rhonchi and crackles noted. No intercostal retractions. HEART: S1, S2 are muffled ABDOMEN: Soft. Bowel sounds are present. No masses. No tenderness. J-tube noted EXTREMITIES: No pedal edema. No calf tenderness. NEUROLOGICAL: Patient is awake, alert and oriented x1. Diffusely weak - Labs CBC & Chem 7: 02/08/20 09:43 02/08/20 09:43 Labs: Abnormal Lab Results - Last 24 Hours (Table) 02/08/20 02/08/20 Range/Units 09:43 09:43 WBC 11.6 H (3.8-10.6) k/uL RBC 2.83 L (4.30-5.90) m/uL Hgb 9.5 L (13.0-17.5) gm/dL Hct 30.6 L (39.0-53.0) % MCV 107.9 H (80.0-100.0) fL RDW 17.1 H (11.5-15.5) % Neutrophils # 9.1 H (1.3-7.7) k/uL Lymphocytes # 0.9 L (1.0-4.8) k/uL Macrocytosis Marked A Potassium 3.3 L (3.5-5.1) mmol/L Chloride 118 H (98-107) mmol/L Creatinine 0.64 L (0.66-1.25) mg/dL Glucose 126 H (74-99) mg/dL Calcium 7.6 L (8.4-10.2) mg/dL Microbiology - Last 24 Hours (Table) 02/02/20 14:05 Blood Culture - Preliminary Blood No Growth after 120 hours Assessment and Plan Assessment: Bilateral aspiration pneumonia with possible sepsis, present on admission, with severe sepsis and septic shock Change in mental status, metabolic encephalopathy, acute on chronic, possibly secondary to sepsis History of recent fall and concussion, status post J-tube insertion Increased white blood count Macrocytic anemia Elevated lactic acid, secondary to sepsis Elevated total bilirubin secondary to sepsis and increased alkaline phosphatase Hypoalbuminemia with mild protein calorie malnutrition History of recent failed barium swallow as well as J-tube insertion History of dementia possibly Gastroesophageal reflux disease Hyperlipidemia history of prostate cancer History of sepsis previously History of transurethral resection of prostate History of spherocytosis, treated with splenectomy remotely History of hiatal hernia History of shingles History of fracture of right shoulder with malunion History of L3 fracture Coronary artery disease, coronary artery bypass grafting History of inguinal hernia Oral candidiasis Full code Recommendations and discussion: Recommend to continue current medications, management, and symptomatic treatment. He is currently maintained on antibiotics and strict aspiration precautions along with bronchodilators and will continue at this time. Patient is maintained on nothing by mouth status with tube feedings only. PT/OT to evaluate the patient. Patient continues to be quite lethargic and weak and continues to be confused. Patient is slightly more awake today. Family is concerned with current clinical condition and requesting a family meeting to discuss treatment plan and plan of care. Due to multiple complex medical issues, prognosis is extremely guarded. Further recommendations to follow. Case management and hospice social worker also following as patient will likely be returning to ECF once stabilized and discharged.
[2020-02-08] MEDS ORDERED: Magnesium Replacement Protocol 1 EACH MISC MISCELLANE PRN (17:00)
[2020-02-08] MEDS ORDERED: Potassium Replacement Protocol 1 EACH MISC MISCELLANE PRN (17:00)
--- NOTE | 2020-02-08 17:04 | PN ---
PROGRESS NOTE DATE OF SERVICE: 02/08/2020 REASON FOR FOLLOWUP: Aspiration pneumonia. INTERVAL HISTORY: The patient is currently afebrile. The patient is breathing comfortably. The patient denies having any chest pain or shortness of breath. Occasional cough. No nausea or vomiting. No abdominal pain or diarrhea. PHYSICAL EXAMINATION: Blood pressure 156/68 with a pulse of 71, temperature 97.8. He is 91% on 2 L nasal cannula. General description is an elderly male lying in bed in no distress. RESPIRATORY SYSTEM: Unlabored breathing. Clear to auscultation anteriorly. HEART: S1, S2. Regular rate and rhythm. ABDOMEN: Soft. No tenderness. LABS: Hemoglobin 9.5, white count 11.6, BUN of 18, creatinine 0.64. DIAGNOSTIC IMPRESSION AND PLAN: Patient admitted to hospital with sepsis. Source is likely aspiration pneumonia in this patient who seems to have shown clinical improvement with overall resolution of fever, and white count has improved; currently on Zosyn; to continue. Transition to oral antibiotic on discharge. Daughter at the bedside. Questions were answered. MMODL / IJN: [id number] /
--- NOTE | 2020-02-08 19:27 | CT ---
EXAMINATION TYPE: CT abdomen pelvis wo con DATE OF EXAM: 02/08/2020 COMPARISON: 01/08/2020 HISTORY: Abdominal distention. CT DLP: 685.1 mGycm Automated exposure control for dose reduction was used. There are moderate bilateral pleural effusions. Heart is borderline enlarged. There is pulmonary infi ltrates and atelectasis at the lung bases. There is some air in the biliary tree. There is cholecyste ctomy. Liver shows no focal defect. Bile ducts are not dilated. Spleen is absent. There is jejunostom y tube. There is mild abdominal ascites. There is Rayo catheter in the urinary bladder. It is possible the b alloon is in the prosthetic urethra. There is some air in the bladder. There is fluid at the renal hi la that is probably from multiple parapelvic cysts. Ureters are not dilated. I see no evidence of a bowel obstruction. There is no evidence of free air. There is fluid levels in the large bowel down to the rectum. Lumbar vertebra have normal alignment. There is no compression fracture. There is multilevel lumbar s pondylotic changes. There is fluid posterior to the left ileum and lateral to the left hip joint in t he subcutaneous tissues. This measures up to 3 cm in thickness. There is less subcutaneous fluid lateral to the right hip. IMPRESSION: Bilateral pleural effusions with basilar pulmonary infiltrates significantly increased compared to la st exam and suggestive of chronic congestive heart failure. Multiple renal parapelvic cysts. Possible malposition of the Rayo catheter balloon in the prosthetic urethra. There is moderate abdominal ascites that is new compared to old exam and could be secondary to heart failure. Extensive subcutaneous fluid over the left ileum and bilateral hip region appears new compared to old exam and could relate to heart failure or hematoma. Large bowel fluid levels suggestive of ileus and diarrhea.
[2020-02-08] MEDS: METOCLOPRAMIDE 5 MG/ML 2 ML VIAL IVP SCH (20:16)
[2020-02-08] MEDS: FLUCONAZOLE IN NACL,ISO-OSM 100 MG in SALINE 1 50ML.BAG IVPB SCH (21:40)
[2020-02-08] MEDS: NYSTATIN 100,000 UNIT/ML SUSP 500,000 UNIT/5 ML CUP PO SCH ×2 (21:41→23:21)
[2020-02-09] MEDS: VANCOMYCIN ORAL SOLUTION 250 MG/5 ML BOTTLE PO SCH ×3 (06:11→16:39)
[2020-02-09] MEDS: PIPERACILLIN-TAZOBACTAM 3.375 GM in SODIUM CHLORIDE 0.9% 100 ML IVPB SCH ×2 (07:14→16:39)
[2020-02-09] MEDS: ASPIRIN 81 MG PEJ/J-Tube SCH (07:16)
[2020-02-09] MEDS: HEPARIN SODIUM,PORCINE 5,000 UNIT/ML 1 ML VIAL SQ SCH ×2 (07:16→21:34)
[2020-02-09] MEDS: LACTOBACILLUS ACIDOPH & BULGAR 1 EACH PACKET PEJ/J-Tube SCH ×2 (07:16→21:33)
[2020-02-09] MEDS: METOCLOPRAMIDE 5 MG/ML 2 ML VIAL IVP SCH ×3 (07:17→21:34)
[2020-02-09] MEDS: NYSTATIN 100,000 UNIT/ML SUSP 500,000 UNIT/5 ML CUP PO SCH ×4 (07:17→21:33)
[2020-02-09] MEDS: PANTOPRAZOLE 40 MG/10 ML VIAL IVP SCH (07:17)
[2020-02-09] MEDS: NYSTATIN 100,000 UNIT/GM POWD 15 GM TOPICAL SCH ×2 (07:17→21:34)
[2020-02-09] MEDS: BRIMONIDINE TARTRATE 0.2% DROPS 5 ML BTL BOTH EYES SCH ×3 (07:18→21:34)
[2020-02-09] MEDS: TIMOLOL 0.5% OPHTH DROPS 5 ML BTL BOTH EYES SCH ×2 (07:18→21:35)
[2020-02-09 08:13] LABS: Anisocytosis Slight; Basophils # (A) 0.1 k/uL (0-0.2); Basophils % (A) 1 %; Eosinophils # (A) 0.8 k/uL (0-0.7); Eosinophils % (A) 7 %; HCT 33.3 % (39.0-53.0); HGB 10.1 gm/dL (13.0-17.5); Hypochromasia Marked; Lymphocytes # (A) 0.9 k/uL (1.0-4.8); Lymphocytes % (A) 8 %; MCH 32.7 pg (25.0-35.0); MCHC 30.5 g/dL (31.0-37.0); MCV 107.5 fL (80.0-100.0); Macrocytosis Marked; Mean Platelet Volume 9.6; Monocytes # (A) 0.6 k/uL (0-1.0); Monocytes % (A) 5 %; Neutrophils % (A) 78 %; Platelet Count 448 k/uL (150-450); Poikilocytosis Slight; RDW 17.2 % (11.5-15.5); WBC 11.6 k/uL (3.8-10.6)
[2020-02-09 08:26] LABS: African American GFR (CKD) >90 (>60 ml/min/1.73 sqM); Anion Gap 5 mmol/L; Blood Urea Nitrogen 15 mg/dL (9-20); Carbon Dioxide 21 mmol/L (22-30); Chloride 121 mmol/L (98-107); Glucose 150 mg/dL (74-99); Magnesium 2.1 mg/dL (1.6-2.3); Non-African American GFR(CKD) 90 (>60 ml/min/1.73 sqM); Potassium 3.4 mmol/L (3.5-5.1); Sodium 147 mmol/L (137-145)
[2020-02-09 11:00] LABS: Howell-Jolly Bodies Present
[2020-02-09] MEDS: FOLIC ACID 1 MG TAB PO SCH (11:21)
[2020-02-09] MEDS: MULTIVITAMINS, THERA 1 EACH TAB PO SCH (11:21)
[2020-02-09] MEDS: THIAMINE 100 MG TAB PO SCH (11:22)
[2020-02-09] MEDS: D5-0.9% NACL WITH KCL 20 MEQ/L 1,000 ML IV SCH (11:24)
--- NOTE | 2020-02-09 11:43 | P.PN ---
Progress Note - Text Progress Note Date: 02/09/20 The patient is tolerating tube feeds The J-tube site is clean. Patient continue supportive care.
--- NOTE | 2020-02-09 15:41 | PN ---
PROGRESS NOTE DATE OF SERVICE: 02/09/2020 REASON FOR FOLLOWUP: Aspiration pneumonia. INTERVAL HISTORY: The patient is currently afebrile. The patient is breathing more comfortably. Apparently did have another episode of vomiting per the sitter at the bedside. The patient denies any chest pain, shortness of breath or cough. No abdominal pain and no diarrhea. PHYSICAL EXAMINATION: Blood pressure is 157/78 with a pulse of 67, temperature 98.1. He is 94% on 2 L nasal cannula. General description is an elderly male lying in bed in no distress. Respiratory system: Unlabored breathing, decreased breath sounds at the bases. No wheeze. Heart S1, S2. Regular rate and rhythm. Abdomen soft, no tenderness. LABS: Hemoglobin is 10.8, white count 11.6, creatinine 0.62. DIAGNOSTIC IMPRESSION AND PLAN: Patient with an episode of aspiration pneumonia, currently on Zosyn. Fever and white count responded. However, the patient now having episode of vomiting. He did have a CT of abdomen and pelvis and did not show any evidence of obstruction. Surgery is follow the patient closely and continue supportive care. MMODL / IJN: [id number] /
--- NOTE | 2020-02-09 20:32 | PN ---
PROGRESS NOTE DATE OF SERVICE: 02/09/2020 This 89-year-old gentleman who was admitted with multiple medical problems had bilateral aspiration pneumonia. The patient also had some features of ileus also. Surgery and gastroenterology following the patient closely. The patient continues to be confused. Past medical reviewed. Review of system could not be taken, the patient is confused. CURRENT MEDICATIONS: Reviewed and include: Tylenol p.r.n., Aspirin 81 mg per G-tube, Alphagan, Fluconazole, folic acid, heparin, Dilaudid, Lactinex, Ativan, replacement protocol, multivitamins, Narcan, Protonix, Zosyn, vitamin B1, Timoptic, vancomycin p.o. PHYSICAL EXAM: Patient is alert, oriented x1. Pulse 73. Blood pressure 160/77. Respirations 14, temperature 98.1, pulse ox 97% on 2 L. HEENT: Conjunctivae normal. NECK: No JVD. CARDIOVASCULAR: S1, S2 muffled. Respiration: Breath sounds diminished in the bases. A few scattered rhonchi and crackles. ABDOMEN: Soft. J-tube in situ. Legs are no edema. No swelling. NERVOUS SYSTEM: No focal deficits. LABS: WBC 11.7, hemoglobin 10.1, 147, potassium 3.4. ASSESSMENT: 1. Bilateral aspiration pneumonia with possible sepsis present on admission with severe sepsis, septic shock. 2. Change in mental status, metabolic encephalopathy, acute on chronic possibly secondary to sepsis. 3. History of recent fall and concussion. 4. Dysphagia, status post J-tube insertion. 5. Increased WBC. 6. Macrocytic anemia. 7. Elevated lactic acid secondary to sepsis. 8. Elevated total bilirubin possibly secondary to sepsis, increased alkaline phosphatase. 9. Hypoalbuminemia with mild protein calorie malnutrition. 10.History of recent failed barium swallow as J-tube insertion. 11.History of dementia possibly. 12.Gastroesophageal reflux disease. 13.Hyperlipidemia. 14.History of prostate cancer. 15.History of sepsis previously. 16.History of TURP. 17.History of spherocytosis, treated with splenectomy remotely. 18.History of hiatal hernia. 19.History of shingles. 20.History of fracture right shoulder with malunion. 21.History of L3 fracture. 22.History of Whipple's procedure. 23.History of coronary artery disease, coronary artery bypass grafting. 24.History of inguinal hernia. 25.Oral candidiasis. 26.FULL CODE. RECOMMENDATIONS AND DISCUSSION: Recommend to continue current medications, management and symptomatic treatment. Continue the antibiotics. Monitor electrolytes closely. Supplement potassium. Aspiration precautions. Continue the rest of the medications. Follow closely with surgery. Reglan cautiously. Otherwise, once the patient improves, ECF rehab. Further recommendations to follow. MOANE / NIKKI: [id number] / MTDD
[2020-02-09] MEDS: FLUCONAZOLE IN NACL,ISO-OSM 100 MG in SALINE 1 50ML.BAG IVPB SCH (21:33)
[2020-02-09] MEDS: POTASSIUM CHLORIDE 10 MEQ in WATER FOR INJECTION 1 100ML.BAG IVPB SCH ×2 (22:45→23:24)
[2020-02-10] MEDS: D5-0.9% NACL WITH KCL 20 MEQ/L 1,000 ML IV SCH (01:01)
[2020-02-10] MEDS: PIPERACILLIN-TAZOBACTAM 3.375 GM in SODIUM CHLORIDE 0.9% 100 ML IVPB SCH (01:01)
[2020-02-10] MEDS: POTASSIUM CHLORIDE 10 MEQ in WATER FOR INJECTION 1 100ML.BAG IVPB SCH ×2 (01:04→02:00)
[2020-02-10] MEDS: ASPIRIN 81 MG PEJ/J-Tube SCH (06:45)
[2020-02-10] MEDS: LACTOBACILLUS ACIDOPH & BULGAR 1 EACH PACKET PEJ/J-Tube SCH ×2 (06:46→21:52)
[2020-02-10] MEDS: PANTOPRAZOLE 40 MG/10 ML VIAL IVP SCH (06:47)
[2020-02-10] MEDS: HEPARIN SODIUM,PORCINE 5,000 UNIT/ML 1 ML VIAL SQ SCH ×2 (06:47→21:52)
[2020-02-10] MEDS: METOCLOPRAMIDE 5 MG/ML 2 ML VIAL IVP SCH ×3 (06:47→21:52)
[2020-02-10] MEDS: NYSTATIN 100,000 UNIT/GM POWD 15 GM TOPICAL SCH ×2 (06:48→21:54)
[2020-02-10] MEDS: NYSTATIN 100,000 UNIT/ML SUSP 500,000 UNIT/5 ML CUP PO SCH ×4 (06:48→21:53)
[2020-02-10 06:58] LABS: Glucose,Whole Blood 165 mg/dL (75-99)
[2020-02-10] MEDS: TIMOLOL 0.5% OPHTH DROPS 5 ML BTL BOTH EYES SCH ×2 (06:59→21:54)
[2020-02-10] MEDS: BRIMONIDINE TARTRATE 0.2% DROPS 5 ML BTL BOTH EYES SCH ×3 (06:59→21:55)
[2020-02-10 07:27] LABS: African American GFR (CKD) >90 (>60 ml/min/1.73 sqM); Anion Gap 4 mmol/L; Blood Urea Nitrogen 14 mg/dL (9-20); Calcium 7.8 mg/dL (8.4-10.2); Carbon Dioxide 23 mmol/L (22-30); Chloride 122 mmol/L (98-107); Glucose 153 mg/dL (74-99); Non-African American GFR(CKD) >90 (>60 ml/min/1.73 sqM); Potassium 3.8 mmol/L (3.5-5.1); Sodium 149 mmol/L (137-145)
[2020-02-10 07:58] LABS: Anisocytosis Slight; Basophils # (A) 0.1 k/uL (0-0.2); Basophils % (A) 0 %; Eosinophils # (A) 0.8 k/uL (0-0.7); Eosinophils % (A) 6 %; HGB 10.7 gm/dL (13.0-17.5); Hypochromasia Marked; Lymphocytes # (A) 0.9 k/uL (1.0-4.8); Lymphocytes % (A) 6 %; MCH 34.4 pg (25.0-35.0); MCHC 31.4 g/dL (31.0-37.0); MCV 109.4 fL (80.0-100.0); Macrocytosis Marked; Monocytes # (A) 0.7 k/uL (0-1.0); Monocytes % (A) 5 %; Neutrophils # (A) 11.2 k/uL (1.3-7.7); Neutrophils % (A) 81 %; Platelet Count 460 k/uL (150-450); Poikilocytosis Slight; RBC 3.11 m/uL (4.30-5.90); RDW 17.4 % (11.5-15.5); WBC 13.9 k/uL (3.8-10.6)
--- NOTE | 2020-02-10 09:22 | P.PN ---
Progress Note - Text Progress Note Date: 02/10/20 Per the nursing staff the patient had a small bilious emesis emesis yesterday. He is tolerating his tube feeds. He is stooling with liquid bowel movements. On exam vital signs appear stable. Abdomen soft. The patient has a previous partial gastrectomy with Fabien-en-Y anastomosis. I am unsure of the significance of the small bilious emesis at this time. He appears to be tolerating his tube feeds we will observe him closely.
[2020-02-10 10:03] LABS: Howell-Jolly Bodies Present; Polychromasia Present
[2020-02-10] MEDS: THIAMINE 100 MG TAB PO SCH (10:53)
[2020-02-10] MEDS: FOLIC ACID 1 MG TAB PO SCH (10:53)
[2020-02-10] MEDS: MULTIVITAMINS, THERA 1 EACH TAB PO SCH (10:53)
[2020-02-10] MEDS ORDERED: DEXTROSE 5% IN WATER 1,000 ML IV SCH (11:30)
[2020-02-10] MEDS ORDERED: DEXTROSE 5% IN WATER 1,000 ML with POTASSIUM CHLORIDE 20 MEQ IV SCH (11:30)
--- NOTE | 2020-02-10 11:41 | XR ---
EXAMINATION TYPE: XR chest 1V portable DATE OF EXAM: 02/10/2020 HISTORY: dif in breathing. REFERENCE: Previous study dated 02/07/2020. FINDINGS: There has been a midline sternotomy. The heart is enlarged. There is right-sided airspace disease, unchanged from previous. There are smal l, bilateral effusions. 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 IMPRESSION: NO SIGNIFICANT INTERVAL CHANGE IN THE APPEARANCE OF THE CHEST.
--- NOTE | 2020-02-10 11:43 | XR ---
EXAMINATION TYPE: XR abdomen 1V , ONE VIEW DATE OF EXAM ORDERED: 02/10/2020 HISTORY: abd distention. COMPARISON: Previous study dated 02/07/2020. FINDINGS: Radiopaque lines project over the left side of the abdomen. There is splenic artery calcif ication in the left upper quadrant. The abdominal gas pattern is within normal limits. There is no evidence of obstruction or free air. N o unusual calcifications are seen. Surgical clips are noted on the right side of the abdomen. IMPRESSION: NONSPECIFIC ABDOMINAL PICTURE. FOLLOW-UP CLINICALLY INDICATED IS SUGGESTED.
[2020-02-10] MEDS: D5W WITH KCL 20 MEQ/L 1,000 ML IV SCH (12:41)
[2020-02-10 17:14] LABS: Glucose,Whole Blood 119 mg/dL (75-99)
[2020-02-10] MEDS: FLUCONAZOLE IN NACL,ISO-OSM 100 MG in SALINE 1 50ML.BAG IVPB SCH (21:52)
[2020-02-10] MEDS: metroNIDAZOLE 500 MG TAB PEG/G-TUBE SCH (21:52)
--- NOTE | 2020-02-10 23:34 | PN ---
PROGRESS NOTE DATE OF SERVICE: 02/10/2020 This 89-year-old gentleman who was admitted with multiple medical problems including bilateral aspiration pneumonia, also has features of ileus. The patient also has abdominal distention. Today the patient also has hypernatremia. Patient is confused. A CT scan of the abdomen and pelvis was done 2 days ago, which was reviewed by me. Multiple consultants are following the patient closely including Surgery and as well as Gastroenterology. The most recent chest x-ray done today showed no significant interval changes, but bilateral lesions. An abdominal x-ray was reviewed also which showed nonspecific abnormality. There are some dilated loops. No chest pain. No palpitations. PAST MEDICAL HISTORY: Reviewed. REVIEW OF SYSTEMS: Could not be taken, the patient is confused. CURRENT MEDICATIONS: Current medications are reviewed and include: 1. Tylenol p.r.n. 2. Aspirin 81 mg per PEG tube. 3. Alphagan. 4. Fluconazole. 5. Folic acid. 6. Heparin. 7. Dilaudid. 8. Lactinex. 9. Ativan. 10.Reglan. 11.Multivitamins. 12.Mycostatin. 13.Protonix. 14.Vitamin B1. 15.Timoptic. PHYSICAL EXAMINATION: The patient is alert and oriented x3. Pulse 81, blood pressure 156/68, respirations 16, temperature 99.6, pulse ox 95% on 2 L. HEENT: Conjunctivae normal. NECK: No jugular venous distention. CARDIOVASCULAR: S1, S2 muffled. RESPIRATORY: Breath sounds diminished at the bases. Bilateral scattered rhonchi and crackles. ABDOMEN: Soft, obese, nontender. LEGS: No edema. No swelling. NERVOUS SYSTEM: No focal deficits. LABS: WBC 13.9, hemoglobin 10.7, sodium 149, potassium 3.8. ASSESSMENT: 1. Bilateral aspiration pneumonia with possible sepsis present on admission with severe sepsis, septic shock. 2. Change in mental status, metabolic encephalopathy, acute on chronic possibly secondary sepsis. 3. History of recent fall and concussion. 4. Dysphagia, status post J-tube insertion. 5. Increased WBC. 6. Macrocytic anemia. 7. Elevated lactic acid secondary to sepsis. 8. Elevated total bilirubin possibly secondary sepsis. 9. Increased alkaline phosphatase. 10.Hypoalbuminemia with mild protein-calorie malnutrition. 11.History of recent failed barium swallow with J-tube insertion. 12.History of dementia possibly. 13.Gastroesophageal reflux disease. 14.Hyperlipidemia. 15.History of prostate cancer. 16.History of sepsis previously. 17.History of TURP. 18.History of spherocytosis, treated with splenectomy remotely. 19.History of hiatal hernia. 20.History of shingles. 21.History of fracture right shoulder malunion. 22.History of L3 fracture. 23.History of Whipple's procedure. 24.History of coronary artery disease, coronary artery bypass grafting. 25.History of inguinal hernia. 26.History of oral candidiasis. 27.FULL CODE. RECOMMENDATIONS AND DISCUSSION: Recommend to continue current medications, continue with monitoring and symptomatic treatment. Otherwise as this time I recommend continue with current medication, continue symptomatic treatment. Otherwise, x-rays noted. Will hold the tube feeds at this time. Replace the IV fluids with D5 water. Monitor electrolytes closely. Prognosis guarded. I had a detailed discussion with the family on multiple occasions. Further recommendations to follow. MONAE / JACOBN: [id number] /
[2020-02-11] MEDS: PIPERACILLIN-TAZOBACTAM 3.375 GM in SODIUM CHLORIDE 0.9% 100 ML IVPB SCH ×4 (00:10→23:22)
--- NOTE | 2020-02-11 05:22 | PN ---
PROGRESS NOTE DATE OF SERVICE: 02/10/2020 REASON FOR FOLLOWUP: Aspiration pneumonia. INTERVAL HISTORY: The patient is currently afebrile. The patient is breathing comfortably. The patient denies having any chest pain. No shortness of breath. Occasional cough. No abdominal pain. No further vomiting has been reported or any diarrhea by the sitter at the bedside. PHYSICAL EXAMINATION: Blood pressure 130/69 with a pulse of 67, temperature 99.7. She is 94% on 2 L nasal cannula. General description is an elderly male lying in bed in no distress. RESPIRATORY SYSTEM: Unlabored breathing, clear to auscultation anteriorly. HEART: S1, S2. Regular rate and rhythm. ABDOMEN: Soft, mildly distended. No guarding or rigidity. LABS: Hemoglobin is 10.7, white count 13.9, BUN of 14, creatinine 0.59. DIAGNOSTIC IMPRESSION AND PLAN: Patient with a component of aspiration pneumonia. Blood culture negative. No sputum could be collected. X-ray this morning shows stable right-sided infiltrate. Abdominal x-ray was nonspecific as well. The patient is currently covered with Zosyn to continue. Did have slight jump in white count. Will monitor closely. Continue with supportive care. MMODL / IJN: [id number] /
[2020-02-11] MEDS: HEPARIN SODIUM,PORCINE 5,000 UNIT/ML 1 ML VIAL SQ SCH ×2 (08:41→21:19)
[2020-02-11] MEDS: METOCLOPRAMIDE 5 MG/ML 2 ML VIAL IVP SCH ×3 (08:41→21:19)
[2020-02-11] MEDS: D5W WITH KCL 20 MEQ/L 1,000 ML IV SCH (08:41)
[2020-02-11] MEDS: PANTOPRAZOLE 40 MG/10 ML VIAL IVP SCH (08:42)
[2020-02-11] MEDS: metroNIDAZOLE 500 MG TAB PEG/G-TUBE SCH ×3 (08:42→21:20)
[2020-02-11] MEDS: LACTOBACILLUS ACIDOPH & BULGAR 1 EACH PACKET PEJ/J-Tube SCH ×2 (08:42→21:20)
[2020-02-11] MEDS: ASPIRIN 81 MG PEJ/J-Tube SCH (08:42)
[2020-02-11] MEDS: NYSTATIN 100,000 UNIT/GM POWD 15 GM TOPICAL SCH ×2 (08:43→21:21)
[2020-02-11] MEDS: BRIMONIDINE TARTRATE 0.2% DROPS 5 ML BTL BOTH EYES SCH ×3 (08:43→21:20)
[2020-02-11] MEDS: TIMOLOL 0.5% OPHTH DROPS 5 ML BTL BOTH EYES SCH ×2 (08:43→21:20)
[2020-02-11 08:57] LABS: Anisocytosis Slight; Basophils # (A) 0.1 k/uL (0-0.2); Basophils % (A) 1 %; Eosinophils # (A) 0.8 k/uL (0-0.7); Eosinophils % (A) 8 %; HCT 31.2 % (39.0-53.0); HGB 9.7 gm/dL (13.0-17.5); Hypochromasia Marked; Lymphocytes # (A) 0.9 k/uL (1.0-4.8); Lymphocytes % (A) 8 %; MCH 34.7 pg (25.0-35.0); MCHC 31.1 g/dL (31.0-37.0); MCV 111.5 fL (80.0-100.0); Macrocytosis Marked; Mean Platelet Volume 9.8; Monocytes # (A) 0.3 k/uL (0-1.0); Monocytes % (A) 3 %; Neutrophils # (A) 8.6 k/uL (1.3-7.7); Neutrophils % (A) 78 %; Platelet Count 450 k/uL (150-450); Poikilocytosis Slight; RDW 17.2 % (11.5-15.5)
[2020-02-11 09:03] LABS: African American GFR (CKD) >90 (>60 ml/min/1.73 sqM); Anion Gap 2 mmol/L; Blood Urea Nitrogen 15 mg/dL (9-20); Calcium 7.8 mg/dL (8.4-10.2); Carbon Dioxide 27 mmol/L (22-30); Chloride 116 mmol/L (98-107); Glucose 134 mg/dL (74-99); Non-African American GFR(CKD) 88 (>60 ml/min/1.73 sqM); Potassium 4.2 mmol/L (3.5-5.1); Sodium 145 mmol/L (137-145)
--- NOTE | 2020-02-11 13:20 | PN ---
PROGRESS NOTE DATE OF SERVICE: 02/11/2020 REASON FOR FOLLOWUP: Aspiration pneumonia. INTERVAL HISTORY: Patient is currently afebrile. Patient is breathing comfortably. No chest pain, shortness of breath or cough. Has been asking for coffee. No vomiting. Did have one episode of diarrhea per the nursing staff. PHYSICAL EXAMINATION: Blood pressure 160/74 with a pulse of 64, temperature 97.7. He is 97% on 2 L. General description: Elderly male lying in bed in no distress. Respiratory system: Unlabored breathing. Clear to auscultation anteriorly. Heart S1, S2. Regular rate and rhythm. Abdomen soft, no tenderness. LABS: Hemoglobin 9.7, white count down to 11,000. BUN of 15, creatinine 0.64. Sputum obtained yesterday currently pending. DIAGNOSTIC IMPRESSION AND PLAN: Patient with aspiration pneumonia, concern for any aspiration. The patient is currently covered with Zosyn to continue and adjust med further on the basis of the culture report. Continue supportive care. MMODL / IJN: [id number] /
[2020-02-11 14:45] VITALS: BMI 22.9
[2020-02-11] MEDS: NYSTATIN 100,000 UNIT/ML SUSP 500,000 UNIT/5 ML CUP PO SCH ×4 (15:13→23:22)
[2020-02-11] MEDS: FOLIC ACID 1 MG TAB PO SCH (15:21)
[2020-02-11] MEDS: MULTIVITAMINS, THERA 1 EACH TAB PO SCH (15:21)
[2020-02-11] MEDS: THIAMINE 100 MG TAB PO SCH (15:22)
[2020-02-11 15:32] VITALS: RESP 19
--- NOTE | 2020-02-11 15:46 | P.PN ---
Progress Note - Text Progress Note Date: 02/11/20 Patient is tolerating tube feeds. He is doing. J-tube site appears clean. Continue supportive care.
[2020-02-11] MEDS: FLUCONAZOLE IN NACL,ISO-OSM 100 MG in SALINE 1 50ML.BAG IVPB SCH (21:17)
[2020-02-12 01:34] VITALS: PULSE 69
[2020-02-12] MEDS: D5W WITH KCL 20 MEQ/L 1,000 ML IV SCH (03:16)
--- NOTE | 2020-02-12 05:34 | P.PN ---
Subjective Progress Note Date: 02/11/20 Principal diagnosis: This is an 89 year old male who was recently admitted with multiple medical problems including bilateral aspiration pneumonia and also features of an ileus and is being closely monitored. Patient is being followed by multiple medical consultations including surgery and infectious disease. Patient has a j tube and is currently back on tube feedings with a goal of 40. Tube feeding were held intermittently at times yesterday as patient was having some episodes of emesis. Small amount of emesis noted today consists of phlegm at the bedside. Patient is having loose stool per nursing staff. Patient is maintained on Zosyn and will continue at this time. No reports of chest pain or palpitations. Patient is awake but extremely lethargic and fatigues easily. Patient continues to be confused. Review of systems: unable to obtain the patient's current clinical status and patient continues to be confused Active Medications Acetaminophen (Tylenol Tab) 650 mg PO Q6H PRN PRN Reason: Pain Last Admin: 02/10/20 21:51 Dose: 650 mg Documented by: Aspirin (Aspirin) 81 mg PEJ/J-Tube DAILY [facility] Last Admin: 02/11/20 08:42 Dose: 81 mg Documented by: Brimonidine Tartrate (Alphagan P 0.2% [facility]) 1 drops BOTH EYES TID [facility] Last Admin: 02/11/20 08:43 Dose: 1 drops Documented by: Folic Acid (Folic Acid) 1 mg PO DAILY@1200 [facility] Last Admin: 02/10/20 10:53 Dose: 1 mg Documented by: Heparin Sodium (Porcine) (Heparin) 5,000 unit SQ Q12HR [facility] Last Admin: 02/11/20 08:41 Dose: 5,000 unit Documented by: Hydromorphone HCl (Dilaudid) 0.5 mg IVP Q6HR PRN PRN Reason: Severe Pain Fluconazole/Sodium Chloride (100 mg/ IV Solution) 50 mls @ 50 mls/hr IVPB HS [facility] Last Admin: 02/10/20 21:52 Dose: 50 mls/hr Documented by: Potassium Chloride/Dextrose (D5%-Kcl 20 Meq/L Iv Solution) 1,000 mls @ 50 mls/hr IV .Q20H [facility] Last Admin: 02/11/20 08:41 Dose: 50 mls/hr Documented by: Piperacillin Sod/Tazobactam (Sod 3.375 gm/ Sodium Chloride) 100 mls @ 25 mls/hr IVPB Q8HR [facility] Last Admin: 02/11/20 08:40 Dose: 25 mls/hr Documented by: Lactobacillus Acidoph/Bulgaricus (Lactinex) 2 each PEJ/J-Tube BID [facility] Last Admin: 02/11/20 08:42 Dose: 2 each Documented by: Lorazepam (Ativan) 0.5 mg IV Q6HR PRN PRN Reason: Anxiety Last Admin: 02/10/20 03:11 Dose: 0.5 mg Documented by: Metoclopramide HCl (Reglan) 5 mg IVP TID [facility] Last Admin: 02/11/20 08:41 Dose: 5 mg Documented by: Metronidazole (Flagyl) 500 mg PEG/G-TUBE TID [facility] Last Admin: 02/11/20 08:42 Dose: 500 mg Documented by: Miscellaneous Information (Pneumonia Protocol Utilized) 1 each PO ONCE PRN PRN Reason: Per Protocol Miscellaneous Information (Magnesium Per Protocol) 1 each MISCELLANE DAILY PRN; Protocol PRN Reason: Per Protocol Miscellaneous Information (Potassium Per Protocol) 1 each MISCELLANE DAILY PRN; Protocol PRN Reason: Per Protocol Multivitamins (Theragran) 1 each PO DAILY@1200 [facility] Last Admin: 02/10/20 10:53 Dose: 1 each Documented by: Nystatin (Mycostatin Powder) 1 applic TOPICAL BID [facility] Last Admin: 02/11/20 08:43 Dose: 1 applic Documented by: Nystatin (Mycostatin Oral Susp) 500,000 unit PO QID [facility] Last Admin: 02/10/20 21:53 Dose: Not Given Documented by: Pantoprazole Sodium (Protonix) 40 mg IVP DAILY [facility] Last Admin: 02/11/20 08:42 Dose: 40 mg Documented by: Thiamine HCl (Vitamin B-1) 100 mg PO DAILY@1200 [facility] Last Admin: 02/10/20 10:53 Dose: 100 mg Documented by: Timolol Maleate (Timoptic) 1 drops BOTH EYES BID [facility] Last Admin: 02/11/20 08:43 Dose: 1 drops Documented by: Objective - Vital Signs Vital signs: Vital Signs Temp 97.7 F 02/11/20 07:00 Pulse 64 02/11/20 07:45 Resp 20 06/29/20 07:45 BP 160/74 02/11/20 07:00 Pulse Ox 97 02/11/20 07:00 Intake & Output 02/10/20 02/11/20 02/11/20 18:59 06:59 18:59 Intake Total 80 80 Output Total 1 302 Balance 79 -222 Weight 68.5 kg 68.5 kg Intake: Oral 0 Tube Feeding 80 80 Output: Urine 300 Stool 1 2 Other: Voiding Method Indwelling Catheter Indwelling Catheter Indwelling Catheter # Voids 0 0 - Exam Gen: This is a 89-year-old male sitting up in bed awake but lethargic, confused, oriented 1. Temp is 97.7F, pulse is 64, respirations are 17, blood pressure is 160/74, oxygen saturation is 97% on 2 L via nasal cannula. HEENT: Head is atraumatic, normocephalic. Pupils equal, round. Sclerae is anicteric. Tongue is yellowish-green in color with crusting noted NECK: Supple. No JVD. No lymphadenopathy. No thyromegaly. LUNGS: Lung sounds diminished at the bases bilaterally with a few scattered rhonchi and crackles noted. No intercostal retractions. HEART: S1, S2 are muffled ABDOMEN: Soft. Bowel sounds are present. No masses. No tenderness. J-tube noted at goal EXTREMITIES: No pedal edema. No calf tenderness. NEUROLOGICAL: Patient is awake, alert and oriented x1. Diffusely weak - Labs CBC & Chem 7: 02/11/20 08:00 02/11/20 08:00 Labs: Abnormal Lab Results - Last 24 Hours (Table) 02/10/20 02/11/20 02/11/20 Range/Units 17:13 08:00 08:00 WBC 11.0 H (3.8-10.6) k/uL RBC 2.80 L (4.30-5.90) m/uL Hgb 9.7 L (13.0-17.5) gm/dL Hct 31.2 L (39.0-53.0) % MCV 111.5 H (80.0-100.0) fL RDW 17.2 H (11.5-15.5) % Neutrophils # 8.6 H (1.3-7.7) k/uL Lymphocytes # 0.9 L (1.0-4.8) k/uL Eosinophils # 0.8 H (0-0.7) k/uL Macrocytosis Marked A Chloride 116 H (98-107) mmol/L Creatinine 0.64 L (0.66-1.25) mg/dL Glucose 134 H (74-99) mg/dL POC Glucose (mg/dL) 119 H (75-99) mg/dL Calcium 7.8 L (8.4-10.2) mg/dL Microbiology - Last 24 Hours (Table) 02/10/20 20:38 Gram Stain - Preliminary Sputum Sputum Culture - Preliminary Assessment and Plan Assessment: Bilateral aspiration pneumonia with possible sepsis, present on admission, with severe sepsis and septic shock Change in mental status, metabolic encephalopathy, acute on chronic, possibly secondary to sepsis History of recent fall and concussion Dysphagia, status post J-tube insertion Increased white blood count Macrocytic anemia Elevated lactic acid, secondary to sepsis Elevated total bilirubin secondary to sepsis and increased alkaline phosphatase Hypoalbuminemia with mild protein calorie malnutrition History of recent failed barium swallow as well as J-tube insertion History of dementia possibly Gastroesophageal reflux disease Hyperlipidemia history of prostate cancer History of sepsis previously History of transurethral resection of prostate History of spherocytosis, treated with splenectomy remotely History of hiatal hernia History of shingles History of fracture of right shoulder with malunion History of L3 fracture Coronary artery disease, coronary artery bypass grafting History of inguinal hernia Oral candidiasis Full code Recommendations and discussion: Recommend to continue current medications, management, and symptomatic treatment. He is currently maintained on antibiotics and strict aspiration precautions along with bronchodilators and will continue at this time. Will decrease IV fluids to 20mL/hour. Patient is maintained on nothing by mouth status with tube feedings only. PT/OT following the patient. Patient continues to be quite lethargic and weak and continues to be confused. Will repeat am labs and monitor vitals and labs closely. Current sodium is 145 and WBC trending down at 11.0. Due to multiple complex medical issues, prognosis is extremely guarded. Further recommendations to follow.
[2020-02-12] MEDS: NYSTATIN 100,000 UNIT/ML SUSP 500,000 UNIT/5 ML CUP PO SCH ×2 (08:51→14:59)
[2020-02-12] MEDS: PANTOPRAZOLE 40 MG/10 ML VIAL IVP SCH (08:51)
[2020-02-12] MEDS: METOCLOPRAMIDE 5 MG/ML 2 ML VIAL IVP SCH (08:51)
[2020-02-12] MEDS: HEPARIN SODIUM,PORCINE 5,000 UNIT/ML 1 ML VIAL SQ SCH (08:51)
[2020-02-12] MEDS: ASPIRIN 81 MG PEJ/J-Tube SCH (08:51)
[2020-02-12] MEDS: TIMOLOL 0.5% OPHTH DROPS 5 ML BTL BOTH EYES SCH (08:52)
[2020-02-12] MEDS: BRIMONIDINE TARTRATE 0.2% DROPS 5 ML BTL BOTH EYES SCH (08:52)
[2020-02-12] MEDS: LACTOBACILLUS ACIDOPH & BULGAR 1 EACH PACKET PEJ/J-Tube SCH (08:52)
[2020-02-12] MEDS: metroNIDAZOLE 500 MG TAB PEG/G-TUBE SCH (08:52)
[2020-02-12] MEDS: NYSTATIN 100,000 UNIT/GM POWD 15 GM TOPICAL SCH (08:52)
[2020-02-12] MEDS: PIPERACILLIN-TAZOBACTAM 3.375 GM in SODIUM CHLORIDE 0.9% 100 ML IVPB SCH (08:52)
[2020-02-12 09:35] VITALS: BP 164/71; TEMP 97.8
--- NOTE | 2020-02-12 10:19 | P.PN ---
Progress Note - Text Progress Note Date: 02/12/20 The patient remains relatively unchanged. He is tolerating his tube feeds. His J-tube site is clean. He'll continue receive supportive care.
[2020-02-12 10:46] LABS: African American GFR (CKD) >90 (>60 ml/min/1.73 sqM); Anion Gap 4 mmol/L; Blood Urea Nitrogen 15 mg/dL (9-20); Calcium 7.7 mg/dL (8.4-10.2); Carbon Dioxide 24 mmol/L (22-30); Chloride 114 mmol/L (98-107); Glucose 122 mg/dL (74-99); Non-African American GFR(CKD) >90 (>60 ml/min/1.73 sqM); Sodium 142 mmol/L (137-145)
[2020-02-12 11:45] LABS: Anisocytosis Slight; HCT 31.7 % (39.0-53.0); Hypochromasia Marked; MCH 34.9 pg (25.0-35.0); MCHC 31.6 g/dL (31.0-37.0); MCV 110.6 fL (80.0-100.0); Macrocytosis Marked; Mean Platelet Volume 10.6; Platelet Count 373 k/uL (150-450); RBC 2.86 m/uL (4.30-5.90); RDW 17.1 % (11.5-15.5)
[2020-02-12 12:55] LABS: Howell-Jolly Bodies Present; Metamyelocytes % 1 %; Myelocytes % 1 %; Neutrophils % (M) 77 %; Nucleated Red Blood Cells 0 /100 WBC (0-0); Total Cells Counted 200
--- NOTE | 2020-02-12 14:13 | PN ---
PROGRESS NOTE DATE OF SERVICE: 02/12/2020 REASON FOR FOLLOWUP: Aspiration pneumonia. INTERVAL HISTORY: Patient is currently afebrile. Patient is breathing comfortably. Denies having any chest pain. Some cough. No sputum. No abdominal pain. Did have some loose stool yesterday per the RN. On examination, blood pressure 160/71 with a pulse of 65. Temperature is 97.8. He is 95% on room air. General description: The patient is an elderly male lying in bed in no distress. Respiratory system: Unlabored breathing. Clear to auscultation anteriorly. Heart S1, S2. Regular rate and rhythm. Abdomen soft, no tenderness. LABS: Hemoglobin is 10.3, white count 10, BUN of 15, creatinine 0.61. Blood and sputum cultures have been negative so far. DIAGNOSTIC IMPRESSION AND PLAN: Patient with an episode of aspiration pneumonia. Sputum has been negative for resistant pathogen on Zosyn. Transition to oral Augmentin for about a week to finish course of therapy and close outpatient followup. MMODL / IJN: [id number] /
[2020-02-12] MEDS: FOLIC ACID 1 MG TAB PO SCH (14:58)
[2020-02-12] MEDS: MULTIVITAMINS, THERA 1 EACH TAB PO SCH (14:58)
[2020-02-12] MEDS: THIAMINE 100 MG TAB PO SCH (14:58)
--- NOTE | 2020-02-12 15:07 | P.DS ---
Providers Date of admission: 02/02/20 15:40 Expected date of discharge: 02/12/20 Attending physician: Usha Godoy Consults: 02/03/20 14:18 Consult Physician Routine Consulting Provider: Aroldo Diana Consult Reason/Comments: J tube site appears infected Do you want consulting provider notified?: Yes 02/04/20 18:31 Consult Physician Routine Consulting Provider: Lewis Jean Baptiste Consult Reason/Comments: sepsis Do you want consulting provider notified?: Yes Primary care physician: [facility] Course: Final diagnosis Bilateral aspiration pneumonia with possible sepsis, present on admission, with severe sepsis and septic shock Change in mental status, metabolic encephalopathy, acute on chronic, possibly secondary to sepsis History of recent fall and concussion Dysphagia, status post J-tube insertion Increased white blood count Macrocytic anemia Elevated lactic acid, secondary to sepsis Elevated total bilirubin secondary to sepsis and increased alkaline phosphatase Hypoalbuminemia with mild protein calorie malnutrition History of recent failed barium swallow as well as J-tube insertion History of dementia possibly Gastroesophageal reflux disease Hyperlipidemia history of prostate cancer History of sepsis previously History of transurethral resection of prostate History of spherocytosis, treated with splenectomy remotely History of hiatal hernia History of shingles History of fracture of right shoulder with malunion History of L3 fracture Coronary artery disease, coronary artery bypass grafting History of inguinal hernia Oral candidiasis Full code Discharge disposition Patient is being discharged in a stable condition with guarded prognosis to [facility]. Patient will follow-up with Dr. Thorne upon discharge. Patient will continue on a short course of antibiotics in the form of Augmentin via PEG tube twice daily for the next 7 days and then may discontinue. Total time taken is 35 minutes. History of present illness This is an 89-year-old male who was recently admitted with multiple medical problems including bilateral aspiration pneumonia and also had features of an ileus and was being closely monitored. Patient was seen and evaluated by GI and surgery along with infectious disease. Patient was continued on IV Zosyn and Flagyl and will continue on Augmentin twice daily for the next 7 days and then may discontinue. Patient is remain with head of the bed elevated 45 at all times and maintain strict aspiration precautions. Patient currently has a J- tube and will continue feedings as directed as well as medications should be liquid form and completely crushed and dissolved in water and given with 20 mL's of water with a flush after. Patient to continue using incentive spirometer with encouragement every hour while awake. Patient continues to be quite weak and lethargic and confused and needs continued PT/OT therapy. Currently no reports of chest pain, shortness of breath, or palpitations. Patient is afebrile. Extremely guarded prognosis On exam vital signs are stable. Temp is 97.8F, pulse is 65, respirations are 20, blood pressure is 164/71, oxygen saturation is 95% on room air. Cardio S1, S2 are muffled. Respiratory shows diminished breath sounds at the bases with a few scattered rhonchi noted. Abdomen is soft and mildly distended and nontender. Nervous system shows mild diffuse weakness. Please refer to medication reconciliation sheet for a list of medications. Health Concerns: Maintain 45 degree angle upright while tube feed is infusing Patient Condition at Discharge: Fair Plan - Discharge Summary Discharge Rx Participant: Yes New Discharge Prescriptions: New Amoxic-Pot Clav 600-42.9MG/5Ml [Augmentin 600-42.9 mg/5 ml Liquid] 5 ml PO Q12H 7 Days #80 ml metroNIDAZOLE [Flagyl] 500 mg PEG/G-TUBE TID tab Folic Acid 1 mg PO DAILY@1200 tab Multivitamins, Thera [Multivitamin (formulary)] 1 each PO DAILY@1200 tab Nystatin 100,000 Unit/gm Powd [Mycostatin Powder] 1 applic TOPICAL BID applic Thiamine [Vitamin B-1] 100 mg PO DAILY@1200 tab Continue Aspirin EC [Ecotrin Low Dose] 81 mg PEJ/J-TUBE DAILY Timolol 0.5% Ophth Soln [Timoptic 0.5% Ophth Soln] 1 drop BOTH EYES BID Brimonidine Tartrate [Alphagan P 0.2% Ophth Soln] 1 drop BOTH EYES TID Acetaminophen [Acetaminophen Oral Soln] 650 mg PO Q6H PRN PRN Reason: Pain Nystatin 100,000 Unit/ml Susp [Mycostatin Oral Susp] 5 ml PO QID metroNIDAZOLE [Flagyl] 500 mg PEJ/J-TUBE Q8HR L.acidoph,Paracasei, B.lactis [Probiotic] 2 cap PEJ/J-TUBE BID Lansoprazole 30 mg PEJ/J-TUBE HS Discontinued Clotrimazole Cream [Lotrimin Cream] 1 applic TOPICAL HS Citalopram Hydrobromide [CeleXA Oral Soln] 20 mg PEJ/J-TUBE HS guaiFENesin-DM 100-10MG/5ML [Robitussin DM] 10 ml PO Q6H PRN PRN Reason: Cough Discharge Medication List Aspirin EC [Ecotrin Low Dose] 81 mg PEJ/J-TUBE DAILY 03/22/16 [History] Brimonidine Tartrate [Alphagan P 0.2% Ophth Soln] 1 drop BOTH EYES TID 01/09/20 [History] Timolol 0.5% Ophth Soln [Timoptic 0.5% Ophth Soln] 1 drop BOTH EYES BID 01/09/20 [History] Acetaminophen [Acetaminophen Oral Soln] 650 mg PO Q6H PRN 02/02/20 [History] L.acidoph,Paracasei, B.lactis [Probiotic] 2 cap PEJ/J-TUBE BID 02/02/20 [History] Lansoprazole 30 mg PEJ/J-TUBE HS 02/02/20 [History] Nystatin 100,000 Unit/ml Susp [Mycostatin Oral Susp] 5 ml PO QID 02/02/20 [History] metroNIDAZOLE [Flagyl] 500 mg PEJ/J-TUBE Q8HR 02/02/20 [History] Amoxic-Pot Clav 600-42.9MG/5Ml [Augmentin 600-42.9 mg/5 ml Liquid] 5 ml PO Q12H 7 Days #80 ml 02/12/20 [Rx] Folic Acid 1 mg PO DAILY@1200 tab 02/12/20 [Rx] Multivitamins, Thera [Multivitamin (formulary)] 1 each PO DAILY@1200 tab 02/12/20 [Rx] Nystatin 100,000 Unit/gm Powd [Mycostatin Powder] 1 applic TOPICAL BID applic 02/12/20 [Rx] Thiamine [Vitamin B-1] 100 mg PO DAILY@1200 tab 02/12/20 [Rx] metroNIDAZOLE [Flagyl] 500 mg PEG/G-TUBE TID tab 02/12/20 [Rx] Follow up Appointment(s)/Referral(s): Mame Thorne MD [STAFF PHYSICIAN] - 1 Week Activity/Diet/Wound Care/Special Instructions: Patient is going to [facility] continue tube feedings 2 parth HN with a goal of 40ml/hr and 30ml water flushes every 4 hours check for residuals continue strict aspiration precautions, head of bed elevated 45 degrees at all times continue with antibiotics for 7 days and then discontinue continue with PT/OT and speech therapy meds via feeding tube increase oral care at least twice daily and as needed Discharge Disposition: TRANSFER TO SNF/ECF
== END 2020-02-12 16:38 | DRG 871 ==
LOC: EC 13:11 → 4SSUR 15:40
PROVIDERS: ADMIT Hospitalist; ATTEND Hospitalist
DX: A41.9 Sepsis, unspecified organism (principal); G93.41 Metabolic encephalopathy; J69.0 Pneumonitis due to inhalation of food and vomit; R65.21 Severe sepsis with septic shock; A04.72 Enterocolitis due to Clostridium difficile, not specified as recurrent; B37.0 Candidal stomatitis; E44.1 Mild protein-calorie malnutrition; E87.0 Hyperosmolality and hypernatremia; J84.9 Interstitial pulmonary disease, unspecified; K56.7 Ileus, unspecified; E87.2 Acidosis; D53.9 Nutritional anemia, unspecified; Z68.22 Body mass index [BMI] 22.0-22.9, adult; E78.5 Hyperlipidemia, unspecified; F03.90 Unspecified dementia, unspecified severity, without behavioral disturbance, psychotic disturbance, mood disturbance, and anxiety; I10 Essential (primary) hypertension; I25.10 Atherosclerotic heart disease of native coronary artery without angina pectoris; K21.9 Gastro-esophageal reflux disease without esophagitis; S32.038D Other fracture of third lumbar vertebra, subsequent encounter for fracture with routine healing; Z20.828 Contact with and (suspected) exposure to other viral communicable diseases; W19.XXXD Unspecified fall, subsequent encounter; R09.02 Hypoxemia; R13.10 Dysphagia, unspecified; S06.0X9D Concussion with loss of consciousness of unspecified duration, subsequent encounter; R40.2364 Coma scale, best motor response, obeys commands, 24 hours or more after hospital admission; R40.2144 Coma scale, eyes open, spontaneous, 24 hours or more after hospital admission; R40.2244 Coma scale, best verbal response, confused conversation, 24 hours or more after hospital admission; Z95.1 Presence of aortocoronary bypass graft; Z87.81 Personal history of (healed) traumatic fracture; Z79.82 Long term (current) use of aspirin; Z80.0 Family history of malignant neoplasm of digestive organs; Z85.068 Personal history of other malignant neoplasm of small intestine; Z85.46 Personal history of malignant neoplasm of prostate; Z86.19 Personal history of other infectious and parasitic diseases; Z87.442 Personal history of urinary calculi; Z90.3 Acquired absence of stomach [part of]; Z90.411 Acquired partial absence of pancreas; Z90.49 Acquired absence of other specified parts of digestive tract; Z90.79 Acquired absence of other genital organ(s); Z90.81 Acquired absence of spleen; Z93.4 Other artificial openings of gastrointestinal tract status; Z87.440 Personal history of urinary (tract) infections; H26.9 Unspecified cataract; E80.6 Other disorders of bilirubin metabolism; R74.8 Abnormal levels of other serum enzymes; Z91.81 History of falling
CPT/HCPCS: 36415; 51702; 71045; 71046; 74018; 74176; 80048; 80053; 80076; 80202; 81001; 82024; 83605; 83735; 84132; 84484; 85025; 85610; 85730; 87040; 87070; 87205; 87324; 93005; 96361; 96365; 96367; 96368; 96376; 99283; 99285

== ENCOUNTER 2020-02-15 12:58 | Emergency (ER) | payer MEDICARE, OTHER ==
[2020-02-15 13:21] VITALS: TEMP 96.9
[2020-02-15] MEDS ORDERED: SODIUM CHLORIDE 0.9% 1,000 ML IV STA (13:23)
--- NOTE | 2020-02-15 13:27 | ED ---
Weakness HPI - General Chief complaint: Abdominal Pain Stated complaint: abdominal distention Time Seen by Provider: 02/15/20 13:02 Source: EMS, RN notes reviewed, old records reviewed Mode of arrival: EMS Limitations: no limitations - History of Present Illness Initial comments: This is an 89-year-old male presents today for evaluation of weakness, and increased abdominal distention compared to prior. Patient presents from extended care facility is at bedside who does provide history patient has significant dysphasia and cognitive disability. Patient denying any complaints, patient does feed to PEG tube there were concerned that he may have increased abdominal distention. Patient is just out of prolonged hospitalization related had a fall significant concussion and developed a stage aspiration pneumonia MD Complaint: generalized weakness, lack of energy, difficulty walking -: days(s) Location: generalized Severity: moderate Severity scale (1-10): 7 Consistency: constant Improves with: none Worsens with: none Context: recent illness, history of similar Associated Symptoms: loss of appetite, nausea/vomiting - Related Data Home Medications Medication Instructions Recorded Confirmed Aspirin EC [Ecotrin Low Dose] 81 mg PEJ/J-TUBE DAILY 03/22/16 02/02/20 Brimonidine Tartrate [Alphagan P 1 drop BOTH EYES TID 01/09/20 02/02/20 0.2% Ophth Soln] Timolol 0.5% Ophth Soln [Timoptic 1 drop BOTH EYES BID 01/09/20 02/02/20 0.5% Ophth Soln] Acetaminophen [Acetaminophen Oral 650 mg PO Q6H PRN 02/02/20 02/02/20 Soln] L.acidoph,Paracasei, B.lactis 2 cap PEJ/J-TUBE BID 02/02/20 02/02/20 [Probiotic] Nystatin 100,000 Unit/ml Susp 5 ml PO QID 02/02/20 02/02/20 [Mycostatin Oral Susp] Previous Rx's Medication Instructions Recorded Amoxic-Pot Clav 600-42.9MG/5Ml 5 ml PO Q12H 7 Days #80 ml 02/12/20 [Augmentin 600-42.9 mg/5 ml Liquid] Metoclopramide Oral Soln [Reglan 5 mg PO Q8HR PRN #100 ml 02/12/20 Oral Soln] Nystatin 100,000 Unit/gm Powd 1 applic TOPICAL BID applic 02/12/20 [Mycostatin Powder] Pantoprazole [Protonix] 0 mg PEG/G-TUBE DAILY #30 tablet. 02/12/20 Allergies Allergy/AdvReac Type Severity Reaction Status Date / Time naproxen sodium [From Aleve] Allergy Rash/Hives Verified 02/15/20 13:22 Review of Systems ROS Statement: Those systems with pertinent positive or pertinent negative responses have been documented in the HPI. ROS Other: All systems not noted in ROS Statement are negative. Past Medical History Past Medical History: Cancer, Dementia, GERD/Reflux, Hyperlipidemia, Memory Impairment, Prostate Disorder Additional Past Medical History / Comment(s): kidney stones, urosepsis, turp - history of self-cathing 1-2 TIMES A DAY- NOT NEEDED SINCE PROSTATE SURGERY. 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 BEGINNINGS OF CATARACTS, HIATAL HERNIA, SHINGLES 2000, FRACTURED RIGHT SHOULDER MAY 2019, dysphagia/feeding tube placement 01/16/20 History of Any Multi-Drug Resistant Organisms: None Reported Past Surgical History: Bowel Resection, Cholecystectomy, Coronary Bypass/CABG, Hernia Repair, Orthopedic Surgery, Prostate Surgery Additional Past Surgical History / Comment(s): spleenectomy, TURP, GADIEL INGUINAL HERNIAS,"WHIPPLE PROCEDURE", RT ROTATOR CUFF REPAIR, LITHOTRISY, J-tube placement 01/16/20 Past Anesthesia/Blood Transfusion Reactions: No Reported Reaction Past Psychological History: No Psychological Hx Reported Smoking Status: Never smoker Past Alcohol Use History: None Reported Past Drug Use History: None Reported - Past Family History Father Family Medical History: Cancer Additional Family Medical History / Comment(s): CANCER OF THE ESOPHAGUS Mother Additional Family Medical History / Comment(s): OF OLD AGE Brother(s) Family Medical History: Cancer Additional Family Medical History / Comment(s): esophagus cancer, pancreatic cancer Sister(s) Family Medical History: Cancer Additional Family Medical History / Comment(s): pancreatic cancer Daughter(s) Additional Family Medical History / Comment(s): intestinal issues with resection Son(s) Family Medical History: No Reported History General Exam Limitations: no limitations General appearance: alert, in no apparent distress Head exam: Present: atraumatic, normocephalic, normal inspection Eye exam: Present: normal appearance, PERRL, EOMI. Absent: scleral icterus, conjunctival injection, periorbital swelling ENT exam: Present: normal exam, mucous membranes moist Neck exam: Present: normal inspection. Absent: tenderness, meningismus, lymphadenopathy Respiratory exam: Present: normal lung sounds bilaterally. Absent: respiratory distress, wheezes, rales, rhonchi, stridor Cardiovascular Exam: Present: regular rate, normal rhythm, normal heart sounds. Absent: systolic murmur, diastolic murmur, rubs, gallop, clicks GI/Abdominal exam: Present: soft, normal bowel sounds. Absent: distended, tenderness, guarding, rebound, rigid Extremities exam: Present: normal inspection, full ROM, normal capillary refill. Absent: tenderness, pedal edema, joint swelling, calf tenderness Back exam: Present: normal inspection Neurological exam: Present: alert, oriented X3, CN II-XII intact Psychiatric exam: Present: normal affect, normal mood Skin exam: Present: warm, dry, intact, normal color. Absent: rash Course Vital Signs 02/15/20 13:12 Temperature 96.9 F L Pulse Rate 79 Respiratory 16 Rate Blood Pressure 148/75 O2 Sat by Pulse 98 Oximetry - Reevaluation(s) Reevaluation #1: 02/15/20 14:15 Medical record and prior hospitalization of been reviewed Reevaluation #2: 02/15/20 14:15 Patient remains without significant complaint Reevaluation #3: 02/15/20 15:39 Issue remains without abdominal pain no nausea or vomiting EKG Findings - EKG Comments: EKG Findings:: EKG shows sinus rhythm of 74 DC 156 QRS 82 QTC 526 Medical Decision Making - Medical Decision Making 79 male DF for evaluation of increased abdominal distention. No significant other findings. X-ray does show some mild ileus changes same as prior. Patient can be discharged - Lab Data Result diagrams: 02/15/20 14:21 02/15/20 14:21 Lab Results 02/15/20 02/15/20 02/15/20 Range/Units 14:21 14:21 14:21 WBC 12.3 H (3.8-10.6) k/uL RBC 2.93 L (4.30-5.90) m/uL Hgb 10.1 L (13.0-17.5) gm/dL Hct 31.6 L (39.0-53.0) % MCV 107.9 H (80.0-100.0) fL MCH 34.6 (25.0-35.0) pg MCHC 32.1 (31.0-37.0) g/dL RDW 16.8 H (11.5-15.5) % Plt Count 520 H (150-450) k/uL Neutrophils % 80 % Lymphocytes % 6 % Monocytes % 5 % Eosinophils % 6 % Basophils % 0 % Neutrophils # 9.9 H (1.3-7.7) k/uL Lymphocytes # 0.8 L (1.0-4.8) k/uL Monocytes # 0.6 (0-1.0) k/uL Eosinophils # 0.7 (0-0.7) k/uL Basophils # 0.1 (0-0.2) k/uL Manual Slide Review Performed Polychromasia Present Hypochromasia Slight Anisocytosis Slight Macrocytosis Marked A PT 11.1 (9.0-12.0) sec INR 1.1 (<1.2) APTT 24.4 (22.0-30.0) sec Sodium 140 (137-145) mmol/L Potassium 4.8 (3.5-5.1) mmol/L Chloride 108 H (98-107) mmol/L Carbon Dioxide 28 (22-30) mmol/L Anion Gap 4 mmol/L BUN 18 (9-20) mg/dL Creatinine 0.53 L (0.66-1.25) mg/dL Est GFR (CKD-EPI)AfAm >90 (>60 ml/min/1.73 sqM) Est GFR (CKD-EPI)NonAf >90 (>60 ml/min/1.73 sqM) Glucose 108 H (74-99) mg/dL Calcium 8.1 L (8.4-10.2) mg/dL Phosphorus 3.0 (2.5-4.5) mg/dL Magnesium 2.1 (1.6-2.3) mg/dL Total Bilirubin 0.9 (0.2-1.3) mg/dL AST 61 H (17-59) U/L ALT 24 (4-49) U/L Alkaline Phosphatase 397 H (38-126) U/L Creatine Kinase 28 L (55-170) U/L Troponin I (0.000-0.034) ng/mL NT-Pro-B Natriuret Pep pg/mL Total Protein 6.2 L (6.3-8.2) g/dL Albumin 2.3 L (3.5-5.0) g/dL 02/15/20 02/15/20 Range/Units 14:21 14:21 WBC (3.8-10.6) k/uL RBC (4.30-5.90) m/uL Hgb (13.0-17.5) gm/dL Hct (39.0-53.0) % MCV (80.0-100.0) fL MCH (25.0-35.0) pg MCHC (31.0-37.0) g/dL RDW (11.5-15.5) % Plt Count (150-450) k/uL Neutrophils % % Lymphocytes % % Monocytes % % Eosinophils % % Basophils % % Neutrophils # (1.3-7.7) k/uL Lymphocytes # (1.0-4.8) k/uL Monocytes # (0-1.0) k/uL Eosinophils # (0-0.7) k/uL Basophils # (0-0.2) k/uL Manual Slide Review Polychromasia Hypochromasia Anisocytosis Macrocytosis PT (9.0-12.0) sec INR (<1.2) APTT (22.0-30.0) sec Sodium (137-145) mmol/L Potassium (3.5-5.1) mmol/L Chloride (98-107) mmol/L Carbon Dioxide (22-30) mmol/L Anion Gap mmol/L BUN (9-20) mg/dL Creatinine (0.66-1.25) mg/dL Est GFR (CKD-EPI)AfAm (>60 ml/min/1.73 sqM) Est GFR (CKD-EPI)NonAf (>60 ml/min/1.73 sqM) Glucose (74-99) mg/dL Calcium (8.4-10.2) mg/dL Phosphorus (2.5-4.5) mg/dL Magnesium (1.6-2.3) mg/dL Total Bilirubin (0.2-1.3) mg/dL AST (17-59) U/L ALT (4-49) U/L Alkaline Phosphatase (38-126) U/L Creatine Kinase (55-170) U/L Troponin I <0.012 (0.000-0.034) ng/mL NT-Pro-B Natriuret Pep 1810 pg/mL Total Protein (6.3-8.2) g/dL Albumin (3.5-5.0) g/dL - Radiology Data Radiology results: report reviewed (X-ray abdominal series with ileus), image reviewed Disposition Clinical Impression: Abdominal pain, Abdominal distention Disposition: HOME SELF-CARE Condition: Good Instructions (If sedation given, give patient instructions): Abdominal Pain (ED) Is patient prescribed a controlled substance at d/c from ED?: No Referrals: Brian Em MD [Primary Care Provider] - 1-2 days
--- NOTE | 2020-02-15 14:42 | XR ---
EXAMINATION TYPE: XR abdomen acute w cxr DATE OF EXAM: 02/15/2020 COMPARISON: 02/10/2020 HISTORY: Pain TECHNIQUE: Supine, upright, and left side down lateral decubitus views of the abdomen are obtained. FINDINGS: There is a displaced chronic fracture of the right humerus. There is blunting of right cost ophrenic angle coarsened interstitium with right upper lobe consolidation. Underlying mass not exclud ed. Postoperative changes seen and there is hypertrophic and degenerative changes line. Diffuse osteo penia and arthropathy of the shoulders. Surgical clips are seen in the abdomen there is a peritoneal dialysis catheter. Bowel gas pattern is nonspecific. Arthropathy of the hips and degenerative changes of the spine. Diffuse osteopenia noted. IMPRESSION: 1. Nonspecific abdomen. Few dilated bowel loops which could represent ileus or enteritis. Paucity of bowel gas in the left abdomen. Correlate clinically to exclude partial obstruction. 2. Correlate for chronic interstitial lung disease with bilateral pleural thickening or tiny effusion . There is an asymmetric area of patchy infiltrate in the right upper lobe stable from the recent x-r ay of 02/10/2020
[2020-02-15 14:46] LABS: ALT 24 U/L (4-49); AST 61 U/L (17-59); African American GFR (CKD) >90 (>60 ml/min/1.73 sqM); Albumin 2.3 g/dL (3.5-5.0); Alkaline Phosphatase 397 U/L (38-126); Anion Gap 4 mmol/L; Blood Urea Nitrogen 18 mg/dL (9-20); Calcium 8.1 mg/dL (8.4-10.2); Carbon Dioxide 28 mmol/L (22-30); Chloride 108 mmol/L (98-107); Creatine Kinase 28 U/L (55-170); Glucose 108 mg/dL (74-99); INR 1.1 (<1.2); Magnesium 2.1 mg/dL (1.6-2.3); Non-African American GFR(CKD) >90 (>60 ml/min/1.73 sqM); Partial Thromboplastin Time 24.4 sec (22.0-30.0); Potassium 4.8 mmol/L (3.5-5.1); Prothrombin Time 11.1 sec (9.0-12.0); Sodium 140 mmol/L (137-145); Total Bilirubin 0.9 mg/dL (0.2-1.3); Total Protein 6.2 g/dL (6.3-8.2)
[2020-02-15 14:49] LABS: Anisocytosis Slight; Basophils # (A) 0.1 k/uL (0-0.2); Basophils % (A) 0 %; Eosinophils # (A) 0.7 k/uL (0-0.7); Eosinophils % (A) 6 %; HCT 31.6 % (39.0-53.0); HGB 10.1 gm/dL (13.0-17.5); Hypochromasia Slight; Lymphocytes # (A) 0.8 k/uL (1.0-4.8); Lymphocytes % (A) 6 %; MCH 34.6 pg (25.0-35.0); MCHC 32.1 g/dL (31.0-37.0); MCV 107.9 fL (80.0-100.0); Macrocytosis Marked; Mean Platelet Volume 10.1; Monocytes # (A) 0.6 k/uL (0-1.0); Monocytes % (A) 5 %; Neutrophils # (A) 9.9 k/uL (1.3-7.7); Neutrophils % (A) 80 %; Platelet Count 520 k/uL (150-450); RBC 2.93 m/uL (4.30-5.90); RDW 16.8 % (11.5-15.5); WBC 12.3 k/uL (3.8-10.6)
[2020-02-15 15:12] LABS: Polychromasia Present
[2020-02-15 16:33] VITALS: RESP 18
[2020-02-15 16:45] VITALS: BP 146/81; PULSE 74
== END 2020-02-15 16:41 | disposition home or self-care (01) ==
LOC: EC 12:58
DX: R14.0 Abdominal distension (gaseous) (principal); Z79.82 Long term (current) use of aspirin; Z79.899 Other long term (current) drug therapy; Z88.6 Allergy status to analgesic agent; Z85.068 Personal history of other malignant neoplasm of small intestine; Z85.028 Personal history of other malignant neoplasm of stomach; Z87.442 Personal history of urinary calculi; Z90.81 Acquired absence of spleen; Z90.49 Acquired absence of other specified parts of digestive tract; Z90.79 Acquired absence of other genital organ(s); Z90.410 Acquired total absence of pancreas; Z93.1 Gastrostomy status
CPT/HCPCS: 36415; 74022; 80053; 82550; 83735; 83880; 84100; 84484; 85025; 85610; 85730; 93005; 96360; 99285

== ENCOUNTER 2020-02-17 04:46 | Inpatient (IN) | payer MEDICARE, OTHER ==
[2020-02-17] MEDS ORDERED: PIPERACILLIN-TAZOBACTAM 3.375 GM in SODIUM CHLORIDE 0.9% 100 ML IVPB STA (04:49)
[2020-02-17] MEDS ORDERED: VANCOMYCIN IV PER PHARMACY 1 EACH MISC MISCELLANE PRN (04:49)
[2020-02-17] MEDS ORDERED: VANCOMYCIN 1,500 MG in SODIUM CHLORIDE 0.9% 250 ML IVPB STA (04:57)
[2020-02-17] MEDS ORDERED: SODIUM CHLORIDE 0.9% 500 ML 500 ML IV SCH (05:00)
[2020-02-17] MEDS ORDERED: SODIUM CHLORIDE 0.9% 1,000 ML IV SCH (05:00)
[2020-02-17 05:21] LABS: Anisocytosis Slight; Basophils % (A) 0 %; Eosinophils # (A) 0.1 k/uL (0-0.7); Eosinophils % (A) 0 %; HCT 33.4 % (39.0-53.0); HGB 10.8 gm/dL (13.0-17.5); Hypochromasia Slight; Lymphocytes # (A) 0.5 k/uL (1.0-4.8); Lymphocytes % (A) 3 %; MCH 34.9 pg (25.0-35.0); MCHC 32.3 g/dL (31.0-37.0); MCV 107.9 fL (80.0-100.0); Mean Platelet Volume 9.9; Monocytes # (A) 0.5 k/uL (0-1.0); Monocytes % (A) 2 %; Neutrophils # (A) 19.3 k/uL (1.3-7.7); Neutrophils % (A) 94 %; Platelet Count 520 k/uL (150-450); RDW 17.1 % (11.5-15.5); WBC 20.6 k/uL (3.8-10.6)
--- NOTE | 2020-02-17 05:22 | XR ---
EXAMINATION TYPE: XR chest 1V portable DATE OF EXAM: 02/17/2020 COMPARISON: 02/15/2020 HISTORY: Fever TECHNIQUE: Single view FINDINGS: There is some diffuse predominantly interstitial infiltrate throughout the lungs. There is some coalescent density in the right upper lobe. There are chest leads. There is old ununited right h umeral neck fracture. Heart size is normal. IMPRESSION: Extensive pulmonary infiltrates unchanged compared to recent exam. This is more likely re lated to severe interstitial pneumonia.
--- NOTE | 2020-02-17 05:23 | ED ---
SOB HPI - General Stated Complaint: Diff Breathing Time Seen by Provider: 02/17/20 04:49 Source: EMS Mode of arrival: EMS Limitations: no limitations - History of Present Illness Initial Comments: Teddy is an 89 old male with a previous history of stomach cancer with a J-tube in place, patient is recent admission for sepsis secondary to aspiration pneumonia. Patient has been for group home for only a few days, apparently he vomited again yesterday aspirated he's become febrile and was noted to have some respiratory distress. Family was at bedside requesting be brought to the hospital. Patient has dementia at baseline saba usually conversed with people. Upon arrival he is tachypneic tachycardic febrile moans to painful stimuli but otherwise minimally responsive. - Related Data Home Medications Medication Instructions Recorded Confirmed Aspirin EC [Ecotrin Low Dose] 81 mg PEJ/J-TUBE DAILY 03/22/16 02/02/20 Brimonidine Tartrate [Alphagan P 1 drop BOTH EYES TID 01/09/20 02/02/20 0.2% Ophth Soln] Timolol 0.5% Ophth Soln [Timoptic 1 drop BOTH EYES BID 01/09/20 02/02/20 0.5% Ophth Soln] Acetaminophen [Acetaminophen Oral 650 mg PO Q6H PRN 02/02/20 02/02/20 Soln] L.acidoph,Paracasei, B.lactis 2 cap PEJ/J-TUBE BID 02/02/20 02/02/20 [Probiotic] Nystatin 100,000 Unit/ml Susp 5 ml PO QID 02/02/20 02/02/20 [Mycostatin Oral Susp] Previous Rx's Medication Instructions Recorded Amoxic-Pot Clav 600-42.9MG/5Ml 5 ml PO Q12H 7 Days #80 ml 02/12/20 [Augmentin 600-42.9 mg/5 ml Liquid] Metoclopramide Oral Soln [Reglan 5 mg PO Q8HR PRN #100 ml 02/12/20 Oral Soln] Nystatin 100,000 Unit/gm Powd 1 applic TOPICAL BID applic 02/12/20 [Mycostatin Powder] Pantoprazole [Protonix] 0 mg PEG/G-TUBE DAILY #30 tablet. 02/12/20 Allergies Allergy/AdvReac Type Severity Reaction Status Date / Time naproxen sodium [From Aleve] Allergy Rash/Hives Verified 02/17/20 04:54 Review of Systems ROS Statement: Those systems with pertinent positive or pertinent negative responses have been documented in the HPI. ROS Other: All systems not noted in ROS Statement are negative. Past Medical History Past Medical History: Cancer, Dementia, GERD/Reflux, Hyperlipidemia, Memory Impairment, Prostate Disorder Additional Past Medical History / Comment(s): kidney stones, urosepsis, turp - history of self-cathing 1-2 TIMES A DAY- NOT NEEDED SINCE PROSTATE SURGERY. 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 BEGINNINGS OF CATARACTS, HIATAL HERNIA, SHINGLES 2000, FRACTURED RIGHT SHOULDER MAY 2019, dysphagia/feeding tube placement 01/16/20 History of Any Multi-Drug Resistant Organisms: None Reported Past Surgical History: Bowel Resection, Cholecystectomy, Coronary Bypass/CABG, Hernia Repair, Orthopedic Surgery, Prostate Surgery Additional Past Surgical History / Comment(s): spleenectomy, TURP, GADIEL INGUINAL HERNIAS,"WHIPPLE PROCEDURE", RT ROTATOR CUFF REPAIR, LITHOTRISY, J-tube ritesh cement 01/16/20 Past Anesthesia/Blood Transfusion Reactions: No Reported Reaction Past Psychological History: No Psychological Hx Reported Smoking Status: Never smoker Past Alcohol Use History: None Reported Past Drug Use History: None Reported - Past Family History Father Family Medical History: Cancer Additional Family Medical History / Comment(s): CANCER OF THE ESOPHAGUS Mother Additional Family Medical History / Comment(s): OF OLD AGE Brother(s) Family Medical History: Cancer Additional Family Medical History / Comment(s): esophagus cancer, pancreatic cancer Sister(s) Family Medical History: Cancer Additional Family Medical History / Comment(s): pancreatic cancer Daughter(s) Additional Family Medical History / Comment(s): intestinal issues with resection Son(s) Family Medical History: No Reported History General Exam - General Exam Comments Initial Comments: Physical Exam GENERAL: Chronically ill-appearing elderly gentleman in acute respiratory distress HENT: Normocephalic, Atraumatic. EYES: PERRL, EOMI PULMONARY: Tachypnea Very wet breath sounds however patient does not have the strength to cough CARDIOVASCULAR: Tachycardia ABDOMEN: J-tube in place, noted to have some infection around the base SKIN: Thin skin with multiple bruises on the extremities : Normal external genitalia NEUROLOGIC: GCS 8 (Eye 2, Verbal 2, Motor 4) MUSCULOSKELETAL: edema of the right upper extremity consistent with unhealed humerus fracture PSYCHIATRIC: unable to assess secondary to severity of condition Limitations: no limitations Course Vital Signs 02/17/20 02/17/20 02/17/20 04:46 05:25 05:52 Temperature 102.1 F H 100.5 F H Pulse Rate 124 H 118 H 113 H Respiratory 36 H 32 H 30 H Rate Blood Pressure 119/79 132/65 O2 Sat by Pulse 96 97 97 Oximetry Medical Decision Making - Medical Decision Making The patient was seen and evaluated immediately upon arrival to the emergency department A sepsis workup was initiated Patient has a signed DO NOT RESUSCITATE however EMS reported the family wanted everything done at the group home Patient's and daughter arrived at bedside, patient's care was discussed with them. They do wish to respect the patient's DO NOT RESUSCITATE as far as not having them placed on any ventilators or have any resuscitation or dependence on machines for life however they do want aggressive IV fluids antibiotics and anything that could help make him more comfortable. Daughter states that they met with hospice last week and were told that with hospice he would withdraw to feedings which didn't want to do so they declined to enrolled in hospice. Daughter states that the family is open to enrollment in palliative medicine however didn't have the opportunity to meet with them as of yet Patient's labs are consistent with sepsis Chest x-ray with persistent aspiration pneumonia Broad spectrum antibiotics ordered In the patient's history of edema and heart failure gentle IV fluids were ordered there's concern that an aggressive IV fluids would cause pulmonary edema worsening his respiratory status and considering that the patient is not a candidate for BiPAP due to mental status and not a candidate to intubation due to CODE STATUS I do not want to be aggressive with these fluids Family is aware patient's worsening labs and condition Patient will be admitted for sepsis secondary to aspiration pneumonia with the plan for consultation a palliative - Lab Data Result diagrams: 02/17/20 05:09 02/17/20 05:09 Lab Results 02/17/20 02/17/20 02/17/20 Range/Units 05:09 05:09 05:09 WBC 20.6 H (3.8-10.6) k/uL RBC 3.10 L (4.30-5.90) m/uL Hgb 10.8 L (13.0-17.5) gm/dL Hct 33.4 L (39.0-53.0) % MCV 107.9 H (80.0-100.0) fL MCH 34.9 (25.0-35.0) pg MCHC 32.3 (31.0-37.0) g/dL RDW 17.1 H (11.5-15.5) % Plt Count 520 H (150-450) k/uL Neutrophils % 94 % Lymphocytes % 3 % Monocytes % 2 % Eosinophils % 0 % Basophils % 0 % Neutrophils # 19.3 H (1.3-7.7) k/uL Lymphocytes # 0.5 L (1.0-4.8) k/uL Monocytes # 0.5 (0-1.0) k/uL Eosinophils # 0.1 (0-0.7) k/uL Basophils # 0.0 (0-0.2) k/uL Hypochromasia Slight Anisocytosis Slight Macrocytosis Marked A PT 11.9 (9.0-12.0) sec INR 1.2 H (<1.2) APTT 25.3 (22.0-30.0) sec Sodium 140 (137-145) mmol/L Potassium 3.8 (3.5-5.1) mmol/L Chloride 109 H (98-107) mmol/L Carbon Dioxide 23 (22-30) mmol/L Anion Gap 8 mmol/L BUN 19 (9-20) mg/dL Creatinine 0.75 (0.66-1.25) mg/dL Est GFR (CKD-EPI)AfAm >90 (>60 ml/min/1.73 sqM) Est GFR (CKD-EPI)NonAf 83 (>60 ml/min/1.73 sqM) Glucose 113 H (74-99) mg/dL Plasma Lactic Acid Brian (0.7-2.0) mmol/L Calcium 8.1 L (8.4-10.2) mg/dL Total Bilirubin 1.5 H (0.2-1.3) mg/dL AST 70 H (17-59) U/L ALT 24 (4-49) U/L Alkaline Phosphatase 374 H (38-126) U/L Troponin I (0.000-0.034) ng/mL Total Protein 6.7 (6.3-8.2) g/dL Albumin 2.6 L (3.5-5.0) g/dL Urine Color Urine Appearance (Clear) Urine pH (5.0-8.0) Ur Specific [place] (1.001-1.035) Urine Protein (Negative) Urine Glucose (UA) (Negative) Urine Ketones (Negative) Urine Blood (Negative) Urine Nitrite (Negative) Urine Bilirubin (Negative) Urine Urobilinogen (<2.0) mg/dL Ur Leukocyte Esterase (Negative) 02/17/20 02/17/20 02/17/20 Range/Units 05:09 05:09 05:43 WBC (3.8-10.6) k/uL RBC (4.30-5.90) m/uL Hgb (13.0-17.5) gm/dL Hct (39.0-53.0) % MCV (80.0-100.0) fL MCH (25.0-35.0) pg MCHC (31.0-37.0) g/dL RDW (11.5-15.5) % Plt Count (150-450) k/uL Neutrophils % % Lymphocytes % % Monocytes % % Eosinophils % % Basophils % % Neutrophils # (1.3-7.7) k/uL Lymphocytes # (1.0-4.8) k/uL Monocytes # (0-1.0) k/uL Eosinophils # (0-0.7) k/uL Basophils # (0-0.2) k/uL Hypochromasia Anisocytosis Macrocytosis PT (9.0-12.0) sec INR (<1.2) APTT (22.0-30.0) sec Sodium (137-145) mmol/L Potassium (3.5-5.1) mmol/L Chloride (98-107) mmol/L Carbon Dioxide (22-30) mmol/L Anion Gap mmol/L BUN (9-20) mg/dL Creatinine (0.66-1.25) mg/dL Est GFR (CKD-EPI)AfAm (>60 ml/min/1.73 sqM) Est GFR (CKD-EPI)NonAf (>60 ml/min/1.73 sqM) Glucose (74-99) mg/dL Plasma Lactic Acid Brian 4.3 H* (0.7-2.0) mmol/L Calcium (8.4-10.2) mg/dL Total Bilirubin (0.2-1.3) mg/dL AST (17-59) U/L ALT (4-49) U/L Alkaline Phosphatase (38-126) U/L Troponin I 0.385 H* (0.000-0.034) ng/mL Total Protein (6.3-8.2) g/dL Albumin (3.5-5.0) g/dL Urine Color Yellow Urine Appearance Clear (Clear) Urine pH 7.0 (5.0-8.0) Ur Specific [place] 1.012 (1.001-1.035) Urine Protein Negative (Negative) Urine Glucose (UA) Negative (Negative) Urine Ketones Negative (Negative) Urine Blood Negative (Negative) Urine Nitrite Negative (Negative) Urine Bilirubin Negative (Negative) Urine Urobilinogen <2.0 (<2.0) mg/dL Ur Leukocyte Esterase Negative (Negative) Critical Care Time Critical Care Time: Yes Total Critical Care Time: 30 Critical Care Time: Critical Care Time Critical care time was exclusive of separately billable procedures and treating other patients and teaching time. Critical care was necessary to treat or prevent imminent or life-threatening deterioration. Given the critical condition in which the patient arrived, the patient was immediately assessed by myself and the nurse, and cardiac monitoring initiated due to the potential for rapid decompensation of the patient's clinical condition. During the course of the patients stay, I spent a considerable amount of time at the bedside performing serial re-evaluations of the patient's hemodynamic and clinical status because of the recognized potential threat to life or limb in this condition. I then had a chance to review not only all of the available current laboratory and radiographic studies obtained today, but I also reviewed old records available to me at the time. Additionally, any ancillary information available including rough rice tender records were reviewed. Sequential vital signs were obtained. Disposition Clinical Impression: Sepsis, Dementia, Aspiration pneumonia Disposition: ADMITTED IP TO THIS HOSP Condition: Critical Referrals: Brian Em MD [Primary Care Provider] - 1-2 days
[2020-02-17 05:29] LABS: Macrocytosis Marked
[2020-02-17 05:30] LABS: ALT 24 U/L (4-49); AST 70 U/L (17-59); African American GFR (CKD) >90 (>60 ml/min/1.73 sqM); Albumin 2.6 g/dL (3.5-5.0); Alkaline Phosphatase 374 U/L (38-126); Anion Gap 8 mmol/L; Blood Urea Nitrogen 19 mg/dL (9-20); Calcium 8.1 mg/dL (8.4-10.2); Carbon Dioxide 23 mmol/L (22-30); Chloride 109 mmol/L (98-107); Glucose 113 mg/dL (74-99); Non-African American GFR(CKD) 83 (>60 ml/min/1.73 sqM); Potassium 3.8 mmol/L (3.5-5.1); Sodium 140 mmol/L (137-145); Total Bilirubin 1.5 mg/dL (0.2-1.3); Total Protein 6.7 g/dL (6.3-8.2)
[2020-02-17 05:42] LABS: INR 1.2 (<1.2); Partial Thromboplastin Time 25.3 sec (22.0-30.0); Prothrombin Time 11.9 sec (9.0-12.0)
[2020-02-17 06:00] LABS: Appearance,Urine Clear (Clear); Bilirubin,Urine Negative (Negative); Blood,Urine Negative (Negative); Color,Urine Yellow; Glucose,Urine (UA) Negative (Negative); Ketones,Urine Negative (Negative); Leukocyte Esterase,Urine Negative (Negative); Nitrite,Urine Negative (Negative); Protein,Urine Negative (Negative); Specific Gravity,Urine 1.012 (1.001-1.035); Urobilinogen,Urine <2.0 mg/dL (<2.0)
[2020-02-17] MEDS ORDERED: NALOXONE 0.4 MG/ML 1 ML VIAL IV PRN (06:02)
[2020-02-17 11:36] VITALS: BP 112/55; PULSE 105; RESP 20; TEMP 100.1
[2020-02-17 12:04] LABS: Glucose,Whole Blood 117 mg/dL (75-99)
--- NOTE | 2020-02-17 16:52 | HP ---
HISTORY AND PHYSICAL DATE OF SERVICE: 02/17/2020 CHIEF COMPLAINT: Shortness of breath. HISTORY OF PRESENT ILLNESS: This is an 89-year-old gentleman with a past history of dementia, GERD, hyperlipidemia, history of memory impairment, history of nephrolithiasis, history of CAD, CABG, was recently admitted with head trauma and possible concussion. Subsequently, patient developed significant aspiration pneumonia and the patient was sent to rehab. In the rehab, the patient developed shortness of breath and possible development of some aspiration. Patient taken to [facility] and admitted for evaluation and treatment. Currently the patient is unresponsive. Patient extremely short of breath. The patient is saturating only low 90s on 15 L of nasal cannula. Chest x-ray showed bilateral lesions, right more the left. Patient being closely monitored at this time. Patient unable to give a coherent history. Most of the history taken from my discussion with staff, discussed with family members and review of chart at this time. PAST MEDICAL HISTORY: History of recent concussion, history of previous aspiration pneumonia, dysphagia, history of dementia, history of hyperlipidemia, history of prostate cancer, history of sepsis, TURPs, history of spherocytosis. MEDICATIONS: Prior to admission include: Home medications are: 1. Nystatin p.r.n. per PEG. 2. Reglan. 3. Timolol. 4. Alphagan. 5. Augmentin. 6. Aspirin. 7. Omeprazole. ALLERGIES: NAPROSYN. FAMILY HISTORY: History of CA esophagus in the family. SOCIAL HISTORY: No history of smoking. No history alcohol. Review of systems could not be taken, the patient is unresponsive at this time. PHYSICAL EXAM: Pulse is 105, blood pressure 112/50, respiration 20, temperature 100.1, pulse ox 98% on 50% non-rebreather. HEENT: Conjunctivae normal. NECK: No JVD. CARDIOVASCULAR SYSTEM: S1, S2 muffled. RESPIRATORY SYSTEM: Breath sounds diminished at the bases. Bilateral scattered rhonchi and crackles. ABDOMEN: Soft, nontender. No mass palpable. LEGS: No edema. No swelling. NERVOUS SYSTEM: Diffusely weak. Nervous system could not be examined. SKIN: No ulcers, rashes or bleeding. JOINTS: No active deforming arthropathy. LABS: Troponin 0.768, plasma lactic acid 3.2. WBC 20.6, and total bilirubin is 1.5. ASSESSMENT: 1. Acute bilateral aspiration pneumonia, right more the left with possible sepsis and acute hypoxic respiratory failure on nonrebreather mask. 2. Change in mental status, metabolic encephalopathy acute on chronic. 3. Increased WBC. 4. Anemia. 5. Elevated lactic acid from sepsis. 6. Elevated bilirubin from sepsis. 7. Troponin 0.768. Possible type 2 myocardial infarction. 8. History of dementia. 9. History of gastroesophageal reflux disease. 10.History of recent cerebral concussion. 11.History of PEG tube. 12.Hyperlipidemia. 13.History of aspiration pneumonia. 14.History of nephrolithiasis. 15.History of bowel resection. 16.History of coronary artery disease, CABG. 17.History of splenectomy for spherocytosis. 18.History of TURP. 19.Bilateral inguinal hernia. 20.NO CODE, NO CPR, NO VENT. RECOMMENDATIONS AND DISCUSSION: In this 89-year-old gentleman who presented with multiple complex medical issues, I had a detailed discussion with the family. The patient's condition worsening because of aspiration pneumonia and complex medical issues as listed above. At this time, the family would like to make the patient comfortable and go with comfort measures. I would recommend hospice consultation and morphine for comfort. Ativan p.r.n. Otherwise, continue protocol. Prognosis extremely guarded because of multiple complex medical issues. Further recommendations to follow. The patient is followed by Dr. Thorne in the outpatient setting. MONAE / NIKKI: [id number] /
[2020-02-17] MEDS ORDERED: VANCOMYCIN 1,500 MG in SODIUM CHLORIDE 0.9% 250 ML IVPB SCH (18:00)
== END 2020-02-17 16:57 | disposition hospice, home (50) | DRG 871 ==
LOC: EC 04:46 → 3SCARD 06:08
PROVIDERS: ADMIT Hospitalist; ATTEND Hospitalist
DX: A41.9 Sepsis, unspecified organism (principal); J69.0 Pneumonitis due to inhalation of food and vomit; J96.01 Acute respiratory failure with hypoxia; G93.41 Metabolic encephalopathy; I21.A1 Myocardial infarction type 2; F03.90 Unspecified dementia, unspecified severity, without behavioral disturbance, psychotic disturbance, mood disturbance, and anxiety; K21.9 Gastro-esophageal reflux disease without esophagitis; E78.5 Hyperlipidemia, unspecified; Z66 Do not resuscitate; I25.10 Atherosclerotic heart disease of native coronary artery without angina pectoris; D64.9 Anemia, unspecified; K40.20 Bilateral inguinal hernia, without obstruction or gangrene, not specified as recurrent; Z51.5 Encounter for palliative care; Z20.828 Contact with and (suspected) exposure to other viral communicable diseases; Z87.442 Personal history of urinary calculi; Z85.068 Personal history of other malignant neoplasm of small intestine; Z79.82 Long term (current) use of aspirin; Z88.8 Allergy status to other drugs, medicaments and biological substances; Z85.028 Personal history of other malignant neoplasm of stomach; Z87.01 Personal history of pneumonia (recurrent); Z90.49 Acquired absence of other specified parts of digestive tract; Z95.1 Presence of aortocoronary bypass graft; Z90.81 Acquired absence of spleen; Z98.890 Other specified postprocedural states; Z80.0 Family history of malignant neoplasm of digestive organs; Z93.1 Gastrostomy status; Z85.46 Personal history of malignant neoplasm of prostate; Z90.79 Acquired absence of other genital organ(s)
CPT/HCPCS: 36415; 51701; 71045; 80053; 81003; 83605; 84484; 85025; 85610; 85730; 87040; 93005; 96361; 96365; 99291

== ENCOUNTER 2020-02-17 16:41 | Inpatient (IN) | payer MEDICAID ==
[2020-02-17] MEDS ORDERED: ACETAMINOPHEN SUPPOSITORY 650 MG SUPP RECTAL PRN (16:44)
[2020-02-17] MEDS ORDERED: ONDANSETRON 4 MG/2 ML VIAL IVP PRN (16:53)
[2020-02-17] MEDS ORDERED: SCOPOLAMINE 1.5MG/72HR PATCH TRANSDERM SCH (17:00)
[2020-02-17] MEDS: MORPHINE SULFATE 4 MG/ML SYRINGE IV PRN ×3 (17:34→22:23)
[2020-02-17] MEDS: ATROPINE OPHTH SOLN 1% 5ML BTL SUBLINGUAL PRN (20:58)
[2020-02-18] MEDS: ATROPINE OPHTH SOLN 1% 5ML BTL SUBLINGUAL PRN ×3 (06:26→20:37)
[2020-02-18] MEDS: MORPHINE SULFATE 4 MG/ML SYRINGE IV PRN ×3 (09:06→17:40)
--- NOTE | 2020-02-18 17:40 | PN ---
PROGRESS NOTE DATE OF SERVICE: 02/18/2020 This 89-year-old gentleman admitted with recurrent aspiration and acute hypoxic respiratory failure is being closely monitored. The patient is on hospice care at this time. The patient is on p.r.n. morphine. On exam, the patient is stuporous. Pulse 28. HEENT: Conjunctivae normal. Oral mucosa moist. NECK: No jugular venous distention. CARDIOVASCULAR SYSTEM: S1, S2 muffled. RESPIRATORY SYSTEM: Breath sounds diminished at the bases. A few scattered rhonchi and crackles. Coarse crackles present. ABDOMEN: Soft, non-tender. NERVOUS SYSTEM: Patient is sedated. Labs are not available. ASSESSMENT: 1. Acute bilateral aspiration pneumonia, right more the left, with possible sepsis and acute hypoxic respiratory failure, present on admission, on non-rebreather mask. 2. Change in mental status, metabolic encephalopathy, acute on chronic. 3. Increased white count. 4. Anemia. 5. History of previous recurrent aspiration pneumonia. 6. Elevated lactic acid with some sepsis. 7. Elevated bilirubin from sepsis. 8. Troponin 0.768, possible type 2 myocardial infarction. 9. History of dementia. 10.Gastroesophageal reflux disease. 11.History of recent cerebral concussion. 12.History of PEG tube. 13.Hyperlipidemia. 14.History of nephrolithiasis. 15.History of bowel resection. 16.History of coronary artery disease, coronary artery bypass grafting. 17.History of splenectomy for spherocytosis. 18.History of transurethral resection of prostate. 19.Bilateral inguinal hernia. 20.NO CODE, NO CPR, NO VENT. RECOMMENDATIONS AND DISCUSSION: I recommend to continue current medications, continue with the morphine. The patient is comfortable. Small dose of morphine drip may be given. Discussed with the family. Prognosis guarded. Further recommendations to follow. MMODL / IJN: [id number] /
[2020-02-19] MEDS: ATROPINE OPHTH SOLN 1% 5ML BTL SUBLINGUAL PRN (03:25)
[2020-02-19] MEDS: LORazepam 2 MG/ML INJ IV PRN ×4 (03:35→20:55)
[2020-02-19] MEDS: MORPHINE SULFATE 4 MG/ML SYRINGE IV PRN ×2 (06:39→09:16)
[2020-02-19 06:41] VITALS: PULSE 150
[2020-02-19 06:47] VITALS: TEMP 101.3
--- NOTE | 2020-02-19 11:03 | P.HPIM ---
History of Present Illness 89-year-old the poorly functional patient with recent J-tube placement Pneumonia get cardiac readmitted the following day with aspiration pneumonia and severe sepsis. A since his extreme poor functionality multiple rehospitalizations after discussion with the family patient was made hospice and patient is presently inpatient hospice and is comfortable now Review of Systems Unable to obtain Past Medical History Past Medical History: Cancer, Dementia, GERD/Reflux, Hyperlipidemia, Memory Impairment, Prostate Disorder Additional Past Medical History / Comment(s): kidney stones, urosepsis, turp - history of self-cathing 1-2 TIMES A DAY- NOT NEEDED SINCE PROSTATE SURGERY. 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 BEGINNINGS OF CATARACTS, HIATAL HERNIA, SHINGLES 2000, FRACTURED RIGHT SHOULDER MAY 2019, dysphagia/feeding tube placement 01/16/20 History of Any Multi-Drug Resistant Organisms: None Reported Past Surgical History: Bowel Resection, Cholecystectomy, Coronary Bypass/CABG, Hernia Repair, Orthopedic Surgery, Prostate Surgery Additional Past Surgical History / Comment(s): spleenectomy, TURP, GADIEL INGUINAL HERNIAS,"WHIPPLE PROCEDURE", RT ROTATOR CUFF REPAIR, LITHOTRISY, J-tube placement 01/16/20 Past Anesthesia/Blood Transfusion Reactions: No Reported Reaction Past Psychological History: No Psychological Hx Reported Smoking Status: Never smoker Past Alcohol Use History: None Reported Past Drug Use History: None Reported - Past Family History Father Family Medical History: Cancer Additional Family Medical History / Comment(s): CANCER OF THE ESOPHAGUS Mother Additional Family Medical History / Comment(s): OF OLD AGE Brother(s) Family Medical History: Cancer Additional Family Medical History / Comment(s): esophagus cancer, pancreatic cancer Sister(s) Family Medical History: Cancer Additional Family Medical History / Comment(s): pancreatic cancer Daughter(s) Additional Family Medical History / Comment(s): intestinal issues with resection Son(s) Family Medical History: No Reported History Medications and Allergies Home Medications Medication Instructions Recorded Confirmed Type Aspirin EC [Ecotrin Low Dose] 81 mg PEJ/J-TUBE DAILY@0700 08/16 02/17/20 History Brimonidine Tartrate [Alphagan P 1 drop BOTH EYES TID@0700,1300,1900 01/09/20 02/17/20 History 0.2% Ophth Soln] Timolol 0.5% Ophth Soln [Timoptic 1 drop BOTH EYES BID@0700,1600 01/09/20 02/17/20 History 0.5% Ophth Soln] Acetaminophen [Acetaminophen Oral 650 mg PEJ/J-TUBE Q6H PRN 02/02/20 02/17/20 History Soln] Nystatin 100,000 Unit/ml Susp 5 ml PEJ/J-TUBE QID 02/02/20 02/17/20 History [Mycostatin Oral Susp] Amoxic-Pot Clav 600-42.9MG/5Ml 5 ml PEJ/J-TUBE BID@0700,1900 02/17/20 02/17/20 History [Augmentin 600-42.9 mg/5 ml Liquid] Metoclopramide Oral Soln [Reglan 5 mg PEJ/J-TUBE Q8HR PRN 02/17/20 02/17/20 History Oral Soln] Omeprazole Magnesium [PriLOSEC 40 mg PEJ/J-TUBE DAILY 02/17/20 02/17/20 History Oral Susp] Allergies Allergy/AdvReac Type Severity Reaction Status Date / Time naproxen sodium [From Aleve] Allergy Rash/Hives Verified 02/17/20 18:24 Physical Exam Vitals: Vital Signs Temp Pulse Resp 02/19/20 08:00 150 H 28 H 02/19/20 06:46 101.3 F H 02/19/20 06:40 150 H 28 H 02/19/20 04:00 22 02/19/20 00:10 26 H 02/18/20 20:00 28 H 02/18/20 15:19 29 H 02/18/20 12:00 28 H Intake and Output 02/18/20 02/19/20 02/19/20 22:59 06:59 14:59 Intake Total 0 0 Output Total 460 Balance 0 -460 Intake: Oral 0 0 Output: Urine 460 Other: Voiding Method Indwelling Catheter Indwelling Catheter Indwelling Catheter Weight 77.5 kg PHYSICAL EXAMINATION: General: Patient is laying comfortably in the bed barely arousable PULMONARY: She has diffuse bilateral rhonchi ABDOMEN: Soft, nontender, nondistended, normoactive bowel sounds. No palpable organomegaly. MUSCULOSKELETAL: No joint swelling or deformity. EXTREMITIES: No cyanosis, clubbing, or pedal edema. NEUROLOGICAL: Unable to assess SKIN: No rashes. Assessment and Plan Plan: Sepsis secondary to aspiration pneumonia: Patient has multiple aspirations patient is presently comfort care -Rest of the medical problems and has positional course please refer to the progress note from Dr. Godoy
[2020-02-19] MEDS ORDERED: MORPHINE SULFATE (100 MG/2 ML) 100 MG in SODIUM CHLORIDE 0.9% 100 ML IV SCH (11:30)
--- NOTE | 2020-02-20 13:43 | P.DS ---
Providers Date of admission: 02/17/20 16:58 Attending physician: Usha Godoy Primary care physician: Stated None Hospital Course: 89-year-old the poorly functional patient with recent J-tube placement Pneumonia get cardiac readmitted the following day with aspiration pneumonia and severe sepsis. A since his extreme poor functionality multiple rehospitalizations after discussion with the family patient was made hospice and patient is presently inpatient hospice and is comfortable now. 02/20/2020 Patient was comfortable was on IV morphine drip today. Please refer to nursing documentation for exact time of . Pulmonary cause of aspiration pneumonia sepsis that patient has dysphagia secondary to neurological dysfunction Plan - Discharge Summary New Discharge Prescriptions: No Action Aspirin EC [Ecotrin Low Dose] 81 mg PEJ/J-TUBE DAILY@0700 Timolol 0.5% Ophth Soln [Timoptic 0.5% Ophth Soln] 1 drop BOTH EYES BID@0700,1600 Brimonidine Tartrate [Alphagan P 0.2% Ophth Soln] 1 drop BOTH EYES TID@0700,1300,1900 Acetaminophen [Acetaminophen Oral Soln] 650 mg PEJ/J-TUBE Q6H PRN PRN Reason: PAIN/FEVER Nystatin 100,000 Unit/ml Susp [Mycostatin Oral Susp] 5 ml PEJ/J-TUBE QID Amoxic-Pot Clav 600-42.9MG/5Ml [Augmentin 600-42.9 mg/5 ml Liquid] 5 ml PEJ/J-TUBE BID@0700,1900 Omeprazole Magnesium [PriLOSEC Oral Susp] 40 mg PEJ/J-TUBE DAILY Metoclopramide Oral Soln [Reglan Oral Soln] 5 mg PEJ/J-TUBE Q8HR PRN PRN Reason: Gi Upset Discharge Medication List Aspirin EC [Ecotrin Low Dose] 81 mg PEJ/J-TUBE DAILY@0700 03/22/16 [History] Brimonidine Tartrate [Alphagan P 0.2% Ophth Soln] 1 drop BOTH EYES TID@0700,1300,1900 01/09/20 [History] Timolol 0.5% Ophth Soln [Timoptic 0.5% Ophth Soln] 1 drop BOTH EYES BID@0700,1600 01/09/20 [History] Acetaminophen [Acetaminophen Oral Soln] 650 mg PEJ/J-TUBE Q6H PRN 02/02/20 [History] Nystatin 100,000 Unit/ml Susp [Mycostatin Oral Susp] 5 ml PEJ/J-TUBE QID 02/02/20 [History] Amoxic-Pot Clav 600-42.9MG/5Ml [Augmentin 600-42.9 mg/5 ml Liquid] 5 ml PEJ/J- TUBE BID@0700,1900 02/17/20 [History] Metoclopramide Oral Soln [Reglan Oral Soln] 5 mg PEJ/J-TUBE Q8HR PRN 02/17/20 [History] Omeprazole Magnesium [PriLOSEC Oral Susp] 40 mg PEJ/J-TUBE DAILY 02/17/20 [History]
[2020-02-21] MEDS ORDERED: CLOPIDOGREL 75 MG TAB ONE (10:17)
[2020-02-21] MEDS ORDERED: ASPIRIN 81 MG ONE (10:17)
[2020-02-22 07:40] VITALS: RESP 16
== END 2020-02-20 16:00 | disposition expired | DRG 951 ==
LOC: 3SCARD 16:58
PROVIDERS: ADMIT Hospitalist; ATTEND Hospitalist
DX: Z51.5 Encounter for palliative care (principal); A41.9 Sepsis, unspecified organism; G93.41 Metabolic encephalopathy; J69.0 Pneumonitis due to inhalation of food and vomit; R65.20 Severe sepsis without septic shock; J96.01 Acute respiratory failure with hypoxia; D64.9 Anemia, unspecified; E78.5 Hyperlipidemia, unspecified; F03.90 Unspecified dementia, unspecified severity, without behavioral disturbance, psychotic disturbance, mood disturbance, and anxiety; I25.10 Atherosclerotic heart disease of native coronary artery without angina pectoris; K21.9 Gastro-esophageal reflux disease without esophagitis; K40.20 Bilateral inguinal hernia, without obstruction or gangrene, not specified as recurrent; R13.10 Dysphagia, unspecified; E80.6 Other disorders of bilirubin metabolism; Z79.82 Long term (current) use of aspirin; Z80.0 Family history of malignant neoplasm of digestive organs; Z85.068 Personal history of other malignant neoplasm of small intestine; Z87.442 Personal history of urinary calculi; Z90.49 Acquired absence of other specified parts of digestive tract; Z90.79 Acquired absence of other genital organ(s); Z90.81 Acquired absence of spleen; Z93.1 Gastrostomy status; Z95.1 Presence of aortocoronary bypass graft